=== PATIENT | female | born 1970 | race Caucasian/White ===

== ENCOUNTER 2020-10-09 08:40 | Outpatient (REF) | payer OTHER, SELFPAY ==
--- NOTE | 2020-10-09 08:44 | XR_ITS ---
EXAMINATION: XR CHEST CLINICAL INFORMATION: Shortness of breath COMPARISON: Chest radiographs 02/08/2018 TECHNIQUE: 2 views of the chest were obtained. FINDINGS: There is fine linear scar left lateral base similar to prior study 2018. There is no airspace consolidation or definite groundglass opacity. No effusion. The costophrenic sulci are clear. The heart is normal in size. The hilar and mediastinal contours are unremarkable. There are spinal stimulator electrode seen lower thoracic spine. XR/XR chest 2V IMPRESSION: Unremarkable examination.
== END 2020-10-09 08:41 | disposition home or self-care (01) ==
LOC: HO.HMGCX 08:40
PROVIDERS: PCP Internal Medicine; Visit Provider Hospitalist
DX: R06.02 Shortness of breath (principal)
CPT/HCPCS: 71046

== ENCOUNTER → 2020-12-04 08:41 | Outpatient (BNVA) | payer OTHER, SELFPAY | PROVIDERS: Visit Provider Physician Assistant | DX: M75.101 Unspecified rotator cuff tear or rupture of right shoulder, not specified as traumatic (principal); M79.7 Fibromyalgia; Z79.899 Other long term (current) drug therapy | CPT/HCPCS: 20610; 99212; J1040 ==

== ENCOUNTER 2021-02-16 12:07 | Outpatient (REF) | payer OTHER, SELFPAY ==
--- NOTE | ~2021-02-16 | MM_ITS ---
EXAMINATION: MM SCREENING DIGITAL BREAST TOMOSYNTHESIS, BILATERAL CLINICAL INFORMATION: Screening. Asymptomatic. Bilateral reduction mammoplasty since prior exam 2018. The lifetime risk of breast cancer based on the Tyrer-Cuzick Model is 7%. COMPARISON: Mammography: 08/02/2019, 07/18/2017 TECHNIQUE: Digital breast tomosynthesis is performed in both the craniocaudal and mediolateral oblique views along with computer-aided detection (CAD). Synthesized 2D images are generated from the tomosynthesis. Additional exaggerated right CC view is provided. FINDINGS: There are scattered areas of fibroglandular density (ACR BI-RADS breast composition Category b). There are expected postsurgical changes consistent with the reduction mammoplasty since prior mammography 08/02/2019. There is minor scarring, bilateral breast reduced size, and scattered benign mildly coarse dystrophic calcifications and calcifications of fat necrosis. The axilla are unremarkable. There are no significant changes. MM/MM tomosynthesis screening BI IMPRESSION: No mammographic evidence of malignancy. Postsurgical changes consistent with recent reduction mammoplasty. ASSESSMENT: BI-RADS 2: Benign RECOMMENDATION: Routine annual mammography screening. This patient's information was entered into a reminder system with a target due date for their next mammogram.
== END 2021-02-16 12:08 | disposition home or self-care (01) ==
LOC: HO.MAMMO 12:07
PROVIDERS: PCP Internal Medicine; Visit Provider Internal Medicine
DX: Z12.31 Encounter for screening mammogram for malignant neoplasm of breast (principal)
CPT/HCPCS: 77063; 77067

== ENCOUNTER → 2021-02-26 10:58 | Outpatient (BNVA) | payer OTHER, SELFPAY | PROVIDERS: Visit Provider Nurse Practitioner Family | DX: G03.9 Meningitis, unspecified (principal); M62.89 Other specified disorders of muscle; Z96.89 Presence of other specified functional implants | CPT/HCPCS: 99212 ==

== ENCOUNTER 2021-03-02 09:05 | Outpatient (REF) | payer OTHER, SELFPAY ==
[2021-03-02 10:45] LABS: Hematocrit 42.6 % (37-47); Hemoglobin 13.5 g/dl (12.0-16.0); Mean Corpuscular HGB Conc 31.7 g/dl (31.0-35.0); Mean Corpuscular Hemoglobin 29.9 pg (27.0-33.0); Mean Corpuscular Volume 94.5 fL (80-98); Platelet Count 271 X10*3/uL (160-400); Red Blood Count 4.51 X10*6/uL (4.20-5.50); Red Cell Distribution Width 13.7 % (11.0-16.0); White Blood Count 8.3 X10*3/uL (4.8-10.8)
[2021-03-02 11:00] LABS: Alanine Aminotransferase 23 U/L (0-31); Albumin Level 4.4 g/dL (3.5-5.0); Alkaline Phosphatase 98 U/L (39-117); Anion Gap 16 (12-20); Aspartate Amino Transferase 16 U/L (5-31); Bilirubin Total 0.7 mg/dL (0.0-1.0); Blood Urea Nitrogen 10 mg/dL (9-16); Calcium 9.8 mg/dL (8.4-10.2); Carbon Dioxide 25 mmol/L (22-29); Chloride 103 mmol/L (96-108); Cholesterol 200 mg/dL; Estimated Glomerular Filt Rate > 60; Glucose Fasting 100 mg/dL (60-99); HDL Cholesterol 63 mg/dL; LDL Cholesterol Calculated 127 mg/dl; Potassium 4.2 mmol/L (3.3-5.1); Sodium 140 mmol/L (135-145); Total Protein 6.8 g/dL (6.5-8.0); Triglycerides 53 mg/dL
[2021-03-02 11:04] LABS: Glucose Urine UA NEG (NEG); Leukocyte Esterase Urine NEG (NEG); Nitrite Urine NEG (NEG); PH 6.5 (5.0-8.0); Urine Blood NEG (NEG); Urine Ketones NEG (NEG); Urine Protein NEG (NEG-TRACE)
[2021-03-02 11:05] LABS: Appearance Urine CLOUDY; Color Urine YELLOW
[2021-03-02 11:24] LABS: Thyroid Stimulating Hormone 0.87 uIU/mL (0.32-4.0)
== END 2021-03-02 09:06 | disposition home or self-care (01) ==
LOC: HO.LAB 09:05
PROVIDERS: PCP Internal Medicine; Visit Provider Internal Medicine
DX: Z00.00 Encounter for general adult medical examination without abnormal findings (principal); J45.909 Unspecified asthma, uncomplicated; M47.816 Spondylosis without myelopathy or radiculopathy, lumbar region
CPT/HCPCS: 36415; 80053; 80061; 81003; 84443; 85027

== ENCOUNTER → 2021-03-08 12:32 | Outpatient (BNVA) | payer OTHER, SELFPAY | PROVIDERS: PCP Internal Medicine; Visit Provider Physician Assistant | DX: M62.89 Other specified disorders of muscle (principal); S46.819A Strain of other muscles, fascia and tendons at shoulder and upper arm level, unspecified arm, initial encounter | CPT/HCPCS: 99212 ==

== ENCOUNTER → 2021-03-11 10:53 | Outpatient (BNVA) | payer OTHER, SELFPAY | PROVIDERS: PCP Internal Medicine; Visit Provider Nurse Practitioner Family ==

== ENCOUNTER → 2021-03-12 10:38 | Outpatient (BNVA) | payer OTHER, SELFPAY | PROVIDERS: PCP Internal Medicine; Visit Provider Nurse Practitioner Family | DX: G03.9 Meningitis, unspecified (principal); M62.89 Other specified disorders of muscle; Z96.89 Presence of other specified functional implants | CPT/HCPCS: 99212 ==

== ENCOUNTER → 2021-03-24 12:55 | Outpatient (BNVA) | payer OTHER, SELFPAY | PROVIDERS: PCP Internal Medicine; Visit Provider Nurse Practitioner Family | DX: G03.9 Meningitis, unspecified (principal); M62.89 Other specified disorders of muscle; Z96.89 Presence of other specified functional implants | CPT/HCPCS: 99212 ==

== ENCOUNTER 2021-04-06 08:39 | Outpatient (REF) | payer OTHER, SELFPAY | END 2021-04-06 08:40 | disposition home or self-care (01) | LOC: HO.LAB 08:39 | PROVIDERS: Visit Provider Internal Medicine | DX: Z20.822 Contact with and (suspected) exposure to COVID-19 (principal) | CPT/HCPCS: C9803; U0003; U0005 ==

== ENCOUNTER → 2021-04-21 12:54 | Outpatient (BNVA) | payer OTHER, SELFPAY | PROVIDERS: PCP Internal Medicine; Visit Provider Nurse Practitioner Family | DX: G03.9 Meningitis, unspecified (principal); M62.89 Other specified disorders of muscle; Z96.89 Presence of other specified functional implants | CPT/HCPCS: 99212 ==

== ENCOUNTER → 2021-05-20 09:51 | Outpatient (BNVA) | payer OTHER, SELFPAY | PROVIDERS: PCP Internal Medicine; Visit Provider Anesthesiology | DX: G03.9 Meningitis, unspecified (principal); M62.89 Other specified disorders of muscle; Z96.89 Presence of other specified functional implants | CPT/HCPCS: 99212 ==

== ENCOUNTER 2021-05-28 08:25 | Outpatient (REF) | payer OTHER, SELFPAY ==
--- NOTE | ~2021-05-28 | US_ITS ---
EXAMINATION: US ABDOMEN LIMITED CLINICAL INFORMATION: Right upper quadrant pain. COMPARISON: CT abdomen 04/03/2019. Ultrasound abdomen complete 04/25/2018. TECHNIQUE: Real-time imaging of the right upper quadrant abdominal viscera. FINDINGS: PANCREAS: Normal. LIVER: The liver is normal in size. The liver contour is normal. Liver echotexture is increased. No focal hepatic lesion. There is no intrahepatic biliary duct dilatation seen. GALLBLADDER: The gallbladder is physiologically distended without evidence of stones, sludge, polyps, wall thickening or pericholecystic fluid. COMMON BILE DUCT: Normal in caliber measuring 0.5 cm in diameter. RIGHT KIDNEY: Normal. No hydronephrosis. No renal calculi or focal parenchymal lesions. The kidney measures 12.0 cm in maximum dimension. FREE FLUID: None. US/US abdomen limited IMPRESSION: Echogenic liver probably representing fatty infiltration. Otherwise unremarkable exam.
== END 2021-05-28 08:26 | disposition home or self-care (01) ==
LOC: HO.HMGCX 08:25
PROVIDERS: PCP Internal Medicine; Visit Provider Internal Medicine
DX: R10.11 Right upper quadrant pain (principal)
CPT/HCPCS: 76705

== ENCOUNTER → 2021-06-11 08:25 | Outpatient (BNVA) | payer OTHER, SELFPAY | PROVIDERS: PCP Internal Medicine; Visit Provider Nurse Practitioner Family | DX: G03.9 Meningitis, unspecified (principal); M62.89 Other specified disorders of muscle; Z96.89 Presence of other specified functional implants | CPT/HCPCS: 99212 ==

== ENCOUNTER → 2021-07-09 08:21 | Outpatient (BNVA) | payer OTHER, SELFPAY | PROVIDERS: PCP Internal Medicine; Visit Provider Nurse Practitioner Family | DX: G03.9 Meningitis, unspecified (principal); M62.89 Other specified disorders of muscle; Z96.89 Presence of other specified functional implants | CPT/HCPCS: 99212 ==

== ENCOUNTER 2021-07-15 09:22 | Outpatient (REF) | payer OTHER, SELFPAY ==
--- NOTE | ~2021-07-15 | XR_ITS ---
EXAMINATION: XR THORACIC SPINE CLINICAL INFORMATION: Presence of other specified functional implants. COMPARISON: None TECHNIQUE: AP, lateral, and swimmer's views of the thoracic spine. FINDINGS: Normal vertebral body alignment. The thoracic kyphosis is maintained. No acute fracture or subluxation. No loss of vertebral body or intervertebral disc height. No lytic or blastic osseous lesion. The visualized lungs are clear. Posterior epidural catheter leads with their tips at the level of T8. XR/XR thoracic spine 2V IMPRESSION: Posterior epidural catheter leads terminating at the level of T8. No acute osseous abnormality.
== END 2021-07-15 09:23 | disposition home or self-care (01) ==
LOC: HO.XRAY 09:22
PROVIDERS: PCP Internal Medicine; Visit Provider Nurse Practitioner Family
DX: Z96.89 Presence of other specified functional implants (principal)
CPT/HCPCS: 72070

== ENCOUNTER → 2021-07-30 08:04 | Outpatient (BNVA) | payer OTHER, SELFPAY | PROVIDERS: PCP Internal Medicine; Visit Provider Nurse Practitioner Family | DX: Z51.81 Encounter for therapeutic drug level monitoring (principal); M62.89 Other specified disorders of muscle; G03.9 Meningitis, unspecified; Z96.89 Presence of other specified functional implants; V89.2XXD Person injured in unspecified motor-vehicle accident, traffic, subsequent encounter | CPT/HCPCS: 99212 ==

== ENCOUNTER 2021-08-13 18:11 | Outpatient (REF) | payer OTHER, SELFPAY ==
[2021-08-13 18:55] LABS: Influenza A PCR NEGATIVE (Negative); Influenza B PCR NEGATIVE (Negative); Resp Syncy Virus RNA Qual PCR POSITIVE (Negative); SARS COV2 PCR INHOUSE NEGATIVE (Negative)
== END 2021-08-13 18:12 | disposition home or self-care (01) ==
LOC: HO.LNP 18:11
PROVIDERS: Visit Provider Family Medicine
DX: Z20.822 Contact with and (suspected) exposure to COVID-19 (principal); R05.9 Cough, unspecified
CPT/HCPCS: 0241U

== ENCOUNTER 2021-08-16 08:21 | Outpatient (REF) | payer OTHER, SELFPAY ==
--- NOTE | ~2021-08-16 | XR_ITS ---
EXAMINATION: XR CHEST CLINICAL INFORMATION: Cough COMPARISON: Previous chest x-ray October 2020 TECHNIQUE: 2 views of the chest were obtained. FINDINGS: The cardiac and mediastinal contours are normal. The lungs are clear. There is no pleural effusion or pneumothorax. There is a spinal stimulator in the lower thoracic spine. Bony structures are otherwise unremarkable. XR/XR chest 2V IMPRESSION: No evidence for acute disease in the chest.
== END 2021-08-16 08:22 | disposition home or self-care (01) ==
LOC: HO.XRAY 08:21
PROVIDERS: PCP Internal Medicine; Visit Provider Family Medicine
DX: R05.9 Cough, unspecified (principal)
CPT/HCPCS: 71046

== ENCOUNTER 2021-08-17 06:14 | Outpatient (REF) | payer OTHER, SELFPAY ==
--- NOTE | ~2021-08-17 | FL_ITS ---
EXAMINATION: XR FLUOROSCOPY WITH IMAGES CLINICAL INFORMATION: Presence of other specified functional implant COMPARISON: Previous fluoroscopic exam April 2018 and thoracic spine x-ray June 2021 and July 2021 TECHNIQUE: Fluoroscopy performed by Josefina Osman NP. Fluoroscopy time: Grater than 1 minute Dose: 2.6 mgy. 0.7 thompson per centimeter squared Images: 4 FINDINGS: There are 2 leads seen in the spinal canal of the lower thoracic spine. The top of the leads are at the T8 vertebral body level. FL/FL guidance in treatment room IMPRESSION: 2 spinal leads in the thoracic spinal canal similar to previous x-rays.
== END 2021-08-17 06:15 | disposition home or self-care (01) ==
LOC: HO.RADIR 06:14
PROVIDERS: Visit Provider Anesthesiology
DX: G03.9 Meningitis, unspecified (principal); M62.89 Other specified disorders of muscle; V89.2XXA Person injured in unspecified motor-vehicle accident, traffic, initial encounter; Z96.89 Presence of other specified functional implants
CPT/HCPCS: 76000

== ENCOUNTER → 2021-08-27 08:02 | Outpatient (BNVA) | payer OTHER, SELFPAY | PROVIDERS: Visit Provider Nurse Practitioner Family | DX: J12.1 Respiratory syncytial virus pneumonia (principal); M79.7 Fibromyalgia; G03.9 Meningitis, unspecified; M62.89 Other specified disorders of muscle; F32.A Depression, unspecified; Z88.6 Allergy status to analgesic agent; Z88.8 Allergy status to other drugs, medicaments and biological substances; Z96.82 Presence of neurostimulator | CPT/HCPCS: 99212 ==

== ENCOUNTER → 2021-08-31 08:09 | Outpatient (BNVA) | payer OTHER, SELFPAY | PROVIDERS: Visit Provider Nurse Practitioner Family ==

== ENCOUNTER 2021-10-20 16:42 | Outpatient (REF) | payer OTHER, SELFPAY ==
--- NOTE | ~2021-10-20 | MR_ITS ---
EXAMINATION: MR LUMBAR SPINE WITHOUT CONTRAST CLINICAL INFORMATION: Lumbar sprain. COMPARISON: MRI scan of the lumbar spine 07/11/2017. CT scan of the abdomen 04/03/2019. TECHNIQUE: MRI of the lumbar spine was obtained using routine sequences without contrast. FINDINGS: VERTEBRAL BODIES AND PARASPINAL STRUCTURES: There is a mild retrolisthesis of L5 on S1. There is disc desiccation at the levels of L3-L4, L4-L5 and L5-S1. Vertebral body heights are maintained and no fractures are demonstrated. There is slight degenerative endplate contour changes with fatty endplate signal seen toward the left at L5-S1. There is susceptibility artifact from a stimulator generator in the right gluteal region, and from the leads extending cephalad into the spinal canal at the level of T12-L1; this is new compared to the prior MRI scan, but was seen on the more recent CT scan. Overall, marrow signal is homogenous. The visualized retroperitoneal and pelvic structures are unremarkable. CONUS MEDULLARIS AND CAUDA EQUINA: Normal, terminating at the level of L1. The lower thoracic spinal cord appears normal. The cauda equina nerve roots and filum terminale appear normal. SPINAL LEVELS: L1-L2: The facet joints appear normal. Disc contour is normal. There is no central stenosis and the neural foramina are patent. L2-L3: The facet joints appear normal bilaterally. Disc contour is normal. There is no central stenosis or foraminal narrowing. L3-L4: There is mild bilateral facet arthropathy. Disc contour is normal. There is no central stenosis or foraminal narrowing. L4-L5: There is mild bilateral facet arthropathy. Disc contour is normal. There is no central stenosis or foraminal narrowing. L5-S1: There is mild bilateral facet arthropathy. There is a posterior disc protrusion extending into the left neural foramen with impingement on the exiting left L5 nerve root. There is mild narrowing of the left subarticular recess. There is no central stenosis. MR/MR lumbar spine wo con IMPRESSION: 1. At L5-S1 there is mild facet arthropathy and there is a posterior disc protrusion extending into the left neural foramen. There is impingement on the exiting left L5 nerve root. There is no central stenosis. 2. No significant spondylitic or facet arthropathic changes are demonstrated at other levels as described above.
== END 2021-10-20 16:43 | disposition home or self-care (01) ==
LOC: HO.MRI 16:42
PROVIDERS: PCP Family Medicine; Visit Provider Physician Assistant Medical
DX: S33.5XXD Sprain of ligaments of lumbar spine, subsequent encounter (principal)
CPT/HCPCS: 72148

== ENCOUNTER 2021-12-08 07:42 | Outpatient (REF) | payer MEDICAID, SELFPAY ==
[2021-12-08 10:38] LABS: MANUAL DIFF FLAG NO
[2021-12-08 10:41] LABS: Basophils Percent Auto 0.4 % (0-2); Eosinophils Absolute Auto 0.1 X10*3/uL (0.0-0.4); Eosinophils Percent Auto 1.2 % (0-4); Hematocrit 44.3 % (37.0-47.0); Hemoglobin 14.2 g/dl (12.0-16.0); Imm Gran Abs Auto 0.02 X10*3/uL (0.00-0.03); Imm Gran Pct Auto 0.3 % (0.0-0.4); Lymphocytes Absolute Auto 2.2 X10*3/uL (1.2-4.9); Lymphocytes Percent Auto 29.5 % (20-40); Mean Corpuscular HGB Conc 32.1 g/dl (31.0-35.0); Mean Corpuscular Hemoglobin 30.1 pg (27.0-33.0); Mean Corpuscular Volume 93.9 fL (80.0-98.0); Mean Platelet Volume 10.1 fL (9.4-12.3); Monocytes Absolute Auto 0.5 X10*3/uL (0.1-1.2); Monocytes Percent Auto 6.7 % (2-11); Neutrophils Absolute Auto 4.6 x10*3/uL (2.0-8.3); Neutrophils Percent Auto 61.9 % (45-73); Platelet Count 255 X10*3/uL (160-400); Red Blood Count 4.72 X10*6/uL (4.20-5.50); Red Cell Distribution Width 13.1 % (11.0-16.0); White Blood Count 7.5 X10*3/uL (4.8-10.8)
[2021-12-08 11:02] LABS: Alanine Aminotransferase 25 U/L (0-31); Albumin Level 4.6 g/dL (3.5-5.0); Alkaline Phosphatase 100 U/L (39-117); Anion Gap 12 (12-20); Aspartate Amino Transferase 15 U/L (5-31); Bilirubin Total 0.8 mg/dL (0.0-1.0); Blood Urea Nitrogen 19 mg/dL (9-16); Carbon Dioxide 29 mmol/L (22-29); Chloride 105 mmol/L (96-108); Cholesterol 200 mg/dL; Estimated Glomerular Filt Rate > 60; Glucose Fasting 113 mg/dL (60-99); HDL Cholesterol 55 mg/dL; LDL Cholesterol Calculated 134 mg/dl; Potassium 4.3 mmol/L (3.3-5.1); Sodium 142 mmol/L (135-145); Total Protein 7.3 g/dL (6.5-8.0); Triglycerides 55 mg/dL
[2021-12-08 11:17] LABS: HBS Num1 36.59 mIU/mL (0-7.99); HBc Num1 0.11 S/CO (0.00-0.79); HIV AB/AG Nonreactive (Nonreactive); HIV Num 1 0.05 S/CO (0.00-0.99); Hepatitis B Core Antibody Nonreactive (Nonreactive); ~HepC Num1 0.37 S/CO (0.00-0.79); ~Hepatitis B Surface Antibody REACTIVE (Nonreactive); ~Hepatitis C Antibody Nonreactive (Nonreactive)
[2021-12-08 11:19] LABS: Syphilis Screen Nonreactive (Nonreactive)
[2021-12-08 11:22] LABS: Erythrocyte Sedimentation Rate 27 MM/HR (0-20)
[2021-12-08 11:23] LABS: TSH reflex Free T4 2.03 uIU/mL (0.32-4.0)
[2021-12-08 11:47] LABS: Hepatitis B Surface Antigen Negative (Negative)
[2021-12-10 06:31] LABS: Lyme Abs Screen <0.90 index
[2021-12-10 13:31] LABS: Anti Nuclear Antibody Screen NEGATIVE (NEGATIVE)
[2021-12-10 16:57] LABS: CRP High Sensitivity >10.0 mg/L
== END 2021-12-08 07:43 | disposition home or self-care (01) ==
LOC: HO.WFDLDS 07:42
PROVIDERS: Visit Provider Family Medicine
DX: Z00.00 Encounter for general adult medical examination without abnormal findings (principal); Z11.3 Encounter for screening for infections with a predominantly sexual mode of transmission; M62.89 Other specified disorders of muscle
CPT/HCPCS: 36415; 80053; 80061; 84443; 85025; 85652; 86038; 86039; 86141; 86617; 86618; 86704; 86706; 86780; 86803; 87340; 87389

== ENCOUNTER → 2022-01-05 10:21 | Outpatient (REF) | payer OTHER, SELFPAY | LOC: HO.CARD 10:21 | PROVIDERS: PCP Family Medicine; Referring Provider Family Medicine; Visit Provider Internal Medicine | DX: R00.2 Palpitations (principal); Z82.49 Family history of ischemic heart disease and other diseases of the circulatory system; Z79.899 Other long term (current) drug therapy | CPT/HCPCS: 99202 ==

== ENCOUNTER 2022-01-14 07:46 | Outpatient (REF) | payer OTHER, SELFPAY ==
[2022-01-14 08:32] LABS: Estimated Average Glucose 111 mg/dL; Hemoglobin A1c % 5.5 %
== END 2022-01-14 07:47 | disposition home or self-care (01) ==
LOC: HO.LAB 07:46
PROVIDERS: PCP Family Medicine; Visit Provider Family Medicine
DX: R73.01 Impaired fasting glucose (principal)
CPT/HCPCS: 36415; 83036

== ENCOUNTER → 2022-02-04 10:57 | Outpatient (REF) | payer OTHER, SELFPAY ==
--- NOTE | 2022-02-04 11:01 | HM_ITS ---
TEST PERFORMED: Cardiac event monitor. ENROLLMENT PERIOD: 02/04/2022 to 03/06/2022, 30 days. INDICATION: Palpitations. REQUESTING PHYSICIAN: Dr. York. FINDINGS: In the above monitoring period, underlying rhythm was sinus. Rates ranged from 81 beats per minute to 98 beats per minute. There was 1 documented symptom of palpitations that correlated with sinus rhythm. Otherwise, no arrhythmias noted during this monitoring. CONCLUSION: Essentially unremarkable 30 day monitor showing sinus rhythm only. Yoan York MD HS/MODL / [id number]
== END ==
LOC: HO.CARD 10:57
PROVIDERS: PCP Family Medicine; Visit Provider Internal Medicine
DX: R00.2 Palpitations (principal)
CPT/HCPCS: 93270

== ENCOUNTER → 2022-02-17 11:00 | Outpatient (REF) | payer OTHER, SELFPAY ==
--- NOTE | 2022-02-17 11:02 | CA_ITS ---
Transthoracic Echocardiogram Patient (Last, First, Middle): Lucia Coleman, Gender: Female Date of : 1970 Age: 51 Procedure Date: 02/17/2022 Procedure Type: Transthoracic Echocardiogram Location: OP Height: 154.94 cm Weight: 81.19 kg BSA: 1.80 m2 Heart Rate: bpm BP: 120 / 80 mmHg Mixed Animal Veterinarian: YR/TO Referring MD: Yoan York MD Fitness Consultant: Mainor Rowell MD Symptoms: R00.2 - Palpitations Study Quality: Fair ECG Rhythm: Sinus Conclusions: - Essentially normal study Findings Left Ventricle Normal left ventricular size, thickness, and systolic function. The visually estimated ejection fraction is between 60-65%. Spectral Doppler is indicative of a normal filling pattern. E/E prime ratio is <8, consistent with normal filling pressures. Right Ventricle Normal right ventricular cavity size and systolic function. Atria Both atria are normal in size. Interatrial shunt cannot be excluded. Aortic Valve Normal aortic valve structure and function. There is no aortic valve stenosis. There is no aortic valve regurgitation. Mitral Valve Normal mitral valve structure and function. There is trace mitral valve regurgitation. There is no mitral valve stenosis. Pulmonic Valve The pulmonic valve was not well visualized. Tricuspid Valve Likely normal tricuspid valve structure and function. There is trace tricuspid valve regurgitation. The right ventricular systolic pressure is normal. The right ventricular systolic pressure is 17 mmHg. There is no evidence of pulmonary hypertension. Great Vessels All visible segments of the aorta are normal in size. The pulmonary artery was not well visualized. Venous The inferior vena cava is normal in size and collapses greater than 50% with inspiration. Pericardium/Pleural There is no evidence of pericardial effusion. Prior Study Comparison no previous study in the last 5 years for comparison Measurements 2D Linear Measurements IVSd: 0.83 0.6-0.9/0.6-1.0 cm LVIDd: 4.21 3.9-5.3/4.2-5.9 cm LVIDd Index: 2.34 2.4-3.2/2.2-3.1 cm/m2 LVIDs: 2.69 2.0-3.6 cm LVPWd: 0.80 0.7-1.1 cm LA Diam: 3.20 2.7-3.8/3.0-4.0 cm LAIDs Index: 1.78 1.5-2.3 cm/m2 LV Mass: 129.12 67-162/88-224 g LV Mass Index: 71.73 43-95/49-115 g/m2 LVOT Diam: 2.10 3.0+(-)1.3 cm 2D Systolic Function EF 4C: 61.40 >55% EF 2C: 59.10 >55% EF BiP: 60.90 >55% Mitral Valve MV Pk E: 0.75 MV PK A: 0.75 MV Decel Time: 186.00 E/A: 1.00 E'Lateral: 12.90 E'Medial: 8.49 E/E' Med: 8.80 E/E' Lat: 5.80 PHT: 54.00 MVA PHT: 4.07 Decel [place]: 4.02 Aortic Valve AoV Pk Bert: 1.10 AoV Mn Bert: 0.77 AoV VTI: 0.25 AoV Pk Grad: 5.00 Aov Mn Grad: 3.00 GORAN Cont.VTI: 2.91 LVOT LVOT Pk Bert: 0.99 LVOT Mn Bert: 0.65 LVOT VTI: 0.21 LVOT Pk Grad: 4.00 LVOT Mn Grad: 2.00 LVOT Diam: 2.10 LVOT Area: 3.46 Diastolic Function MV Pk E: 0.75 MV Pk A: 0.75 E/A: 1.00 E'Medial: 8.49 E/E' Med: 8.80 E' Laterial: 12.90 E/E' Lat: 5.80 Right Ventricle TAPSE (mm): 26.70 TVS' Bert: 9.57 Tricuspid Valve TR Pk Bert: 1.90 TR Pk Grad: 14.00 RA Press: 3.00 RVSP: 17.00 Great Vessels Aorta Sinus of Valsalva: 3.03 2.0-3.[address] [place]: 2.96 1.7-3.4 cm Ao Asc: 3.00 2.1-3.4 cm Ao Arch: 3.10 Updated in Other Vendor System with Status of Final Mainor Rowell MD electronically signed on 02/17/2022 2:29:21 PM with status of Final
== END ==
LOC: HO.CARD 11:00
PROVIDERS: Visit Provider Internal Medicine
DX: R00.2 Palpitations (principal)
CPT/HCPCS: 93306

== ENCOUNTER → 2022-03-29 08:04 | Outpatient (BNVA) | payer OTHER, SELFPAY | PROVIDERS: PCP Family Medicine; Referring Provider Family Medicine; Visit Provider Nurse Practitioner | DX: K21.9 Gastro-esophageal reflux disease without esophagitis (principal); R14.0 Abdominal distension (gaseous); D12.6 Benign neoplasm of colon, unspecified | CPT/HCPCS: 99202 ==

== ENCOUNTER 2022-04-06 09:43 | Outpatient (REF) | payer OTHER, SELFPAY ==
[2022-04-12 18:26] LABS: Pancreatic Elastase-1 >500 mcg/g
== END 2022-04-06 09:44 | disposition home or self-care (01) ==
LOC: HO.LNP 09:43
PROVIDERS: Visit Provider Nurse Practitioner
DX: R14.0 Abdominal distension (gaseous) (principal)
CPT/HCPCS: 82656

== ENCOUNTER → 2022-04-15 07:53 | Outpatient (BNVA) | payer OTHER, SELFPAY | PROVIDERS: PCP Family Medicine; Visit Provider Psychiatry & Neurology Neurology | DX: M54.9 Dorsalgia, unspecified (principal); Z96.82 Presence of neurostimulator | CPT/HCPCS: 99202 ==

== ENCOUNTER 2022-05-13 08:53 | Outpatient (REF) | payer OTHER, SELFPAY ==
--- NOTE | ~2022-05-13 | FL_ITS ---
EXAMINATION: FL BARIUM SWALLOW CLINICAL INFORMATION: Gastroesophageal reflux disease without esophagitis COMPARISON: None TECHNIQUE: Barium swallow examination is performed using fluoroscopic evaluation in addition to multiple fluoroscopic spot views. The patient is imaged both upright and prone and using both thick and thin sulfate along with effervescent granules. Barium tablet was also administered. Fluoroscopy time: 0.8 minutes DAP: 8 Gycm2 Images: 55 FINDINGS: The swallowing mechanism is normal. No aspiration or penetration is seen. There is gastroesophageal reflux. The esophagus is otherwise normal. No mass, stricture or hernia is seen. The barium tablet passed freely into the stomach. FL/FL barium swallow IMPRESSION: Gastroesophageal reflux.
== END 2022-05-13 08:54 | disposition home or self-care (01) ==
LOC: HO.XRAY 08:53
PROVIDERS: Visit Provider Nurse Practitioner
DX: K21.9 Gastro-esophageal reflux disease without esophagitis (principal)
CPT/HCPCS: 74220

== ENCOUNTER → 2022-06-15 08:00 | Outpatient (BNVA) | payer OTHER, SELFPAY | PROVIDERS: PCP Family Medicine; Visit Provider Internal Medicine Rheumatology | DX: M54.9 Dorsalgia, unspecified (principal); R70.0 Elevated erythrocyte sedimentation rate; M47.816 Spondylosis without myelopathy or radiculopathy, lumbar region; Z96.89 Presence of other specified functional implants | CPT/HCPCS: 99202 ==

== ENCOUNTER 2022-06-16 08:06 | Outpatient (REF) | payer OTHER, SELFPAY ==
--- NOTE | ~2022-06-16 | XR_ITS ---
EXAMINATION: XR SACROILIAC JOINTS CLINICAL INFORMATION: Dorsalgia. COMPARISON: None. TECHNIQUE: 3 views of the sacroiliac joints FINDINGS: The SI joints are symmetrical and normal. No erosive changes or sclerosis seen. No fracture or bony abnormality involving the sacrum or the iliac bones. Two small electrodes are seen extending from hardware overlying the right pelvis into the lumbar epidural space. The cephalad extension of electrodes is not in the [id number]. XR/XR sacroiliac joint min 3V IMPRESSION: Unremarkable SI joints.
== END 2022-06-16 08:07 | disposition home or self-care (01) ==
LOC: HO.XRAY 08:06
PROVIDERS: PCP Family Medicine; Visit Provider Internal Medicine Rheumatology
DX: M54.9 Dorsalgia, unspecified (principal); R70.0 Elevated erythrocyte sedimentation rate
CPT/HCPCS: 72202

== ENCOUNTER 2022-06-20 09:28 | Outpatient (REF) | payer OTHER, SELFPAY ==
[2022-06-20 11:26] LABS: MANUAL DIFF FLAG NO
[2022-06-20 11:46] LABS: Basophils Percent Auto 0.5 % (0-2); Eosinophils Absolute Auto 0.1 X10*3/uL (0.0-0.4); Hematocrit 41.5 % (37.0-47.0); Hemoglobin 13.5 g/dl (12.0-16.0); Imm Gran Abs Auto 0.02 X10*3/uL (0.00-0.03); Imm Gran Pct Auto 0.3 % (0.0-0.4); Lymphocytes Absolute Auto 2.3 X10*3/uL (1.2-4.9); Lymphocytes Percent Auto 35.8 % (20-40); Mean Corpuscular HGB Conc 32.5 g/dl (31.0-35.0); Mean Corpuscular Hemoglobin 30.2 pg (27.0-33.0); Mean Corpuscular Volume 92.8 fL (80.0-98.0); Mean Platelet Volume 9.9 fL (9.4-12.3); Monocytes Absolute Auto 0.5 X10*3/uL (0.1-1.2); Monocytes Percent Auto 7.1 % (2-11); Neutrophils Absolute Auto 3.5 x10*3/uL (2.0-8.3); Neutrophils Percent Auto 54.3 % (45-73); Platelet Count 247 X10*3/uL (160-400); Red Blood Count 4.47 X10*6/uL (4.20-5.50); Red Cell Distribution Width 13.4 % (11.0-16.0); White Blood Count 6.4 X10*3/uL (4.8-10.8)
[2022-06-20 12:18] LABS: Alanine Aminotransferase 25 U/L (0-31); Albumin Level 4.4 g/dL (3.5-5.0); Alkaline Phosphatase 105 U/L (39-117); Anion Gap 17 (12-20); Aspartate Amino Transferase 17 U/L (5-31); Bilirubin Total 0.7 mg/dL (0.0-1.0); Blood Urea Nitrogen 11 mg/dL (9-16); C Reactive Protein 2.65 mg/dL (< or = 0.50); Calcium 9.2 mg/dL (8.4-10.2); Carbon Dioxide 26 mmol/L (22-29); Chloride 104 mmol/L (96-108); Estimated Glomerular Filt Rate > 60; Glucose Random 98 mg/dL (60-115); Potassium 4.5 mmol/L (3.3-5.1); Sodium 142 mmol/L (135-145); Total Protein 6.9 g/dL (6.5-8.0)
[2022-06-20 12:21] LABS: TSH reflex Free T4 1.03 uIU/mL (0.32-4.0)
[2022-06-20 12:27] LABS: Rheumatoid Factor < 15.0 IU/mL (<15.0)
[2022-06-22 06:22] LABS: Lutenizing Hormone 45.9 mIU/mL
[2022-06-22 18:32] LABS: Cyclic Citrullinated Peptide <16 UNITS
== END 2022-06-20 09:29 | disposition home or self-care (01) ==
LOC: HO.WFDLDS 09:28
PROVIDERS: Family Medicine; Visit Provider Internal Medicine Rheumatology
DX: Z00.00 Encounter for general adult medical examination without abnormal findings (principal); M54.9 Dorsalgia, unspecified; R70.0 Elevated erythrocyte sedimentation rate; R23.2 Flushing
CPT/HCPCS: 36415; 80053; 82550; 83001; 83002; 84443; 85025; 86140; 86200; 86431

== ENCOUNTER 2022-06-23 16:24 | Outpatient (REF) | payer OTHER, SELFPAY ==
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
== END 2022-06-23 16:25 | disposition home or self-care (01) ==
LOC: HO.MRI 16:24
PROVIDERS: Visit Provider Physical Medicine & Rehabilitation
DX: M51.26 Other intervertebral disc displacement, lumbar region (principal)
CPT/HCPCS: 72148

== ENCOUNTER 2022-08-01 09:01 | Day surgery (SDC) | payer OTHER, SELFPAY ==
[2022-07-27 13:51] VITALS: BMI 32.8
--- NOTE | 2022-07-29 11:45 | HO.ANESPROP2 ---
Documented by User: Ema Lewis NP 07/29/22 11:50 HPI - Anesthesia Eval Consult details Narrative: 52yo F for Upper Endoscopy and Colonoscopy Had cardiac w/u 01/2022 for fam hx CAD - EKG, Echo, Coronary CT calcium score all WNL PMFSH Active Problems Active Problems: All Active Problems (Updated 07/27/22 @ 13:44 by Laine Mckeon, RN) Tracheobronchitis (Acute) Rotator cuff tear, right (Acute) Arachnoiditis (Acute) S/P insertion of spinal cord stimulator (Acute) Rotator cuff tear (Acute) GERD (gastroesophageal reflux disease) (Acute) Family history of premature CAD (Acute) Hypercholesterolemia (Acute) Elevated fasting glucose (Acute) Elevated erythrocyte sedimentation rate (Acute) Fatigue (Acute) Tubular adenoma of colon (Acute) Osteoarthritis of lumbar spine (Acute) IBS (irritable bowel syndrome) (Acute) Past Medical History Medical History (Updated 07/27/22 @ 13:44 by Laine Mckeon, ONUR) Asthma Chronic depression Fibromyalgia IBS (irritable bowel syndrome) RUQ abdominal pain Family History Family History Father CVD (cardiovascular disease) Heart attack Mother CVD (cardiovascular disease) Heart attack Maternal Grandmother CVD (cardiovascular disease) Maternal Grandfather Colon cancer Paternal Grandmother No problems noted. Son No problems noted. Son No problems noted. Son No problems noted. Son Heart attack Surgical History Surgical History (Updated 06/15/22 @ 06:54 by Fredo Jiménez MD) Cataract, left eye Cataract, right eye H/O colonoscopy History of abdominoplasty History of esophagogastroduodenoscopy (EGD) History of left knee surgery History of partial hysterectomy History of sinus surgery S/P bilateral breast reduction S/P LEVI-BSO Spinal cord stimulator status Social History Social History Housing: House Alcohol intake: never Patient Tobacco Use Status: Never used Tobacco e-Cigarette/Vaping Use: Never Used Second Hand Smoke Exposure: No Use of substances other than those prescribed or required for medical reasons: No Advance Directives: No Advance Directives Information Provided: Yes service: No Current occupational status: employed Current occupation: right handed Current occupational exposures/hazards: No Cognitive needs: No Hearing needs: No Vision needs: No Meds Allergies Allergy/AdvReac Type Severity Reaction Status Date / Time aspirin [ASA] Allergy Severe asthma Verified 07/27/22 12:48 exacerbation duloxetine [Cymbalta] Allergy Intermediate loopy Verified 07/27/22 12:48 gabapentin Allergy Intermediate loopy Verified 07/27/22 12:48 NSAIDS (Non-Steroidal Allergy Intermediate asthma Verified 07/27/22 12:48 Anti-Inflamma exacerbation [NSAIDS (NON-STEROIDAL ANTI-INFLAMMA] pregabalin Allergy Intermediate loopy Verified 07/27/22 12:48 tramadol [TRAMADOL] Allergy Intermediate tachycardia Verified 07/27/22 12:48 codeine [CODEINE] Allergy Mild Rash Verified 07/27/22 12:48 All SSRIs Allergy Intermediate nightmares Uncoded 07/27/22 12:48 Amitriptyline Allergy Intermediate tachycardia Uncoded 07/27/22 12:48 Home Medications Medication Instructions Recorded Confirmed Last Taken Type fexofenadine 180 mg tablet 180 mg PO DAILY 02/26/21 07/27/22 Unknown History (Sandy Allergy) montelukast 10 mg tablet 10 mg PO BEDTIME 04/30/21 07/27/22 Unknown History doxylamine succinate 25 mg tablet 25 mg PO BEDTIME 03/29/22 06/15/22 Unknown History (Sleep Aid (doxylamine)) dextroamphetamine-amphetamine 10 1 tab PO BID 04/15/22 07/27/22 Unknown History mg tablet levocetirizine 5 mg tablet 5 mg PO BEDTIME 04/15/22 06/15/22 Unknown History triamcinolone acetonide 55 mcg spray intranasal 04/15/22 06/15/22 Unknown History nasal spray aerosol mometasone 50 mcg/actuation nasal 1 spray intranasal BID 05/11/22 06/15/22 Unknown History spray clonazepam 0.5 mg tablet 0.5 mg PO TID PRN Anxiety 06/15/22 07/27/22 Unknown History Exam Exam Date and Time: July 29, 2022 1145 Height,Weight and Vital Signs: Height 5 ft 1 in Weight 78.925 kg Pertinent Lab Results Pertinent Lab Results: Laboratory Tests 06/20/22 06/20/22 09:35 09:35 WBC 6.4 Hgb 13.5 Hct 41.5 Plt Count 247 Sodium 142 Potassium 4.5 Chloride 104 Carbon Dioxide 26 BUN 11 Creatinine 0.72 Narrative Narrative: ECHO 02/2022 Conclusions: - Essentially normal study ? 30 Day Holter 02/2022 CONCLUSION:? Essentially unremarkable 30 day monitor showing sinus rhythm only. EKG 11/2021 inus bradycardia at 57/Min and no significant ST-T changes.? Normal [place] and QTc intervals. Assessment and Plan Assessment Anesthesia Assessment: Chart Reviewed Documented by User: Mallory Chatman MD 08/01/22 09:55 [facility] Past Medical History Medical History (Updated 07/27/22 @ 13:44 by Laine Mckeon RN) Asthma Chronic depression Fibromyalgia IBS (irritable bowel syndrome) RUQ abdominal pain Family History Family History Father CVD (cardiovascular disease) Heart attack Mother CVD (cardiovascular disease) Heart attack Maternal Grandmother CVD (cardiovascular disease) Maternal Grandfather Colon cancer Paternal Grandmother No problems noted. Son No problems noted. Son No problems noted. Son No problems noted. Son Heart attack Family history of problems with anesthesia: No Surgical History Surgical History (Updated 06/15/22 @ 06:54 by Fredo Jiménez MD) Cataract, left eye Cataract, right eye H/O colonoscopy History of abdominoplasty History of esophagogastroduodenoscopy (EGD) History of left knee surgery History of partial hysterectomy History of sinus surgery S/P bilateral breast reduction S/P LEVI-BSO Spinal cord stimulator status History of Problems with Anesthesia: No Social History Social History Housing: House Alcohol intake: never Patient Tobacco Use Status: Never used Tobacco e-Cigarette/Vaping Use: Never Used Second Hand Smoke Exposure: No Use of substances other than those prescribed or required for medical reasons: No Advance Directives: No Advance Directives Information Provided: Yes service: No Current occupational status: employed Current occupation: right handed Current occupational exposures/hazards: No Cognitive needs: No Hearing needs: No Vision needs: No Meds Allergies Allergy/AdvReac Type Severity Reaction Status Date / Time aspirin [ASA] Allergy Severe asthma Verified 07/27/22 12:48 exacerbation duloxetine [Cymbalta] Allergy Intermediate loopy Verified 07/27/22 12:48 gabapentin Allergy Intermediate loopy Verified 07/27/22 12:48 NSAIDS (Non-Steroidal Allergy Intermediate asthma Verified 07/27/22 12:48 Anti-Inflamma exacerbation [NSAIDS (NON-STEROIDAL ANTI-INFLAMMA] pregabalin Allergy Intermediate loopy Verified 07/27/22 12:48 tramadol [TRAMADOL] Allergy Intermediate tachycardia Verified 07/27/22 12:48 codeine [CODEINE] Allergy Mild Rash Verified 07/27/22 12:48 All SSRIs Allergy Intermediate nightmares Uncoded 07/27/22 12:48 Amitriptyline Allergy Intermediate tachycardia Uncoded 07/27/22 12:48 Home Medications Medication Instructions Recorded Confirmed Last Taken Type fexofenadine 180 mg tablet 180 mg PO DAILY 02/26/21 07/27/22 Unknown History (Sandy Allergy) montelukast 10 mg tablet 10 mg PO BEDTIME 04/30/21 07/27/22 Unknown History doxylamine succinate 25 mg tablet 25 mg PO BEDTIME 03/29/22 06/15/22 Unknown History (Sleep Aid (doxylamine)) dextroamphetamine-amphetamine 10 1 tab PO BID 04/15/22 07/27/22 Unknown History mg tablet levocetirizine 5 mg tablet 5 mg PO BEDTIME 04/15/22 06/15/22 Unknown History triamcinolone acetonide 55 mcg spray intranasal 04/15/22 06/15/22 Unknown History nasal spray aerosol mometasone 50 mcg/actuation nasal 1 spray intranasal BID 05/11/22 06/15/22 Unknown History spray clonazepam 0.5 mg tablet 0.5 mg PO TID PRN Anxiety 06/15/22 07/27/22 Unknown History Exam Airway Mallampati Class: II (Multiple caps one implant) TM Dist: >3cm Neck ROM: Full Heart: rrr Lungs: cta Assessment and Plan Assessment Anesthesia Assessment: Anesthesia Plan Discussed Final Anesthetic Review Family History of Problems with Anesthesia: No History of Problems with Anesthesia: No NPO: No ASA Class: II Final Preanesthetic Review: No Changes in Pt Med Stat, Meds/Allgs Chart Reviewed and Consent Obtained/Reviewed Patient Risk: Intermediate Procedure Risk: Intermediate Anesthetic Plan Anesthetic Plan: MAC: Disposition: Standard PACU
[2022-08-01 09:21] VITALS: BP 136/77; PULSE 55; RESP 16; TEMP 36.1; O2SAT 97; BMI 32.8
--- NOTE | 2022-08-01 09:51 | MHC.SHP ---
Pre-Procedural Eval Section A Date of Service: 08/01/22 The patient is an INPATIENT: No The History & Physical has been completed within 30 days and I have reviewed it.: No Section B Chief Complaint: reflux disease,abdominal distension,benign neoplas Relevant Family History (Specify if Yes): Yes Relevant Social History: None Present Medications: see Short Stay Collaborative assessment Medical History: Significant History (Asthma Chronic depression Fibromyalgia History of mammogram IBS (irritable bowel syndrome) RUQ abdominal pain) History of Previous Operations: Relevant previous surgery/procedure and date(s) (Cataract, left eye Cataract, right eye H/O colonoscopy History of abdominoplasty History of esophagogastroduodenoscopy (EGD) History of left knee surgery History of partial hysterectomy History of sinus surgery S/P bilateral breast reduction S/P LEVI-BSO Spinal cord stimulator status) Allergies: Allergies Allergy/AdvReac Type Severity Reaction Status Date / Time aspirin [ASA] Allergy Severe asthma Verified 07/27/22 12:48 exacerbation duloxetine [Cymbalta] Allergy Intermediate loopy Verified 07/27/22 12:48 gabapentin Allergy Intermediate loopy Verified 07/27/22 12:48 NSAIDS (Non-Steroidal Allergy Intermediate asthma Verified 07/27/22 12:48 Anti-Inflamma exacerbation [NSAIDS (NON-STEROIDAL ANTI-INFLAMMA] pregabalin Allergy Intermediate loopy Verified 07/27/22 12:48 tramadol [TRAMADOL] Allergy Intermediate tachycardia Verified 07/27/22 12:48 codeine [CODEINE] Allergy Mild Rash Verified 07/27/22 12:48 All SSRIs Allergy Intermediate nightmares Uncoded 07/27/22 12:48 Amitriptyline Allergy Intermediate tachycardia Uncoded 07/27/22 12:48 Review of Systems Sugical H&P ROS: Negative: Constitution, Cardiovascular and Respiratory and Yes, Specify: Gastrointestinal (Dysphagia, GERD) Exam Surgical H&P Exam: Normal: Heart, Normal: Lungs, Normal: Extremities and Normal: Abdomen Plan Diagnosis/Plan: Unchanged I have reviewed the history and physical and performed a pertinent physical examination on my patient. No changes have occurred unless specified.
--- NOTE | 2022-08-01 09:57 | PM.OP ---
Brief Operative Note Date of Service: 08/01/22 Pre-op diagnosis: Colon cancer screening, abdominal pain and bloating, IBS Post-op diagnosis: other (Gastritis, gastric polyps, colon polyps, diverticulosis, hemorrhoids) Procedure: FLEXIBLE TRANSORAL UPPER GASTROINTESTINAL ENDOSCOPY WITH BIOPSIES AND COLONOSCOPY TILL CECUM WITH BIOPSIES AND SNARE POLYPECTOMY UPPER ENDOSCOPY Consent: Indications for the procedure and potential complications of bleeding, perforation, reaction to medications and missed diagnosis were discussed with the patient and informed consent was obtained. Instrument: Olympus GIF H 190 mid size upper endoscope Monitoring: Vital signs and clinical assessment, continuous EKG monitoring, Pulse oximetry, Carbon Dioxide monitoring and blood pressure monitoring were done throughout the procedure. Procedure: The patient was placed in the left lateral decubitis position and pre-procedure medications were administered and a bite block was placed. The endoscope was inserted into the mouth and advanced under direct vision to the third part of duodenum. A careful inspection was made as the upper endoscope was withdrawn including a retroflexed examination of the proximal stomach; Findings and interventions are described below. Findings: Larynx: Normal Esophagus: GE junction at 35 cms. No esophagitis or Pro's. Stomach: Mild gastric erythema. Antral biopsies were obtained. Multiple 5 -10 mm benign appearing polyps in the gastric body. Mapping biopsies were obtained from the stomach. Grade 2 flap valve on retroflexed examination of the cardia. Duodenum: Normal bulb and descending duodenum. Biopsies were obtained from 3rd part of the duodenum to check for celiac sprue. Intervention: Biopsies as noted above COLONOSCOPY PROCEDURE NOTE Consent: Indications for the procedure and potential complications of bleeding, perforation, reaction to medications and missed diagnosis were discussed with the patient and informed consent was obtained. Instrument: Olympus PCF H 190 L variable stiffness pediatric colonoscope Monitoring: Vital signs and clinical assessment, intermittent blood pressure monitoring, continuous EKG monitoring, Pulse oximetry and Carbon Dioxide monitoring were done throughout the procedure. Colon withdrawl time was 15 minutes. Procedure: The patient was placed in the left lateral decubitis position and pre-procedure medications were administered. After a digital rectal examination of the ano-rectum, the video colonoscope was inserted into the rectum and advanced through the colon to the cecum. The colonoscope was slowly withdrawn in a retrograde panoramic fashion and the colon mucosa was carefully examined including a retroflexed view of the rectum. Findings and interventions are described below. Procedure Difficulty: : Without difficulty Findings: Terminal Ileum: Not evaluated Cecum: Normal Ascending Colon: A 5-6 mm sessile polyp removed with a cold snare. Transverse Colon: Three 7-10 mm sessile polyps removed with a cold snare. A 4-5 mm diminutive appearing polyp removed with a cold bx. Descending Colon: Moderate diverticulosis Sigmoid Colon: A 12-1 5 mm sessile polyp removed with a hot snare. Moderate diverticulosis Rectum: Normal Ano-rectum: Moderate internal hemorrhoids Colon preparation: Good Impression and Post Procedure Diagnosis: Endoscopy Findings: STOMACH: Mild gastric erythema. Antral biopsies were obtained. Multiple 5 -10 mm benign appearing polyps in the gastric body. Mapping biopsies were obtained from the stomach. Grade 2 flap valve on retroflexed examination of the cardia. DUODENUM: Normal bulb and descending duodenum. Biopsies were obtained from 3rd part of the duodenum to check for celiac sprue Colonoscopy Findings: Six small to medium sized polyps removed Moderate diverticulosis seen in the left colon Moderate hemorrhoids on retroflexed exam. Plan: Await pathology results Patient has an appointment on 08/16/22 in the GI Clinic with Leonor Zaragoza NP . Repeat Colonoscopy interval based on path results - in 3-5 years if polyps are adenomatous and 10 years if polyps are hyperplastic. Above findings were reviewed with the patient and gastric polyps, colon polyps and diverticulosis handouts were given in the discharge area Surgeon: Waqas Giron MD Anesthesia: MAC (Dr Oconnor) Was an Electronic Equipment Installer used for this Procedure?: Yes Electronic Equipment Installer: Lucy Davidson Estimated blood loss (mL): 0 Pathology: other (A. small bowel bxs, R/O celiac B. gastric antrum, R/O H. pylori C. gastric polyp D. gastric body, greater curvature bxs, R/O intestinal metaplasia E. gastric body, lesser curvature bxs, R/O intestinal) Condition: stable Disposition: PACU
--- NOTE | 2022-08-01 11:09 | PC.NURSE ---
0956 2mg iv versed by dr Chatman
[2022-08-01] MEDS: Lactated Ringers 1,000 ML 100 ML IVCONT (11:13)
--- NOTE | 2022-08-01 11:34 | W.PM.OPN ---
Operative Note Operative Note Date of Service: 08/01/22 Narrative: Pre-op diagnosis: Colon cancer screening, abdominal pain and bloating, IBS Post-op diagnosis:?other (Gastritis, gastric polyps, colon polyps, diverticulosis, hemorrhoids) Procedure: FLEXIBLE TRANSORAL UPPER GASTROINTESTINAL ENDOSCOPY WITH BIOPSIES AND COLONOSCOPY TILL CECUM WITH BIOPSIES AND SNARE POLYPECTOMY UPPER ENDOSCOPY Consent:?Indications for the procedure and potential complications of bleeding, perforation, reaction to medications and missed diagnosis were discussed with the patient and informed consent was obtained. Instrument:?Olympus GIF H 190 mid size upper endoscope Monitoring: Vital signs and clinical assessment, continuous EKG monitoring, Pulse oximetry, Carbon Dioxide monitoring and blood pressure monitoring were done throughout the procedure. Procedure:?The patient was placed in the left lateral decubitis position and pre-procedure medications were administered and a bite block was placed. The endoscope was inserted into the mouth and advanced under direct vision to the third part of duodenum. A careful inspection was made as the upper endoscope was withdrawn including a retroflexed examination of the proximal stomach; Findings and interventions are described below. Findings: Larynx:? Normal Esophagus:?GE junction at 35 cms. No esophagitis or Pro's. Stomach:?Mild gastric erythema. Antral biopsies were obtained. Multiple 5 -10 mm benign appearing polyps in the gastric body. Mapping biopsies were obtained from the stomach. Grade 2 flap valve on retroflexed examination of the cardia. Duodenum:?Normal bulb and descending duodenum. Biopsies were obtained from 3rd part of the duodenum to check for celiac sprue. Intervention:?Biopsies as noted above COLONOSCOPY PROCEDURE NOTE Consent:?Indications for the procedure and potential complications of bleeding, perforation, reaction to medications and missed diagnosis were discussed with the patient and informed consent was obtained. Instrument:?Olympus PCF H 190 L variable stiffness pediatric colonoscope Monitoring:?Vital signs and clinical assessment, intermittent blood pressure monitoring, continuous EKG monitoring, Pulse oximetry and Carbon Dioxide monitoring were done throughout the procedure. Colon withdrawl time was 15 minutes. Procedure:?The patient was placed in the left lateral decubitis position and pre-procedure medications were administered. After a digital rectal examination of the ano-rectum, the video colonoscope was inserted into the rectum and advanced through the colon to the cecum. The colonoscope was slowly withdrawn in a retrograde panoramic fashion and the colon mucosa was carefully examined including a retroflexed view of the rectum. Findings and interventions are described below. Procedure Difficulty:?: Without difficulty Findings: Terminal Ileum: Not evaluated Cecum:? Normal Ascending Colon:??A 5-6 mm sessile polyp removed with a cold snare. Transverse Colon:??Three 7-10 mm sessile polyps removed with a cold snare. A 4-5 mm diminutive appearing polyp removed with a cold bx. Descending Colon:? Moderate diverticulosis Sigmoid Colon:??A 12-1 5 mm sessile polyp removed with a hot snare. Moderate diverticulosis Rectum:??Normal Ano-rectum:??Moderate internal hemorrhoids Colon preparation:? Good Impression and Post Procedure Diagnosis: Endoscopy Findings: STOMACH: Mild gastric erythema. Antral biopsies were obtained. Multiple 5 -10 mm benign appearing polyps in the gastric body. Mapping biopsies were obtained from the stomach. Grade 2 flap valve on retroflexed examination of the cardia. DUODENUM: Normal bulb and descending duodenum. Biopsies were obtained from 3rd part of the duodenum to check for celiac sprue Colonoscopy Findings: Six small to medium sized polyps removed Moderate diverticulosis seen in the left colon Moderate hemorrhoids on retroflexed exam. Plan: Await pathology results Patient has an appointment on 08/16/22 in the GI Clinic with Leonor Zaragoza NP? . Repeat Colonoscopy interval based on path results - in 3-5 years if polyps are adenomatous and 10 years if polyps are hyperplastic. Above findings were reviewed with the patient and gastric polyps, colon polyps and diverticulosis handouts were given in the discharge area Surgeon: Waqas Giron MD Anesthesia:?MAC (Dr Oconnor) Was an Quality Assurance Project Manager used for this Procedure?:?Yes Quality Assurance Project Manager:?Lucy Davidson Estimated blood loss (mL):?0 Pathology:?other (A. small bowel bxs, R/O celiac? B. gastric antrum, R/O H. pylori? C. gastric polyp? D. gastric body, greater curvature bxs, R/O intestinal metaplasia? E. gastric body, lesser curvature bxs, R/O intestinal) Condition:?stable Disposition:?PACU
[2022-08-01 12:10] VITALS: BP 110/72; PULSE 74; RESP 18; TEMP 36.4; O2SAT 96
[2022-08-01 12:25] VITALS: BP 131/80; PULSE 66; RESP 18; O2SAT 91
[2022-08-01 12:40] VITALS: BP 130/83; PULSE 61; RESP 13; TEMP 36.6; O2SAT 97
[2022-08-01 12:50] VITALS: O2SAT 98
== END 2022-08-01 13:13 | disposition home or self-care (01) ==
PROVIDERS: PCP Family Medicine; Visit Provider Internal Medicine Gastroenterology
PROC: (CPT 45385; principal; 2022-08-01 10:20)
DX: Z12.11 Encounter for screening for malignant neoplasm of colon (principal); Z86.010 Personal history of colon polyps; D12.2 Benign neoplasm of ascending colon; D12.3 Benign neoplasm of transverse colon; D12.5 Benign neoplasm of sigmoid colon; K57.30 Diverticulosis of large intestine without perforation or abscess without bleeding; K64.8 Other hemorrhoids; K58.9 Irritable bowel syndrome, unspecified; K21.9 Gastro-esophageal reflux disease without esophagitis; K29.50 Unspecified chronic gastritis without bleeding; K31.7 Polyp of stomach and duodenum; F41.8 Other specified anxiety disorders; J45.909 Unspecified asthma, uncomplicated; E78.00 Pure hypercholesterolemia, unspecified; M79.7 Fibromyalgia; Z96.82 Presence of neurostimulator; Z88.8 Allergy status to other drugs, medicaments and biological substances
CPT/HCPCS: 45385; 45380; 43239; 88305; 88342; J2250

== ENCOUNTER → 2022-08-04 08:02 | Outpatient (BNVA) | payer OTHER, SELFPAY | PROVIDERS: PCP Family Medicine; Referring Provider Family Medicine; Visit Provider Nurse Practitioner | DX: D12.6 Benign neoplasm of colon, unspecified (principal); K58.9 Irritable bowel syndrome, unspecified; K21.9 Gastro-esophageal reflux disease without esophagitis | CPT/HCPCS: 99212 ==

== ENCOUNTER 2022-09-28 15:08 | Outpatient (REF) | payer OTHER, SELFPAY ==
[2022-09-28 18:56] LABS: Influenza A PCR NEGATIVE (Negative); Influenza B PCR NEGATIVE (Negative); Resp Syncy Virus RNA Qual PCR NEGATIVE (Negative); SARS COV2 PCR INHOUSE NEGATIVE (Negative)
== END 2022-09-28 15:09 | disposition home or self-care (01) ==
LOC: HO.LAB 15:08
PROVIDERS: Visit Provider Hospitalist
DX: Z20.822 Contact with and (suspected) exposure to COVID-19 (principal); B34.9 Viral infection, unspecified
CPT/HCPCS: 0241U

== ENCOUNTER 2022-10-05 08:07 | Outpatient (REF) | payer OTHER, SELFPAY ==
--- NOTE | ~2022-10-05 | XR_ITS ---
EXAMINATION: XR SHOULDER, RIGHT CLINICAL INFORMATION: Right shoulder pain. COMPARISON: None TECHNIQUE: Three views of the right shoulder. FINDINGS: The bones and soft tissues are normal. No fracture identified. Degenerative changes and spurring of the acromioclavicular joint. Glenohumeral and acromioclavicular alignment is anatomic. Unremarkable appearance of the glenohumeral joint space. No abnormal soft tissue calcifications. XR/XR shoulder RT min 2V IMPRESSION: No acute finding. Degenerative change of the acromioclavicular joint.
== END 2022-10-05 08:08 | disposition home or self-care (01) ==
LOC: HO.HOSX 08:07
PROVIDERS: Visit Provider Physician Assistant
DX: M75.101 Unspecified rotator cuff tear or rupture of right shoulder, not specified as traumatic (principal)
CPT/HCPCS: 20610; 73030; 99212; J1040

== ENCOUNTER 2022-10-26 12:59 | Outpatient (REF) | payer OTHER, SELFPAY ==
--- NOTE | ~2022-10-26 | XR_ITS ---
EXAMINATION: XR SHOULDER, LEFT CLINICAL INFORMATION: Pain COMPARISON: None TECHNIQUE: Three views of the left shoulder. FINDINGS: The bones and soft tissues are normal. No fracture. Glenohumeral and acromioclavicular alignment is anatomic with normal joint space. No abnormal soft tissue calcifications. XR/XR shoulder LT min 2V IMPRESSION: Normal left shoulder.
== END 2022-10-26 13:00 | disposition home or self-care (01) ==
LOC: HO.HOSX 12:59
PROVIDERS: PCP Family Medicine; Visit Provider Physician Assistant
DX: M75.82 Other shoulder lesions, left shoulder (principal)
CPT/HCPCS: 20610; 73030; 99212; J1040

== ENCOUNTER 2022-11-17 08:20 | Outpatient (REF) | payer OTHER, SELFPAY ==
[2022-11-17 09:50] LABS: MANUAL DIFF FLAG NO
[2022-11-17 10:22] LABS: Basophils Percent Auto 0.4 % (0-2); Eosinophils Absolute Auto 0.1 X10*3/uL (0.0-0.4); Eosinophils Percent Auto 0.6 % (0-4); Hemoglobin 13.7 g/dl (12.0-16.0); Imm Gran Abs Auto 0.04 X10*3/uL (0.00-0.03); Imm Gran Pct Auto 0.4 % (0.0-0.4); Lymphocytes Absolute Auto 2.3 X10*3/uL (1.2-4.9); Lymphocytes Percent Auto 20.8 % (20-40); Mean Corpuscular HGB Conc 32.6 g/dl (31.0-35.0); Mean Corpuscular Hemoglobin 30.4 pg (27.0-33.0); Mean Corpuscular Volume 93.3 fL (80.0-98.0); Mean Platelet Volume 9.9 fL (9.4-12.3); Monocytes Absolute Auto 0.6 X10*3/uL (0.1-1.2); Monocytes Percent Auto 5.8 % (2-11); Platelet Count 255 X10*3/uL (160-400); Red Cell Distribution Width 13.7 % (11.0-16.0); White Blood Count 11.1 X10*3/uL (4.8-10.8)
[2022-11-17 11:59] LABS: Alanine Aminotransferase 31 U/L (0-31); Albumin Level 4.4 g/dL (3.5-5.0); Alkaline Phosphatase 119 U/L (39-117); Anion Gap 12 (12-20); Aspartate Amino Transferase 15 U/L (5-31); Bilirubin Total 0.5 mg/dL (0.0-1.0); Blood Urea Nitrogen 17 mg/dL (9-16); C Reactive Protein 2.97 mg/dL (< or = 0.50); Calcium 9.7 mg/dL (8.4-10.2); Carbon Dioxide 26 mmol/L (22-29); Chloride 106 mmol/L (96-108); Estimated Glomerular Filt Rate > 60; Glucose Random 92 mg/dL (60-115); Potassium 3.7 mmol/L (3.3-5.1); Sodium 140 mmol/L (135-145); Total Protein 6.9 g/dL (6.5-8.0)
[2022-11-25 08:17] LABS: Gliadin Deamidated IgA Ab <1.0 U/mL; Gliadin Deamidated IgG Ab <1.0 U/mL
== END 2022-11-17 08:21 | disposition home or self-care (01) ==
LOC: HO.LAB 08:20
PROVIDERS: PCP Family Medicine; Visit Provider Nurse Practitioner
DX: Z00.00 Encounter for general adult medical examination without abnormal findings (principal); R19.7 Diarrhea, unspecified; D12.6 Benign neoplasm of colon, unspecified; K58.9 Irritable bowel syndrome, unspecified; K21.9 Gastro-esophageal reflux disease without esophagitis; B37.0 Candidal stomatitis
CPT/HCPCS: 36415; 80053; 85025; 86140; 86258; 99212

== ENCOUNTER 2022-11-18 10:38 | Outpatient (REF) | payer OTHER, SELFPAY ==
[2022-11-18 10:51] LABS: Appearance Urine Clear; Color Urine Yellow; Glucose Urine UA Negative (Negative); Leukocyte Esterase Urine Negative (Negative); Nitrite Urine Negative (Negative); Urine Blood Negative (Negative); Urine Ketones Negative (Negative); Urine Protein Negative (Neg-Trace)
[2022-11-18 12:11] LABS: CDiff Gene PCR NEGATIVE (Negative)
== END 2022-11-18 10:39 | disposition home or self-care (01) ==
LOC: HO.LNP 10:38
PROVIDERS: Visit Provider Nurse Practitioner
DX: R19.7 Diarrhea, unspecified (principal)
CPT/HCPCS: 81003; 87493

== ENCOUNTER 2022-12-16 09:29 | Outpatient (REF) | payer OTHER, SELFPAY ==
[2022-12-16 12:48] LABS: Influenza A PCR NEGATIVE (Negative); Influenza B PCR NEGATIVE (Negative); Resp Syncy Virus RNA Qual PCR NEGATIVE (Negative); SARS COV2 PCR INHOUSE NEGATIVE (Negative)
== END 2022-12-16 09:30 | disposition home or self-care (01) ==
LOC: HO.LAB 09:29
PROVIDERS: Visit Provider Family Medicine
DX: Z20.822 Contact with and (suspected) exposure to COVID-19 (principal); B34.9 Viral infection, unspecified
CPT/HCPCS: 0241U

== ENCOUNTER 2022-12-20 11:05 | Outpatient (REF) | payer OTHER, SELFPAY ==
--- NOTE | ~2022-12-20 | XR_ITS ---
EXAMINATION: XR CHEST 2 VIEWS CLINICAL INFORMATION: Other specified symptoms and signs involving the circulatory system. COMPARISON: Chest radiographs dated 08/16/2021. TECHNIQUE: Frontal and lateral views of the chest were obtained. FINDINGS: The heart, great vessels, pulmonary vasculature and mediastinum are normal. A moderate patchy infiltrate is seen in the mid left lung. There is mild chronic left base atelectasis. There is no pleural effusion or pneumothorax. No acute osseous abnormality is seen. A spinal stimulator device is noted, in stable position. XR/XR chest 2V IMPRESSION: A moderate patchy infiltrate is seen in the mid left lung, likely an acute pneumonia. Recommend clinical correlation and follow-up chest radiographs to full clearance. A preliminary report was provided by the [facility] on 12/22/2022.
== END 2022-12-20 11:06 | disposition home or self-care (01) ==
LOC: HO.XRAY 11:05
PROVIDERS: PCP Family Medicine; Visit Provider Family Medicine
DX: R09.89 Other specified symptoms and signs involving the circulatory and respiratory systems (principal)
CPT/HCPCS: 71046

== ENCOUNTER 2023-01-04 13:39 | Outpatient (REF) | payer OTHER, SELFPAY ==
[2023-01-05 12:51] LABS: Influenza A PCR NEGATIVE (Negative); Influenza B PCR NEGATIVE (Negative); Resp Syncy Virus RNA Qual PCR NEGATIVE (Negative); SARS COV2 PCR INHOUSE NEGATIVE (Negative)
== END 2023-01-04 13:40 | disposition home or self-care (01) ==
LOC: HO.LAB 13:39
PROVIDERS: Visit Provider Nurse Practitioner Family
DX: Z20.822 Contact with and (suspected) exposure to COVID-19 (principal)
CPT/HCPCS: 0241U

== ENCOUNTER 2023-01-19 12:29 | Outpatient (REF) | payer OTHER, SELFPAY ==
--- NOTE | ~2023-01-19 | MM_ITS ---
EXAMINATION: MM SCREENING DIGITAL BREAST TOMOSYNTHESIS, BILATERAL CLINICAL INFORMATION: Screening. Asymptomatic. Status post breast reduction surgery The lifetime risk of breast cancer based on the Tyrer-Cuzick Model is 6.9%. COMPARISON: Mammography: February 16, 2021 and studies dating back to February 17, 2016 TECHNIQUE: Digital breast tomosynthesis is performed in both the craniocaudal and mediolateral oblique views along with computer-aided detection (CAD). Synthesized 2D images are generated from the tomosynthesis. FINDINGS: There are scattered areas of fibroglandular density (ACR BI-RADS breast composition Category b). There are no new significant masses, abnormal calcifications, or other abnormalities. Post reduction mammoplasty findings with scarring and dystrophic calcifications are evident. MM/MM tomosynthesis screening BI IMPRESSION: No significant changes from prior exam. ASSESSMENT: BI-RADS 2: Benign RECOMMENDATION: Routine annual mammography screening. This patient's information was entered into a reminder system with a target due date for their next mammogram.
== END 2023-01-19 12:30 | disposition home or self-care (01) ==
LOC: HO.MAMMO 12:29
PROVIDERS: PCP Family Medicine; Visit Provider Family Medicine
DX: Z12.31 Encounter for screening mammogram for malignant neoplasm of breast (principal)
CPT/HCPCS: 77063; 77067

== ENCOUNTER 2023-01-26 11:24 | Outpatient (REF) | payer OTHER, SELFPAY ==
--- NOTE | ~2023-01-26 | XR_ITS ---
EXAMINATION: XR CHEST CLINICAL INFORMATION: R05.1 - Acute cough COMPARISON: Chest radiographs 12/20/2022, 08/16/2021 TECHNIQUE: 2 views of the chest were obtained. FINDINGS: There is interval clearing of the patchy airspace opacities left hemithorax when compared with prior exam 12/20/2022. There is no lobar or segmental airspace consolidation or residual groundglass opacity. No effusion. Heart size normal. Vascularity normal. Spinal stimulator electrodes again seen overlying lower thoracic spine. XR/XR chest 2V IMPRESSION: -No airspace consolidation or groundglass opacity. -Resolution patchy left airspace opacities since prior exam 12/20/2022.
== END 2023-01-26 11:25 | disposition home or self-care (01) ==
LOC: HO.XRAY 11:24
PROVIDERS: PCP Family Medicine; Visit Provider Family Medicine
DX: R05.1 Acute cough (principal)
CPT/HCPCS: 71046

== ENCOUNTER → 2023-04-07 13:24 | Outpatient (BNVA) | payer OTHER, SELFPAY | PROVIDERS: PCP Family Medicine; Visit Provider Hospitalist | DX: J45.909 Unspecified asthma, uncomplicated (principal); J18.9 Pneumonia, unspecified organism | CPT/HCPCS: 90471; 90677; 99202 ==

== ENCOUNTER 2023-04-10 13:55 | Outpatient (REF) | payer OTHER, SELFPAY ==
[2023-04-10 14:10] LABS: MANUAL DIFF FLAG NO
[2023-04-10 14:28] LABS: Basophils Percent Auto 0.3 % (0-2); Eosinophils Absolute Auto 0.1 X10*3/uL (0.0-0.4); Eosinophils Percent Auto 0.9 % (0-4); Hematocrit 43.6 % (37.0-47.0); Hemoglobin 14.2 g/dl (12.0-16.0); Imm Gran Abs Auto 0.01 X10*3/uL (0.00-0.03); Imm Gran Pct Auto 0.1 % (0.0-0.4); Lymphocytes Absolute Auto 2.3 X10*3/uL (1.2-4.9); Lymphocytes Percent Auto 30.1 % (20-40); Mean Corpuscular HGB Conc 32.6 g/dl (31.0-35.0); Mean Corpuscular Hemoglobin 30.3 pg (27.0-33.0); Mean Platelet Volume 9.8 fL (9.4-12.3); Monocytes Absolute Auto 0.5 X10*3/uL (0.1-1.2); Monocytes Percent Auto 6.3 % (2-11); Neutrophils Absolute Auto 4.7 x10*3/uL (2.0-8.3); Neutrophils Percent Auto 62.3 % (45-73); Platelet Count 270 X10*3/uL (160-400); Red Blood Count 4.69 X10*6/uL (4.20-5.50); Red Cell Distribution Width 13.6 % (11.0-16.0); White Blood Count 7.5 X10*3/uL (4.8-10.8)
[2023-04-10 15:09] LABS: Erythrocyte Sedimentation Rate 21 MM/HR (0-20)
[2023-04-10 15:26] LABS: Anion Gap 15 (12-20); Blood Urea Nitrogen 9 mg/dL (9-16); Calcium 9.8 mg/dL (8.4-10.2); Carbon Dioxide 25 mmol/L (22-29); Chloride 106 mmol/L (96-108); Estimated Glomerular Filt Rate > 60; Glucose Random 140 mg/dL (60-115); Potassium 3.9 mmol/L (3.3-5.1); Sodium 142 mmol/L (135-145)
[2023-04-11 18:28] LABS: Lyme Abs Screen <0.90 index
[2023-04-12 05:13] LABS: Antibody to SS-A Antigen <1.0 NEG AI (<1.0 NEG); Antibody to SS-B Antigen <1.0 NEG AI (<1.0 NEG); Myeloperoxidase Antibody <1.0 AI; Proteinase 3 PR3 Antibodies <1.0 AI; Scleroderma 70 Antibody <1.0 NEG AI (<1.0 NEG)
[2023-04-12 06:54] LABS: Immunoglobulin E 6 kU/L (<OR=114)
[2023-04-12 13:08] LABS: IgA 138 mg/dL (47-310); IgG 664 mg/dL (600-1640); IgM 97 mg/dL (50-300)
[2023-04-16 16:43] LABS: Asperg fumigatus Precip Abs NEGATIVE (NEGATIVE); Micropoly faeni Abs NEGATIVE (NEGATIVE); Pigeon serum Abs NEGATIVE (NEGATIVE); Saccharo pora viridis Abs NEGATIVE (NEGATIVE); Thermo candidus Abs NEGATIVE (NEGATIVE); Thermoa vulgaris #1 NEGATIVE (NEGATIVE)
== END 2023-04-10 13:56 | disposition home or self-care (01) ==
LOC: HO.LAB 13:55
PROVIDERS: PCP Family Medicine; Visit Provider Hospitalist
DX: J18.9 Pneumonia, unspecified organism (principal); J45.909 Unspecified asthma, uncomplicated; R91.8 Other nonspecific abnormal finding of lung field; R21 Rash and other nonspecific skin eruption
CPT/HCPCS: 36415; 80048; 82784; 82785; 85025; 85652; 86021; 86235; 86331; 86606; 86609; 86617; 86618

== ENCOUNTER 2023-04-14 07:59 | Outpatient (REF) | payer OTHER, SELFPAY ==
[2023-04-14 11:14] LABS: MANUAL DIFF FLAG NO
[2023-04-14 11:41] LABS: Basophils Percent Auto 0.4 % (0-2); Eosinophils Absolute Auto 0.1 X10*3/uL (0.0-0.4); Eosinophils Percent Auto 1.7 % (0-4); Hematocrit 43.6 % (37.0-47.0); Imm Gran Abs Auto 0.01 X10*3/uL (0.00-0.03); Imm Gran Pct Auto 0.1 % (0.0-0.4); Lymphocytes Absolute Auto 2.2 X10*3/uL (1.2-4.9); Lymphocytes Percent Auto 29.2 % (20-40); Mean Corpuscular HGB Conc 32.1 g/dl (31.0-35.0); Mean Corpuscular Volume 93.6 fL (80.0-98.0); Mean Platelet Volume 10.1 fL (9.4-12.3); Monocytes Absolute Auto 0.5 X10*3/uL (0.1-1.2); Monocytes Percent Auto 7.1 % (2-11); Neutrophils Absolute Auto 4.7 x10*3/uL (2.0-8.3); Neutrophils Percent Auto 61.5 % (45-73); Platelet Count 252 X10*3/uL (160-400); Red Blood Count 4.66 X10*6/uL (4.20-5.50); Red Cell Distribution Width 13.6 % (11.0-16.0); White Blood Count 7.6 X10*3/uL (4.8-10.8)
[2023-04-14 11:57] LABS: Appearance Urine Clear; Color Urine Yellow; Glucose Urine UA Negative (Negative); Leukocyte Esterase Urine Negative (Negative); Nitrite Urine Negative (Negative); PH 7.5 (5.0-9.0); Specific Gravity - Urine 1.015 (1.005-1.025); Urine Blood Negative (Negative); Urine Ketones Negative (Negative); Urine Protein Negative (Neg-Trace)
[2023-04-14 11:59] LABS: Alanine Aminotransferase 31 U/L (0-31); Albumin Level 4.6 g/dL (3.5-5.0); Alkaline Phosphatase 99 U/L (39-117); Anion Gap 13 (12-20); Aspartate Amino Transferase 19 U/L (5-31); Bilirubin Total 0.8 mg/dL (0.0-1.0); Blood Urea Nitrogen 11 mg/dL (9-16); Calcium 9.8 mg/dL (8.4-10.2); Carbon Dioxide 26 mmol/L (22-29); Chloride 106 mmol/L (96-108); Cholesterol 198 mg/dL; Estimated Glomerular Filt Rate > 60; Glucose Fasting 101 mg/dL (60-99); HDL Cholesterol 58 mg/dL; LDL Cholesterol Calculated 128 mg/dl; Potassium 4.3 mmol/L (3.3-5.1); Sodium 141 mmol/L (135-145); Total Protein 6.9 g/dL (6.5-8.0); Triglycerides 63 mg/dL
[2023-04-14 12:36] LABS: Microalbumin Urine < 5.0 mg/L
[2023-04-14 12:42] LABS: Folate 8.8 ng/mL (> or = 4.0); TSH reflex Free T4 2.31 uIU/mL (0.32-4.0); Vitamin B12 493 pg/mL (200-900); Vitamin D 25-OH Total 24.1 ng/mL (>30)
== END 2023-04-14 08:00 | disposition home or self-care (01) ==
LOC: HO.WFDLDS 07:59
PROVIDERS: Visit Provider Family Medicine
DX: Z00.00 Encounter for general adult medical examination without abnormal findings (principal); E53.8 Deficiency of other specified B group vitamins; E55.9 Vitamin D deficiency, unspecified; R09.89 Other specified symptoms and signs involving the circulatory and respiratory systems; I10 Essential (primary) hypertension
CPT/HCPCS: 36415; 80053; 80061; 81003; 82043; 82306; 82607; 82746; 84443; 85025

== ENCOUNTER 2023-04-20 08:02 | Outpatient (REF) | payer OTHER, SELFPAY ==
--- NOTE | ~2023-04-20 | XR_ITS ---
EXAMINATION: XR CHEST CLINICAL INFORMATION: Chest pain. COMPARISON: 01/26/2023 TECHNIQUE: 2 views of the chest were obtained. FINDINGS: The lungs are moderately expanded. No focal consolidation. No pleural effusion. Cardiac silhouette is unchanged. A spinal stimulator device is partially imaged. XR/XR chest 2V IMPRESSION: No acute abnormality.
== END 2023-04-20 08:03 | disposition home or self-care (01) ==
LOC: HO.XRAY 08:02
PROVIDERS: PCP Family Medicine; Visit Provider Family Medicine
DX: R09.89 Other specified symptoms and signs involving the circulatory and respiratory systems (principal)
CPT/HCPCS: 71046

== ENCOUNTER → 2023-04-25 12:51 | Outpatient (BNVA) | payer OTHER, SELFPAY | PROVIDERS: PCP Family Medicine; Visit Provider Nurse Practitioner Family | DX: G47.19 Other hypersomnia (principal); R06.83 Snoring | CPT/HCPCS: 99202 ==

== ENCOUNTER → 2023-07-04 12:58 | Outpatient (REF) | payer OTHER, SELFPAY | LOC: HO.SL 12:58 | PROVIDERS: PCP Family Medicine; Visit Provider Nurse Practitioner Family | DX: G47.19 Other hypersomnia (principal); R06.83 Snoring; G47.33 Obstructive sleep apnea (adult) (pediatric) | CPT/HCPCS: 95806 ==

== ENCOUNTER → 2023-07-04 13:08 | Outpatient (BNV) | payer OTHER, SELFPAY | PROVIDERS: PCP Family Medicine; Visit Provider Psychiatry & Neurology Neurology | DX: G47.33 Obstructive sleep apnea (adult) (pediatric) (principal) | CPT/HCPCS: 95806 ==

== ENCOUNTER 2023-07-18 09:20 | Outpatient (AMB) | payer OTHER, SELFPAY ==
[2023-07-18 09:23] VITALS: BP 118/78; PULSE 64; O2SAT 97; BMI 34.6
--- NOTE | 2023-07-18 09:23 | A.OFFVIS_ITS ---
Intake Vital Signs 07/18/23 09:23 Height 5 ft 1 in Weight 183 lb 4 oz BMI 34.6 BP 118/78 Blood Pressure Location Rt brachial Position Sitting Pulse 64 Pulse Source Pulse Oximeter Pulse Oximetry (%) 97 Oxygen Delivery Method Room Air Intake Visit Reasons: 2 mnts f/u for sleep - Confirmed Intake Note: Patient presents for follow up. patient states I'm still just tired all the time,I take naps in between because some days I'm just so exhausted Allergies aspirin [ASA] Allergy (Severe, Verified 07/18/23 09:26) asthma exacerbation duloxetine [Cymbalta] Allergy (Intermediate, Verified 07/18/23 09:26) loopy gabapentin Allergy (Intermediate, Verified 07/18/23 09:26) loopy NSAIDS (Non-Steroidal Anti-Inflamma [NSAIDS (NON-STEROIDAL ANTI-INFLAMMA] Allergy (Intermediate, Verified 07/18/23 09:26) asthma exacerbation pregabalin Allergy (Intermediate, Verified 07/18/23 09:26) loopy tramadol [TRAMADOL] Allergy (Intermediate, Verified 07/18/23 09:26) tachycardia codeine [CODEINE] Allergy (Mild, Verified 07/18/23 09:26) Rash All SSRIs Allergy (Intermediate, Uncoded 07/18/23 09:26) nightmares Amitriptyline Allergy (Intermediate, Uncoded 07/18/23 09:26) tachycardia HPI HPI Comments History of Present Illness Details 53 y/o female patient presents for follo w up of sleep study. Pt hasn't pneumonia lately, but has been having constant nasal drip. She feels tired all the time. Started vitmain D and felt a little better at the beginning, but still tired all the time. The home sleep study result is significant for moderate degree of sleep apnea. The AHI was 15/hr and oxygen ingirs was 80%. The total duration of O2 sat lower than 88% was 70 min. Pt also reports burning sensation of her feet. The burning feeling is worse at night also disrupt her sleep. [facility] Medical History (Updated 07/21/23 @ 15:03 by Sami Dixon CNP) IBS (irritable bowel syndrome) RUQ abdominal pain Chronic depression Fibromyalgia Asthma Surgical History History of abdominoplasty History of esophagogastroduodenoscopy (EGD) S/P bilateral breast reduction S/P LEVI-BSO H/O colonoscopy Spinal cord stimulator status Cataract, left eye Cataract, right eye History of sinus surgery History of left knee surgery History of partial hysterectomy Family History Father CVD (cardiovascular disease) Heart attack Mother CVD (cardiovascular disease) Heart attack Maternal Grandmother CVD (cardiovascular disease) Maternal Grandfather Colon cancer Paternal Grandmother No problems noted. Son No problems noted. Son No problems noted. Son No problems noted. Son Heart attack Social History Housing: House Alcohol intake: never Patient Tobacco Use Status: Never used Tobacco e-Cigarette/Vaping Use: Never Used Second Hand Smoke Exposure: No service: No Current occupational status: employed Current occupation: right handed Current occupational exposures/hazards: No Cognitive needs: No Hearing needs: No Vision needs: No Review of Systems Const All systems reviewed & are unremarkable except as noted in HPI and below Physical Exam Vital Signs: Last Vital Signs Pulse 64 07/18/23 09:23 BP 118/78 07/18/23 09:23 Pulse Ox 97 07/18/23 09:23 Oxygen Delivery Method Room Air 07/18/23 09:23 BMI result Body Mass Index 34.6 Const General: cooperative Nutritional Appearance: obese Orientation/consciousness: patient oriented x3 Neck Neck: Yes full ROM and Yes supple Resp Effort & Inspection: normal respiratory effort and able to speak in complete sentences Neuro General: patient oriented x3, gait normal and moves all extremities Gait exam (Neuro): Normal gait present Motor exam (neuro): 5/5 motor strength present throughout, Pronator motor function not present and Other motor observations present (minimal left hand tremor) Psych Appearance: grossly normal Mental Status: mental status grossly normal Speech and movement: Normal speech and movement present Affect: normal affect Attitude: cooperative Assessment & Plan Assessment & Plan (1) Snoring: Code(s): R06.83 - Snoring Plan: (2) Excessive daytime sleepiness: Code(s): G47.19 - Other hypersomnia (3) Neuropathy of both feet: Code(s): G57.93 - Unspecified mononeuropathy of bilateral lower limbs Plan Pt is advised to undergo CPAP titration study to assess to find optimal pressure to treat her sleep apnea. Will f/u with pt after study to discuss results and appropriate treatment options. Advised patient to start vitamin B complex with C and alpha lipoic acid daily. Pt to call with any worsening concerns or questions. Orders: Orders RT PSG in-lab sleep titration Today G47.33 - Obstructive sleep apnea (adult) (pediatric) Medications: New B-complex with vitamin C 1 tab PO DAILY 30 tabs 6RF 30 days alpha lipoic acid 300 mg PO DAILY 30 caps 6RF 30 days Coding Level of Care Code Est Pt Level 4 (98035) Diagnoses Snoring R06.83 Excessive daytime sleepiness G47.19 Neuropathy of both feet G57.93
== END 2023-07-18 09:57 | disposition home or self-care (01) ==
LOC: HO.HSMC 09:20
PROVIDERS: PCP Family Medicine; Visit Provider Nurse Practitioner Family
DX: R06.83 Snoring (principal); G47.19 Other hypersomnia; G57.93 Unspecified mononeuropathy of bilateral lower limbs
CPT/HCPCS: 99214

== ENCOUNTER → 2023-07-18 09:20 | Outpatient (BNVA) | payer OTHER, SELFPAY | PROVIDERS: PCP Family Medicine; Visit Provider Nurse Practitioner Family | DX: G47.19 Other hypersomnia (principal); R06.83 Snoring; G57.93 Unspecified mononeuropathy of bilateral lower limbs | CPT/HCPCS: 99212 ==

== ENCOUNTER 2023-07-26 | Outpatient (REF) | payer OTHER, SELFPAY | END 2023-07-26 00:01 | disposition home or self-care (01) | LOC: CF | PROVIDERS: Visit Provider Nurse Practitioner Family | DX: J45.909 Unspecified asthma, uncomplicated (principal); J18.9 Pneumonia, unspecified organism | CPT/HCPCS: 94640; 99212 ==

== ENCOUNTER 2023-07-26 13:54 | Outpatient (AMB) | payer OTHER, SELFPAY ==
[2023-07-26 13:55] VITALS: BP 128/72; PULSE 76; O2SAT 98; BMI 35.3
--- NOTE | 2023-07-26 13:55 | A.OFFVIS_ITS ---
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 Women'S Hats offered & declined Accompanied by: Self / Same As Patient Allergies aspirin [ASA] Allergy (Severe, Verified 07/26/23 14:07) asthma exacerbation duloxetine [Cymbalta] Allergy (Intermediate, Verified 07/26/23 14:07) loopy gabapentin Allergy (Intermediate, Verified 07/26/23 14:07) loopy NSAIDS (Non-Steroidal Anti-Inflamma [NSAIDS (NON-STEROIDAL ANTI-INFLAMMA] Allergy (Intermediate, Verified 07/26/23 14:07) asthma exacerbation pregabalin Allergy (Intermediate, Verified 07/26/23 14:07) loopy tramadol [TRAMADOL] Allergy (Intermediate, Verified 07/26/23 14:07) tachycardia codeine [CODEINE] Allergy (Mild, Verified 07/26/23 14:07) Rash All SSRIs Allergy (Intermediate, Uncoded 07/26/23 14:07) nightmares Amitriptyline Allergy (Intermediate, Uncoded 07/26/23 14:07) tachycardia Medication List - Last Reconciled 07/26/23 by Esthela Lucero LPN acetaminophen ER (Mapap Arthritis Pain) 1,300 mg (2 x 650 mg) PO Q8H PRN albuterol sulfate 90 mcg/actuation (Ventolin HFA) 2 puffs inhalation Q6H PRN 30 days alpha lipoic acid 300 mg PO DAILY 30 days B-complex with vitamin C 1 tab PO DAILY 30 days buspirone 7.5 mg PO cholecalciferol (vitamin D3) 50 mcg PO DAILY 90 days clonazepam 0.5 mg PO TID PRN dextroamphetamine-amphetamine 10 mg 1 tab PO BID fexofenadine (Sandy Allergy) 180 mg PO DAILY fluoxetine 10 mg PO DAILY fluticasone propion-salmeterol 500-50 mcg/dose (Wixela Inhub) 1 inh inhalation BID 90 days folic acid 0.4 mg PO DAILY 90 days hyoscyamine sulfate 0.25 mg (2 x 0.125 mg) PO QID PRN levocetirizine 5 mg PO BEDTIME lidocaine 5% (Lidoderm) 1 patch topical DAILY 30 days magnesium oxide 500 mg PO DAILY 30 days mometasone 50 mcg/actuation 2 sprays intranasal DAILY 90 days omeprazole 40 mg PO DAILY 90 days triamcinolone acetonide sprays intranasal HPI asthma exacerbation HPI Details Lucia is a pleasant 53 year old female, former minimal smoker as a teenager, with underlying asthma and recurrent pneumonia, unclear etiology. At baseline, her symptoms have been moderately controlled on Advair 500/50 and albuterol MDI. She does have a nebulizer but does not have medication for it at this time. She was sent for labs to assess for connective tissue conditions as well as immunodefiencies, all unrevealing. Today she presents for a sick visit. She reports worsening dry cough over the last three weeks with associated wheezing and chest tightness. [facility] Medical History (Updated 07/27/23 @ 12:07 by Josefina Osman NP) IBS (irritable bowel syndrome) RUQ abdominal pain Chronic depression Fibromyalgia Asthma Surgical History History of abdominoplasty History of esophagogastroduodenoscopy (EGD) S/P bilateral breast reduction S/P LEVI-BSO H/O colonoscopy Spinal cord stimulator status Cataract, left eye Cataract, right eye History of sinus surgery History of left knee surgery History of partial hysterectomy Family History Father CVD (cardiovascular disease) Heart attack Mother CVD (cardiovascular disease) Heart attack Maternal Grandmother CVD (cardiovascular disease) Maternal Grandfather Colon cancer Paternal Grandmother No problems noted. Son No problems noted. Son No problems noted. Son No problems noted. Son Heart attack Social History Housing: House Alcohol intake: never Patient Tobacco Use Status: Never used Tobacco e-Cigarette/Vaping Use: Never Used Second Hand Smoke Exposure: No service: No Current occupational status: employed Current occupation: right handed Current occupational exposures/hazards: No Cognitive needs: No Hearing needs: No Vision needs: No Review of Systems Const Denies chills, Denies excessive sweating, Denies fever(s), Denies headache(s) and Denies night sweats Eyes Denies dry eyes, Denies irritation and Denies itchy eyes ENT Reports Normal hearing present, Denies headache(s), Denies nasal congestion, Denies nasal discharge and Denies sore throat Card Denies chest pain, Denies chest pain at rest, Denies chest pain with activity, Denies claudication, Denies leg edema, Denies orthopnea and Denies paroxysmal nocturnal dyspnea Resp Denies excessive phlegm production, Denies pain on inspiration, Denies pain with cough and Denies stridor Musc Denies myalgias Neuro Reports Normal hearing present and Denies headache(s) Endo Denies excessive sweating Rasheed/Lymph Denies lymphadenopathy Aller/Immun Denies itchy eyes and Denies seasonal rhinorrhea Physical Exam Vital Signs: Last Vital Signs Pulse 76 07/26/23 13:55 BP 128/72 07/26/23 13:55 Pulse Ox 98 07/26/23 13:55 Oxygen Delivery Method Room Air 07/26/23 13:55 BMI result Body Mass Index 35.3 Const General: cooperative, healthy appearing, comfortable, no acute distress, well developed and alert Orientation/consciousness: patient oriented x3 Limitations: no limitations HEENT Head: Yes normal to inspection, Yes normocephalic and Yes atraumatic Ears: hearing grossly normal bilaterally and external ears normal Eyes General: appearance normal, both eyes and all related structures Eyelids: Yes eyelids normal Sclerae: sclerae normal EOM: EOMs intact bilaterally Neck Neck: Yes normal visual inspection and Yes no lymphadenopathy Lymphatic: no lymphadenopathy noted Chest Chest palpation & inspection: normal inspection of the chest Resp Other: lung sounds diminished, improved after duoneb Effort & Inspection: normal respiratory effort, able to speak in complete sentences, no audible wheezes, no cough, no stridor, not tachypneic, no tripod positioning and no use of accessory muscles Cardio Jugular venous distension: no JVD Rate: regular rate Rhythm: regular rhythm Skin Other: warm, dry General skin exam: no rashes or lesions noted Neuro General: patient oriented x3 Cranial nerves: Yes Normal hearing present Cognition (Neuro): normal cognition Gait exam (Neuro): Normal gait present Extrem General: Yes normal to inspection, Yes capillary refill normal, Yes no clubbing, cyanosis or edema and Yes no pedal edema Psych Appearance: grossly normal and well kempt Speech and movement: Normal speech and movement present and Clear speech present Affect: normal affect Attitude: cooperative Thought process: Normal thought process present Thought content: Normal thought content present Insight: Good insight present (Psych) Judgement: Good judgement present (Psych) Office Procedures Nebulizer Treatment Nebulizer Treatment 30939-Dxberprnv/MDI RX initial, or Nebulizer Subsequent Treatment Office Meds ipratropium 0.5 mg-albuterol 3 mg (2.5 mg base)/3 mL nebulization soln Performing Provider: Josefina Osman NP Performing Location: [facility] [place] Pulmonology Services-[facility] Administered by: Esthlea Lucero LPN on 07/26/23 14:50 Dose Route Admin Location Dispensed Lot Number Expiration Date [facility] [place] Hyperbaric Nurse 3 mL inhalation 3 mL [id number] 01/03/25 6697-7166-32 [facility] Assessment & Plan Assessment & Plan (1) Asthma: Code(s): J45.909 - Unspecified asthma, uncomplicated (2) Pneumonia: Code(s): J18.9 - Pneumonia, unspecified organism Plan Patient with bronchitic symptoms, will treat with doxycycline and prednisone. Advised to trial mucinex DM for chest congetion. She is aware to call if symptoms do not improve. Advised to continue current regimen of Advair and albuterol MDI, will send in albuterol for nebulizer and albuterol MDI refill. Patient also reported persistent post nasal drip, will send in ipratropium nasal spay to trial. At last visit with Dr. Tirado, he noted to obtain chest CT if symptoms worsened due to history of recurrent pneumonias and extensive airspace disease was noted on CXR, Will enter this. Patient was also supposed to have a PFT performed, will enter this order to be performed after she is back to baseline. Advised patient to schedule a follow up appointment with Dr. Tirado to review. All questions were answered and patient is in agreement of plan. Orders: Orders AMB Nebulizer Treatment 07/26/23 J45.909 - Unspecified asthma, uncomplicated PFT pulmonary function test Today J45.909 - Unspecified asthma, uncomplicated CT chest wo IV con Today J18.9 - Pneumonia, unspecified organism, R05.9 - Cough, unspecified Medications: New prednisone 40 mg (2 x 20 mg) PO DAILY 10 tabs 0RF ipratropium bromide administer into each nostril 2 sprays intranasal BID 30 mL 3RF doxycycline hyclate 100 mg PO BID 20 caps 0RF ipratropium-albuterol 0.5 mg-3 mg(2.5 mg base)/3 mL 3 mL inhalation Q6H PRN 180 mL 3RF wheezing Refilled albuterol sulfate 90 mcg/actuation (Ventolin HFA) 2 puffs inhalation Q6H 30 days PRN 8.5 grams 3RF shortness of breath or wheezing Coding Level of Care Code Est Pt Level 4 (50969) Diagnoses Asthma J45.909 Pneumonia J18.9 CPT Codes Nebulizer Treatment - Nebulizer Treatment, initial or subsequent: 31007- Nebulizer/MDI RX initial, or Nebulizer Subsequent Treatment ([id number])
== END 2023-07-26 15:11 | disposition home or self-care (01) ==
LOC: HO.HPSW 13:54
PROVIDERS: PCP Family Medicine; Referring Provider Family Medicine; Visit Provider Nurse Practitioner Family
DX: J45.909 Unspecified asthma, uncomplicated (principal)
CPT/HCPCS: 99212; 99214

== ENCOUNTER 2023-08-21 08:01 | Outpatient (REF) | payer OTHER, SELFPAY ==
--- NOTE | ~2023-08-21 | CT_ITS ---
EXAMINATION: CT CHEST WITHOUT CONTRAST CLINICAL INFORMATION: Cough COMPARISON: Previous chest x-ray most recent April 2023 TECHNIQUE: Multidetector volumetric CT imaging of the chest was done. Axial MIP volume rendering provided. Sagittal and coronal reformatted images were obtained. This CT examination was performed using dose optimization techniques as appropriate, variously including the following: *Automated exposure control *Adjustment of mA and/or kV according to patient size (this includes techniques or standardized protocols for targeted exams where dose is matched to indication/reason for exam; i.e. extremities or head) *Use of iterative reconstruction technique DLP: 163 mGy-cm FINDINGS: LUNGS: The lungs are clear. No evidence of emphysema interstitial lung disease or bronchiectasis. No endobronchial or endotracheal lesion. Subsegmental atelectasis at the lung bases. MEDIASTINUM: Small mediastinal lymph nodes. No enlarged lymph nodes. Normal heart size. No pericardial effusion. Normal caliber thoracic aorta. CORONARY ARTERY CALCIFICATION: None visualized on this study. PLEURA: There is no pleural effusion. No pleural mass or thickening. AXILLA: Small bilateral axillary lymph nodes. No enlarged lymph nodes or chest wall mass. UPPER ABDOMEN: Fatty liver. Diverticulosis of the colon. OSSEOUS STRUCTURES: Stimulator leads in the thoracic spinal canal CT/CT chest wo IV con IMPRESSION: Subsegmental atelectasis at the lung bases. Fatty liver. Fleischner guidelines were followed.
== END 2023-08-21 08:02 | disposition home or self-care (01) ==
LOC: HO.CT 08:01
PROVIDERS: PCP Family Medicine; Visit Provider Nurse Practitioner Family
DX: R05.9 Cough, unspecified (principal); J18.9 Pneumonia, unspecified organism
CPT/HCPCS: 71250

== ENCOUNTER 2023-08-28 13:07 | Outpatient (AMB) | payer OTHER, SELFPAY ==
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
[2023-08-28 13:12] VITALS: PULSE 84; RESP 14; O2SAT 96; BMI 34.6
== END 2023-08-28 14:01 | disposition home or self-care (01) ==
PROVIDERS: PCP Family Medicine; Visit Provider Internal Medicine
DX: G03.9 Meningitis, unspecified (principal)
CPT/HCPCS: 99213

== ENCOUNTER → 2023-08-28 13:07 | Outpatient (BNVA) | payer OTHER, SELFPAY | PROVIDERS: PCP Family Medicine; Visit Provider Internal Medicine | DX: G03.9 Meningitis, unspecified (principal); Z96.82 Presence of neurostimulator | CPT/HCPCS: 99212 ==

== ENCOUNTER 2023-08-29 10:32 | Outpatient (REF) | payer OTHER, SELFPAY ==
--- NOTE | 2023-08-29 11:36 | PFT_ITS ---
INDICATION: Asthma. SPIROMETRY: FEV1 to FVC of 83% with an FEV1 of 2.98 L, which is 98% predicted and an FVC of 3.61 L, which is 98% predicted. No significant response to bronchodilators noted. Maximum voluntary ventilation 89% predicted. LUNG VOLUMES: Total lung capacity 100% predicted. DIFFUSION CAPACITY: DLCO of 95% predicted. COMPARISONS: None. INTERPRETATION: No obstructive nor restrictive ventilatory defects appreciated. No significant response to bronchodilators noted. Normal maximum voluntary ventilation. Lung volumes are within normal limits, and diffusion capacity also within normal limits. If asthma is in the differential, methacholine challenge may be helpful in assessing for hyperreactive airway disease. Otherwise, clinical correlation warranted. Sebastian Tirado MD MR/MODL / [id number]
== END 2023-08-29 10:33 | disposition home or self-care (01) ==
LOC: HO.RESP 10:32
PROVIDERS: PCP Family Medicine; Visit Provider Nurse Practitioner Family
DX: J45.909 Unspecified asthma, uncomplicated (principal)
CPT/HCPCS: 94010; 94727; 94729

== ENCOUNTER → 2023-08-29 11:36 | Outpatient (BNV) | payer OTHER, SELFPAY | PROVIDERS: PCP Family Medicine; Visit Provider Hospitalist | DX: J45.909 Unspecified asthma, uncomplicated (principal) | CPT/HCPCS: 94060; 94727; 94729 ==

== ENCOUNTER 2023-09-15 13:02 | Outpatient (AMB) | payer OTHER, SELFPAY ==
--- NOTE | 2023-09-15 13:08 | A.OFFVIS_ITS ---
Intake Vital Signs 09/15/23 13:11 Height 5 ft 1 in Weight 185 lb BMI 35.0 Pulse 64 Pulse Source Pulse Oximeter Pulse Oximetry (%) 98 Oxygen Delivery Method Room Air Intake Visit Reasons: 3 month follow up Diplomatic Courier Required: No Allergies aspirin [ASA] Allergy (Severe, Verified 09/15/23 13:13) asthma exacerbation duloxetine [Cymbalta] Allergy (Intermediate, Verified 09/15/23 13:13) loopy gabapentin Allergy (Intermediate, Verified 09/15/23 13:13) loopy NSAIDS (Non-Steroidal Anti-Inflamma [NSAIDS (NON-STEROIDAL ANTI-INFLAMMA] Allergy (Intermediate, Verified 09/15/23 13:13) asthma exacerbation pregabalin Allergy (Intermediate, Verified 09/15/23 13:13) loopy tramadol [TRAMADOL] Allergy (Intermediate, Verified 09/15/23 13:13) tachycardia codeine [CODEINE] Allergy (Mild, Verified 09/15/23 13:13) Rash All SSRIs Allergy (Intermediate, Uncoded 09/15/23 13:13) nightmares Amitriptyline Allergy (Intermediate, Uncoded 09/15/23 13:13) tachycardia HPI HPI Comments History of Present Illness Details The patient is a 52 year woman with the history of worsening cough. Apparently she developed pneumonia several times. The last time she developed pneumonia was back in December. Significant left-sided extensive airspace disease noted. The patient was given antibiotics and also prednisone. She seems to respond well to prednisone. Now she has this persistent cough. I also shortness of breath and chest tightness. The patient has been evaluated multiple times without a clear etiology of her pneumonias. Not clear why she has recurrent episodes. I did review the x-ray from December subsequently after that she had an x-ray in January that demonstrated interval resolution of the process. Is not clear if this is infectious or noninfectious pneumonias. Will assess for underlying connective tissue conditions. Also will assess her for immunodeficiencies. We did review her pulmonary function studies that she had back in 2016. no evidence of any obstructive ventilatory defects although I explained to her that this does not rule out asthma. The patient does have chest tightness at times. She also has a prolonged expiratory phase. Will provide her with respiratory therapy at this time. 09/15/2023 the patient is here for pulmo nary follow-up visit. Overall she is doing well. She recently was evaluated by our office for an acute exacerbation of her breathing. She is back to her baseline now. She is off the prednisone. The patient did undergo blood work demonstrating slight decrease in the IgG otherwise all the other rest of the blood work was reassuring. The patient did also have a CT scan of the chest that was personally by me chest minimal atelectasis nothing to explain her airspace disease. The patient does understand that her findings on the x-rays are consistent with a pneumonic process and likely bacterial in origin. Therefore in view of her we can immune system we can consider prophylactic antibiotics to see we can decrease her infectious recurrence. Also will be reasonable if she has any further events to perform bronchoscopy to further address the airways and look for any smoldering infections. The patient is working closely with allergy immunology. She should have her subclasses checked as far as her IgG and if they are low consider challenging with a vaccine to see if she has a proper response to vaccine therapy. The patient will continue with current respiratory therapy will follow-up in a couple months. She also need an EKG. [facility] Medical History (Updated 09/15/23 @ 20:27 by Sebastian Tirado MD) IBS (irritable bowel syndrome) RUQ abdominal pain Chronic depression Fibromyalgia Asthma Surgical History History of abdominoplasty History of esophagogastroduodenoscopy (EGD) S/P bilateral breast reduction S/P LEVI-BSO H/O colonoscopy Spinal cord stimulator status Cataract, left eye Cataract, right eye History of sinus surgery History of left knee surgery History of partial hysterectomy Family History Father CVD (cardiovascular disease) Heart attack Mother CVD (cardiovascular disease) Heart attack Maternal Grandmother CVD (cardiovascular disease) Maternal Grandfather Colon cancer Paternal Grandmother No problems noted. Son No problems noted. Son No problems noted. Son No problems noted. Son Heart attack Social History Housing: House Alcohol intake: never Patient Tobacco Use Status: Never used Tobacco e-Cigarette/Vaping Use: Never Used Second Hand Smoke Exposure: No service: No Current occupational status: employed Current occupation: right handed Current occupational exposures/hazards: No Cognitive needs: No Hearing needs: No Vision needs: No Review of Systems Const Denies chills, Denies fatigue, Denies fever(s), Denies headache(s) and Denies weakness ENT Denies dizziness and Denies headache(s) Card Denies chest pain, Denies lightheadedness, Denies dyspnea and Denies other (Palpitations) Resp Denies cough, Denies dyspnea, Denies wheezing and Denies other ( shortness of breath) GI Reports no additional complaints Musc Denies numbness and Denies tingling Neuro Denies dizziness, Denies headache(s), Denies numbness, Denies tingling, Denies paresthesias and Denies weakness Psych Denies anxiety and Denies depression Endo Denies fatigue Aller/Immun Denies wheezing Physical Exam Vital Signs: Last Vital Signs Pulse 64 09/15/23 13:11 Pulse Ox 98 09/15/23 13:11 Oxygen Delivery Method Room Air 09/15/23 13:11 BMI result Body Mass Index 35.0 Const General: no acute distress and well developed Nutritional Appearance: well nourished Orientation/consciousness: patient oriented x3 HEENT Head: Yes normocephalic and Yes atraumatic Eyes General: appearance normal, both eyes and all related structures Pupils: Equal, round and reactive pupils present EOM: EOMs intact bilaterally Resp Other: Crackles at bilateral bases, worse on L than R Effort & Inspection: normal respiratory effort Auscultation: diminished lung sounds Cardio Rate: regular rate Rhythm: regular rhythm Heart sounds: S1 normal heart sound present, S2 normal heart sound present, no gallops, no murmurs and no rubs Neuro General: patient oriented x3 and gait normal Cranial nerves: Yes Equal, round and reactive pupils present Psych Affect: normal affect Assessment & Plan Assessment & Plan (1) Asthma: Code(s): J45.909 - Unspecified asthma, uncomplicated Qualifiers: Asthma severity: moderate Asthma persistence: persistent Asthma complication type: uncomplicated Qualified Code(s): J45.40 - Moderate persistent asthma, uncomplicated (2) Pneumonia: Code(s): J18.9 - Pneumonia, unspecified organism Qualifiers: Pneumonia type: due to unspecified organism Laterality: left Lung location: unspecified part of lung Qualified Code(s): J18.9 - Pneumonia, unspecified organism Plan continue Wixela YURI as needed start Azithromycin MWF chesk IgG subclasses consider bronchosocopy EKG once on macrolide therapy F/U in 2 months Orders: Orders Immunoglobulin G Subclasses Today J18.9 - Pneumonia, unspecified organism ECG 12 lead EKG Today J44.9 - Chronic obstructive pulmonary disease, unspecified Medications: New azithromycin Take 1 tablet on Monday/Monday/Monday 250 mg PO 3XW 28 days 12 tabs 3RF K21.9 - Gastro-esophageal reflux disease without esophagitis benzonatate 200 mg PO BID 30 days PRN 60 caps 0RF cough Coding Level of Care Code Est Pt Level 4 (13938) Diagnoses Moderate persistent asthma without complication J45.40 Asthma severity: moderate Asthma persistence: persistent Asthma complication type: uncomplicated Pneumonia of left lung due to infectious organism, unspecified part of lung J18.9 Pneumonia type: due to unspecified organism Laterality: left Lung location: unspecified part of lung Time Spent (min) 18
[2023-09-15 13:11] VITALS: PULSE 64; O2SAT 98; BMI 35.0
== END 2023-09-15 13:40 | disposition home or self-care (01) ==
PROVIDERS: PCP Family Medicine; Visit Provider Hospitalist
DX: J45.40 Moderate persistent asthma, uncomplicated (principal); J18.9 Pneumonia, unspecified organism
CPT/HCPCS: 99214

== ENCOUNTER → 2023-09-15 13:02 | Outpatient (BNVA) | payer OTHER, SELFPAY | PROVIDERS: PCP Family Medicine; Visit Provider Hospitalist | DX: J45.40 Moderate persistent asthma, uncomplicated (principal); J18.9 Pneumonia, unspecified organism | CPT/HCPCS: 99212 ==

== ENCOUNTER → 2023-09-26 07:57 | Outpatient (REF) | payer OTHER, SELFPAY ==
--- NOTE | 2023-09-26 08:20 | ECG_ITS ---
Test Reason : copd Blood Pressure : / mmHG Vent. Rate : 068 BPM Atrial Rate : 068 BPM P-R Int : 140 ms QRS Dur : 078 ms QT Int : 398 ms P-R-T Axes : 029 016 033 degrees QTc Int : 423 ms Normal sinus rhythm Normal ECG When compared with ECG of 15-FEB-2016 16:31, No significant change was found Referred By: Sebastian Tirado Electronically Signed By:SHALOM HAY MD
[2023-09-29 14:29] LABS: Immunoglobulin G Subclass 1 275 mg/dL (382-929); Immunoglobulin G Subclass 2 263 mg/dL (241-700); Immunoglobulin G Subclass 3 35 mg/dL (22-178); Immunoglobulin G Subclass 4 11.3 mg/dL (4-86); Immunoglobulin G Total 594 mg/dL (600-1640)
== END ==
LOC: HO.CARD 07:57
PROVIDERS: PCP Family Medicine; Visit Provider Hospitalist
DX: J18.9 Pneumonia, unspecified organism (principal); J44.9 Chronic obstructive pulmonary disease, unspecified
CPT/HCPCS: 36415; 82784; 93005

== ENCOUNTER 2023-10-11 10:21 | Day surgery (SDC) | payer OTHER, SELFPAY ==
--- NOTE | 2023-10-10 10:38 | P.CONAN_ITS ---
Documented by User: Ema Lewis NP 10/10/23 10:52 HPI - Anesthesia Eval Consult details Narrative: 53yo F for Spinal Cord Stimulation EXPLANT Follows [facility] [place], [place] pulmo. Last office visit 09/2023. Started on prophylactic abx to decrease recurrence of infectious pna d/t weakened immune system. Unable to reach patient by phone for update on respiratory status. [facility] Active Problems Active Problems: All Active Problems (Updated 09/15/23 @ 20:27 by Sebastian Tirado MD) NILTON (obstructive sleep apnea) (Acute) Neuropathy of both feet (Acute) Low vitamin D level (Acute) Snoring (Acute) Excessive daytime sleepiness (Acute) Allergies (Acute) Adult general medical exam (Acute) Rash (Acute) Asthma (Acute) Otitis media (Acute) Pneumonia (Acute) Cough (Acute) Abnormal lung sounds (Acute) Candidiasis of mouth and esophagus (Acute) Acute diarrhea (Acute) Tendinitis of left rotator cuff (Acute) Viral illness (Acute) Bilateral otitis media (Acute) Postmenopausal (Acute) Low back pain (Acute) Tracheobronchitis (Acute) Rotator cuff tear, right (Acute) Arachnoiditis (Acute) S/P insertion of spinal cord stimulator (Acute) Rotator cuff tear (Acute) GERD (gastroesophageal reflux disease) (Acute) Family history of premature CAD (Acute) Hypercholesterolemia (Acute) Elevated fasting glucose (Acute) Elevated erythrocyte sedimentation rate (Acute) Fatigue (Acute) Tubular adenoma of colon (Acute) Osteoarthritis of lumbar spine (Acute) IBS (irritable bowel syndrome) (Acute) Past Medical History Medical History IBS (irritable bowel syndrome) RUQ abdominal pain Chronic depression Fibromyalgia Asthma Family History Family History Father CVD (cardiovascular disease) Heart attack Mother CVD (cardiovascular disease) Heart attack Maternal Grandmother CVD (cardiovascular disease) Maternal Grandfather Colon cancer Paternal Grandmother No problems noted. Son No problems noted. Son No problems noted. Son No problems noted. Son Heart attack Family history of problems with anesthesia: No Surgical History Surgical History History of abdominoplasty History of esophagogastroduodenoscopy (EGD) S/P bilateral breast reduction S/P LEVI-BSO H/O colonoscopy Spinal cord stimulator status Cataract, left eye Cataract, right eye History of sinus surgery History of left knee surgery History of partial hysterectomy History of Problems with Anesthesia: No Social History Social History Housing: House Alcohol intake: never Patient Tobacco Use Status: Never used Tobacco e-Cigarette/Vaping Use: Never Used Second Hand Smoke Exposure: No Advance Directives: No Advance Directives Information Provided: Yes Advance Directives on File: No service: No Current occupational status: employed Current occupation: right handed Current occupational exposures/hazards: No Cognitive needs: No Hearing needs: No Vision needs: No Meds Allergies Allergy/AdvReac Type Severity Reaction Status Date / Time aspirin [ASA] Allergy Severe asthma Verified 09/15/23 13:13 exacerbation duloxetine [Cymbalta] Allergy Intermediate loopy Verified 09/15/23 13:13 gabapentin Allergy Intermediate loopy Verified 09/15/23 13:13 NSAIDS (Non-Steroidal Allergy Intermediate asthma Verified 09/15/23 13:13 Anti-Inflamma exacerbation [NSAIDS (NON-STEROIDAL ANTI-INFLAMMA] pregabalin Allergy Intermediate loopy Verified 09/15/23 13:13 tramadol [TRAMADOL] Allergy Intermediate tachycardia Verified 09/15/23 13:13 codeine [CODEINE] Allergy Mild Rash Verified 09/15/23 13:13 All SSRIs Allergy Intermediate nightmares Uncoded 09/15/23 13:13 Amitriptyline Allergy Intermediate tachycardia Uncoded 09/15/23 13:13 Home Medications Medication Instructions Recorded Confirmed Last Taken Type fexofenadine 180 mg tablet 180 mg PO DAILY 02/26/21 08/28/23 Unknown History (Sandy Allergy) dextroamphetamine-amphetamine 10 1 tab PO BID 04/15/22 08/28/23 Unknown History mg tablet levocetirizine 5 mg tablet 5 mg PO BEDTIME 04/15/22 08/28/23 Unknown History triamcinolone acetonide 55 mcg spray intranasal 04/15/22 08/28/23 Unknown History nasal spray aerosol clonazepam 0.5 mg tablet 0.5 mg PO TID PRN Anxiety 06/15/22 08/28/23 Unknown History buspirone 7.5 mg tablet 7.5 mg PO 11/17/22 08/28/23 Unknown History fluoxetine 10 mg capsule 10 mg PO DAILY 11/17/22 08/28/23 Unknown History Exam Pertinent Lab Results Pertinent Lab Results: Laboratory Tests 04/14/23 08:05 WBC 7.6 Hgb 14.0 Hct 43.6 Plt Count 252 Sodium 141 Potassium 4.3 Chloride 106 Carbon Dioxide 26 BUN 11 Creatinine 0.69 Narrative Narrative: EKG 09/2023 Vent. Rate : 068 BPM Atrial Rate : 068 BPM P-R Int : 140 ms QRS Dur : 078 ms QT Int : 398 ms P-R-T Axes : 029 016 033 degrees QTc Int : 423 ms Normal sinus rhythm Normal ECG When compared with ECG of 15-FEB-2016 16:31, No significant change was found ECHO 2021 Conclusions: - Essentially normal study Assessment and Plan Assessment Anesthesia Assessment: Chart Reviewed Final Anesthetic Review Family History of Problems with Anesthesia: No History of Problems with Anesthesia: No Documented by User: Ashely Barnhart MD 10/11/23 12:38 PMFSH Past Medical History Medical History IBS (irritable bowel syndrome) RUQ abdominal pain Chronic depression Fibromyalgia Asthma Family History Family History Father CVD (cardiovascular disease) Heart attack Mother CVD (cardiovascular disease) Heart attack Maternal Grandmother CVD (cardiovascular disease) Maternal Grandfather Colon cancer Paternal Grandmother No problems noted. Son No problems noted. Son No problems noted. Son No problems noted. Son Heart attack Surgical History Surgical History History of abdominoplasty History of esophagogastroduodenoscopy (EGD) S/P bilateral breast reduction S/P LEVI-BSO H/O colonoscopy Spinal cord stimulator status Cataract, left eye Cataract, right eye History of sinus surgery History of left knee surgery History of partial hysterectomy Social History Social History Housing: House Alcohol intake: never Patient Tobacco Use Status: Never used Tobacco e-Cigarette/Vaping Use: Never Used Second Hand Smoke Exposure: No Advance Directives: No Advance Directives Information Provided: Yes Advance Directives on File: No service: No Current occupational status: employed Current occupation: right handed Current occupational exposures/hazards: No Cognitive needs: No Hearing needs: No Vision needs: No Meds Allergies Allergy/AdvReac Type Severity Reaction Status Date / Time aspirin [ASA] Allergy Severe asthma Verified 09/15/23 13:13 exacerbation duloxetine [Cymbalta] Allergy Intermediate loopy Verified 09/15/23 13:13 gabapentin Allergy Intermediate loopy Verified 09/15/23 13:13 NSAIDS (Non-Steroidal Allergy Intermediate asthma Verified 09/15/23 13:13 Anti-Inflamma exacerbation [NSAIDS (NON-STEROIDAL ANTI-INFLAMMA] pregabalin Allergy Intermediate loopy Verified 09/15/23 13:13 tramadol [TRAMADOL] Allergy Intermediate tachycardia Verified 09/15/23 13:13 codeine [CODEINE] Allergy Mild Rash Verified 09/15/23 13:13 All SSRIs Allergy Intermediate nightmares Uncoded 09/15/23 13:13 Amitriptyline Allergy Intermediate tachycardia Uncoded 09/15/23 13:13 Home Medications Medication Instructions Recorded Confirmed Last Taken Type fexofenadine 180 mg tablet 180 mg PO DAILY 02/26/21 08/28/23 Unknown History (Sandy Allergy) dextroamphetamine-amphetamine 10 1 tab PO BID 04/15/22 08/28/23 Unknown History mg tablet levocetirizine 5 mg tablet 5 mg PO BEDTIME 04/15/22 08/28/23 Unknown History triamcinolone acetonide 55 mcg spray intranasal 04/15/22 08/28/23 Unknown History nasal spray aerosol clonazepam 0.5 mg tablet 0.5 mg PO TID PRN Anxiety 06/15/22 08/28/23 Unknown History buspirone 7.5 mg tablet 7.5 mg PO 11/17/22 08/28/23 Unknown History fluoxetine 10 mg capsule 10 mg PO DAILY 11/17/22 08/28/23 Unknown History Exam Airway Mallampati Class: II TM Dist: >3cm Neck ROM: Full Loose/Missing/Broken Teeth: No Heart: RRR Lungs: CTA Assessment and Plan Assessment Anesthesia Assessment: Anesthesia Plan Discussed Final Anesthetic Review NPO: Yes ASA Class: III Final Preanesthetic Review: Meds/Allgs Chart Reviewed, Consent Obtained/Reviewed and Anes Risks/Benef Reviewed Patient Risk: Intermediate Procedure Risk: Intermediate Anesthetic Plan Anesthetic Plan: MAC: Disposition: Standard PACU
[2023-10-11] VITALS (7 sets, daily range): BP systolic 129–153; BP diastolic 80–88; PULSE 67–81; RESP 16–18; TEMP 36.1–36.9; O2SAT 92–97; BMI 35.0
--- NOTE | ~2023-10-11 | FL_ITS ---
EXAMINATION: XR FLUOROSCOPY WITH IMAGES CLINICAL INFORMATION: Spinal cord stimulator explant COMPARISON: Previous exam August 2021 TECHNIQUE: Fluoroscopy Supervised By: gabriel Fluoroscopy Time: 0 minutes. Cumulative Dose: 1.6 mGy. DAP: 0.5 Gycm2. Images: 2. FINDINGS: Images of the lower thoracic spine and the lumbar spine facet show no spinal stimulator. FL/FL guidance in OR IMPRESSION: Fluoroscopy guidance for spinal cord stimulator removal
[2023-10-11] MEDS: Lactated Ringers 1,000 ML 100 ML IVCONT (11:44)
[2023-10-11 13:13] LABS: MRSA Nasal PCR NEGATIVE (Negative); SA Nasal PCR NEGATIVE (Negative)
[2023-10-11] MEDS: fentaNYL citrate/PF 100 MCG/2 ML VIAL 25 MCG IVPUSH (13:53)
--- NOTE | 2023-10-11 15:50 | P.BOP_ITS ---
Brief Operative Note Date of Service: 10/11/23 Pre-op diagnosis: SCS therapy failure Post-op diagnosis: same Procedure: Spinal cord stimulation system explant Surgeon: Yosef Rubio MD Anesthesia: MAC Was an Special Certificate Dictator used for this Procedure?: No Estimated blood loss (mL): 5 Pathology: none sent Condition: stable Disposition: PACU
--- NOTE | 2023-10-11 15:50 | MHC.SHP ---
Pre-Procedural Eval Section A Date of Service: 10/11/23 The patient is an INPATIENT: No Changes since office visit: Yes Patient answered all questions The History & Physical has been completed within 30 days and I have reviewed it.: No Section B Chief Complaint: Postlaminectomy syndrome, not elsewhere classified Relevant Family History (Specify if Yes): No Relevant Social History: None Present Medications: see Short Stay Collaborative assessment Medical History: No relevant PMH History of Previous Operations: No relevant previous surgery Allergies: Allergies Allergy/AdvReac Type Severity Reaction Status Date / Time aspirin [ASA] Allergy Severe asthma Verified 09/15/23 13:13 exacerbation duloxetine [Cymbalta] Allergy Intermediate loopy Verified 09/15/23 13:13 gabapentin Allergy Intermediate loopy Verified 09/15/23 13:13 NSAIDS (Non-Steroidal Allergy Intermediate asthma Verified 09/15/23 13:13 Anti-Inflamma exacerbation [NSAIDS (NON-STEROIDAL ANTI-INFLAMMA] pregabalin Allergy Intermediate loopy Verified 09/15/23 13:13 tramadol [TRAMADOL] Allergy Intermediate tachycardia Verified 09/15/23 13:13 codeine [CODEINE] Allergy Mild Rash Verified 09/15/23 13:13 All SSRIs Allergy Intermediate nightmares Uncoded 09/15/23 13:13 Amitriptyline Allergy Intermediate tachycardia Uncoded 09/15/23 13:13 Review of Systems Sugical H&P ROS: Negative: Constitution, Cardiovascular and Respiratory Exam Surgical H&P Exam: Normal: HEENT, Normal: Heart and Normal: Lungs Plan Diagnosis/Plan: Unchanged I have reviewed the history and physical and performed a pertinent physical examination on my patient. No changes have occurred unless specified. Time Spent With Patient Time: Total time managing care of this patient today ____ minutes.
--- NOTE | 2023-10-11 15:51 | P.OP_ITS ---
Operative Note Operative Note Date of Service: 10/11/23 Narrative: Explantation of spinal cord stimulation leads and implanted pulse generator After proper identification, the patient was brought to the operating room. For prone positioning, care was taken to protect and pad all pressure points. Cefazolin 2gm IV was given as preoperative antibiotic prophylaxis. The back was prepped and draped in the usual sterile fashion using Chloroprep. The fluoroscope unit was sterilely draped and brought into field. The existing SCS lead anchors were identified at the L1/L2 interspace. The skin overlying this interspace was infiltrated with 0.25% bupivacaine with 1:200,000 epin ephrine and 1% lidocaine using a 25-gauge needle. A 6 cm incision was then made with a 15 blade and a combination of electrocautery and blunt dissection was used to dissect down to the prevertebral fascia until the anchors were exposed. Blunt dissection was then used to free the anchors from the soft tissue. A blade was used to release the sutures. The sutures were removed. Once the anchors were free, the epidural leads were gently pulled back one after the other until they were completely removed from the epidural space. There was no resistance to the removal of the epidural leads. The epidural leads were removed completely with tips intact. Attention was then diverted to the IPG site. The site was confirmed using fluoroscopy. The scar overlying the IPG was then infiltrated with the local anesthetic mixture as noted above. A 15 blade was then used to incise the skin. Combination of electrocautery and blunt dissection was then used to expose and deliver the existing IPG. The leads were cut and released from the anchors. With the leads free, they were pulled out through the IPG incision and completely removed from the operative field. Fluoroscopy was used to confirm complete removal of all implanted components; this image was saved to the patient's permanent record. Both incisions were irrigated with normal saline solution. The fibrous capsule inside the IPG pocket site was partially resected to the extent possible without enlarging the incision further. A single suture 2-0 Polysorb was thrown across the floor of the pocket and the roof to obliterate the space. All preexisting suture remnants were identified and removed. After irrigation, the wounds were closed with interrupted deep dermal sutures using 3-0 Vicryl. The skin was closed with vic and dressed with bacitracin, gauze and Tegaderm. The patient was then woken up, flipped supine and brought to the PACU in stable condition.
== END 2023-10-11 15:12 | disposition home or self-care (01) ==
PROVIDERS: Registered Nurse Emergency; PCP Family Medicine; Visit Provider Internal Medicine
PROC: (CPT 63661; principal; 2023-10-11 12:00)
DX: Z45.42 Encounter for adjustment and management of neurostimulator (principal); M96.1 Postlaminectomy syndrome, not elsewhere classified; G03.9 Meningitis, unspecified; M62.89 Other specified disorders of muscle; M79.7 Fibromyalgia; J45.909 Unspecified asthma, uncomplicated; K58.9 Irritable bowel syndrome, unspecified; F32.A Depression, unspecified; Z79.51 Long term (current) use of inhaled steroids; Z79.899 Other long term (current) drug therapy; Z88.8 Allergy status to other drugs, medicaments and biological substances; Z88.5 Allergy status to narcotic agent; Z98.890 Other specified postprocedural states
CPT/HCPCS: 63661; 63688; 87640; 87641; J0690; J2250; J2405; J2704; J3010

== ENCOUNTER → 2023-10-11 10:21 | Outpatient (BNV) | payer OTHER, SELFPAY | PROVIDERS: PCP Family Medicine; Visit Provider Internal Medicine | DX: M96.1 Postlaminectomy syndrome, not elsewhere classified (principal); Z96.82 Presence of neurostimulator | CPT/HCPCS: 63661; 63688 ==

== ENCOUNTER 2023-10-16 12:56 | Outpatient (AMB) | payer OTHER, SELFPAY ==
[2023-10-16 13:05] VITALS: PULSE 76; RESP 12; O2SAT 97; BMI 36.1
--- NOTE | 2023-10-16 13:05 | A.OFFVIS_ITS ---
Intake Vital Signs 10/16/23 13:05 Height 5 ft 1 in Weight 191 lb BMI 36.1 Blood Pressure Location Lt brachial Position Sitting Respiration 12 Pulse 76 Pulse Source Pulse Oximeter Pulse Oximetry (%) 97 Oxygen Delivery Method Room Air Intake Visit Reasons: S/p SCS Explant 10/11/23/confirmed Allergies aspirin [ASA] Allergy (Severe, Verified 10/16/23 13:06) asthma exacerbation duloxetine [Cymbalta] Allergy (Intermediate, Verified 10/16/23 13:06) loopy gabapentin Allergy (Intermediate, Verified 10/16/23 13:06) loopy NSAIDS (Non-Steroidal Anti-Inflamma [NSAIDS (NON-STEROIDAL ANTI-INFLAMMA] Allergy (Intermediate, Verified 10/16/23 13:06) asthma exacerbation pregabalin Allergy (Intermediate, Verified 10/16/23 13:06) loopy tramadol [TRAMADOL] Allergy (Intermediate, Verified 10/16/23 13:06) tachycardia codeine [CODEINE] Allergy (Mild, Verified 10/16/23 13:06) Rash All SSRIs Allergy (Intermediate, Uncoded 10/16/23 13:06) nightmares Amitriptyline Allergy (Intermediate, Uncoded 10/16/23 13:06) tachycardia Medication List - Last Reconciled 10/16/23 by Selina Awad LPN acetaminophen ER (Mapap Arthritis Pain) 1,300 mg (2 x 650 mg) PO Q8H PRN albuterol sulfate 90 mcg/actuation (Ventolin HFA) 2 puffs inhalation Q6H PRN 30 days alpha lipoic acid 300 mg PO DAILY 30 days azithromycin 250 mg PO 3XW 28 days B-complex with vitamin C 1 tab PO DAILY 30 days benzonatate 200 mg PO BID PRN 30 days buspirone 7.5 mg PO cholecalciferol (vitamin D3) 50 mcg PO DAILY 90 days clonazepam 0.5 mg PO TID PRN dextroamphetamine-amphetamine 10 mg 1 tab PO BID fexofenadine (Sandy Allergy) 180 mg PO DAILY fluoxetine 10 mg PO DAILY fluticasone propion-salmeterol 500-50 mcg/dose (Wixela Inhub) 1 inh inhalation BID 90 days folic acid 0.4 mg PO DAILY 90 days hyoscyamine sulfate 0.25 mg (2 x 0.125 mg) PO QID PRN ipratropium bromide 2 sprays intranasal BID ipratropium-albuterol 0.5 mg-3 mg(2.5 mg base)/3 mL 3 mL inhalation Q6H PRN levocetirizine 5 mg PO BEDTIME lidocaine 5% (Lidoderm) 1 patch topical DAILY 30 days magnesium oxide 500 mg PO DAILY 30 days mometasone 50 mcg/actuation 2 sprays intranasal DAILY 90 days omeprazole 40 mg PO DAILY 90 days triamcinolone acetonide sprays intranasal HPI S/p SCS Explant 10/11/23/confirmed HPI Details 53-year-old female who presents today to the office for a status post SCS explant. The patient is overall doing well. The patient has been wearing the abdominal binder as recommended. She reports some itchiness at the midline incision site, but otherwise no issues. Past procedure: 10/11/2023: Explantation of spinal cord stimulation leads and implanted pulse generator. [facility] Medical History IBS (irritable bowel syndrome) RUQ abdominal pain Chronic depression Fibromyalgia Asthma Surgical History History of abdominoplasty History of esophagogastroduodenoscopy (EGD) S/P bilateral breast reduction S/P LEVI-BSO H/O colonoscopy Spinal cord stimulator status Cataract, left eye Cataract, right eye History of sinus surgery History of left knee surgery History of partial hysterectomy Family History Father CVD (cardiovascular disease) Heart attack Mother CVD (cardiovascular disease) Heart attack Maternal Grandmother CVD (cardiovascular disease) Maternal Grandfather Colon cancer Paternal Grandmother No problems noted. Son No problems noted. Son No problems noted. Son No problems noted. Son Heart attack Social History Housing: House Alcohol intake: never Patient Tobacco Use Status: Never used Tobacco e-Cigarette/Vaping Use: Never Used Second Hand Smoke Exposure: No service: No Current occupational status: employed Current occupation: right handed Current occupational exposures/hazards: No Cognitive needs: No Hearing needs: No Vision needs: No Review of Systems Const All systems reviewed & are unremarkable except as noted in HPI and below Physical Exam Vital Signs: Last Vital Signs Pulse 76 10/16/23 13:05 Resp 12 10/16/23 13:05 Pulse Ox 97 10/16/23 13:05 Oxygen Delivery Method Room Air 10/16/23 13:05 BMI result Body Mass Index 36.1 General: Appears afebrile. Alert and oriented. Mood and affect appropriate. Follows and participates in conversation appropriately. Respiratory effort is unlabored. Able to transition from sit to stand unassisted. Ambulates with bilaterally normal heel strike and toe off. Both incisions are clean, dry and intact, healing well. Results Reviewed Results Reviewed: No imaging is available for review. Assessment & Plan Assessment & Plan (1) Spinal cord stimulator dysfunction: Comment: Status post explant Code(s): T85.192A - Other mechanical complication of implanted electronic neurostimulator of spinal cord electrode (lead), initial encounter Plan Continue with the vic for another week. The patient will follow up in 10/20/2023 for vic removal. Scribed for Dr. Rubio by Jan Frank, chief medical director, on 10/16/2023. I, Dr. Rubio, have personally reviewed and agree with the information entered by the scribe. Coding Level of Care Code Est Pt Level 3 (45077) Diagnoses Spinal cord stimulator dysfunction T85.192A
== END 2023-10-16 13:34 | disposition home or self-care (01) ==
PROVIDERS: PCP Family Medicine; Visit Provider Internal Medicine
DX: T85.192A Other mechanical complication of implanted electronic neurostimulator of spinal cord electrode (lead), initial encounter (principal)
CPT/HCPCS: 99024

== ENCOUNTER → 2023-10-16 12:56 | Outpatient (BNVA) | payer OTHER, SELFPAY | PROVIDERS: PCP Family Medicine; Visit Provider Internal Medicine | DX: Z48.89 Encounter for other specified surgical aftercare (principal) | CPT/HCPCS: 99212 ==

== ENCOUNTER 2023-10-18 15:19 | Outpatient (AMB) | payer OTHER, SELFPAY ==
[2023-10-18 15:25] VITALS: BP 132/78; PULSE 79; O2SAT 97; BMI 36.3
--- NOTE | 2023-10-18 15:25 | MHC.PC.OV ---
Vital Signs 10/18/23 15:25 Height 5 ft 1 in Weight 192 lb BMI 36.3 BP 132/78 Blood Pressure Location Lt brachial Position Sitting Pulse 79 Pulse Source Pulse Oximeter Pulse Oximetry (%) 97 Oxygen Delivery Method Room Air Intake Visit Reasons: Lump, L breast and weight Intake Note: Patient is here with left breast lump and presscrition for Celebrex follow up, and her weight. Allergies aspirin [ASA] Allergy (Severe, Verified 10/18/23 15:28) asthma exacerbation duloxetine [Cymbalta] Allergy (Intermediate, Verified 10/18/23 15:28) loopy gabapentin Allergy (Intermediate, Verified 10/18/23 15:28) loopy NSAIDS (Non-Steroidal Anti-Inflamma [NSAIDS (NON-STEROIDAL ANTI-INFLAMMA] Allergy (Intermediate, Verified 10/18/23 15:28) asthma exacerbation pregabalin Allergy (Intermediate, Verified 10/18/23 15:28) loopy tramadol [TRAMADOL] Allergy (Intermediate, Verified 10/18/23 15:28) tachycardia codeine [CODEINE] Allergy (Mild, Verified 10/18/23 15:28) Rash All SSRIs Allergy (Intermediate, Uncoded 10/18/23 15:28) nightmares Amitriptyline Allergy (Intermediate, Uncoded 10/18/23 15:28) tachycardia Tobacco use date assessed: 10/18/23 HPI Lump, L breast and weight HPI Details 53 y/o female presents with complaints of a lump L breast. Pt also has concerns about her weight today. Had a mammogram in January which did show some fibrous tissue. She notes she noticed lump a week and a half ago that had felt different than normal. [facility], [facility] Medical History IBS (irritable bowel syndrome) RUQ abdominal pain Chronic depression Fibromyalgia Asthma Surgical History History of abdominoplasty History of esophagogastroduodenoscopy (EGD) S/P bilateral breast reduction S/P LEVI-BSO H/O colonoscopy Spinal cord stimulator status Cataract, left eye Cataract, right eye History of sinus surgery History of left knee surgery History of partial hysterectomy Family History Father CVD (cardiovascular disease) Heart attack Mother CVD (cardiovascular disease) Heart attack Maternal Grandmother CVD (cardiovascular disease) Maternal Grandfather Colon cancer Paternal Grandmother No problems noted. Son No problems noted. Son No problems noted. Son No problems noted. Son Heart attack Social History Housing: House Alcohol intake: never Patient Tobacco Use Status: Never used Tobacco e-Cigarette/Vaping Use: Never Used Second Hand Smoke Exposure: No service: No Current occupational status: employed Current occupation: right handed Current occupational exposures/hazards: No Cognitive needs: No Hearing needs: No Vision needs: No Questionnaire Thrive Questionnaire Date Thrive assessed: 01/27/22 MURIEL-7 AMB Questionnaire MURIEL-7 Date MURIEL - 7 assessed: 05/11/22 Source: Developed by Drs. Dayday Arias, Monika Dior, Herminio Clinton and colleagues, with an educational ross from [employer]. Review of Systems Const Denies chills, Denies fatigue, Denies fever(s), Denies headache(s) and Denies weakness ENT Denies dizziness and Denies headache(s) Card Denies dyspnea Resp Denies cough, Denies dyspnea, Denies wheezing and Denies other (shortness of breath) Musc Denies numbness and Denies tingling Neuro Denies dizziness, Denies headache(s), Denies numbness, Denies tingling and Denies weakness Psych Denies anxiety and Denies depression Endo Denies fatigue Aller/Immun Denies wheezing Physical exam (Primary Care) Vital Signs: Last Vital Signs Pulse 79 10/18/23 15:25 BP 132/78 10/18/23 15:25 Pulse Ox 97 10/18/23 15:25 Oxygen Delivery Method Room Air 10/18/23 15:25 BMI result Body Mass Index 36.3 Tobacco/Smoking Status: Tobacco use Status Tobacco use date assessed 10/18/23 10/18/23 15:32 Patient Tobacco Use Status Never used Tobacco 10/18/23 15:32 e-Cigarette/Vaping Use Never Used 10/18/23 15:32 Thrive Assessment: Date of Thrive Assessment Date Thrive assessed 01/27/22 10/18/23 15:32 Const General: well developed; No acute distress Nutritional Appearance: obese Orientation/consciousness: patient oriented x3 HENMT Head: Yes normocephalic and Yes atraumatic Eyes General: appearance normal, both eyes and all related structures Pupils: Equal, round and reactive pupils present EOM: EOMs intact bilaterally Chest Other: 0.5cm firm lump, not fluctuant, not thierno or matted Resp Effort & Inspection: normal respiratory effort Neuro General: patient oriented x3 and gait normal Cranial nerves: Yes Equal, round and reactive pupils present Psych Affect: normal affect Assessment and Plan Assessment & Plan (1) Left breast lump: Code(s): N63.20 - Unspecified lump in the left breast, unspecified quadrant Plan: 1?cm?firm?nonfluctuant?mass, not?thierno?or?matted?and?mildly?tender?to?palpation, felt?about?1?cm?from?the?Left nipple?areola?complex?at?about 9:30 o'clock?position. Will?order?diagnostic?mammogram?and?ultrasound (2) Obesity (BMI 30-39.9): Code(s): E66.9 - Obesity, unspecified Plan: Patient?is?frustrated?with?weight?gain We?discussed?working?at?regular?exercise?and?explored?barriers?and?some?ideas?that?she?can?try?to?get?some?exercise?at?least?every?other?day. She?can?then?work?at?decreasing?portion?sizes?and?controlling?her?diet Will?follow-up?in?1?month She?has?already?been?to?the[facility]management[facility]program?in?the?past. (3) Spinal cord stimulator dysfunction: Comment: Status post explant Code(s): T85.192A - Other mechanical complication of implanted electronic neurostimulator of spinal cord electrode (lead), initial encounter Plan: Now?s/p?removal Still?has?pain?and?having?difficulty?getting?exercise. Past?Celebrex?challenge?and?can?use?this Follow-up?with?surgeon (4) NILTON (obstructive sleep apnea): Comment: Moderate degree of sleep apena. The AHI was 15/hr and oxygen ingris was 80%. The total duration of O2 sat <88 % was 70 min. Code(s): G47.33 - Obstructive sleep apnea (adult) (pediatric) Plan: Continue?using?CPAP Encouraged?some?daytime?use?to?get?use?to?her?CPAP?machine (5) Allergies: Code(s): T78.40XA - Allergy, unspecified, initial encounter Plan: Numerous?allergy Follow-up?with?immunology (6) Cough: Code(s): R05.9 - Cough, unspecified Qualifiers: Cough type: acute Qualified Code(s): R05.1 - Acute cough Plan: Ongoing?cough?and?respiratory?problems. Follow-up?with?pulmonology?as?recommended Orders: Orders US breast LT complete Today N63.20 - Unspecified lump in the left breast, unspecified quadrant MM diagnostic mammo BI Today N63.20 - Unspecified lump in the left breast, unspecified quadrant Coding Level of Care Code Est Pt Level 4 (50115) Diagnoses Left breast lump N63.20 Obesity (BMI 30-39.9) E66.9 Spinal cord stimulator dysfunction T85.192A NILTON (obstructive sleep apnea) G47.33 Allergies T78.40XA Acute cough R05.1 Cough type: acute
== END 2023-10-18 16:11 | disposition home or self-care (01) ==
PROVIDERS: PCP Family Medicine; Visit Provider Family Medicine
DX: N63.21 Unspecified lump in the left breast, upper outer quadrant (principal); E66.9 Obesity, unspecified; T85.192A Other mechanical complication of implanted electronic neurostimulator of spinal cord electrode (lead), initial encounter; Z68.36 Body mass index [BMI] 36.0-36.9, adult; G47.33 Obstructive sleep apnea (adult) (pediatric); T78.40XA Allergy, unspecified, initial encounter; R05.1 Acute cough
CPT/HCPCS: 99214

== ENCOUNTER 2023-10-23 10:02 | Outpatient (AMB) | payer OTHER, SELFPAY ==
[2023-10-23 10:11] VITALS: BP 124/73; PULSE 65; RESP 12; BMI 36.3
--- NOTE | 2023-10-23 10:11 | A.OFFVIS_ITS ---
Intake Vital Signs 10/23/23 10:11 Height 5 ft 1 in Weight 192 lb BMI 36.3 BP 124/73 Blood Pressure Location Lt brachial Position Sitting Respiration 12 Pulse 65 Pulse Source Pulse Oximeter Intake Visit Reasons: S/p SCS Explant 11/22/23 Allergies aspirin [ASA] Allergy (Severe, Verified 10/23/23 10:22) asthma exacerbation duloxetine [Cymbalta] Allergy (Intermediate, Verified 10/23/23 10:22) loopy gabapentin Allergy (Intermediate, Verified 10/23/23 10:22) loopy NSAIDS (Non-Steroidal Anti-Inflamma [NSAIDS (NON-STEROIDAL ANTI-INFLAMMA] Allergy (Intermediate, Verified 10/23/23 10:22) asthma exacerbation pregabalin Allergy (Intermediate, Verified 10/23/23 10:22) loopy tramadol [TRAMADOL] Allergy (Intermediate, Verified 10/23/23 10:22) tachycardia codeine [CODEINE] Allergy (Mild, Verified 10/23/23 10:22) Rash All SSRIs Allergy (Intermediate, Uncoded 10/23/23 10:22) nightmares Amitriptyline Allergy (Intermediate, Uncoded 10/23/23 10:22) tachycardia Medication List - Last Reconciled 10/23/23 by Selina Awad LPN acetaminophen ER (Mapap Arthritis Pain) 1,300 mg (2 x 650 mg) PO Q8H PRN albuterol sulfate 90 mcg/actuation (Ventolin HFA) 2 puffs inhalation Q6H PRN 30 days alpha lipoic acid 300 mg PO DAILY 30 days azithromycin 250 mg PO 3XW 28 days B-complex with vitamin C 1 tab PO DAILY 30 days benzonatate 200 mg PO BID PRN 30 days buspirone 7.5 mg PO cholecalciferol (vitamin D3) 50 mcg PO DAILY 90 days clonazepam 0.5 mg PO TID PRN dextroamphetamine-amphetamine 10 mg 1 tab PO BID fexofenadine (Sandy Allergy) 180 mg PO DAILY fluoxetine 10 mg PO DAILY fluticasone propion-salmeterol 500-50 mcg/dose (Wixela Inhub) 1 inh inhalation BID 90 days folic acid 0.4 mg PO DAILY 90 days hyoscyamine sulfate 0.25 mg (2 x 0.125 mg) PO QID PRN ipratropium bromide 2 sprays intranasal BID ipratropium-albuterol 0.5 mg-3 mg(2.5 mg base)/3 mL 3 mL inhalation Q6H PRN levocetirizine 5 mg PO BEDTIME lidocaine 5% (Lidoderm) 1 patch topical DAILY 30 days magnesium oxide 500 mg PO DAILY 30 days mometasone 50 mcg/actuation 2 sprays intranasal DAILY 90 days omeprazole 40 mg PO DAILY 90 days triamcinolone acetonide sprays intranasal HPI S/p SCS Explant 11/22/23 HPI Details 53-year-old female who presents today to the office for a SCS explant vic removal. She is overall doing well. She had a COVID-19 infection and was treated with Paxlovid. She had cold symptoms and fever for three days. She has been spending most of the time resting since surgery. Past procedure: 10/11/2023: Explantation of spinal cord stimulation leads and implanted pulse generator. [facility] Medical History IBS (irritable bowel syndrome) RUQ abdominal pain Chronic depression Fibromyalgia Asthma Surgical History History of abdominoplasty History of esophagogastroduodenoscopy (EGD) S/P bilateral breast reduction S/P LEVI-BSO H/O colonoscopy Spinal cord stimulator status Cataract, left eye Cataract, right eye History of sinus surgery History of left knee surgery History of partial hysterectomy Family History Father CVD (cardiovascular disease) Heart attack Mother CVD (cardiovascular disease) Heart attack Maternal Grandmother CVD (cardiovascular disease) Maternal Grandfather Colon cancer Paternal Grandmother No problems noted. Son No problems noted. Son No problems noted. Son No problems noted. Son Heart attack Social History Housing: House Alcohol intake: never Patient Tobacco Use Status: Never used Tobacco e-Cigarette/Vaping Use: Never Used Second Hand Smoke Exposure: No service: No Current occupational status: employed Current occupation: right handed Current occupational exposures/hazards: No Cognitive needs: No Hearing needs: No Vision needs: No Review of Systems Const All systems reviewed & are unremarkable except as noted in HPI and below Physical Exam Vital Signs: Last Vital Signs Pulse 65 10/23/23 10:11 Resp 12 10/23/23 10:11 BP 124/73 10/23/23 10:11 BMI result Body Mass Index 36.3 General: Appears afebrile. Alert and oriented. Mood and affect appropriate. Follows and participates in conversation appropriately. Respiratory effort is unlabored. Able to transition from sit to stand unassisted. Ambulates with bilaterally normal heel strike and toe off. Results Reviewed Results Reviewed: No imaging is available for review. Assessment & Plan Assessment & Plan (1) Spinal cord stimulator dysfunction: Comment: Status post explant Code(s): T85.192A - Other mechanical complication of implanted electronic neurostimulator of spinal cord electrode (lead), initial encounter Plan The vic were removed today. Wounds dressed. The patient will follow up as needed. Scribed for Dr. Rubio by Jan Frank, medical officer psychiatry, on 10/23/2023. I, Dr. Rubio, have personally reviewed and agree with the information entered by the scribe. Coding Level of Care Code Est Pt Level 3 (50847) Diagnoses Spinal cord stimulator dysfunction T85.192A
== END 2023-10-23 10:41 | disposition home or self-care (01) ==
PROVIDERS: PCP Family Medicine; Visit Provider Internal Medicine
DX: T85.192A Other mechanical complication of implanted electronic neurostimulator of spinal cord electrode (lead), initial encounter (principal)
CPT/HCPCS: 99024

== ENCOUNTER → 2023-10-23 10:02 | Outpatient (BNVA) | payer OTHER, SELFPAY | PROVIDERS: PCP Family Medicine; Visit Provider Internal Medicine | DX: T85.192D Other mechanical complication of implanted electronic neurostimulator of spinal cord electrode (lead), subsequent encounter (principal) | CPT/HCPCS: 99212 ==

== ENCOUNTER 2023-10-31 12:42 | Outpatient (REF) | payer OTHER, SELFPAY ==
--- NOTE | ~2023-10-31 | MM_ITS ---
EXAMINATION: MM DIAGNOSTIC DIGITAL BREAST TOMOSYNTHESIS, BILATERAL US BREAST LIMITED, LEFT MAMMOGRAPHY: CLINICAL INFORMATION: Patient complaining of pea-sized lump 9:30 o'clock left breast periareolar region. Patient has also undergone prior breast reduction surgery after 2019. Due for annual screening. COMPARISON: 01/19/2023, 02/16/2021, 08/02/2019, and prior studies. TECHNIQUE: Digital breast tomosynthesis is performed in both the craniocaudal and mediolateral oblique views along with computer-aided detection (CAD). Synthesized 2D images are generated from the tomosynthesis. In addition, 3-D spot compression views of the region of palpable concern was also performed in the left CC and left MLO projections. FINDINGS: There are scattered areas of fibroglandular density (ACR BI-RADS breast composition Category b). There are dystrophic calcifications along the scar margins in the left breast retroareolar and along the anterior breast, medial inferior margin. A few dystrophic calcifications are also present in the retroareolar and posterior aspect of the right breast. It is likely the patient is feeling one of these dystrophic calcifications in the left periareolar region. Otherwise, There are no suspicious masses, suspicious grouped calcifications, or areas of architectural distortion in either breast. The parenchymal pattern is stable from prior exams. ULTRASOUND: CLINICAL INFORMATION: Patient complaining of pea-sized lump 9:30 o'clock left breast periareolar region. Patient has also undergone prior breast reduction surgery after 2019. COMPARISON: None contributory. TECHNIQUE: Targeted sonographic evaluation was performed using a high frequency linear transducer. Attention was given to the left periareolar region in the focus of palpable concern. Selected archived documentation. FINDINGS: LEFT BREAST: In the 10:00 axis of the left breast, 2 cm from the nipple, there is a partially calcified dystrophic region of fat necrosis measuring 1.2 x 1.2 x 0.8 cm, which appears to be what the patient is feeling. This is diagnostic for a region of partially calcified fat necrosis and is benign. There are no soft tissue masses, abnormal regions of shadowing, or cystic abnormalities. MM/MM tomosynthesis diagnostic BI IMPRESSION: There are no findings suspicious for malignancy in either breast. The patient appears to be feeling a region of calcified fat necrosis at the 10:00 axis of the left breast, 2 cm from the nipple. This is benign. No further follow-up recommended. Stable postoperative changes from breast reduction, benign. OVERALL ASSESSMENT: Mammography: BI-RADS 2 - Benign Findings Ultrasound: BI-RADS 2 - Benign Findings RECOMMENDATION: 1 year F/U Results were provided to the patient at time of visit by the technologist. This patient's information was entered into a reminder system with a target due date for their next mammogram.
== END 2023-10-31 12:43 | disposition home or self-care (01) ==
LOC: HO.MAMMO 12:42
PROVIDERS: PCP Family Medicine; Visit Provider Family Medicine
DX: N63.22 Unspecified lump in the left breast, upper inner quadrant (principal)
CPT/HCPCS: 76642; 77062; 77066

== ENCOUNTER → 2023-10-31 14:00 | Outpatient (BNV) | payer OTHER, SELFPAY | PROVIDERS: PCP Family Medicine; Visit Provider Radiology Diagnostic Radiology | DX: N63.20 Unspecified lump in the left breast, unspecified quadrant (principal) | CPT/HCPCS: 76642; 77062; 77066 ==

== ENCOUNTER 2023-11-24 13:03 | Outpatient (AMB) | payer OTHER, SELFPAY ==
--- NOTE | 2023-11-24 13:10 | A.OFFVIS_ITS ---
Intake Vital Signs 11/24/23 13:11 Height 5 ft 1 in Weight 185 lb BMI 35.0 Pulse 71 Pulse Source Pulse Oximeter Pulse Oximetry (%) 96 Oxygen Delivery Method Room Air Intake Visit Reasons: Obstructive sleep apnea Ophthalmology Surgical Technician Required: No Allergies aspirin [ASA] Allergy (Severe, Verified 11/24/23 13:11) asthma exacerbation duloxetine [Cymbalta] Allergy (Intermediate, Verified 11/24/23 13:11) loopy gabapentin Allergy (Intermediate, Verified 11/24/23 13:11) loopy NSAIDS (Non-Steroidal Anti-Inflamma [NSAIDS (NON-STEROIDAL ANTI-INFLAMMA] Allergy (Intermediate, Verified 11/24/23 13:11) asthma exacerbation pregabalin Allergy (Intermediate, Verified 11/24/23 13:11) loopy tramadol [TRAMADOL] Allergy (Intermediate, Verified 11/24/23 13:11) tachycardia codeine [CODEINE] Allergy (Mild, Verified 11/24/23 13:11) Rash All SSRIs Allergy (Intermediate, Uncoded 11/24/23 13:11) nightmares Amitriptyline Allergy (Intermediate, Uncoded 11/24/23 13:11) tachycardia HPI HPI Comments History of Present Illness Details The patient is a 53 year woman with the history of worsening cough. Apparently she developed pneumonia several times. The last time she developed pneumonia was back in December. Significant left-sided extensive airspace disease noted. The patient was given antibiotics and also prednisone. She seems to respond well to prednisone. Now she has this persistent cough. I also shortness of breath and chest tightness. The patient has been evaluated multiple times without a clear etiology of her pneumonias. Not clear why she has recurrent episodes. I did review the x-ray from December subsequently after that she had an x-ray in January that demonstrated interval resolution of the process. Is not clear if this is infectious or noninfectious pneumonias. Will assess for underlying connective tissue conditions. Also will assess her for immunodeficiencies. We did review her pulmonary function studies that she had back in 2016. no evidence of any obstructive ventilatory defects although I explained to her that this does not rule out asthma. The patient does have chest tightness at times. She also has a prolonged expiratory phase. Will provide her with respiratory therapy at this time. 09/15/2023 the patient is here [facility]. Overall she is doing well. She recently was evaluated by our office for an acute exacerbation of her breathing. She is back to her baseline now. She is off the prednisone. The patient did undergo blood work demonstrating slight decrease in the IgG otherwise all the other rest of the blood work was reassuring. The patient did also have a CT scan of the chest that was personally by me chest minimal atelectasis nothing to explain her airspace disease. The patient does understand that her findings on the x-rays are consistent with a pneumonic process and likely bacterial in origin. Therefore in view of her we can immune system we can consider prophylactic antibiotics to see we can decrease her infectious recurrence. Also will be reasonable if she has any further events to perform bronchoscopy to further address the airways and look for any smoldering infections. The patient is working closely with allergy immunology. She should have her subclasses checked as far as her IgG and if they are low consider challenging with a vaccine to see if she has a proper response to vaccine therapy. The patient will continue with current respiratory therapy will follow-up in a couple months. She also need an EKG. 11/24/2023 the patient is here for a pulm onary follow-up visit. Since we last spoke she developed COVID 19. Does back in October. She still feels like she has not back to her baseline. Prior to that we had try the azithromycin 3 times a week for her chronic bronchitis. The patient states that it was partially helpful although her cough and chest congestion has not improved. She is feeling like she will need prednisone soon. 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 Explained to her that with the hypogammaglobulinemia this could result in more recurrent infections and also result in slower recovery time. She is already on supplements. Will will check her levels sometime in the springtime or she can follow-up with jitney driver. Based on the fact the patient has evidence of chronic bronchitis requiring frequent courses of prednisone she will be a great candidate for Daliresp. Will go ahead started on low-dose of the Daliresp and workup to the therapeutic dose as tolerated. In addition to that will also optimize her respiratory therapy by switching her from the Advair to Trelegy. The patient will return to 4 months to assess her progress. If she is ready to increase the Daliresp prior to her arrival she can always call. PFSH Medical History (Updated 11/24/23 @ 13:33 by Sebastian Tirado MD) Hypogammaglobulinemia Asthma-COPD overlap syndrome IBS (irritable bowel syndrome) RUQ abdominal pain Chronic depression Fibromyalgia Asthma Surgical History (Reviewed 10/18/23 @ 15:28 by Ange Hernandez, [facility]) History of abdominoplasty History of esophagogastroduodenoscopy (EGD) S/P bilateral breast reduction S/P LEVI-BSO H/O colonoscopy Spinal cord stimulator status Cataract, left eye Cataract, right eye History of sinus surgery History of left knee surgery History of partial hysterectomy Family History (Reviewed 10/18/23 @ 15:28 by Ange Hernandez, [facility]) Father CVD (cardiovascular disease) Heart attack Mother CVD (cardiovascular disease) Heart attack Maternal Grandmother CVD (cardiovascular disease) Maternal Grandfather Colon cancer Paternal Grandmother No problems noted. Son No problems noted. Son No problems noted. Son No problems noted. Son Heart attack Social History (Reviewed 10/18/23 @ 15:28 by nAge Hernandez [facility]) Housing: House Alcohol intake: never Patient Tobacco Use Status: Never used Tobacco e-Cigarette/Vaping Use: Never Used Second Hand Smoke Exposure: No service: No Current occupational status: employed Current occupation: right handed Current occupational exposures/hazards: No Cognitive needs: No Hearing needs: No Vision needs: No Review of Systems Const Denies chills, Denies fatigue, Denies fever(s), Denies headache(s) and Denies weakness ENT Denies dizziness and Denies headache(s) Card Denies chest pain, Denies lightheadedness, Denies dyspnea, Reports dyspnea on exertion and Denies other (Palpitations) Resp Reports chest congestion, Reports cough, Denies dyspnea, Reports dyspnea on exertion and Denies other ( shortness of breath) GI Reports no additional complaints Musc Denies numbness and Denies tingling Neuro Denies dizziness, Denies headache(s), Denies numbness, Denies tingling, Denies paresthesias and Denies weakness Psych Denies anxiety and Denies depression Endo Denies fatigue Physical Exam Vital Signs: Last Vital Signs Pulse 71 11/24/23 13:11 Pulse Ox 96 11/24/23 13:11 Oxygen Delivery Method Room Air 11/24/23 13:11 BMI result Body Mass Index 35.0 Const General: no acute distress and well developed Nutritional Appearance: well nourished Orientation/consciousness: patient oriented x3 HEENT Head: Yes normocephalic and Yes atraumatic Eyes General: appearance normal, both eyes and all related structures Pupils: Equal, round and reactive pupils present EOM: EOMs intact bilaterally Resp Other: Crackles at bilateral bases, worse on L than R Effort & Inspection: normal respiratory effort Auscultation: diminished lung sounds Cardio Rate: regular rate Rhythm: regular rhythm Heart sounds: S1 normal heart sound present, S2 normal heart sound present, no gallops, no murmurs and no rubs Neuro General: patient oriented x3 and gait normal Cranial nerves: Yes Equal, round and reactive pupils present Psych Affect: normal affect Assessment & Plan Assessment & Plan (1) Asthma-COPD overlap syndrome: Code(s): J44.89 - Other specified chronic obstructive pulmonary disease (2) Asthma: Code(s): J45.909 - Unspecified asthma, uncomplicated Qualifiers: Asthma complication type: uncomplicated Asthma persistence: persistent Asthma severity: moderate Qualified Code(s): J45.40 - Moderate persistent asthma, uncomplicated (3) Hypogammaglobulinemia: Code(s): D80.1 - Nonfamilial hypogammaglobulinemia Plan stop Wixela start Trelegy 200 start Daliresp 250 YURI as needed stop Azithromycin MWF check IgG subclasses and bloodwork consider bronchosocopy if no better F/U in 3-4 months Orders: Orders Complete Blood Count Auto Diff Today D80.1 - Nonfamilial hypogammaglobulinemia, J44.89 - Other specified chronic obstructive pulmonary disease Immunoglobulin G Subclasses Today D80.1 - Nonfamilial hypogammaglobulinemia, J44.89 - Other specified chronic obstructive pulmonary disease Erythrocyte Sedimentation Rate Today D80.1 - Nonfamilial hypogammaglobulinemia, J44.89 - Other specified chronic obstructive pulmonary disease Basic Metabolic Panel Today D80.1 - Nonfamilial hypogammaglobulinemia, J44.89 - Other specified chronic obstructive pulmonary disease Immunoglobulin E Today D80.1 - Nonfamilial hypogammaglobulinemia, J44.89 - Other specified chronic obstructive pulmonary disease Medications: New combfbkqrit-wjosmzrre-wvaujlce 200-62.5-25 mcg (Trelegy Ellipta) 1 inh inhalation DAILY 30 days 60 ea 12RF roflumilast (Daliresp) 250 mcg PO DAILY 30 days 30 tabs 11RF J44.9 - Chronic obstructive pulmonary disease, unspecified Discontinued fluticasone propion-salmeterol 500-50 mcg/dose (Wixela Inhub) inhale 1 puff BID Discontinued Reason: Doctor's Order 1 inh inhalation BID 90 days 180 ea 3RF Coding Level of Care Code Est Pt Level 4 (97452) Diagnoses Asthma-COPD overlap syndrome J44.89 Moderate persistent asthma without complication J45.40 Asthma complication type: uncomplicated Asthma persistence: persistent Asthma severity: moderate Hypogammaglobulinemia D80.1 Time Spent (min) 18
[2023-11-24 13:11] VITALS: PULSE 71; O2SAT 96; BMI 35.0
== END 2023-11-24 13:32 | disposition home or self-care (01) ==
PROVIDERS: PCP Family Medicine; Visit Provider Hospitalist
DX: J44.89 Other specified chronic obstructive pulmonary disease (principal); J45.40 Moderate persistent asthma, uncomplicated; D80.1 Nonfamilial hypogammaglobulinemia
CPT/HCPCS: 99214

== ENCOUNTER → 2023-11-24 13:03 | Outpatient (BNVA) | payer OTHER, SELFPAY | PROVIDERS: PCP Family Medicine; Visit Provider Hospitalist | DX: J44.89 Other specified chronic obstructive pulmonary disease (principal); J45.40 Moderate persistent asthma, uncomplicated; D80.1 Nonfamilial hypogammaglobulinemia | CPT/HCPCS: 99212 ==

== ENCOUNTER 2023-12-06 07:52 | Outpatient (AMB) | payer OTHER, SELFPAY ==
[2023-12-06 07:58] VITALS: BP 116/78; PULSE 75; RESP 13; TEMP 36.2; O2SAT 99; BMI 36.0
--- NOTE | 2023-12-06 07:58 | MHC.OFFWIV ---
Intake Vital Signs 12/06/23 07:58 Height 5 ft 1 in Weight 190 lb 8 oz BMI 36.0 BP 116/78 Blood Pressure Location Rt brachial Position Sitting Respiration 13 Pulse 75 Pulse Source Pulse Oximeter Temp 97.2 F Temp Source Temporal Artery Scan Pulse Oximetry (%) 99 Oxygen Delivery Method Room Air Intake Visit Reasons: pain in pelvic area Intake Note: Patient states that shes been experiencing pain for a couple of days and yesterday was really bad. Patient states that uterus was removed and believes it kidney stones or diverticulitis,which she has a history of both. Patient Tobacco Use Status: Former Tobacco user Strategic Business Development Required: No Accompanied by: Self / Same As Patient Allergies aspirin [ASA] Allergy (Severe, Verified 12/06/23 08:13) asthma exacerbation duloxetine [Cymbalta] Allergy (Intermediate, Verified 12/06/23 08:13) loopy gabapentin Allergy (Intermediate, Verified 12/06/23 08:13) loopy NSAIDS (Non-Steroidal Anti-Inflamma [NSAIDS (NON-STEROIDAL ANTI-INFLAMMA] Allergy (Intermediate, Verified 12/06/23 08:13) asthma exacerbation pregabalin Allergy (Intermediate, Verified 12/06/23 08:13) loopy tramadol [TRAMADOL] Allergy (Intermediate, Verified 12/06/23 08:13) tachycardia codeine [CODEINE] Allergy (Mild, Verified 12/06/23 08:13) Rash All SSRIs Allergy (Intermediate, Uncoded 11/24/23 13:11) nightmares Amitriptyline Allergy (Intermediate, Uncoded 11/24/23 13:11) tachycardia Medication List - Last Reconciled 12/06/23 by FUNMILAYO Cruz-SHAWN acetaminophen ER (Mapap Arthritis Pain) 1,300 mg (2 x 650 mg) PO Q8H PRN albuterol sulfate 90 mcg/actuation (Ventolin HFA) 2 puffs inhalation Q6H PRN 30 days alpha lipoic acid 300 mg PO DAILY 30 days azithromycin 250 mg PO 3XW 28 days B-complex with vitamin C 1 tab PO DAILY 30 days benzonatate 200 mg PO BID PRN 30 days buspirone 7.5 mg PO cholecalciferol (vitamin D3) 50 mcg PO DAILY 90 days clonazepam 0.5 mg PO TID PRN dextroamphetamine-amphetamine 10 mg 1 tab PO BID fexofenadine (Sandy Allergy) 180 mg PO DAILY fluoxetine 10 mg PO DAILY fluticasone furoate-vilanterol 200-25 mcg/dose (Breo Ellipta) 1 inh inhalation DAILY 30 days kdfrzfpimqw-xywpemdmz-buiubjmn 200-62.5-25 mcg (Trelegy Ellipta) 1 inh inhalation DAILY 30 days folic acid 0.4 mg PO DAILY 90 days hyoscyamine sulfate 0.25 mg (2 x 0.125 mg) PO QID PRN ipratropium bromide 2 sprays intranasal BID ipratropium-albuterol 0.5 mg-3 mg(2.5 mg base)/3 mL 3 mL inhalation Q6H PRN levocetirizine 5 mg PO BEDTIME lidocaine 5% (Lidoderm) 1 patch topical DAILY 30 days magnesium oxide 500 mg PO DAILY 30 days mometasone 50 mcg/actuation 2 sprays intranasal DAILY 90 days nebulizers As directed omeprazole 40 mg PO DAILY 90 days roflumilast (Daliresp) 250 mcg PO DAILY 30 days triamcinolone acetonide sprays intranasal umeclidinium 62.5 mcg/actuation (Incruse Ellipta) 1 inh inhalation DAILY 30 days Do you need a note to return to daycare/school/sports/work: Yes Return to daycare/school/sports/work/other note: work HPI HPI Comments History of Present Illness Details Here today with c/o pelvic/abd pain and cramping Startd about 4 days ago Diarrhea, nonbloody. Normal stool this AM. Reports normal diet. Sx Improved for 24 hours until yesterday upon waking had extreme pain. She took Vicodin thinking this was a kidney stone. Took hot bath with + effect. Now using APAP. Pain is across center of my pelvic bone...feels like having contractions Denies any urinary sx other than feeling like she is not emptying bladder fully. Denies fever, chills. Feels like it could be diverticulitis. Last flare about 5 years ago. [employer] [facility] Medical History (Updated 12/06/23 @ 08:29 by Joana Gilliam, [employer]-) Hypogammaglobulinemia Asthma-COPD overlap syndrome IBS (irritable bowel syndrome) RUQ abdominal pain Chronic depression Fibromyalgia Asthma Surgical History History of abdominoplasty History of esophagogastroduodenoscopy (EGD) S/P bilateral breast reduction S/P LEVI-BSO H/O colonoscopy Spinal cord stimulator status Cataract, left eye Cataract, right eye History of sinus surgery History of left knee surgery History of partial hysterectomy Family History Father CVD (cardiovascular disease) Heart attack Mother CVD (cardiovascular disease) Heart attack Maternal Grandmother CVD (cardiovascular disease) Maternal Grandfather Colon cancer Paternal Grandmother No problems noted. Son No problems noted. Son No problems noted. Son No problems noted. Son Heart attack Social History Housing: House Alcohol intake: never Patient Tobacco Use Status: Former Tobacco user e-Cigarette/Vaping Use: Never Used Second Hand Smoke Exposure: No service: No Current occupational status: employed Current occupation: right handed Current occupational exposures/hazards: No Cognitive needs: No Hearing needs: No Vision needs: No Review of Systems Const All systems reviewed & are unremarkable except as noted in HPI and below Physical Exam Vital Signs: Last Vital Signs Temp 97.2 F 12/06/23 07:58 Pulse 75 12/06/23 07:58 Resp 13 12/06/23 07:58 BP 116/78 12/06/23 07:58 Pulse Ox 99 12/06/23 07:58 Oxygen Delivery Method Room Air 12/06/23 07:58 BMI result Body Mass Index 36.0 Const Other: awake alert scleras nonicteric MMM NO CVAT BS WNL x 4 quads, abd round, obese, soft, no peritoneal signs. Tender with palpation across transverse lower abd. Results AMB Urinalysis, Automated UA Leukoctes 15 Chio/uL Last Edit by JAYSON Cruz on 12/06/23 10:06 UA Nitrite Negative Last Edit by JAYSON Cruz on 12/06/23 10:06 UA Urobilinogen 17 mg/dL Last Edit by JAYSON Cruz on 12/06/23 10:06 UA Protein 0.3 mg/dL Last Edit [facility] on 12/06/23 10:06 UA pH 6.0 Last Edit [facility] on 12/06/23 10:06 UA Blood 0 Khai/uL Last Edit [facility] on 12/06/23 10:06 UA Specific [place] 1.025 Last Edit [facility] on 12/06/23 10:06 UA Ketone Positive Last Edit [facility] on 12/06/23 10:06 UA Bilirubin 17 mg/dL Last Edit [facility] on 12/06/23 10:06 UA Glucose 0 mg/dL Last Edit [facility] on 12/06/23 10:06 Results Reviewed Results Reviewed: Laboratory Last Values Urine pH (Auto) 6.0 12/06/23 10:04 Specific [place] (Auto) 1.025 12/06/23 10:04 Urine Protein (Auto) 0.3 mg/dL 12/06/23 10:04 Glucose (UA)(Auto) 0 mg/dL 12/06/23 10:04 Urine Ketones (Auto) Positive 12/06/23 10:04 Urine Blood (Auto) 0 Khai/uL 12/06/23 10:04 Urine Nitrite (Auto) Negative 12/06/23 10:04 Urine Bilirubin (Auto) 17 mg/dL 12/06/23 10:04 Urine Urobilinogen (Auto) 17 mg/dL 12/06/23 10:04 Leukocyte Esterase (Auto) 15 Chio/uL 12/06/23 10:04 Assessment & Plan Assessment & Plan (1) Diverticulitis: Code(s): K57.92 - Diverticulitis of intestine, part unspecified, without perforation or abscess without bleeding Plan: Urine is not consistent with a UTI or a renal stone. It does show some ketones I have told her that she needs to hydrate more. The clinical picture is most likely consistent with diverticulitis. She tells me she does not tolerate Flagyl. Therefore I have prescribed Augmentin and moxifloxacin. She should hold her azithromycin while she is taking the moxifloxacin. She may resume taking once the moxifloxacin is complete. Educated on diet. She should eat diet as tolerated to include liquid with advancement to full liquids and titrate as needed based on symptoms. Educated on reasons to seek additional care. (2) Lower abdominal pain: Code(s): R10.30 - Lower abdominal pain, unspecified Plan: This note is constructed using voice recognition software. While every effort has been made to ensure accuracy in critical care physician, still errors may have been included Sometimes, these errors may affect the content or meaning of the given sentence . Total time spent caring for the patient today was 42 minutes. This includes time spent before the visit reviewing the chart, time spent during the visit, and time spent after the visit on documentation Orders: Orders AMB Urinalysis Automated Today R10.30 - Lower abdominal pain, unspecified Medications: New amoxicillin-pot clavulanate 875-125 mg 1 tab PO BID 7 days 14 tabs 0RF moxifloxacin 400 mg PO DAILY 7 days 7 tabs 0RF Coding Level of Care Code Est Pt Level 5 (33980) Diagnoses Diverticulitis K57.92 Lower abdominal pain R10.30
== END 2023-12-06 10:36 | disposition home or self-care (01) ==
PROVIDERS: PCP Family Medicine; Visit Provider Nurse Practitioner Family
DX: K57.92 Diverticulitis of intestine, part unspecified, without perforation or abscess without bleeding (principal); R10.30 Lower abdominal pain, unspecified
CPT/HCPCS: 81003; 99215

== ENCOUNTER 2023-12-12 08:49 | Outpatient (AMB) | payer OTHER, SELFPAY ==
--- NOTE | 2023-12-12 08:51 | A.OFFPC_ITS ---
Vital Signs 12/12/23 08:52 Height 5 ft 1 in Weight 193 lb 6 oz BMI 36.5 BP 132/74 Blood Pressure Location Rt brachial Position Sitting Respiration 13 Pulse 78 Pulse Source Pulse Oximeter Temp 97.3 F Temp Source Temporal Artery Scan Pulse Oximetry (%) 97 Oxygen Delivery Method Room Air Intake Visit Reasons: f/u breast lump, weight Intake Note: Patient would like refill on her Acetaminophen and Lidocaine patches. [facility] [employer]aler Required: No Accompanied by: Self / Same As Patient Allergies aspirin [ASA] Allergy (Severe, Verified 12/12/23 09:13) asthma exacerbation duloxetine [Cymbalta] Allergy (Intermediate, Verified 12/12/23 09:13) loopy gabapentin Allergy (Intermediate, Verified 12/12/23 09:13) loopy NSAIDS (Non-Steroidal Anti-Inflamma [NSAIDS (NON-STEROIDAL ANTI-INFLAMMA] Allergy (Intermediate, Verified 12/12/23 09:13) asthma exacerbation pregabalin Allergy (Intermediate, Verified 12/12/23 09:13) loopy tramadol [TRAMADOL] Allergy (Intermediate, Verified 12/12/23 09:13) tachycardia codeine [CODEINE] Allergy (Mild, Verified 12/12/23 09:13) Rash All SSRIs Allergy (Intermediate, Uncoded 12/12/23 09:13) nightmares Amitriptyline Allergy (Intermediate, Uncoded 12/12/23 09:13) tachycardia Medication List - Last Reconciled 12/12/23 by Maximino Jordan CNP acetaminophen ER (Mapap Arthritis Pain) 1,300 mg (2 x 650 mg) PO Q8H PRN albuterol sulfate 90 mcg/actuation (Ventolin HFA) 2 puffs inhalation Q6H PRN 30 days alpha lipoic acid 300 mg PO DAILY 30 days amoxicillin-pot clavulanate 875-125 mg 1 tab PO BID 7 days azithromycin 250 mg PO 3XW 28 days B-complex with vitamin C 1 tab PO DAILY 30 days benzonatate 200 mg PO BID PRN 30 days buspirone 7.5 mg PO cholecalciferol (vitamin D3) 50 mcg PO DAILY 90 days clonazepam 0.5 mg PO TID PRN dextroamphetamine-amphetamine 10 mg 1 tab PO BID fexofenadine (Sandy Allergy) 180 mg PO DAILY fluoxetine 10 mg PO DAILY fluticasone furoate-vilanterol 200-25 mcg/dose (Breo Ellipta) 1 inh inhalation DAILY 30 days rkvdvrqitgk-jbneholkv-zsiwnybz 200-62.5-25 mcg (Trelegy Ellipta) 1 inh inhalation DAILY 30 days folic acid 0.4 mg PO DAILY 90 days hyoscyamine sulfate 0.25 mg (2 x 0.125 mg) PO QID PRN ipratropium bromide 2 sprays intranasal BID ipratropium-albuterol 0.5 mg-3 mg(2.5 mg base)/3 mL 3 mL inhalation Q6H PRN levocetirizine 5 mg PO BEDTIME lidocaine 5% (Lidoderm) 1 patch topical DAILY 30 days magnesium oxide 500 mg PO DAILY 30 days mometasone 50 mcg/actuation 2 sprays intranasal DAILY 90 days moxifloxacin 400 mg PO DAILY 7 days nebulizers As directed omeprazole 40 mg PO DAILY 90 days roflumilast (Daliresp) 250 mcg PO DAILY 30 days triamcinolone acetonide sprays intranasal umeclidinium 62.5 mcg/actuation (Incruse Ellipta) 1 inh inhalation DAILY 30 days Tobacco use date assessed: 12/12/23 Dental Screening Dental Screen Date: 12/12/23 Did you have a dental visit in the last 12 months?: Yes Did you have a dental problem in the last 6 months where you did not have access to dental care?: No Was dental information given to patient?: Patient has dentist HPI HPI Comments History of Present Illness Details 53-year-old female presents for weight m anagement and lump in left breast follow-up She notes that she has been maintaining a healthy lifestyle including healthy diet and routine exercise She reports yeast infection with vaginal itching and irritation for the past 4 days She is currently on azithromycin and Augmentin She had x-ray and ultrasound of both breasts in October 2023 [facility] Medical History Hypogammaglobulinemia Asthma-COPD overlap syndrome IBS (irritable bowel syndrome) RUQ abdominal pain Chronic depression Fibromyalgia Asthma Surgical History History of abdominoplasty History of esophagogastroduodenoscopy (EGD) S/P bilateral breast reduction S/P LEVI-BSO H/O colonoscopy Spinal cord stimulator status Cataract, left eye Cataract, right eye History of sinus surgery History of left knee surgery History of partial hysterectomy Family History Father CVD (cardiovascular disease) Heart attack Mother CVD (cardiovascular disease) Heart attack Maternal Grandmother CVD (cardiovascular disease) Maternal Grandfather Colon cancer Paternal Grandmother No problems noted. Son No problems noted. Son No problems noted. Son No problems noted. 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 Dayday Arias, Monika Dior, Herminio Clinton and colleagues, with an educational ross from [employer]. Review of Systems Const Details: Const Denies chills, Denies fatigue, Denies fever(s), Denies headache(s) and Denies weakness ENT Denies dizziness and Denies headache(s) Card Denies chest pain, Denies lightheadedness, Denies dyspnea and Denies other (Palpitations) Resp Denies cough, Denies dyspnea, Denies wheezing and Denies other ( shortness of breath) GI Denies abdominal pain, Denies melena, Denies hematochezia, Denies change in bowel habits, Denies dyspepsia and Denies nausea Reports as per HPI Musc Denies abnormal gait, Denies myalgias, Denies arthralgias, Denies numbness and Denies tingling Skin/Breast Reports left breast lump, Denies rash, Denies unusual bruising and Denies wounds Neuro Denies abnormal gait, Denies dizziness, Denies headache(s), Denies memory loss, Denies numbness, Denies Sensory deficit (Neuro), Denies tingling and Denies weakness Psych Denies anxiety, Denies depression, Denies memory loss Endo Denies cold intolerance, Denies fatigue, Denies heat intolerance, Denies polydipsia and Denies polyuria Aller/Immun Denies wheezing Physical exam (Primary Care) Vital Signs: Last Vital Signs Temp 97.3 F 12/12/23 08:52 Pulse 78 12/12/23 08:52 Resp 13 12/12/23 08:52 BP 132/74 12/12/23 08:52 Pulse Ox 97 12/12/23 08:52 Oxygen Delivery Method Room Air 12/12/23 08:52 BMI result Body Mass Index 36.5 Tobacco/Smoking Status: Tobacco use Status Tobacco use date assessed 12/12/23 12/12/23 09:03 Patient Tobacco Use Status Former Tobacco user 12/12/23 08:55 e-Cigarette/Vaping Use Never Used 12/12/23 08:55 Thrive Assessment: Date of Thrive Assessment Date Thrive assessed 01/27/22 12/12/23 08:55 Const Other: General: no acute distress and well developed Nutritional Appearance: well nourished Orientation/consciousness: patient oriented x3 HENMT Head: Yes normocephalic and Yes atraumatic Eyes General: appearance normal, both eyes and all related structures Pupils: Equal, round and reactive pupils present EOM: EOMs intact bilaterally Resp Effort & Inspection: normal respiratory effort Auscultation: clear to auscultation bilaterally Cardio Rate: regular rate Rhythm: regular rhythm Heart sounds: S1 normal heart sound present, S2 normal heart sound present, no gallops, no murmurs and no rubs GI Palpation (GI): No Abdominal aortic bruit present, Soft to palpation, nontender, No hepatosplenomegaly present and No Rebound tenderness present Auscultation: normal bowel sounds General: Yes no CVA tenderness Back/Spine/Pelvis Back: no CVA tenderness Cervical Spine: cervical ROM normal and No Cervical spine tenderness Thoracic/Lumbar Spine: thoraco-lumbar ROM normal, No pain with thoraco-lumbar ROM, No thoracic spinal tenderness and No lumbar spinal tenderness Extrem General: Yes normal to inspection, No edema and No calf tenderness Skin General: warm and dry. Normal skin color. Normal skin turgor Neuro General: patient oriented x3, gait normal and no focal neuro deficit Cranial nerves: Yes Equal, round and reactive pupils present Cognition (Neuro): normal cognition Gait exam (Neuro): Normal gait present Sensory Exam: No Sensory deficit (Neuro) Psych Appearance: grossly normal Affect: normal affect Attitude: cooperative Thought process: Normal thought process present Assessment and Plan Assessment & Plan (1) Vaginal candidiasis: Code(s): B37.31 - Acute candidiasis of vulva and vagina Plan: Reports vaginal itching and irritation x4 days Current antibiotic treatment with azithromycin and Augmentin Fluconazole ordered. Take as prescribed Encouraged to get blood work done before next visit Follow-up with PCP in 4 months for an extended physical exam Return with worsening or new symptoms Verbalized understanding and agreed with treatment plan (2) Obesity (BMI 30-39.9): Code(s): E66.9 - Obesity, unspecified Plan: Reports healthy lifestyle including diet and routine exercise Healthy diet and routine exercise encouraged Follow-up with worsening or new symptoms Verbalized understanding and agreed with treatment plan (3) Left breast lump: Code(s): N63.20 - Unspecified lump in the left breast, unspecified quadrant Plan: Painless left breast lump Recent ultrasound and mammogram are benign Follow-up with symptoms or concerns Verbalized understanding and agreed with treatment plan Medications: New fluconazole may repeat second dose 72 hrs after first dose if symptoms persist 150 mg PO Q3D 2 tabs 0RF 2 doses Changed From acetaminophen ER (Mapap Arthritis Pain) 1,300 mg (2 x 650 mg) PO Q8H PRN 180 tabs 0RF pain To acetaminophen ER 1,300 mg (2 x 650 mg) PO Q8H PRN 90 tabs 0RF pain Refilled lidocaine 5% (Lidoderm) leave on most painful area for up to 12 hrs 1 patch topical DAILY 30 days 30 ea 0RF Coding Level of Care Code Est Pt Level 4 (61147) Diagnoses Vaginal candidiasis B37.31 Obesity (BMI 30-39.9) E66.9 Left breast lump N63.20
[2023-12-12 08:52] VITALS: BP 132/74; PULSE 78; RESP 13; TEMP 36.3; O2SAT 97; BMI 36.5
== END 2023-12-12 09:37 | disposition home or self-care (01) ==
PROVIDERS: PCP Family Medicine; Visit Provider Nurse Practitioner Family
DX: B37.31 Acute candidiasis of vulva and vagina (principal); E66.9 Obesity, unspecified; Z68.36 Body mass index [BMI] 36.0-36.9, adult; N63.21 Unspecified lump in the left breast, upper outer quadrant
CPT/HCPCS: 99214

== ENCOUNTER 2024-01-05 09:29 | Outpatient (AMB) | payer OTHER, SELFPAY ==
--- NOTE | 2024-01-05 09:45 | A.OFFPC_ITS ---
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 Patient reports she has no concerns right now. Thumb Sewer Required: No Accompanied by: Self / Same As Patient Allergies aspirin [ASA] Allergy (Severe, Verified 01/05/24 10:20) asthma exacerbation duloxetine [Cymbalta] Allergy (Intermediate, Verified 01/05/24 10:20) loopy gabapentin Allergy (Intermediate, Verified 01/05/24 10:20) loopy NSAIDS (Non-Steroidal Anti-Inflamma [NSAIDS (NON-STEROIDAL ANTI-INFLAMMA] Allergy (Intermediate, Verified 01/05/24 10:20) asthma exacerbation pregabalin Allergy (Intermediate, Verified 01/05/24 10:20) loopy tramadol [TRAMADOL] Allergy (Intermediate, Verified 01/05/24 10:20) tachycardia codeine [CODEINE] Allergy (Mild, Verified 01/05/24 10:20) Rash zosin Allergy (Severe, Uncoded 01/05/24 09:55) Rash All SSRIs Allergy (Intermediate, Uncoded 01/05/24 09:54) nightmares Amitriptyline Allergy (Intermediate, Uncoded 01/05/24 09:54) tachycardia Medication List - Last Reconciled 01/05/24 by FUNMILAYO Cruz-SHAWN acetaminophen ER 1,300 mg (2 x 650 mg) PO Q8H PRN albuterol sulfate 90 mcg/actuation (Ventolin HFA) 2 puffs inhalation Q6H PRN 30 days alpha lipoic acid 300 mg PO DAILY 30 days amoxicillin-pot clavulanate 875-125 mg 1 tab PO BID 7 days B-complex with vitamin C 1 tab PO DAILY 30 days benzonatate 200 mg PO BID PRN 30 days buspirone 7.5 mg PO cholecalciferol (vitamin D3) 50 mcg PO DAILY 90 days clonazepam 0.5 mg PO TID PRN dextroamphetamine-amphetamine 10 mg 1 tab PO BID fexofenadine (Sandy Allergy) 180 mg PO DAILY fluconazole 150 mg PO Q3D 2 doses fluoxetine 10 mg PO DAILY fluticasone furoate-vilanterol 200-25 mcg/dose (Breo Ellipta) 1 inh inhalation DAILY 30 days nsomnyyrtuh-forarwest-lwkbmtpo 200-62.5-25 mcg (Trelegy Ellipta) 1 inh inhalation DAILY 30 days folic acid 0.4 mg PO DAILY 90 days hyoscyamine sulfate 0.25 mg (2 x 0.125 mg) PO QID PRN ipratropium bromide 2 sprays intranasal BID ipratropium-albuterol 0.5 mg-3 mg(2.5 mg base)/3 mL 3 mL inhalation Q6H PRN levocetirizine 5 mg PO BEDTIME lidocaine 5% (Lidoderm) 1 patch topical DAILY 30 days magnesium oxide 500 mg PO DAILY 30 days mometasone 50 mcg/actuation 2 sprays intranasal DAILY 90 days nebulizers As directed omeprazole 40 mg PO DAILY 90 days roflumilast (Daliresp) 250 mcg PO DAILY 30 days triamcinolone acetonide sprays intranasal umeclidinium 62.5 mcg/actuation (Incruse Ellipta) 1 inh inhalation DAILY 30 days Tobacco use date assessed: 12/12/23 HPI HPI Comments History of Present Illness Details 53-year-old female here today for HDF. A dmitted to [facility] on 12/25/2023 discharged home 12/28/2023. CT of the abdomen performed and showed sigmoid diverticulitis, slightly heterogeneous right renal mass. She was treated with Zosyn in the emergency room and admitted for sigmoid diverticu litis and this renal mass. An MRI of the abdomen with and without contrast was largely unremarkable for intra-abdominal abnormality aside from the right kidney lesion representing a 1.3 cm simple renal cyst and moderate diffuse hepatic day or ptosis. Managed on Zosyn and transition to ceftriaxone and Flagyl as she experienced a reaction to Zosyn. She was treated with antihistamine for the itchy rash that occurred from the Zosyn. The abdominal pain of which she went into emergency room for had marked bleed improved. She was able to tolerate multiple meals with mild abdominal discomfort. She was then transitioned to Augmentin and Flagyl with a probiotic prescribed to complete a full 14 day course of treatment. The recommendation was that she remain on low-fiber diet. New medications include Augmentin 875 1251 tab p.o. b.i.d. times 10 days, Flagyl 500 mg 1 tablet by mouth 3 times a day times 10 days, Zyrtec 10 mg 1 tab by mouth p.o. daily, probiotic Comes in today and reports that she is feeling much better. Active w/ GI at [facility] No recent f/u at this time Report taking AB as directed. Wonders if roflumilast has caused any of this as she reports taking this medication prior to the onset of her diverticulitis. Also wonders if this is not an infectious process. Has stopped and wont restart at this time. She will follow up with pulmonology in February [facility] Medical History Hypogammaglobulinemia Asthma-COPD overlap syndrome IBS (irritable bowel syndrome) RUQ abdominal pain Chronic depression Fibromyalgia Asthma Surgical History History of abdominoplasty History of esophagogastroduodenoscopy (EGD) S/P bilateral breast reduction S/P LEVI-BSO H/O colonoscopy Spinal cord stimulator status Cataract, left eye Cataract, right eye History of sinus surgery History of left knee surgery History of partial hysterectomy Family History Father CVD (cardiovascular disease) Heart attack Mother CVD (cardiovascular disease) Heart attack Maternal Grandmother CVD (cardiovascular disease) Maternal Grandfather Colon cancer Paternal Grandmother No problems noted. Son No problems noted. Son No problems noted. Son No problems noted. 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 Dayday Arias, Monika Dior, Herminio Clinton and colleagues, with an educational ross from [employer]. Review of Systems Const All systems reviewed & are unremarkable except as noted in HPI and below Physical exam (Primary Care) Vital Signs: Last Vital Signs Temp 98.1 F 01/05/24 09:48 Pulse 69 01/05/24 09:48 BP 155/74 H 01/05/24 09:48 Pulse Ox 95 01/05/24 09:48 Oxygen Delivery Method Room Air 01/05/24 09:48 BMI result Body Mass Index 36.1 Tobacco/Smoking Status: Tobacco use Status Tobacco use date assessed 12/12/23 01/05/24 09:55 Patient Tobacco Use Status Former Tobacco user 01/05/24 09:55 e-Cigarette/Vaping Use Never Used 01/05/24 09:55 Thrive Assessment: Date of Thrive Assessment Date Thrive assessed 01/27/22 01/05/24 09:55 Const Other: Awake alert NAD Scleras nonicteric MMM RRR LS CTAB Abd soft, nontender, bowel sounds within normal limits Assessment and Plan Assessment & Plan (1) Hospital discharge follow-up: Code(s): Z09 - Encounter for follow-up examination after completed treatment for conditions other than malignant neoplasm Plan: Advised to continue antibiotic therapy. Schedule follow up with GI to see if there is anything else that she can do to prevent this from reoccurring. In regards to the renal mass advised that this was a simple cyst and there is nothing further that needs to be done about this. She would like to stay off the roflumilast prescribed by pulmonology as she has not sure if this caused her diverticulitis or not. She should follow up with pulmonology regarding this. This note is constructed using voice recognition software. While every effort has been made to ensure accuracy in tempering kiln tender, still errors may have been included Sometimes, these errors may affect the content or meaning of the given sentence . Total time spent caring for the patient today was 45 minutes. This includes time spent before the visit reviewing the chart, time spent during the visit, and time spent after the visit on documentation (2) Diverticulitis: Code(s): K57.92 - Diverticulitis of intestine, part unspecified, without perforation or abscess without bleeding Medications: Refilled fluconazole may repeat second dose 72 hrs after first dose if symptoms persist 150 mg PO Q3D 2 tabs 0RF Coding Level of Care Code TCM High MDM <= 7 Days Diagnoses Hospital discharge follow-up Z09 Diverticulitis K57.92
[2024-01-05 09:48] VITALS: BP 155/74; PULSE 69; TEMP 36.7; O2SAT 95; BMI 36.1
== END 2024-01-05 11:21 | disposition home or self-care (01) ==
PROVIDERS: PCP Family Medicine; Visit Provider Nurse Practitioner Family
DX: K57.92 Diverticulitis of intestine, part unspecified, without perforation or abscess without bleeding (principal); Z09 Encounter for follow-up examination after completed treatment for conditions other than malignant neoplasm
CPT/HCPCS: 99215

== ENCOUNTER 2024-01-25 08:22 | Outpatient (AMB) | payer OTHER, SELFPAY ==
--- NOTE | 2024-01-25 08:33 | A.OFFPC_ITS ---
Vital Signs 01/25/24 08:42 Height 5 ft 1 in Weight 193 lb BMI 36.5 BP 124/64 Blood Pressure Location Lt brachial Position Sitting Pulse 79 Pulse Source Auscultation Pulse Oximetry (%) 98 Oxygen Delivery Method Room Air Intake Visit Reasons: OLIVER from [facility] Allergies aspirin [ASA] Allergy (Severe, Verified 01/25/24 08:46) asthma exacerbation duloxetine [Cymbalta] Allergy (Intermediate, Verified 01/25/24 08:46) loopy gabapentin Allergy (Intermediate, Verified 01/25/24 08:46) loopy NSAIDS (Non-Steroidal Anti-Inflamma [NSAIDS (NON-STEROIDAL ANTI-INFLAMMA] Allergy (Intermediate, Verified 01/25/24 08:46) asthma exacerbation pregabalin Allergy (Intermediate, Verified 01/25/24 08:46) loopy tramadol [TRAMADOL] Allergy (Intermediate, Verified 01/25/24 08:46) tachycardia codeine [CODEINE] Allergy (Mild, Verified 01/25/24 08:46) Rash piperacillin [From Zosyn] Allergy (Mild, Verified 01/25/24 08:46) Rash tazobactam [From Zosyn] Allergy (Mild, Verified 01/25/24 08:46) Rash All SSRIs Allergy (Intermediate, Uncoded 01/25/24 08:46) nightmares Amitriptyline Allergy (Intermediate, Uncoded 01/25/24 08:46) tachycardia Medication List - Last Reconciled 01/25/24 by Joana Gilliam, NEONATAL SPECIALIST-BC acetaminophen ER 1,300 mg (2 x 650 mg) PO Q8H PRN albuterol sulfate 90 mcg/actuation (Ventolin HFA) 2 puffs inhalation Q6H PRN 30 days alpha lipoic acid 300 mg PO DAILY 30 days B-complex with vitamin C 1 tab PO DAILY 30 days benzonatate 200 mg PO BID PRN 30 days buspirone 7.5 mg PO cholecalciferol (vitamin D3) 50 mcg PO DAILY 90 days clonazepam 0.5 mg PO TID PRN dextroamphetamine-amphetamine 10 mg 1 tab PO BID fexofenadine (Sandy Allergy) 180 mg PO DAILY fluoxetine 10 mg PO DAILY fluticasone furoate-vilanterol 200-25 mcg/dose (Breo Ellipta) 1 inh inhalation DAILY 30 days cqtmetajajj-yirruqjrk-idrpycsg 200-62.5-25 mcg (Trelegy Ellipta) 1 inh inhalation DAILY 30 days folic acid 0.4 mg PO DAILY 90 days hyoscyamine sulfate 0.25 mg (2 x 0.125 mg) PO QID PRN ipratropium bromide 2 sprays intranasal BID ipratropium-albuterol 0.5 mg-3 mg(2.5 mg base)/3 mL 3 mL inhalation Q6H PRN levocetirizine 5 mg PO BEDTIME lidocaine 5% (Lidoderm) 1 patch topical DAILY 30 days magnesium oxide 500 mg PO DAILY 30 days mometasone 50 mcg/actuation 2 sprays intranasal DAILY 90 days nebulizers As directed omeprazole 40 mg PO DAILY 90 days roflumilast (Daliresp) 250 mcg PO DAILY 30 days triamcinolone acetonide sprays intranasal umeclidinium 62.5 mcg/actuation (Incruse Ellipta) 1 inh inhalation DAILY 30 days Tobacco use date assessed: 12/12/23 HPI HPI Comments History of Present Illness Details 53-year-old female with sigmoid divertic ulitis, 1.3 cm simple renal cyst, moderate diffuse hepatic steaotosis, Asthma COPD overlap syndrome, MDD fibromyalgia family history of premature CAD, GERD, sleep apnea on CPAP, low IGG, vitamin-D deficiency, neuropathy, hyperlipidemia, impaired fasting glucose, multi joint osteoarthritis and chronic pain syndrome Status post laminoplasty, left knee surgery, partial hysterectomy, bilateral breast reduction, LEVI-BSO, spinal cord stimulator Specialist GI Pain management Pulmonology Sleep medicine Rheumatology 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 Reports inquiry about hx of MG as she has drooping of R eye that comes and goes. Will return for full eye exam in about 3 weeks as she only have visual field testing. Has extreme muscle fatigue. Feels like legs are not aware of where they are in space. Has peripheral parasthesias x 4. Foot/leg drop present for years that is worse when under fatigue. Takes 2.5 hour naps after busy days. has known NILTON on CPAP. Using as directed. Cont to have drenching hot flash like sx, night and day. Cannot tolerate extreme cold. Hands and feet turn red and hurt. Feels better w/ warmth yet excessive heat causes hot flash like sx. Has GI consult February 14, 2024 for eval and tx s/p hospital admission. Cont w/ lower abd pain. Right lower quad worse then left. Worse w/ constipation. Using prunes. Remains off Roflumilast. Pulm appt next month & will discuss. IgG deficiency - managed by Dr Hernandez. Discussion to happen about potential need for IV infusions. Finally feels better after being sick since Dec with several different insults. [facility] Medical History (Updated 01/25/24 @ 10:39 by Joana Gilliam, [facility]-) Left breast lump Tendinitis of left rotator cuff Rotator cuff tear Hypogammaglobulinemia Asthma-COPD overlap syndrome IBS (irritable bowel syndrome) RUQ abdominal pain Chronic depression Fibromyalgia Asthma Surgical History History of abdominoplasty History of esophagogastroduodenoscopy (EGD) S/P bilateral breast reduction S/P LEVI-BSO H/O colonoscopy Spinal cord stimulator status Cataract, left eye Cataract, right eye History of sinus surgery History of left knee surgery History of partial hysterectomy Family History Father CVD (cardiovascular disease) Heart attack Mother CVD (cardiovascular disease) Heart attack Maternal Grandmother CVD (cardiovascular disease) Maternal Grandfather Colon cancer Paternal Grandmother No problems noted. Son No problems noted. Son No problems noted. Son No problems noted. 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 Ovi, Herminio Clinton and colleagues, with an educational ross from [email or web address]. Physical exam (Primary Care) Vital Signs: Last Vital Signs Pulse 79 01/25/24 08:42 BP 124/64 01/25/24 08:42 Pulse Ox 98 01/25/24 08:42 Oxygen Delivery Method Room Air 01/25/24 08:42 BMI result Body Mass Index 36.5 BMI Assessment/Plan discussion: High BMI High, discussed plan: lifestyle Tobacco/Smoking Status: Tobacco use Status Tobacco use date assessed 12/12/23 01/25/24 08:33 Patient Tobacco Use Status Former Tobacco user 01/25/24 08:33 e-Cigarette/Vaping Use Never Used 01/25/24 08:33 Thrive Assessment: Date of Thrive Assessment Date Thrive assessed 01/27/22 01/25/24 08:33 Const Other: Awake alert NAD Scleras nonicteric MMM RRR LS CTAB Abd soft, nontender, bowel sounds within normal limits Trace edema ble L>R Assessment and Plan Assessment & Plan (1) Ptosis, right: Code(s): H02.401 - Unspecified ptosis of right eyelid Plan: refer to Neuro for eval and tx Optho eval 01/2024, mentioned concern for mysasthenia gravis (2) Low vitamin D level: Comment: dexa ordered today vit d labs ordered and pending Code(s): R79.89 - Other specified abnormal findings of blood chemistry (3) Postmenopausal: Comment: dexa ordered today Code(s): Z78.0 - Asymptomatic menopausal state (4) Hypercholesterolemia: Comment: labs ordered Code(s): E78.00 - Pure hypercholesterolemia, unspecified (5) Diverticulitis: Comment: appt w/ GI 02/2024 Code(s): K57.92 - Diverticulitis of intestine, part unspecified, without perforation or abscess without bleeding (6) Obesity (BMI 30-39.9): Comment: lifestyle - she is trying to lose weight Code(s): E66.9 - Obesity, unspecified (7) Chronic pain: Comment: refill on APAP ER reports challenge of celebrex done at 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 While every effort has been made to ensure accuracy in iridologist, still errors may have been included Sometimes, these errors may affect the content or meaning of the given sentence . Total time spent caring for the patient today was 60 minutes. This includes time spent before the visit reviewing the chart, time spent during the visit, and time spent after the visit on documentation RTO IN 3 MONTHS FOR ROUTINE F/U OF COMPLEX CONDITIONS, SOONER PRN LABS TO BE DONE 1 WEEK BEFORE PLEASE Orders: Orders XR DEXA axial skeleton Today R79.89 - Other specified abnormal findings of blood chemistry, Z78.0 - Asymptomatic menopausal state Lipid Panel Today E78.00 - Pure hypercholesterolemia, unspecified Referrals Neurology Referral H02.401 - Unspecified ptosis of right eyelid Medications: New celecoxib (Celebrex) PT REPORTS COMPLETED A CHALLENGE TEST W 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 OK TO ADMIN AT LOWEST DOSE. 50 mg PO DAILY PRN 30 caps 0RF pain Refilled acetaminophen ER 1,300 mg (2 x 650 mg) PO Q8H PRN 90 tabs 1RF pain Coding Level of Care Code Est Pt Level 5 (62135) Diagnoses Ptosis, right H02.401 Low vitamin D level R79.89 Postmenopausal Z78.0 Hypercholesterolemia E78.00 Diverticulitis K57.92 Obesity (BMI 30-39.9) E66.9 Chronic pain syndrome G89.4 Chronic pain type: chronic pain syndrome
[2024-01-25 08:42] VITALS: BP 124/64; PULSE 79; O2SAT 98; BMI 36.5
--- NOTE | 2024-01-25 15:22 | MHC.PC.OV ---
Vital Signs 01/25/24 08:42 Height 5 ft 1 in Weight 193 lb BMI 36.5 BP 124/64 Blood Pressure Location Lt brachial Position Sitting Pulse 79 Pulse Source Auscultation Pulse Oximetry (%) 98 Oxygen Delivery Method Room Air Intake Visit Reasons: OLIVER from [facility] Intake Note: spoke with patient regarding questionnaires we did not catch in the office. Allergies aspirin [ASA] Allergy (Severe, Verified 01/25/24 08:46) asthma exacerbation duloxetine [Cymbalta] Allergy (Intermediate, Verified 01/25/24 08:46) loopy gabapentin Allergy (Intermediate, Verified 01/25/24 08:46) loopy NSAIDS (Non-Steroidal Anti-Inflamma [NSAIDS (NON-STEROIDAL ANTI-INFLAMMA] Allergy (Intermediate, Verified 01/25/24 08:46) asthma exacerbation pregabalin Allergy (Intermediate, Verified 01/25/24 08:46) loopy tramadol [TRAMADOL] Allergy (Intermediate, Verified 01/25/24 08:46) tachycardia codeine [CODEINE] Allergy (Mild, Verified 01/25/24 08:46) Rash piperacillin [From Zosyn] Allergy (Mild, Verified 01/25/24 08:46) Rash tazobactam [From Zosyn] Allergy (Mild, Verified 01/25/24 08:46) Rash All SSRIs Allergy (Intermediate, Uncoded 01/25/24 08:46) nightmares Amitriptyline Allergy (Intermediate, Uncoded 01/25/24 08:46) tachycardia Medication List - Last Reconciled 01/25/24 by Joana Gilliam, FUNMILAYO-SHAWN acetaminophen ER 1,300 mg (2 x 650 mg) PO Q8H PRN albuterol sulfate 90 mcg/actuation (Ventolin HFA) 2 puffs inhalation Q6H PRN 30 days alpha lipoic acid 300 mg PO DAILY 30 days B-complex with vitamin C 1 tab PO DAILY 30 days benzonatate 200 mg PO BID PRN 30 days buspirone 7.5 mg PO cholecalciferol (vitamin D3) 50 mcg PO DAILY 90 days clonazepam 0.5 mg PO TID PRN dextroamphetamine-amphetamine 10 mg 1 tab PO BID fexofenadine (Sandy Allergy) 180 mg PO DAILY fluoxetine 10 mg PO DAILY fluticasone furoate-vilanterol 200-25 mcg/dose (Breo Ellipta) 1 inh inhalation DAILY 30 days uvstdxtjlzu-nxbycqlai-dgswsmfs 200-62.5-25 mcg (Trelegy Ellipta) 1 inh inhalation DAILY 30 days folic acid 0.4 mg PO DAILY 90 days hyoscyamine sulfate 0.25 mg (2 x 0.125 mg) PO QID PRN ipratropium bromide 2 sprays intranasal BID ipratropium-albuterol 0.5 mg-3 mg(2.5 mg base)/3 mL 3 mL inhalation Q6H PRN levocetirizine 5 mg PO BEDTIME lidocaine 5% (Lidoderm) 1 patch topical DAILY 30 days magnesium oxide 500 mg PO DAILY 30 days mometasone 50 mcg/actuation 2 sprays intranasal DAILY 90 days nebulizers As directed omeprazole 40 mg PO DAILY 90 days roflumilast (Daliresp) 250 mcg PO DAILY 30 days triamcinolone acetonide sprays intranasal umeclidinium 62.5 mcg/actuation (Incruse Ellipta) 1 inh inhalation DAILY 30 days Tobacco use date assessed: 12/12/23 [facility] Medical History Left breast lump Tendinitis of left rotator cuff Rotator cuff tear Hypogammaglobulinemia Asthma-COPD overlap syndrome IBS (irritable bowel syndrome) RUQ abdominal pain Chronic depression Fibromyalgia Asthma Surgical History History of abdominoplasty History of esophagogastroduodenoscopy (EGD) S/P bilateral breast reduction S/P LEVI-BSO H/O colonoscopy Spinal cord stimulator status Cataract, left eye Cataract, right eye History of sinus surgery History of left knee surgery History of partial hysterectomy Family History Father CVD (cardiovascular disease) Heart attack Mother CVD (cardiovascular disease) Heart attack Maternal Grandmother CVD (cardiovascular disease) Maternal Grandfather Colon cancer Paternal Grandmother No problems noted. Son No problems noted. Son No problems noted. Son No problems noted. Son Heart attack Social History (Updated 01/25/24 @ 15:24 by Gilda Irby CMA) Household Members: Family Housing: House 75 years or older and lives alone: No Alcohol intake: never Patient Tobacco Use Status: Former Tobacco user e-Cigarette/Vaping Use: Never Used Second Hand Smoke Exposure: No Use of substances other than those prescribed or required for medical reasons: No Have you been hit, kicked, punched, or otherwise hurt by someone within the past year? 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 1. Little interest or pleasure in doing things: not at all 2. Feeling down, depressed, or hopeless: not at all 3. Trouble falling or staying asleep, or sleeping too much: not at all 4. Feeling tired or having little energy: not at all 5. Poor appetite or overeating: not at all 6. Feeling bad about yourself - or that you are a failure or have let yourself or your family down: not at all 7. Trouble concentrating on things, such as reading the newspaper or watching television: not at all 8. Moving or speaking so slowly that other people could have noticed. Or the opposite - being so fidgety or restless that you have been moving around a lot more than usual: not at all 9. Thoughts that you would be better off or of hurting yourself in some way: not at all Total score: 0 Depression Screening Interpretation: Negative Depression Screening Done: Yes 03461 - PHQ-9 Billing: Yes Source: Developed by Drs. Dayday Arias, Monika Dior, Herminio Clinton and colleagues, with an educational ross from [employer]. Thrive Questionnaire Date Thrive assessed: 01/25/24 I am a: Patient Within the past 12 months, did the food you bought not last and you didn't have the money to get more?: Never true Within the past 12 months, did you worry whether your food would run out before you got money to buy more?: Never true Do you have trouble paying for medicines?: No Do you have trouble getting transportation to medical appointments?: No Do you have trouble paying your heating and electricity bill?: No Do you have trouble taking care of your child, family member or friend?: No Do you have trouble with day-to-day activities such as bathing, preparing meals, shopping, managing finances, etc.?: No Are you currently unemployed and looking for a job?: No Are you interested in more education?: No Please select the resources that you would like help with: None Currently or been in a relationship where the following occur: no concerns reported THRIVE Score: 0 AUDIT C Alcohol Use Questionnaire (AUDIT-C) 1. How often do you have a drink containing alcohol?: Never 3. How often do you have six or more drinks on one occasion?: Never Total Score: 0 MURIEL-7 AMB Questionnaire MURIEL-7 Date MURIEL - 7 assessed: 01/25/24 Feeling nervous, anxious, or on edge: 0 = Not at all Not being able to stop or control worryin = Not at all Worrying too much about different things: 0 = Not at all Trouble relaxin = Not at all Being so restless that it is hard to sit still: 0 = Not at all Becoming easily annoyed or irritable: 0 = Not at all Feeling afraid as if something awful might happen: 0 = Not at all Total MURIEL-7 score (0-4 normal; 5-9 mild; 10-14 moderate; 15-21 severe): 0 Source: Developed by Drs. Dayday Arias, Monika Dior, Herminio Clinton and colleagues, with an educational ross from [employer]. MURIEL-7 Assessment Billing MURIEL-7 Assessment Tool: MURIEL-7 Assessment 04660 Review of Systems Const All systems reviewed & are unremarkable except as noted in HPI and below Physical exam (Primary Care) Vital Signs: Last Vital Signs Pulse 79 01/25/24 08:42 BP 124/64 01/25/24 08:42 Pulse Ox 98 01/25/24 08:42 Oxygen Delivery Method Room Air 01/25/24 08:42 BMI result Body Mass Index 36.5 Tobacco/Smoking Status: Tobacco use Status Tobacco use date assessed 12/12/23 01/25/24 15:23 Patient Tobacco Use Status Former Tobacco user 01/25/24 15:23 e-Cigarette/Vaping Use Never Used 01/25/24 15:23 PHQ-9: PHQ-9 Score PHQ-9: Total score 0 01/25/24 15:23 Depression Screening Interpretation: Negative Thrive Assessment: Date of Thrive Assessment Date Thrive assessed 01/25/24 01/25/24 15:23 Currently or been in a relationship where the following occur: no concerns reported Assessment and Plan Assessment & Plan (1) Low vitamin D level: Comment: dexa ordered today vit d labs ordered and pending Code(s): R79.89 - Other specified abnormal findings of blood chemistry (2) Postmenopausal: Comment: dexa ordered today Code(s): Z78.0 - Asymptomatic menopausal state (3) Hypercholesterolemia: Comment: labs ordered Code(s): E78.00 - Pure hypercholesterolemia, unspecified (4) Diverticulitis: Comment: appt w/ GI 02/2024 Code(s): K57.92 - Diverticulitis of intestine, part unspecified, without perforation or abscess without bleeding (5) Obesity (BMI 30-39.9): Comment: lifestyle - she is trying to lose weight Code(s): E66.9 - Obesity, unspecified (6) Chronic pain: Comment: refill on APAP ER 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 WHILE EVERY EFFORT HAS BEEN MADE TO ENSURE ACCURACY IN ALUMINUM SIDING APPLICATOR, STILL ERRORS MAY HAVE BEEN INCLUDED SOMETIMES, THESE ERRORS MAY AFFECT THE CONTENT OR MEANING OF THE GIVEN SENTENCE . TOTAL TIME SPENT CARING FOR THE PATIENT TODAY WAS 50 MINUTES. 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 OK TO ADMIN AT LOWEST DOSE. 50 mg PO DAILY PRN 30 caps 0RF pain Refilled acetaminophen ER 1,300 mg (2 x 650 mg) PO Q8H PRN 90 tabs 1RF pain Patient Instructions: RTO IN APRIL TO F/U ON COMPLEX DX MGMT, LABS 1 WEEK BEFORE PLEASE SOONER NEEDED Coding Level of Care Code Est Pt Level 5 (12859) Diagnoses Low vitamin D level R79.89 Postmenopausal Z78.0 Hypercholesterolemia E78.00 Diverticulitis K57.92 Obesity (BMI 30-39.9) E66.9 Chronic pain syndrome G89.4 Chronic pain type: chronic pain syndrome Additional Codes MURIEL-7 Assessment Billing - MURIEL-7 Assessment Tool: MURIEL-7 Assessment [id number] ([id number])
== END 2024-01-25 09:23 | disposition home or self-care (01) ==
PROVIDERS: PCP Family Medicine; Visit Provider Nurse Practitioner Family
DX: R79.89 Other specified abnormal findings of blood chemistry (principal); E78.00 Pure hypercholesterolemia, unspecified; H02.401 Unspecified ptosis of right eyelid; Z78.0 Asymptomatic menopausal state; K57.92 Diverticulitis of intestine, part unspecified, without perforation or abscess without bleeding; E66.9 Obesity, unspecified; G89.4 Chronic pain syndrome
CPT/HCPCS: 99215

== ENCOUNTER 2024-02-06 12:14 | Outpatient (AMB) | payer OTHER, SELFPAY ==
[2024-02-06 12:24] VITALS: BP 127/74; PULSE 84; BMI 37.0
--- NOTE | 2024-02-06 12:24 | A.OFFVIS_ITS ---
Vital Signs 02/06/24 12:24 Height 5 ft 1 in Weight 195 lb 12.328 oz BMI 37.0 BP 127/74 Blood Pressure Location Rt brachial Position Sitting Pulse 84 Intake Visit Reasons: ER follow up Intake Note: Lucia presents to in office visit today in ER follow up. CC: Patient with multiple visits to [facility] for diverticulitis. Most recently she was seen on 02/04/24 with c/o abdominal pain x 4 days. She was diagnosed with uncomplicated sigmoid diverticulitis and started on a course of amoxicillin-clavulanate 875 mg-125 mg. Patient c/o lower abdominal pain that she describes as almost like labor pain . Manager Shift Required: No Accompanied by: Self / Same As Patient Allergies aspirin [ASA] Allergy (Severe, Verified 02/22/24 13:30) asthma exacerbation duloxetine [Cymbalta] Allergy (Intermediate, Verified 02/22/24 13:30) loopy gabapentin Allergy (Intermediate, Verified 02/22/24 13:30) loopy NSAIDS (Non-Steroidal Anti-Inflamma [NSAIDS (NON-STEROIDAL ANTI-INFLAMMA] Allergy (Intermediate, Verified 02/22/24 13:30) asthma exacerbation pregabalin Allergy (Intermediate, Verified 02/22/24 13:30) loopy tramadol [TRAMADOL] Allergy (Intermediate, Verified 02/22/24 13:30) tachycardia codeine [CODEINE] Allergy (Mild, Verified 02/22/24 13:30) Rash piperacillin [From Zosyn] Allergy (Mild, Verified 02/22/24 13:30) Rash tazobactam [From Zosyn] Allergy (Mild, Verified 02/22/24 13:30) Rash All SSRIs Allergy (Intermediate, Uncoded 02/22/24 13:30) nightmares Amitriptyline Allergy (Intermediate, Uncoded 02/22/24 13:30) tachycardia HPI HPI ER follow up: Details: ssessment & Plan (1) Acute diarrhea: ?Code(s): R19.7 - Diarrhea, unspecified ?Plan: The creon did not help her. She had sudden onset of diarrhea and pain from my mouth to my butt about 3 weeks ago. She also has skin itching and a constant WHITESIDE. She is on and off abx and had several back to back rounds of abx, so with skin and vaginal itching could be abel. She has a hx of constant sinus infections. The WHITESIDE only responds to benadryl. There are no other medication changes and no similar contacts that she is completely aware.? She has not eaten any undercooked food or seafood recently.? She has not noticed if she has had fevers or chills.? She has been extremely fatigued and pain she and diarrhea is keeping her up at night she is not able get much sleep.? She is doing okay keeping down fluids but really isn't eating well. Will start diflucan 7 days, get CBC, chem and GI panel with C diff. She received the hyoscamine and it only helps a little. Her baseline is CIC so this is a big change and she even has fecal incont inence.? 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 I tell her I will let her know possible since his with her being able to work with compromise patients. ROV 2 weeks. (2) Candidiasis of mouth and esophagus: ?Code(s): B37.81 - Candidal esophagitis; B37.0 - Candidal stomatitis ? ? ? Orders: Orders Gliadin Ab Panel Today R19.7 - Diarrhea, unspecified ? CDiff Gene PCR Today R19.7 - Diarrhea, unspecified ? Complete Blood Count Auto Diff Today R19.7 - Diarrhea, unspecified ? Comprehensive Met. Panel Today R19.7 - Diarrhea, unspecified ? C Reactive Protein Today R19.7 - Diarrhea, unspecified ? UA and rflx microscopic Today Z00.00 - Encounter for general adult medical examination without abnormal findings ? Medications: New fluconazole (Diflucan) 200 mg? PO DAILY 7 days 7 tabs 0RF B37.0 - Candidal stomatitis, B37.81 - Candidal esophagitis ? Discontinued [id number] 24,000-76,000 -120,000 unit (Creon) ?? administer with meals and/or snacks ?? Discontinued Reason:? Doctor's Order 1 cap? PO QIDACHS 30 days 120 caps 3RF K58.9 - Irritable bowel syndrome without diarrhea ? LABS: Laboratory Tests 04/06/22 11/17/22 11/17/22 07:30 09:49 09:49 WBC Hgb Hct Plt Count Estimated GFR Total Bilirubin AST ALT Alkaline Phosphatase C-Reactive Protein 2.97 H TSH Stool Pancreat Elastase >500 Anti-Gliadin IgG Ab <1.0 Gliadin (Deamidat) IgA <1.0 04/14/23 04/14/23 08:05 08:05 WBC 7.6 Hgb 14.0 Hct 43.6 Plt Count 252 Estimated GFR > 60 Total Bilirubin 0.8 AST 19 ALT 31 Alkaline Phosphatase 99 C-Reactive Protein TSH 2.31 Stool Pancreat Elastase Anti-Gliadin IgG Ab Gliadin (Deamidat) IgA RECD: 12/06/23 10:[address]: Joana Gilliam ORDERED: AMB.UA Test Result Flag Reference AMB.UALEU 15 AMB.UANIT Negative AMB.UAUBG 17 AMB.UAPRO 0.3 AMB.UAPH 6.0 AMB.UABLD 0 AMB.UASG 1.025 AMB.UAKET Positive AMB.UABIL 17 AMB.UAGLU 0 TODAY'S VISIT She was seen at [place] [facility] and diagnosed with diverticulitis. She has been treated 4 times since December because it seems to not be resolving. She has had a variety of medications including a Cipro/Flagyl combination and various courses of Augmentin. I reviewed the CT scans and in December and January she had what appeared to be mild inflammation of the sigmoid colon. Her severe bloating and gassiness also continues. She tends more towards constipation but does not do well with fiber supplements as they constipate her more, however she is currently having soft multiple daily stools. At the time of the most severe infection she did have some looser stools but not out right diarrhea. In the past she has been tried on Linzess and that only increased her cramping and did not really move her bowels any better. She is supposed to be on magnesium for nerve pain but that also has not been terribly helpful with her bowels. She has not taking it currently. In the past she did somewhat better with upper abdominal cramping on hyoscyamine the dicyclomine but now she has been told that she has a hernia in her right upper quadrant that is the cause of this. At this point I think were going to retry her on dicyclomine, get a colonoscopy to get an internal look at what is going on with her, and I will give her an extra dose of Augmentin to keep at home in case she has more symptoms so she does not have to run to the ER before she can get in touch with me. May need to consider an MD second opinion. She also has a nex dx of hypogammaglobinemia which can be c/t her lack of TICS resolution. She is not yet having IgG infusions. She also has severe fatigue and can't lose weight, no recent TSH checked. She also continues on her omeprazole 40 mg daily and her magnesium oxide once daily for sleep along with daily rest which could be part of what is causing her gas and bloating since it does cause diarrhea. ROV 2 weeks. [facility] Medical History Adult general medical exam IBS (irritable bowel syndrome) Left breast lump Tendinitis of left rotator cuff Rotator cuff tear Hypogammaglobulinemia Asthma-COPD overlap syndrome RUQ abdominal pain Chronic depression Fibromyalgia Asthma Surgical History History of abdominoplasty History of esophagogastroduodenoscopy (EGD) S/P bilateral breast reduction S/P LEVI-BSO H/O colonoscopy Spinal cord stimulator status Cataract, left eye Cataract, right eye History of sinus surgery History of left knee surgery History of partial hysterectomy Family History Father CVD (cardiovascular disease) Heart attack Mother CVD (cardiovascular disease) Heart attack Maternal Grandmother CVD (cardiovascular disease) Maternal Grandfather Colon cancer Paternal Grandmother No problems noted. Son No problems noted. Son No problems noted. Son No problems noted. 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 Current occupational exposures/hazards: No Sexual orientation: Unable to collect Gender identity: Unable to collect Cognitive needs: No Hearing needs: No Vision needs: No Review of Systems Const Denies fatigue, Denies fever(s), Denies night sweats, Denies poor appetite and Denies weight loss ENT Reports Normal hearing present, Denies dental pain, Denies dysphagia, Denies hearing loss, Denies mouth pain, Denies odynophagia, Denies throat swelling, Denies tongue swelling and Reports other (Dentition adequate) Card Reports no additional complaints Resp Reports no additional complaints GI Details: Reports abdominal pain, Denies melena, Reports bloating, Denies hematochezia, Denies constipation, Reports GI cramping, Denies dysphagia, Denies excessive flatus, Denies early satiety, Reports heartburn, Denies diarrhea, Denies nausea, Denies odynophagia, Denies vomiting and Denies hematemesis Skin/Breast Denies pruritus, Denies lesions, Denies rash and Denies jaundice Neuro Reports Normal hearing present and Denies Abnormal speech present Endo Denies fatigue Aller/Immun Denies throat swelling and Denies tongue swelling Physical Exam Vital Signs: Last Vital Signs Pulse 84 02/06/24 12:24 BP 127/74 02/06/24 12:24 BMI result Body Mass Index 37.0 Const General: cooperative, no acute distress, well developed and well groomed Nutritional Appearance: well nourished and obese Orientation/consciousness: oriented to person, oriented to place and oriented to time Limitations: No language barrier HEENT Head: Yes normocephalic and Yes atraumatic Eyes General: appearance normal, both eyes and all related structures Pupils: Equal, round and reactive pupils present Neck Neck: Yes normal visual inspection and Yes no lymphadenopathy Thyroid: Thyroid normal Resp Effort & Inspection: normal respiratory effort and able to speak in complete sentences Auscultation: clear to auscultation bilaterally Cardio Rate: regular rate Rhythm: regular rhythm Heart sounds: Normal, physiologic split S2 sound present Peripheral pulses: radial pulses present and posterior tibial pulses present GI Inspection: No distended, Yes Abdominal panniculus present and Yes obesity Palpation (GI): Soft to palpation, nontender, no guarding, not rigid and No hep atosplenomegaly present Percussion: Yes normal to percussion Auscultation: normal bowel sounds Rectal Exam - Female: deferred Skin General skin exam: no rashes or lesions noted, turgor normal, skin not dry, no jaundice, No spider nevi and no striae Rashes: no rashes Nails: normal Neuro General: oriented to person, oriented to place and oriented to time Cranial nerves: Yes Equal, round and reactive pupils present and Yes Normal hearing present Speech: No Abnormal speech present Extrem General: Yes normal to inspection, No clubbing, No cyanosis and No edema Psych Appearance: grossly normal and well kempt Mental Status: mental status grossly normal Speech and movement: Normal speech and movement present Affect: normal affect Attitude: cooperative Thought process: Normal thought process present and not confabulating Thought content: Normal thought content present Insight: Limited insight present (Psych) Judgement: Limited judgement present (Psych) Results Reviewed Results Reviewed: Laboratory Tests 04/06/22 11/17/22 11/17/22 07:30 09:49 09:49 WBC Hgb Hct Plt Count Estimated GFR Total Bilirubin AST ALT Alkaline Phosphatase C-Reactive Protein 2.97 H TSH Stool Pancreat Elastase >500 Anti-Gliadin IgG Ab <1.0 Gliadin (Deamidat) IgA <1.0 04/14/23 04/14/23 08:05 08:05 WBC 7.6 Hgb 14.0 Hct 43.6 Plt Count 252 Estimated GFR > 60 Total Bilirubin 0.8 AST 19 ALT 31 Alkaline Phosphatase 99 C-Reactive Protein TSH 2.31 Stool Pancreat Elastase Anti-Gliadin IgG Ab Gliadin (Deamidat) IgA RECD: 12/06/23 10:[address]: Joana Gilliam ORDERED: AMB.UA Test Result Flag Reference AMB.UALEU 15 AMB.UANIT Negative AMB.UAUBG 17 AMB.UAPRO 0.3 AMB.UAPH 6.0 AMB.UABLD 0 AMB.UASG 1.025 AMB.UAKET Positive AMB.UABIL 17 AMB.UAGLU 0 Assessment & Plan Assessment & Plan (1) GERD (gastroesophageal reflux disease): Code(s): K21.9 - Gastro-esophageal reflux disease without esophagitis Category: Medical (2) Diverticulitis: Comment: appt w/ GI 02/2024 Code(s): K57.92 - Diverticulitis of intestine, part unspecified, without perforation or abscess without bleeding Category: Medical (3) Hypogammaglobulinemia: Code(s): D80.1 - Nonfamilial hypogammaglobulinemia Category: Medical (4) Weight gain: Code(s): R63.5 - Abnormal weight gain Category: Medical Plan She was seen at [place] [facility] and diagnosed with diverticulitis. She has been treated 4 times since December because it seems to not be resolving. She has had a variety of medications including a Cipro/Flagyl combination and various courses of Augmentin. I reviewed the CT scans and in December and January she had what appeared to be mild inflammation of the sigmoid colon. Her severe bloating and gassiness also continues. She tends more towards constipation but does not do well with fiber supplements as they constipate her more, however she is currently having soft multiple daily stools. At the time of the most severe infection she did have some looser stools but not out right diarrhea. In the past she has been tried on Linzess and that only increased her cramping and did not really move her bowels any better. She is supposed to be on magnesium for nerve pain but that also has not been terribly helpful with her bowels. She has not taking it currently. In the past she did somewhat better with upper abdominal cramping on hyoscyamine the dicyclomine but now she has been told that she has a hernia in her right upper quadrant that is the cause of this. At this point I think were going to retry her on dicyclomine, get a colonoscopy to get an internal look at what is going on with her, and I will give her an extra dose of Augmentin to keep at home in case she has more symptoms so she does not have to run to the ER before she can get in touch with me. May need to consider an MD second opinion. She also has a new dx of hypogammaglobinemia which can be c/t her lack of TICS resolution. She is not yet having IgG infusions. She also has severe fatigue and can't lose weight, no recent TSH checked. She also continues on her omeprazole 40 mg daily and her magnesium oxide once daily for sleep along with daily rest which could be part of what is causing her gas and bloating since it does cause diarrhea. ROV 2 weeks. Orders: Orders Colonoscopy - GI Use Only 02/06/24 K57.92 - Diverticulitis of intestine, part unspecified, without perforation or abscess without bleeding TSH reflex Free T4 02/06/24 R63.5 - Abnormal weight gain, D80.1 - Nonfamilial hypogammaglobulinemia Medications: New amoxicillin-pot clavulanate 875-125 mg 1 tab PO BID 28 tabs 0RF 14 days K57.92 - Diverticulitis of intestine, part unspecified, without perforation or abscess without bleeding dicyclomine 20 mg PO QID 120 tabs 1RF 30 days Coding Level of Care Code Est Pt Level 3 (18372) Diagnoses GERD (gastroesophageal reflux disease) K21.9 Diverticulitis K57.92 Hypogammaglobulinemia D80.1 Weight gain R63.5
== END 2024-02-06 13:27 | disposition home or self-care (01) ==
PROVIDERS: PCP Family Medicine; Visit Provider Nurse Practitioner
DX: K21.9 Gastro-esophageal reflux disease without esophagitis (principal); K57.92 Diverticulitis of intestine, part unspecified, without perforation or abscess without bleeding; D80.1 Nonfamilial hypogammaglobulinemia; R63.5 Abnormal weight gain
CPT/HCPCS: 99213

== ENCOUNTER → 2024-02-06 12:14 | Outpatient (BNVA) | payer OTHER, SELFPAY | PROVIDERS: PCP Family Medicine; Visit Provider Nurse Practitioner | DX: K21.9 Gastro-esophageal reflux disease without esophagitis (principal); K57.92 Diverticulitis of intestine, part unspecified, without perforation or abscess without bleeding; D80.1 Nonfamilial hypogammaglobulinemia; R63.5 Abnormal weight gain | CPT/HCPCS: 99212 ==

== ENCOUNTER 2024-02-15 08:01 | Outpatient (REF) | payer OTHER, SELFPAY ==
--- NOTE | ~2024-02-15 | MM_ITS ---
EXAMINATION: BONE DENSITOMETRY CLINICAL INDICATION: Other specified abnormal findings of blood chemistry. COMPARISON: Baseline BD dated 07/18/2017. TECHNIQUE: Using a [employer] DXA System (software version: 13.1) manufactured by [employer], dual-energy x-ray absorptiometry was performed of the lumbar spine and left hip. The images are of good technical quality. Summary results are attached. FINDINGS: LEFT FEMUR, NECK: Current: BMD 0.842 g/cm2, Z-score -0.8, T-score -1.4, osteopenia. Baseline: BMD 0.941 g/cm2. LEFT FEMUR, TOTAL: Current: BMD 0.915 g/cm2, Z-score -0.5, T-score -0.7, normal, 8.5% decrease from baseline (<5% change is not significant). Baseline: BMD 1.000 g/cm2. AP SPINE L1-L4: Current: BMD 1.232 g/cm2, Z-score 0.6, T-score 0.4, normal, 5.9% decrease from baseline (<5% change is not significant). Baseline: BMD 1.309 g/cm2. IDENTIFIED RISK FACTORS: Menopause, hysterectomy. HISTORY OF FRACTURE: None listed. MEDICATIONS: Vitamin D. MM/XR DEXA axial skeleton IMPRESSION: 1. DIAGNOSIS: Osteopenia based on the lowest T-score value of -1.4 in the femoral neck applying World Health Organization criteria. 2. 10-YEAR FRACTURE RISK PREDICTION, FRAX: Major osteoporotic fracture (clinical spine, forearm, hip or shoulder) 6.1%. Hip fracture 0.4%. 3. Treatment Recommendations: NOF guidelines recommend consideration for treatment in postmenopausal women and men age 50 and older presenting with the following: -A hip or vertebral (clinical or morphometric) fracture. -T-score less than or equal to -2.5 at the femoral neck or spine after appropriate evaluation to exclude secondary causes. -Low bone mass at the hip or spine and a 10-year fracture probability by FRAX of greater than or equal to 3% for hip fracture or greater than or equal to 20% for major osteoporotic fracture based on the [place] adapted WHO algorithm. 4. Other Recommendations: All treatment decisions require clinical judgment and consideration of individual patient factors, including patient preferences, comorbidities, previous drug use, risk factors not captured in the FRAX model (e.g. frailty, falls, vitamin D deficiency, increased bone turnover, interval significant decline in bone density) and possible under or overestimation of fracture risk by FRAX. Additional medical evaluation for secondary cause of low bone mineral density may be appropriate. FUTURE SCAN RECOMMENDATION: People with diagnosed cases of osteoporosis or at high risk for fracture should have regular bone mineral density tests. For patients eligible for Medicare, routine testing is allowed once every 2 years. The testing frequency can be increased to one year for patients who have rapidly progressing disease, those who are receiving or discontinuing medical therapy to restore bone mass, or have additional risk factors.
== END 2024-02-15 08:02 | disposition home or self-care (01) ==
LOC: HO.MAMMO 08:01
PROVIDERS: PCP Nurse Practitioner Family; Visit Provider Nurse Practitioner Family
DX: Z13.820 Encounter for screening for osteoporosis (principal); Z78.0 Asymptomatic menopausal state; R79.89 Other specified abnormal findings of blood chemistry
CPT/HCPCS: 77080

== ENCOUNTER 2024-02-16 07:58 | Outpatient (REF) | payer OTHER, SELFPAY ==
[2024-02-16 08:31] LABS: MANUAL DIFF FLAG NO
[2024-02-16 09:27] LABS: Basophils Percent Auto 0.5 % (0-2); Eosinophils Absolute Auto 0.2 X10*3/uL (0.0-0.4); Eosinophils Percent Auto 2.2 % (0-4); Hematocrit 42.8 % (37.0-47.0); Hemoglobin 14.3 g/dl (12.0-16.0); Imm Gran Abs Auto 0.02 X10*3/uL (0.00-0.03); Imm Gran Pct Auto 0.3 % (0.0-0.4); Lymphocytes Absolute Auto 2.3 X10*3/uL (1.2-4.9); Lymphocytes Percent Auto 29.6 % (20-40); Mean Corpuscular HGB Conc 33.4 g/dl (31.0-35.0); Mean Corpuscular Hemoglobin 30.6 pg (27.0-33.0); Mean Corpuscular Volume 91.5 fL (80.0-98.0); Monocytes Absolute Auto 0.5 X10*3/uL (0.1-1.2); Monocytes Percent Auto 5.9 % (2-11); Neutrophils Absolute Auto 4.7 x10*3/uL (2.0-8.3); Neutrophils Percent Auto 61.5 % (45-73); Platelet Count 239 X10*3/uL (160-400); Red Blood Count 4.68 X10*6/uL (4.20-5.50); White Blood Count 7.6 X10*3/uL (4.8-10.8)
[2024-02-16 10:04] LABS: Alanine Aminotransferase 23 U/L (0-31); Albumin Level 4.3 g/dL (3.5-5.0); Alkaline Phosphatase 109 U/L (39-117); Anion Gap 14 (12-20); Aspartate Amino Transferase 15 U/L (5-31); Bilirubin Total 0.7 mg/dL (0.0-1.0); Blood Urea Nitrogen 15 mg/dL (9-16); Calcium 9.8 mg/dL (8.4-10.2); Carbon Dioxide 25 mmol/L (22-29); Chloride 107 mmol/L (96-108); Estimated Glomerular Filt Rate > 60; Glucose Random 120 mg/dL (60-115); Potassium 4.1 mmol/L (3.3-5.1); Sodium 142 mmol/L (135-145); Total Protein 7.3 g/dL (6.5-8.0)
[2024-02-16 10:09] LABS: Erythrocyte Sedimentation Rate 17 MM/HR (0-20)
[2024-02-16 10:27] LABS: TSH reflex Free T4 1.99 uIU/mL (0.32-4.0); Vitamin D 25-OH Total 26.1 ng/mL (>30)
[2024-02-16 14:22] LABS: Vitamin B12 547 pg/mL (200-900)
[2024-02-19 05:13] LABS: Immunoglobulin A 137 mg/dL (47-310); Immunoglobulin M 91 mg/dL (50-300)
[2024-02-19 14:43] LABS: Immunoglobulin G Subclass 1 298 mg/dL (382-929); Immunoglobulin G Subclass 2 268 mg/dL (241-700); Immunoglobulin G Subclass 3 23 mg/dL (22-178); Immunoglobulin G Subclass 4 13.6 mg/dL (4-86); Immunoglobulin G Total 594 mg/dL (600-1640)
[2024-02-19 21:47] LABS: Prot Elec - Albumin 4.2 g/dL (3.8-4.8); Prot Elec - Alpha1 0.3 g/dL (0.2-0.3); Prot Elec - Alpha2 0.8 g/dL (0.5-0.9); Prot Elec - Beta 1 0.5 g/dL (0.4-0.6); Prot Elec - Beta 2 0.4 g/dL (0.2-0.5); Prot Elec - Gamma 0.6 g/dL (0.8-1.7); Prot Elec - Total Protein 6.8 g/dL (6.1-8.1)
[2024-02-20 17:23] LABS: Complement C3 192 mg/dL (83-193)
[2024-02-28 08:49] LABS: Immunoglobulin E 10 kU/L (<OR=114)
== END 2024-02-16 07:59 | disposition home or self-care (01) ==
LOC: HO.LAB 07:58
PROVIDERS: Allergy & Immunology; PCP Nurse Practitioner Family; Visit Provider Nurse Practitioner Family
DX: R53.83 Other fatigue (principal); J32.9 Chronic sinusitis, unspecified; J45.40 Moderate persistent asthma, uncomplicated
CPT/HCPCS: 36415; 80053; 82306; 82607; 82784; 82785; 84165; 84443; 85025; 85652; 86160; 86317; 86710; 86774; 87502

== ENCOUNTER 2024-02-22 13:18 | Outpatient (AMB) | payer OTHER, SELFPAY ==
--- NOTE | 2024-02-22 13:28 | MHC.OFFVIS ---
Vital Signs 02/22/24 13:30 Height 5 ft 1 in Weight 195 lb 5.273 oz BMI 36.9 BP 142/78 H Blood Pressure Location Rt brachial Position Sitting Pulse 71 Intake Visit Reasons: 2 week follow up TICS Intake Note: Patient here for 2wk f/u diverticulitis. Reports improvement with Amoxicillin. Abx course helped. Dicyclomine did not help. Patient c/o: nausea yesterday. RLQ pain in front that spreads to back. Patient brought Abd/ pelvis CT scan from [place] dated 02-04-24. Copy to be scanned in chart. International Marketing Specialist Required: No Accompanied by: Self / Same As Patient Allergies aspirin [ASA] Allergy (Severe, Verified 02/22/24 13:30) asthma exacerbation duloxetine [Cymbalta] Allergy (Intermediate, Verified 02/22/24 13:30) loopy gabapentin Allergy (Intermediate, Verified 02/22/24 13:30) loopy NSAIDS (Non-Steroidal Anti-Inflamma [NSAIDS (NON-STEROIDAL ANTI-INFLAMMA] Allergy (Intermediate, Verified 02/22/24 13:30) asthma exacerbation pregabalin Allergy (Intermediate, Verified 02/22/24 13:30) loopy tramadol [TRAMADOL] Allergy (Intermediate, Verified 02/22/24 13:30) tachycardia codeine [CODEINE] Allergy (Mild, Verified 02/22/24 13:30) Rash piperacillin [From Zosyn] Allergy (Mild, Verified 02/22/24 13:30) Rash tazobactam [From Zosyn] Allergy (Mild, Verified 02/22/24 13:30) Rash All SSRIs Allergy (Intermediate, Uncoded 02/22/24 13:30) nightmares Amitriptyline Allergy (Intermediate, Uncoded 02/22/24 13:30) tachycardia HPI HPI 2 week follow up TICS: Details: ssessment & Plan (1) Acute diarrhea: ?Code(s): R19.7 - Diarrhea, unspecified ?Plan: The creon did not help her. She had sudden onset of diarrhea and pain from my mouth to my butt about 3 weeks ago. She also has skin itching and a constant WHITESIDE. She is on and off abx and had several back to back rounds of abx, so with skin and vaginal itching could be abel. She has a hx of constant sinus infections. The WHITESIDE only responds to benadryl. There are no other medication changes and no similar contacts that she is completely aware.? She has not eaten any undercooked food or seafood recently.? She has not noticed if she has had fevers or chills.? She has been extremely fatigued and pain she and diarrhea is keeping her up at night she is not able get much sleep.? She is doing okay keeping down fluids but really isn't eating well. Will start diflucan 7 days, get CBC, chem and GI panel with C diff. She received the hyoscamine and it only helps a little. Her baseline is CIC so this is a big change and she even has fecal incontinence.? 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 I tell her I will let her know possible since his with her being able to work with compromise patients. ROV 2 weeks. (2) Candidiasis of mouth and esophagus: ?Code(s): B37.81 - Candidal esophagitis; B37.0 - Candidal stomatitis ? ? ? Orders: Orders Gliadin Ab Panel Today R19.7 - Diarrhea, unspecified ? CDiff Gene PCR Today R19.7 - Diarrhea, unspecified ? Complete Blood Count Auto Diff Today R19.7 - Diarrhea, unspecified ? Comprehensive Met. Panel Today R19.7 - Diarrhea, unspecified ? C Reactive Protein Today R19.7 - Diarrhea, unspecified ? UA and rflx microscopic Today Z00.00 - Encounter for general adult medical examination without abnormal findings ? Medications: New fluconazole (Diflucan) 200 mg? PO DAILY 7 days 7 tabs 0RF B37.0 - Candidal stomatitis, B37.81 - Candidal esophagitis ? Discontinued [id number] 24,000-76,000 -120,000 unit (Creon) ?? administer with meals and/or snacks ?? Discontinued Reason:? Doctor's Order 1 cap? PO QIDACHS 30 days 120 caps 3RF K58.9 - Irritable bowel syndrome without diarrhea ? LABS: TODAY'S VISIT She shows me a CT that was done at [facility] that shows she has mild fat stranding around the central mesentery with prominent but nonenlarged central mesenteric lymph nodes which may be seen in the setting of mesenteric sclerosis which apparently was seen on prior CT scans because it notes that is unchanged from prior. The coal getter/bottom cementer she saw feels she should be referred to [facility] because she has multiple uncommon autoimmune problems and she is fearful that the mesenteric sclerosis may be a part of this process. I really do agree with this but I think she should also see Oncology 1st to make sure there is no hidden malignancy. She also had some trouble with her IgG and it might not be a bad idea to have Hematology way in on this as well. What I am uncertain of his if I should start treating her for mesenteric sclerosis and because she is concerned about how long it may take to get in for [facility]. She saw Dr Snow in [facility]. At this point I think I will consider treating her after she sees oncology and is cleared for any malignant process. She thinks she has her colonoscopy 03/05, but my computer says 07/05, so I'm unsure when to bring her back. [facility] Medical History (Updated 02/22/24 @ 13:58 by KRISHNA Lilly) Adult general medical exam IBS (irritable bowel syndrome) Left breast lump Tendinitis of left rotator cuff Rotator cuff tear Hypogammaglobulinemia Asthma-COPD overlap syndrome RUQ abdominal pain Chronic depression Fibromyalgia Asthma Surgical History History of abdominoplasty History of esophagogastroduodenoscopy (EGD) S/P bilateral breast reduction S/P LEVI-BSO H/O colonoscopy Spinal cord stimulator status Cataract, left eye Cataract, right eye History of sinus surgery History of left knee surgery History of partial hysterectomy Family History Father CVD (cardiovascular disease) Heart attack Mother CVD (cardiovascular disease) Heart attack Maternal Grandmother CVD (cardiovascular disease) Maternal Grandfather Colon cancer Paternal Grandmother No problems noted. Son No problems noted. Son No problems noted. Son No problems noted. 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 Current occupational exposures/hazards: No Sexual orientation: Unable to collect Gender identity: Unable to collect Cognitive needs: No Hearing needs: No Vision needs: No Review of Systems Const Reports fatigue, Denies fever(s), Reports headache(s), Denies night sweats, Denies poor appetite, Reports weight gain and Denies weight loss ENT Reports Normal hearing present, Denies dental pain, Denies dysphagia, Reports headache(s), Denies hearing loss, Denies mouth pain, Denies odynophagia, Denies throat swelling, Denies tongue swelling and Reports other (Dentition adequate) Card Reports no additional complaints Resp Reports no additional complaints GI Details: Reports abdominal pain, Denies melena, Reports bloating, Denies hematochezia, Reports constipation, Reports GI cramping, Denies dysphagia, Denies excessive flatus, Denies early satiety, Reports heartburn, Denies diarrhea, Denies nausea, Denies odynophagia, Denies vomiting and Denies hematemesis Musc Reports back pain, Reports myalgias, Reports arthralgias, Reports numbness and Reports tingling Skin/Breast Denies pruritus, Denies lesions, Denies rash and Denies jaundice Neuro Reports Normal hearing present, Denies Abnormal speech present, Reports headache(s), Reports numbness, Reports tingling and Reports paresthesias Endo Reports fatigue Aller/Immun Denies throat swelling and Denies tongue swelling Physical Exam Vital Signs: Last Vital Signs Pulse 71 02/22/24 13:30 BP 142/78 H 02/22/24 13:30 BMI result Body Mass Index 36.9 Const General: cooperative, no acute distress, well developed and well groomed Nutritional Appearance: well nourished and obese Orientation/consciousness: oriented to person, oriented to place and oriented to time Limitations: No language barrier HEENT Head: Yes normocephalic and Yes atraumatic Eyes General: appearance normal, both eyes and all related structures Pupils: Equal, round and reactive pupils present Neck Neck: Yes normal visual inspection and Yes no lymphadenopathy Thyroid: Thyroid normal Resp Effort & Inspection: normal respiratory effort and able to speak in complete sentences Auscultation: clear to auscultation bilaterally Cardio Rate: regular rate Rhythm: regular rhythm Heart sounds: Normal, physiologic split S2 sound present Peripheral pulses: radial pulses present and posterior tibial pulses present GI Inspection: No distended, Yes Abdominal panniculus present and Yes obesity Palpation (GI): Soft to palpation, Tenderness to palpation present (GI) in the RLQ, no guarding, not rigid and No hepatosplenomegaly present Percussion: Yes normal to percussion Auscultation: normal bowel sounds Rectal Exam - Female: deferred Skin General skin exam: no rashes or lesions noted, turgor normal, skin not dry, no jaundice, No spider nevi and no striae Rashes: no rashes Nails: normal Neuro General: oriented to person, oriented to place and oriented to time Cranial nerves: Yes Equal, round and reactive pupils present and Yes Normal hearing present Speech: No Abnormal speech present Extrem General: Yes normal to inspection, No clubbing, No cyanosis and No edema Psych Appearance: grossly normal and well kempt Mental Status: mental status grossly normal Speech and movement: Normal speech and movement present Affect: normal affect Attitude: cooperative Thought process: Normal thought process present and not confabulating Thought content: Normal thought content present Insight: Fair insight present (Psych) Judgement: Fair judgement present (Psych) Assessment & Plan Assessment & Plan (1) Hypogammaglobulinemia: Code(s): D80.1 - Nonfamilial hypogammaglobulinemia Category: Medical (2) Sclerosing mesenteric fibrosis: Code(s): K65.4 - Sclerosing mesenteritis Category: Medical (3) GERD (gastroesophageal reflux disease): Code(s): K21.9 - Gastro-esophageal reflux disease without esophagitis Category: Medical (4) Tubular adenoma of colon: Code(s): D12.6 - Benign neoplasm of colon, unspecified Category: Medical Plan She shows me a CT that was done at [facility] that shows she has mild fat stranding around the central mesentery with prominent but nonenlarged central mesenteric lymph nodes which may be seen in the setting of mesenteric sclerosis which apparently was seen on prior CT scans because it notes that is unchanged from prior. Why this was followed up on by the providers that discovered it is unknown to me. She was treated only with antibiotics for presumed diverticulitis. She is uncertain whether this actually made her feel any better and her symptoms did not correlate well with diverticulitis since most of her pain was on the right side. It is possible that this CT scan finding is simply a sign of greater mesentery inflammation an underlying process that is not related to diverticulitis. The coal getter/bottom cementer she saw feels she should be referred to [facility] because she has multiple uncommon autoimmune problems and she is fearful that the mesenteric sclerosis may be a part of this process. I really do agree with this but I think she should also see Oncology 1st to make sure there is no hidden malignancy. She also had some trouble with her IgG and it might not be a bad idea to have Hematology way in on this as well. What I am uncertain of his if I should start treating her for mesenteric sclerosis and because she is concerned about how long it may take to get in for [facility]. She saw Dr Snow in [place]. At this point I think I will consider treating her after she sees oncology and is cleared for any malignant process. She thinks she has her colonoscopy 03/05, but my computer says 07/05, so I'm unsure when to bring her back. Orders: Referrals Hematology & Oncology Referral D80.1 - Nonfamilial hypogammaglobulinemia, K65.4 - Sclerosing mesenteritis
[2024-02-22 13:30] VITALS: BP 142/78; PULSE 71; BMI 36.9
== END 2024-02-22 14:16 | disposition home or self-care (01) ==
PROVIDERS: PCP Family Medicine; Visit Provider Nurse Practitioner
DX: D80.1 Nonfamilial hypogammaglobulinemia (principal); K65.4 Sclerosing mesenteritis; K21.9 Gastro-esophageal reflux disease without esophagitis; D12.6 Benign neoplasm of colon, unspecified
CPT/HCPCS: 99214

== ENCOUNTER → 2024-02-22 13:18 | Outpatient (BNVA) | payer OTHER, SELFPAY | PROVIDERS: PCP Family Medicine; Visit Provider Nurse Practitioner | DX: K21.9 Gastro-esophageal reflux disease without esophagitis (principal); K65.4 Sclerosing mesenteritis; D80.1 Nonfamilial hypogammaglobulinemia; D12.6 Benign neoplasm of colon, unspecified | CPT/HCPCS: 99212 ==

== ENCOUNTER 2024-03-01 05:58 | Day surgery (SDC) | payer OTHER, SELFPAY ==
[2024-03-01 13:39] VITALS: BP 135/64; PULSE 62; RESP 18; TEMP 36.3; O2SAT 97
[2024-03-01 13:45] VITALS: BP 124/76; PULSE 63; O2SAT 96
--- NOTE | 2024-03-01 13:46 | HO.ANESPROP2 ---
[facility] Active Problems Active Problems: All Active Problems Sclerosing mesenteric fibrosis (Acute) Osteopenia of femoral neck (Acute) Weight gain (Acute) Diarrhea (Acute) Chronic pain (Acute) Diverticulitis (Acute) Hypogammaglobulinemia (Acute) Asthma-COPD overlap syndrome (Acute) Obesity (BMI 30-39.9) (Acute) Spinal cord stimulator dysfunction (Acute) NILTON (obstructive sleep apnea) (Acute) Neuropathy of both feet (Acute) Low vitamin D level (Acute) Allergies (Acute) Postmenopausal (Acute) Low back pain (Acute) Arachnoiditis (Acute) S/P insertion of spinal cord stimulator (Acute) GERD (gastroesophageal reflux disease) (Acute) Family history of premature CAD (Acute) Hypercholesterolemia (Acute) Elevated fasting glucose (Acute) Elevated erythrocyte sedimentation rate (Acute) Tubular adenoma of colon (Acute) Osteoarthritis of lumbar spine (Acute) Past Medical History Medical History (Updated 02/22/24 @ 13:58 by KRISHNA Lilly) Adult general medical exam IBS (irritable bowel syndrome) Left breast lump Tendinitis of left rotator cuff Rotator cuff tear Hypogammaglobulinemia Asthma-COPD overlap syndrome RUQ abdominal pain Chronic depression Fibromyalgia Asthma Family History Family History Father CVD (cardiovascular disease) Heart attack Mother CVD (cardiovascular disease) Heart attack Maternal Grandmother CVD (cardiovascular disease) Maternal Grandfather Colon cancer Paternal Grandmother No problems noted. Son No problems noted. Son No problems noted. Son No problems noted. Son Heart attack Family history of problems with anesthesia: No Surgical History Surgical History History of abdominoplasty History of esophagogastroduodenoscopy (EGD) S/P bilateral breast reduction S/P LEVI-BSO H/O colonoscopy Spinal cord stimulator status Cataract, left eye Cataract, right eye History of sinus surgery History of left knee surgery History of partial hysterectomy History of Problems with Anesthesia: No Social History Social History Household Members: Family Housing: House Alcohol intake: never Patient Tobacco Use Status: Former Tobacco user e-Cigarette/Vaping Use: Never Used Second Hand Smoke Exposure: No Advance Directives: No Advance Directives Information Provided: Yes service: No Current occupational status: employed 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 Current occupational exposures/hazards: No Sexual orientation: Unable to collect Gender identity: Unable to collect Cognitive needs: No Hearing needs: No Vision needs: No Meds Allergies Allergy/AdvReac Type Severity Reaction Status Date / Time aspirin [ASA] Allergy Severe asthma Verified 02/22/24 13:30 exacerbation duloxetine [Cymbalta] Allergy Intermediate loopy Verified 02/22/24 13:30 gabapentin Allergy Intermediate loopy Verified 02/22/24 13:30 NSAIDS (Non-Steroidal Allergy Intermediate asthma Verified 02/22/24 13:30 Anti-Inflamma exacerbation [NSAIDS (NON-STEROIDAL ANTI-INFLAMMA] pregabalin Allergy Intermediate loopy Verified 02/22/24 13:30 tramadol [TRAMADOL] Allergy Intermediate tachycardia Verified 02/22/24 13:30 codeine [CODEINE] Allergy Mild Rash Verified 02/22/24 13:30 piperacillin [From Zosyn] Allergy Mild Rash Verified 02/22/24 13:30 tazobactam [From Zosyn] Allergy Mild Rash Verified 02/22/24 13:30 All SSRIs Allergy Intermediate nightmares Uncoded 02/22/24 13:30 Amitriptyline Allergy Intermediate tachycardia Uncoded 02/22/24 13:30 Home Medications ?Medication ?Instructions ?Recorded ?Confirmed ?Last Taken ?Type fexofenadine 180 mg tablet 180 mg PO DAILY 02/26/21 01/25/24 Unknown History (Sandy Allergy) dextroamphetamine-amphetamine 10 1 tab PO BID 04/15/22 01/25/24 Unknown History mg tablet levocetirizine 5 mg tablet 5 mg PO BEDTIME 04/15/22 01/25/24 Unknown History triamcinolone acetonide 55 mcg spray intranasal 04/15/22 01/25/24 Unknown History nasal spray aerosol clonazepam 0.5 mg tablet 0.5 mg PO TID PRN Anxiety 06/15/22 01/25/24 Unknown History buspirone 7.5 mg tablet 7.5 mg PO 11/17/22 01/25/24 Unknown History fluoxetine 10 mg capsule 10 mg PO DAILY 11/17/22 01/25/24 Unknown History nebulizers 11/24/23 01/25/24 Unknown History Exam Airway Mallampati Class: II (crowns all over, top front teeth) TM Dist: >3cm Neck ROM: Full Heart: rrr Lungs: cta Assessment and Plan Assessment Anesthesia Assessment: Anesthesia Plan Discussed and Chart Reviewed Final Anesthetic Review Family History of Problems with Anesthesia: No History of Problems with Anesthesia: No NPO: Yes ASA Class: II Final Preanesthetic Review: No Changes in Pt Med Stat, Meds/Allgs Chart Reviewed and Consent Obtained/Reviewed Patient Risk: Low Procedure Risk: Low Anesthetic Plan Anesthetic Plan: MAC: Disposition: Standard PACU
[2024-03-01] MEDS: Lactated Ringers 1,000 ML 999 ML IV (13:55)
--- NOTE | 2024-03-01 14:16 | MHC.SHP ---
Pre-Procedural Eval Section A - 24 Hr Update-Section A only Date of Service: 03/01/24 The patient is an INPATIENT: No The patient has been examined within 24 hours of the surgical procedure. The History & Physical has been completed within 30 days and I have reviewed it.: No Section B - Complete if H&P > 30 days Chief Complaint: Surveillance for colon polyps, Relevant Family History (Specify if Yes): No Relevant Social History: Tobacco Use (Former smoker) Present Medications: see Short Stay Collaborative assessment Medical History: Significant History (Left breast lump Tendinitis of left rotator cuff Rotator cuff tear Hypogammaglobulinemia Asthma-COPD overlap syndrome RUQ abdominal pain Chronic depression Fibromyalgia Asthma) History of Previous Operations: Relevant previous surgery/procedure and date(s) (History of abdominoplasty History of esophagogastroduodenoscopy (EGD) S/P bilateral breast reduction S/P LEVI-BSO H/O colonoscopy Spinal cord stimulator status Cataract, left eye Cataract, right eye History of sinus surgery History of left knee surgery History of partial hysterectomy) Allergies: Allergies Allergy/AdvReac Type Severity Reaction Status Date / Time aspirin [ASA] Allergy Severe asthma Verified 02/22/24 13:30 exacerbation duloxetine [Cymbalta] Allergy Intermediate loopy Verified 02/22/24 13:30 gabapentin Allergy Intermediate loopy Verified 02/22/24 13:30 NSAIDS (Non-Steroidal Allergy Intermediate asthma Verified 02/22/24 13:30 Anti-Inflamma exacerbation [NSAIDS (NON-STEROIDAL ANTI-INFLAMMA] pregabalin Allergy Intermediate loopy Verified 02/22/24 13:30 tramadol [TRAMADOL] Allergy Intermediate tachycardia Verified 02/22/24 13:30 codeine [CODEINE] Allergy Mild Rash Verified 02/22/24 13:30 piperacillin [From Zosyn] Allergy Mild Rash Verified 02/22/24 13:30 tazobactam [From Zosyn] Allergy Mild Rash Verified 02/22/24 13:30 All SSRIs Allergy Intermediate nightmares Uncoded 02/22/24 13:30 Amitriptyline Allergy Intermediate tachycardia Uncoded 02/22/24 13:30 Review of Systems Sugical H&P ROS: Negative: Constitution, Cardiovascular, Respiratory and Gastrointestinal Exam Surgical H&P Exam: Normal: Heart, Normal: Lungs, Normal: Extremities and Normal: Abdomen Plan Diagnosis/Plan: Unchanged I have reviewed the history and physical and performed a pertinent physical examination on my patient. No changes have occurred unless specified. Time Spent With Patient Time: Total time managing care of this patient today ____ minutes.
[2024-03-01] MEDS: fentaNYL citrate/PF 100 MCG/2 ML VIAL 50 MCG IVPUSH (14:40)
--- NOTE | 2024-03-01 16:23 | P.OP_ITS ---
Operative Note Operative Note Date of Service: 03/01/24 Narrative: COLONOSCOPY TILL CECUM WITH BIOPSIES AND SNARE POLYPECTOMY Pre-op diagnosis: Surveillance for colon polyps. Post-op diagnosis:? Colon polyps, Diverticulosis Endoscopist:? Waqas Giron MD Anesthesia:?MAC Consent: Indications for the procedure and potential complications of bleeding, perforation, reaction to medications and missed diagnosis were discussed with the patient and informed consent was obtained. Instrument: Olympus PCF H 190 L variable stiffness pediatric colonoscope Monitoring: Vital signs and clinical assessment, intermittent blood pressure monitoring, continuous EKG monitoring, Pulse oximetry and Carbon Dioxide monitoring were done throughout the procedure. Please see anesthesia flowsheet. Colon withdrawl time was 26 minutes. Procedure: The patient was placed in the left lateral decubitis position and pre-procedure medications were administered. After a digital rectal examination of the ano-rectum, the video colonoscope was inserted into the rectum and advanced through the colon to the cecum. The colonoscope was slowly withdrawn in a retrograde panoramic fashion and the colon mucosa was carefully examined including a retroflexed view of the rectum. Findings and interventions are described below. Procedure Difficulty: without difficulty Findings: Terminal Ileum: Distal 5 cm was examined and appeared normal Cecum: Normal Ascending Colon: A 10 - 12 mm sessile polyp in the distal AC - removed with a hot snare Transverse Colon: A 3-4 mm sessile polyp - removed with a cold biopsy Descending Colon: Moderate diverticulosis Sigmoid Colon: A 7-8 mm sessile polyp - removed with a cold biopsy. Severe diverticulosis Rectum: Normal Ano-rectum: Small internal hemorrhoids Colon preparation: Good after copious irrigation. [place] Bowel Preparation Scale Right colon; 2 Transverse colon: 2 Left colon; 2 (0 = Unprepared colon segment with mucosa not seen due to solid stool that cannot be cleared. 1 = Portion of mucosa of the colon segment seen, but other areas of the colon segment not well seen due to staining, residual stool and/or opaque liquid. 2 = Minor amount of residual staining, small fragments of stool and/or opaque liquid, but mucosa of colon segment seen well. 3 = Entire mucosa of colon segment seen well with no residual staining, small fragments of stool or opaque liquid) Impression and Post Procedure Diagnosis: Colonoscopy Findings: Two small and one medium sized polyps were removed Random biopsies were obtained from right and left colon to check for microscopic colitis. Moderate diverticulosis seen in the left colon Small hemorrhoids on retroflexed exam. Plan: Pt has a FU appointment on 07/19/24 with Leonor Zaragoza NP - pt advised to schedule an earlier appointment. Repeat Colonoscopy in 3-5 years if polyps are adenomatous and due to history of adenomatous colon polyps. Above findings were reviewed with the patient and relevant handouts were given and the discharge area. Of note - pt came to the OR after taking colon prep. There was no appt on the schedule. Pt was accomodated at the end of the day.
[2024-03-01 16:31] VITALS: BMI 35.9
[2024-03-01 17:19] VITALS: BP 120/75; PULSE 77; RESP 18; TEMP 36.1; O2SAT 97
[2024-03-01 17:34] VITALS: BP 126/85; PULSE 68; RESP 20; TEMP 37.2; O2SAT 97
== END 2024-03-01 18:03 | disposition home or self-care (01) ==
PROVIDERS: PCP Family Medicine; Visit Provider Internal Medicine Gastroenterology
PROC: 0DJD8ZZ Inspection of Lower Intestinal Tract, Via Natural or Artificial Opening Endoscopic (ICD-10-PCS; CPT 45378; principal; 2024-03-01 15:00)
DX: Z12.11 Encounter for screening for malignant neoplasm of colon (principal); Z86.010 Personal history of colon polyps; Z87.19 Personal history of other diseases of the digestive system; D12.2 Benign neoplasm of ascending colon; K63.5 Polyp of colon; K57.30 Diverticulosis of large intestine without perforation or abscess without bleeding; K64.8 Other hemorrhoids; K21.9 Gastro-esophageal reflux disease without esophagitis; K58.9 Irritable bowel syndrome, unspecified; R19.7 Diarrhea, unspecified; D80.1 Nonfamilial hypogammaglobulinemia; K65.4 Sclerosing mesenteritis; R53.83 Other fatigue; B37.81 Candidal esophagitis; B37.0 Candidal stomatitis; J44.9 Chronic obstructive pulmonary disease, unspecified; E78.00 Pure hypercholesterolemia, unspecified; Z79.899 Other long term (current) drug therapy; Z88.1 Allergy status to other antibiotic agents; Z88.5 Allergy status to narcotic agent; Z88.6 Allergy status to analgesic agent; Z98.890 Other specified postprocedural states; Z87.891 Personal history of nicotine dependence
CPT/HCPCS: 45385; 45380; 88305; J3010

== ENCOUNTER → 2024-03-01 05:58 | Outpatient (BNV) | payer OTHER, SELFPAY | PROVIDERS: PCP Family Medicine; Visit Provider Internal Medicine Gastroenterology | DX: Z12.11 Encounter for screening for malignant neoplasm of colon (principal); Z86.010 Personal history of colon polyps; K57.90 Diverticulosis of intestine, part unspecified, without perforation or abscess without bleeding; K64.8 Other hemorrhoids; D12.2 Benign neoplasm of ascending colon; K63.5 Polyp of colon | CPT/HCPCS: 45380; 45385 ==

== ENCOUNTER → 2024-03-19 08:02 | Outpatient (BNV) | payer OTHER, SELFPAY | PROVIDERS: PCP Nurse Practitioner Family; Referring Provider Nurse Practitioner Family; Visit Provider Internal Medicine Medical Oncology | DX: D80.1 Nonfamilial hypogammaglobulinemia (principal) | CPT/HCPCS: 99204; 99213 ==

== ENCOUNTER 2024-03-19 09:32 | Outpatient (AMB) | payer OTHER, SELFPAY ==
[2024-03-19 09:42] VITALS: PULSE 61; O2SAT 97; BMI 35.9
--- NOTE | 2024-03-19 09:42 | A.OFFVIS_ITS ---
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 Allergies aspirin [ASA] Allergy (Severe, Verified 03/19/24 12:58) asthma exacerbation duloxetine [Cymbalta] Allergy (Intermediate, Verified 03/19/24 12:58) loopy gabapentin Allergy (Intermediate, Verified 03/19/24 12:58) loopy NSAIDS (Non-Steroidal Anti-Inflamma [NSAIDS (NON-STEROIDAL ANTI-INFLAMMA] Allergy (Intermediate, Verified 03/19/24 12:58) asthma exacerbation pregabalin Allergy (Intermediate, Verified 03/19/24 12:58) loopy tramadol [TRAMADOL] Allergy (Intermediate, Verified 03/19/24 12:58) tachycardia codeine [CODEINE] Allergy (Mild, Verified 03/19/24 12:58) Rash piperacillin [From Zosyn] Allergy (Mild, Verified 03/19/24 12:58) Rash tazobactam [From Zosyn] Allergy (Mild, Verified 03/19/24 12:58) Rash All SSRIs Allergy (Intermediate, Uncoded 03/19/24 09:43) nightmares Amitriptyline Allergy (Intermediate, Uncoded 03/19/24 09:43) tachycardia HPI Comments Details: The patient is a 53 year woman with the history of worsening cough. Apparently she developed pneumonia several times. The last time she developed pneumonia was back in December. Significant left-sided extensive airspace disease noted. The patient was given antibiotics and also prednisone. She seems to respond well to prednisone. Now she has this persistent cough. I also shortness of breath and chest tightness. The patient has been evaluated multiple times without a clear etiology of her pneumonias. Not clear why she has recurrent episodes. I did review the x-ray from December subsequently after that she had an x-ray in January that demonstrated interval resolution of the process. Is not clear if this is infectious or noninfectious pneumonias. Will assess for underlying connective tissue conditions. Also will assess her for immunodeficiencies. We did review her pulmonary function studies that she had back in 2016. no evidence of any obstructive ventilatory defects although I explained to her that this does not rule out asthma. The patient does have chest tightness at times. She also has a prolonged expiratory phase. Will provide her with respiratory therapy at this time. 09/15/2023 the patient is here for pulmonary follow-up visit. Overall she is doing well. She recently was evaluated by our office for an acute exacerbation of her breathing. She is back to her baseline now. She is off the prednisone. The patient did undergo blood work demonstrating slight decrease in the IgG otherwise all the other rest of the blood work was reassuring. The patient did also have a CT scan of the chest that was personally by me chest minimal at [facility] nothing to explain her airspace disease. The patient does understand that her findings on the x-rays are consistent with a pneumonic process and likely bacterial in origin. Therefore in view of her we can immune system we can consider prophylactic antibiotics to see we can decrease her infectious recurrence. Also will be reasonable if she has any further events to perform bronchoscopy to further address the airways and look for any smoldering infections. The patient is working closely with allergy immunology. She should have her subclasses checked as far as her IgG and if they are low consider challenging with a vaccine to see if she has a proper response to vaccine therapy. The patient will continue with current respiratory therapy will follow-up in a couple months. She also need an EKG. 11/24/2023 the patient is here for a pulmonary follow-up visit. Since we last spoke she developed COVID 19. Does back in October. She still feels like she has not back to her baseline. Prior to that we had try the azithromycin 3 times a week for her chronic bronchitis. The patient states that it was partially helpful although her cough and chest congestion has not improved. She is feeling like she will need prednisone soon. 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 Explained to her that with the hypogammaglobulinemia this could result in more recurrent infections and also result in slower recovery time. She is already on supplements. Will will check her levels sometime in the springtime or she can follow-up with international trade teacher. Based on the fact the patient has evidence of chronic bronchitis requiring frequent courses of prednisone she will be a great candidate for Daliresp. Will go ahead started on low-dose of the Daliresp and workup to the therapeutic dose as tolerated. In addition to that will also optimize her respiratory therapy by switching her from the Advair to Trelegy. The patient will return to 4 months to assess her progress. If she is ready to increase the Daliresp prior to her arrival she can always call. 03/19/2024 the patient is here for a pulmonary follow-up visit. Since we last spoke she has had a difficult time with diverticulitis. She was admitted to the hospital couple times. The patient did respond to antibodies in the not need surgery. She had abnormal CT scans of the chest. The patient has had issues with recurrent infections. She does not have evidence of hypogammaglobulinemia. She is following both Rheumatology and also with Allergy immunology myself. The patient would benefit from IVIG specially if her workup continues to be inconclusive specially for malignancies. The patient continues to struggle with her breathing. Complains of dyspnea on exertion moderate severity even with minimal activity. She responds well to the Advair I do not believe she has any obstructive airway component. Her PFTs were also reassuring without any evidence of restriction and normal diffusing capacity. Likely her work of breathing is increased due to her systemic condition. She did respond well to the Daliresp which is an anti-inflammatory although then started developing abdominal pain so at this point would like to hold off. The patient is also contemplating going to [place] for 2nd opinion which I believe is being worked down right now. If workup is negative for malignancy then I do believe that a trial of IVIG would be helpful to try to minimize infectious processes. In meantime she has been using the CPAP the CPAP therapy has been affecting beneficial and she has been using about 4 hours a night. The patient's AHI is good around 1.3 events per hour. Her average pressure varies between 6-9 cm water. She feels like the pressures are too low. I did adjust the pressures up from 5-6 minimum pressure and maximum pressure now is 14. If she still has difficulties tolerating the pressure she can always call and I can increase the pressures a little bit more. [facility] Medical History (Updated 03/19/24 @ 13:08 by Quita Soriano MD) Adult general medical exam IBS (irritable bowel syndrome) Left breast lump Tendinitis of left rotator cuff Rotator cuff tear Hypogammaglobulinemia Asthma-COPD overlap syndrome RUQ abdominal pain Chronic depression Fibromyalgia Asthma Surgical History (Updated 03/19/24 @ 13:08 by Quita Soriano MD) History of abdominoplasty History of esophagogastroduodenoscopy (EGD) S/P bilateral breast reduction S/P LEVI-BSO H/O colonoscopy Spinal cord stimulator status Cataract, left eye Cataract, right eye History of sinus surgery History of left knee surgery History of partial hysterectomy Family History Father CVD (cardiovascular disease) Heart attack Mother CVD (cardiovascular disease) Heart attack Maternal Grandmother CVD (cardiovascular disease) Maternal Grandfather Colon cancer Paternal Grandmother No problems noted. Son No problems noted. Son No problems noted. Son No problems noted. 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 Current occupational exposures/hazards: No Sexual orientation: Unable to collect Gender identity: Unable to collect Cognitive needs: No Hearing needs: No Vision needs: No Review of Systems Const Denies chills, Denies fatigue, Denies fever(s), Denies headache(s) and Denies weakness ENT Reports Normal hearing present, Denies dizziness and Denies headache(s) Card Denies chest pain, Denies lightheadedness, Denies dyspnea, Reports dyspnea on exertion and Denies other (Palpitations) Resp Reports chest congestion, Reports cough, Denies dyspnea, Reports dyspnea on exertion and Denies other ( shortness of breath) GI Reports as per HPI Musc Denies numbness and Denies tingling Neuro Reports Normal hearing present, Denies Abnormal speech present, Denies dizziness, Denies headache(s), Denies numbness, Denies tingling, Denies paresthesias and Denies weakness Psych Denies anxiety and Denies depression Endo Denies fatigue Physical Exam Vital Signs: Last Vital Signs Pulse 61 03/19/24 09:42 Pulse Ox 97 03/19/24 09:42 Oxygen Delivery Method Room Air 03/19/24 09:42 BMI result Body Mass Index 35.9 Const General: cooperative, comfortable and no acute distress Orientation/consciousness: oriented to person, oriented to place and oriented to time HEENT Head: Yes normocephalic and Yes atraumatic Eyes General: appearance normal, both eyes and all related structures Pupils: Equal, round and reactive pupils present EOM: EOMs intact bilaterally Neck Neck: Yes supple Chest Chest palpation & inspection: normal inspection of the chest Resp Other: Crackles at bilateral bases, worse on L than R Effort & Inspection: normal respiratory effort and able to speak in complete sentences Auscultation: clear to auscultation bilaterally Cardio Rate: regular rate Rhythm: regular rhythm Heart sounds: Normal, physiologic split S2 sound present Peripheral pulses: radial pulses present and posterior tibial pulses present GI Inspection: No distended, Yes Abdominal panniculus present and Yes obesity Palpation (GI): Soft to palpation, Tenderness to palpation present (GI) in the RLQ, no guarding, not rigid and No hepatosplenomegaly present Percussion: Yes normal to percussion Auscultation: normal bowel sounds Rectal Exam - Female: deferred Skin General skin exam: no rashes or lesions noted, turgor normal, skin not dry, no jaundice, No spider nevi and no striae Rashes: no rashes Nails: normal Neuro General: oriented to person, oriented to place and oriented to time Cranial nerves: Yes Equal, round and reactive pupils present and Yes Normal hearing present Speech: No Abnormal speech present Extrem General: Yes normal to inspection, No clubbing, No cyanosis and No edema Psych Appearance: grossly normal and well kempt Mental Status: mental status grossly normal Speech and movement: Normal speech and movement present Affect: normal affect Attitude: cooperative Thought process: Normal thought process present and not confabulating Thought content: Normal thought content present Insight: Fair insight present (Psych) Judgement: Fair judgement present (Psych) Assessment & Plan Assessment & Plan (1) Asthma: Code(s): J45.909 - Unspecified asthma, uncomplicated Category: Medical Qualifiers: Asthma complication type: uncomplicated Asthma persistence: persistent Asthma severity: moderate Qualified Code(s): J45.40 - Moderate persistent asthma, uncomplicated (2) Pneumonia: Code(s): J18.9 - Pneumonia, unspecified organism Category: Medical Qualifiers: Laterality: left Lung location: unspecified part of lung Pneumonia type: due to unspecified organism Qualified Code(s): J18.9 - Pneumonia, unspecified organism (3) Hypogammaglobulinemia: Code(s): D80.1 - Nonfamilial hypogammaglobulinemia Category: Medical (4) NILTON (obstructive sleep apnea): Comment: Moderate degree of sleep apena. The AHI was 15/hr and oxygen ingris was 80%. The total duration of O2 sat <88 % was 70 min. Code(s): G47.33 - Obstructive sleep apnea (adult) (pediatric) Category: Medical Plan continue Wixela YURI as needed continue APAP 6-14 consider IVIG therapy Start Trazodone for sleep aid F/U in 2-3 months Medications: New trazodone 50 mg PO BEDTIME PRN 30 tabs 6RF sleep 30 days Coding Level of Care Code Est Pt Level 4 (57391) Diagnoses Moderate persistent asthma without complication J45.40 Asthma complication type: uncomplicated Asthma persistence: persistent Asthma severity: moderate Pneumonia of left lung due to infectious organism, unspecified part of lung J18.9 Laterality: left Lung location: unspecified part of lung Pneumonia type: due to unspecified organism Hypogammaglobulinemia D80.1 NILTON (obstructive sleep apnea) G47.33 Time Spent (min) 18
== END 2024-03-19 10:10 | disposition home or self-care (01) ==
PROVIDERS: PCP Family Medicine; Visit Provider Hospitalist
DX: J45.40 Moderate persistent asthma, uncomplicated (principal); J18.9 Pneumonia, unspecified organism; D80.1 Nonfamilial hypogammaglobulinemia; G47.33 Obstructive sleep apnea (adult) (pediatric)
CPT/HCPCS: 99214

== ENCOUNTER → 2024-03-19 09:32 | Outpatient (BNVA) | payer OTHER, SELFPAY | PROVIDERS: PCP Family Medicine; Visit Provider Hospitalist | DX: K57.30 Diverticulosis of large intestine without perforation or abscess without bleeding (principal); D12.2 Benign neoplasm of ascending colon; D12.3 Benign neoplasm of transverse colon; D12.5 Benign neoplasm of sigmoid colon; K64.8 Other hemorrhoids; D80.1 Nonfamilial hypogammaglobulinemia; K65.4 Sclerosing mesenteritis; K21.9 Gastro-esophageal reflux disease without esophagitis; Z98.890 Other specified postprocedural states; J45.40 Moderate persistent asthma, uncomplicated; J18.9 Pneumonia, unspecified organism; G47.33 Obstructive sleep apnea (adult) (pediatric) | CPT/HCPCS: 99212 ==

== ENCOUNTER 2024-03-19 12:49 | Outpatient (AMB) | payer OTHER, SELFPAY ==
[2024-03-19 12:51] VITALS: BP 116/71; PULSE 59; BMI 36.6
--- NOTE | 2024-03-19 12:51 | A.OFFVIS_ITS ---
Vital Signs 03/19/24 12:51 Height 5 ft 1 in Weight 193 lb 9.054 oz BMI 36.6 BP 116/71 Blood Pressure Location Lt brachial Position Sitting Pulse 59 Intake Visit Reasons: S/P Colonoscopy Intake Note: Maranda returns to in office follow up of colonoscopy. CC: Patient states she still has some tenderness form lower abdomen. Denies other GI concerns. Biomass Technician Required: No Accompanied by: Self / Same As Patient Allergies aspirin [ASA] Allergy (Severe, Verified 03/27/24 13:05) asthma exacerbation duloxetine [Cymbalta] Allergy (Intermediate, Verified 03/27/24 13:05) loopy gabapentin Allergy (Intermediate, Verified 03/27/24 13:05) loopy NSAIDS (Non-Steroidal Anti-Inflamma [NSAIDS (NON-STEROIDAL ANTI-INFLAMMA] Allergy (Intermediate, Verified 03/27/24 13:05) asthma exacerbation pregabalin Allergy (Intermediate, Verified 03/27/24 13:05) loopy tramadol [TRAMADOL] Allergy (Intermediate, Verified 03/27/24 13:05) tachycardia codeine [CODEINE] Allergy (Mild, Verified 03/27/24 13:05) Rash piperacillin [From Zosyn] Allergy (Mild, Verified 03/27/24 13:05) Rash tazobactam [From Zosyn] Allergy (Mild, Verified 03/27/24 13:05) Rash All SSRIs Allergy (Intermediate, Uncoded 03/19/24 09:43) nightmares Amitriptyline Allergy (Intermediate, Uncoded 03/19/24 09:43) tachycardia HPI HPI S/P Colonoscopy: Details: Assessment & Plan (1) Hypogammaglobulinemia: Code(s): D80.1 - Nonfamilial hypogammaglobulinemia Category: Medical (2) Sclerosing mesenteric fibrosis: Code(s): K65.4 - Sclerosing mesenteritis Category: Medical (3) GERD (gastroesophageal reflux disease): Code(s): K21.9 - Gastro-esophageal reflux disease without esophagitis Category: Medical (4) Tubular adenoma of colon: Code(s): D12.6 - Benign neoplasm of colon, unspecified Category: Medical Plan She shows me a CT that was done at [facility] that shows she has mild fat stranding around the central mesentery with prominent but nonenlarged central mesenteric lymph nodes which may be seen in the setting of mesenteric sclerosis which apparently was seen on prior CT scans because it notes that is unchanged from prior. Why this was followed up on by the providers that discovered it is unknown to me. She was treated only with antibiotics for presumed diverticulitis. She is uncertain whether this actually made her feel any better and her symptoms did not correlate well with diverticulitis since most of her pain was on the right side. It is possible that this CT scan finding is simply a sign of greater mesentery inflammation an underlying process that is not related to diverticulitis. The press setup operator/potato chip frier she saw feels she should be referred to [facility] because she has multiple uncommon autoimmune problems and she is fearful that the mesenteric sclerosis may be a part of this process. I really do agree with this but I think she should also see Oncology 1st to make sure there is no hidden malignancy. She also had some trouble with her IgG and it might not be a bad idea to have Hematology way in on this as well. What I am uncertain of his if I should start treating her for mesenteric sclerosis and because she is concerned about how long it may take to get in for [facility]. She saw Dr Snow in [place] [facility] At this point I think I will consider treating her after she sees oncology and is cleared for any malignant process. She thinks she has her colonoscopy 03/05, but my computer says 07/05, so I'm unsure when to bring her back. Orders: Referrals Hematology & Oncology Referral D80.1 - Nonfamilial hypogammaglobulinemia, K65.4 - Sclerosing mesenteritis COLONOSCOPY 03/04/24 Findings: Terminal Ileum: Distal 5 cm was examined and appeared normal Cecum: Normal Ascending Colon: A 10 - 12 mm sessile polyp in the distal AC - removed with a hot snare Transverse Colon: A 3-4 mm sessile polyp - removed with a cold biopsy Descending Colon: Moderate diverticulosis Sigmoid Colon: A 7-8 mm sessile polyp - removed with a cold biopsy. Severe diverticulosis Rectum: Normal Ano-rectum: Small internal hemorrhoids Impression and Post Procedure Diagnosis: Colonoscopy Findings: Two small and one medium sized polyps were removed Random biopsies were obtained from right and left colon to check for microscopic colitis. Moderate diverticulosis seen in the left colon Small hemorrhoids on retroflexed exam. Plan: Pt has a FU appointment on 07/19/24 with Leonor Zaragoza NP - pt advised to schedule an earlier appointment. Repeat Colonoscopy in 3-5 years if polyps are adenomatous and due to history of adenomatous colon polyps. Above findings were reviewed with the patient and relevant handouts were given and the discharge area. Of note - pt came to the OR after taking colon prep. There was no appt on the schedule. Pt was accomodated at the end of the day. Received: 03/04/24 Diagnosis A. Colon, right, random, biopsy: Colonic mucosa with lymphoid aggregates and no specific change; no evidence of microscopic colitis. B. Colon, ascending, polyp: Tubular adenoma; negative for high-grade dysplasia and carcinoma. C. Colon, transverse, polyp: Hyperplastic polyp. D. Colon, left, random, biopsy: Colonic mucosa with no specific change; no chauncey dence of microscopic colitis. E. Colon, sigmoid, polyp: Hyperplastic polyp TODAY'S VISIT The procedure needs to be repeated in 3 years because of the 10 mm size of the ascending colon polyp. The procedure was well tolerated. The results were explained and the patient is agreeable to the follow-up interval as stated. The bowel pattern has returned to normal. Education was provided to tell any 1st degree relatives about their findings to be sure that they are screened by age 45. Educated that they will be put on a recall list when it is time for their repeat scope but should they move out of state or away from the hospital they will need to remember along with their primary to repeat the procedure in a timely fashion to avoid any adverse complications. She saw Dr. Soriano this am. She will be getting a CT for her lungs and there is also labwork pending, once this is back we will consider treatment for the mesenteric fibrosis. She is also having SOB and Dr. Tirado wants her to start IgG therapy for hypogammaglobinemia, but rheumatology does not seem to be on this. She is unsure if she has been referred to [facility] for autoimmune evaluation yet. She continues to be very fatigued. She does not know if her rheum has referred her was to be [facility] - I will generate a referral. ROV 6 weeks. [facility] Medical History Adult general medical exam IBS (irritable bowel syndrome) Left breast lump Tendinitis of left rotator cuff Rotator cuff tear Hypogammaglobulinemia Asthma-COPD overlap syndrome RUQ abdominal pain Chronic depression Fibromyalgia Asthma Surgical History History of abdominoplasty History of esophagogastroduodenoscopy (EGD) S/P bilateral breast reduction S/P LEVI-BSO H/O colonoscopy Spinal cord stimulator status Cataract, left eye Cataract, right eye History of sinus surgery History of left knee surgery History of partial hysterectomy Family History Father CVD (cardiovascular disease) Heart attack Mother CVD (cardiovascular disease) Heart attack Maternal Grandmother CVD (cardiovascular disease) Maternal Grandfather Colon cancer Paternal Grandmother No problems noted. Son No problems noted. Son No problems noted. Son No problems noted. 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 Current occupational exposures/hazards: No Sexual orientation: Unable to collect Gender identity: Unable to collect Cognitive needs: No Hearing needs: No Vision needs: No Review of Systems Const Reports fatigue, Denies fever(s), Denies night sweats, Denies poor appetite and Denies weight loss ENT Reports Normal hearing present, Denies dental pain, Denies dysphagia, Denies hearing loss, Denies mouth pain, Denies odynophagia, Denies throat swelling, Denies tongue swelling and Reports other (Dentition adequate) Card Reports no additional complaints Resp Reports no additional complaints GI Details: Denies abdominal pain, Denies melena, Reports bloating, Denies hematochezia, Denies constipation, Denies GI cramping, Denies dysphagia, Denies excessive flatus, Denies early satiety, Denies heartburn, Denies diarrhea, Denies nausea, Denies odynophagia, Denies vomiting and Denies hematemesis Skin/Breast Denies pruritus, Denies lesions, Denies rash and Denies jaundice Neuro Reports Normal hearing present and Denies Abnormal speech present Endo Reports fatigue Aller/Immun Denies throat swelling and Denies tongue swelling Physical Exam Vital Signs: Last Vital Signs Pulse 59 03/19/24 12:51 BP 116/71 03/19/24 12:51 BMI result Body Mass Index 36.6 Const General: cooperative, no acute distress, well developed and well groomed Nutritional Appearance: well nourished and obese Orientation/consciousness: oriented to person, oriented to place and oriented to time Limitations: No language barrier HEENT Head: Yes normocephalic and Yes atraumatic Eyes General: appearance normal, both eyes and all related structures Pupils: Equal, round and reactive pupils present Neck Neck: Yes normal visual inspection and Yes no lymphadenopathy Thyroid: Thyroid normal Resp Effort & Inspection: normal respiratory effort and able to speak in complete sentences Auscultation: clear to auscultation bilaterally Cardio Rate: regular rate Rhythm: regular rhythm Heart sounds: Normal, physiologic split S2 sound present Peripheral pulses: radial pulses present and posterior tibial pulses present GI Inspection: No distended, No Abdominal panniculus present and Yes obesity Palpation (GI): Soft to palpation, nontender, no guarding, not rigid and No hepatosplenomegaly present Percussion: Yes normal to percussion Auscultation: normal bowel sounds Rectal Exam - Female: deferred Skin General skin exam: no rashes or lesions noted, turgor normal, skin not dry, no jaundice, No spider nevi and no striae Rashes: no rashes Nails: normal Neuro General: oriented to person, oriented to place and oriented to time Cranial nerves: Yes Equal, round and reactive pupils present and Yes Normal hearing present Speech: No Abnormal speech present Extrem General: Yes normal to inspection, No clubbing, No cyanosis and No edema Psych Appearance: grossly normal and well kempt Mental Status: mental status grossly normal Speech and movement: Normal speech and movement present Affect: normal affect Attitude: cooperative Thought process: Normal thought process present and not confabulating Thought content: Normal thought content present Insight: Fair insight present (Psych) Judgement: Fair judgement present (Psych) Results Reviewed Results Reviewed: COLONOSCOPY 03/04/24 Findings: Terminal Ileum: Distal 5 cm was examined and appeared normal Cecum: Normal Ascending Colon: A 10 - 12 mm sessile polyp in the distal AC - removed with a hot snare Transverse Colon: A 3-4 mm sessile polyp - removed with a cold biopsy Descending Colon: Moderate diverticulosis Sigmoid Colon: A 7-8 mm sessile polyp - removed with a cold biopsy. Severe diverticulosis Rectum: Normal Ano-rectum: Small internal hemorrhoids Impression and Post Procedure Diagnosis: Colonoscopy Findings: Two small and one medium sized polyps were removed Random biopsies were obtained from right and left colon to check for microscopic colitis. Moderate diverticulosis seen in the left colon Small hemorrhoids on retroflexed exam. Plan: Pt has a FU appointment on 07/19/24 with Leonor Zaragoza NP - pt advised to schedule an earlier appointment. Repeat Colonoscopy in 3-5 years if polyps are adenomatous and due to history of adenomatous colon polyps. Above findings were reviewed with the patient and relevant handouts were given and the discharge area. Of note - pt came to the OR after taking colon prep. There was no appt on the schedule. Pt was accomodated at the end of the day. Received: 03/04/24 Diagnosis A. Colon, right, random, biopsy: Colonic mucosa with lymphoid aggregates and no specific change; no evidence of microscopic colitis. B. Colon, ascending, polyp: Tubular adenoma; negative for high-grade dysplasia a nd carcinoma. C. Colon, transverse, polyp: Hyperplastic polyp. D. Colon, left, random, biopsy: Colonic mucosa with no specific change; no evidence of microscopic colitis. E. Colon, sigmoid, polyp: Hyperplastic polyp Assessment & Plan Assessment & Plan (1) Elevated erythrocyte sedimentation rate: Code(s): R70.0 - Elevated erythrocyte sedimentation rate Category: Medical (2) Hypogammaglobulinemia: Code(s): D80.1 - Nonfamilial hypogammaglobulinemia Category: Medical (3) Sclerosing mesenteric fibrosis: Code(s): K65.4 - Sclerosing mesenteritis Category: Medical (4) Tubular adenoma of colon: Comment: 2023 scope;= 10 mm ascending colon polyp repeat in 3 years Code(s): D12.6 - Benign neoplasm of colon, unspecified Category: Medical Plan The procedure needs to be repeated in 3 years because of the 10 mm size of the ascending colon polyp. The procedure was well tolerated. The results were explained and the patient is agreeable to the follow-up interval as stated. The bowel pattern has returned to normal. Education was provided to tell any 1st degree relatives about their findings to be sure that they are screened by age 45. Educated that they will be put on a recall list when it is time for their repeat scope but should they move out of state or away from the hospital they will need to remember along with their primary to repeat the procedure in a timely fashion to avoid any adverse complications. She saw Dr. Soriano this am. She will be getting a CT for her lungs and there is also labwork pending, once this is back we will consider treatment for the mesenteric fibrosis. She is also having SOB and Dr. Tirado wants her to start IgG therapy for hypogammaglobinemia, but rheumatology does not seem to be on this. She is unsure if she has been referred to [facility] for autoimmune evaluation yet. She continues to be very fatigued. She does not know if her rheum has referred her was to be [facility] - I will generate a referral. ROV 6 weeks. Orders: Referrals Rheumatology Referral K65.4 - Sclerosing mesenteritis, D80.1 - Nonfamilial hypogammaglobulinemia, R70.0 - Elevated erythrocyte sedimentation rate Coding Level of Care Code Est Pt Level 3 (13402) Diagnoses Elevated erythrocyte sedimentation rate R70.0 Hypogammaglobulinemia D80.1 Sclerosing mesenteric fibrosis K65.4 Tubular adenoma of colon D12.6
== END 2024-03-19 13:35 | disposition home or self-care (01) ==
PROVIDERS: PCP Family Medicine; Visit Provider Nurse Practitioner
DX: R70.0 Elevated erythrocyte sedimentation rate (principal); D80.1 Nonfamilial hypogammaglobulinemia; K65.4 Sclerosing mesenteritis; D12.6 Benign neoplasm of colon, unspecified
CPT/HCPCS: 99213

== ENCOUNTER 2024-03-27 12:50 | Outpatient (AMB) | payer OTHER, SELFPAY ==
--- NOTE | 2024-03-27 12:54 | MHC.PC.OV ---
Vital Signs 03/27/24 12:55 Height 5 ft 1 in Weight 196 lb 2 oz BMI 37.1 BMI Reason not done Patient refused/unable Blood Pressure Location Rt brachial Position Sitting Respiration 14 Pulse 92 Pulse Source Pulse Oximeter Temp 98.2 F Temp Source Temporal Artery Scan Pulse Oximetry (%) 99 Oxygen Delivery Method Room Air Intake Visit Reasons: era infection Glass Blowing Lathe Operator Required: No Accompanied by: Self / Same As Patient Allergies aspirin [ASA] Allergy (Severe, Verified 03/27/24 13:05) asthma exacerbation duloxetine [Cymbalta] Allergy (Intermediate, Verified 03/27/24 13:05) loopy gabapentin Allergy (Intermediate, Verified 03/27/24 13:05) loopy NSAIDS (Non-Steroidal Anti-Inflamma [NSAIDS (NON-STEROIDAL ANTI-INFLAMMA] Allergy (Intermediate, Verified 03/27/24 13:05) asthma exacerbation pregabalin Allergy (Intermediate, Verified 03/27/24 13:05) loopy tramadol [TRAMADOL] Allergy (Intermediate, Verified 03/27/24 13:05) tachycardia codeine [CODEINE] Allergy (Mild, Verified 03/27/24 13:05) Rash piperacillin [From Zosyn] Allergy (Mild, Verified 03/27/24 13:05) Rash tazobactam [From Zosyn] Allergy (Mild, Verified 03/27/24 13:05) Rash All SSRIs Allergy (Intermediate, Uncoded 03/19/24 09:43) nightmares Amitriptyline Allergy (Intermediate, Uncoded 03/19/24 09:43) tachycardia Tobacco use date assessed: 12/12/23 Dental Screening Dental Screen Date: 12/12/23 HPI HPI Comments History of Present Illness Details Here today w/complains of fullness in bilat ears. Started 1 week ago w/ really bad allergies Now has muffled hearing and bilat ears, left worse than right. Feels allergy sx are better; meds have helped , taking Xyzal and Sudafed along with mometasone nasal spray and I ipratropium nasal spray. + PND No pain, does not feel like ears are infected Denies fever, chills. PFSH Medical History Adult general medical exam IBS (irritable bowel syndrome) Left breast lump Tendinitis of left rotator cuff Rotator cuff tear Hypogammaglobulinemia Asthma-COPD overlap syndrome RUQ abdominal pain Chronic depression Fibromyalgia Asthma Surgical History History of abdominoplasty History of esophagogastroduodenoscopy (EGD) S/P bilateral breast reduction S/P LEVI-BSO H/O colonoscopy Spinal cord stimulator status Cataract, left eye Cataract, right eye History of sinus surgery History of left knee surgery History of partial hysterectomy Family History Father CVD (cardiovascular disease) Heart attack Mother CVD (cardiovascular disease) Heart attack Maternal Grandmother CVD (cardiovascular disease) Maternal Grandfather Colon cancer Paternal Grandmother No problems noted. Son No problems noted. Son No problems noted. Son No problems noted. 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 Dayday Arias, Monika Dior, Herminio Clinton and colleagues, with an educational ross from [employer]. Review of Systems Const All systems reviewed & are unremarkable except as noted in HPI and below Physical exam (Primary Care) Vital Signs: Last Vital Signs Temp 98.2 F 03/27/24 12:55 Pulse 92 03/27/24 12:55 Resp 14 03/27/24 12:55 Pulse Ox 99 03/27/24 12:55 Oxygen Delivery Method Room Air 03/27/24 12:55 BMI result Body Mass Index 37.1 Tobacco/Smoking Status: Tobacco use Status Tobacco use date assessed 12/12/23 03/27/24 13:01 Patient Tobacco Use Status Former Tobacco user 03/27/24 13:01 e-Cigarette/Vaping Use Never Used 03/27/24 13:01 Thrive Assessment: Date of Thrive Assessment Date Thrive assessed 01/25/24 03/27/24 13:01 HENSC Ears: hearing grossly normal bilaterally, EAC's normal, mastoids normal, no periauricular adenopathy and TM abnormal with fluid behind the TM (Worse on left) bilateral Assessment and Plan Assessment & Plan (1) Chronic dysfunction of both eustachian tubes: Comment: Advised to stop taking the decongestant. Okay to continue nasal sprays along with the antihistamine. Perform self insufflation. Consider consulting with ENT given the chronicity of this condition. Code(s): H69.93 - Unspecified Eustachian tube disorder, bilateral Patient Instructions: Return to office as scheduled Coding Level of Care Code Est Pt Level 3 (02754) Diagnoses Chronic dysfunction of both eustachian tubes H69.93
[2024-03-27 12:55] VITALS: PULSE 92; RESP 14; TEMP 36.8; O2SAT 99; BMI 37.1
== END 2024-03-27 16:51 | disposition home or self-care (01) ==
PROVIDERS: PCP Family Medicine; Visit Provider Nurse Practitioner Family
DX: H69.93 Unspecified Eustachian tube disorder, bilateral (principal)
CPT/HCPCS: 99213

== ENCOUNTER 2024-04-18 08:06 | Outpatient (AMB) | payer OTHER, SELFPAY ==
--- NOTE | 2024-04-18 08:20 | A.OFFPC_ITS ---
Vital Signs 3 04/18/24 08:25 Height 5 ft 1 in Weight 192 lb 4 oz BMI 36.3 BP 114/82 Blood Pressure Location Rt brachial Position Sitting Pulse 70 Pulse Source Pulse Oximeter Temp 97.6 F Temp Source Oral Pulse Oximetry (%) 95 Oxygen Delivery Method Room Air Intake Visit Reasons: FU chronic conditions Intake Note: F/U on water in both ears. Allergies aspirin [ASA] Allergy (Severe, Verified 04/18/24 09:14) asthma exacerbation duloxetine [Cymbalta] Allergy (Intermediate, Verified 04/18/24 09:14) loopy gabapentin Allergy (Intermediate, Verified 04/18/24 09:14) loopy NSAIDS (Non-Steroidal Anti-Inflamma [NSAIDS (NON-STEROIDAL ANTI-INFLAMMA] Allergy (Intermediate, Verified 04/18/24 09:14) asthma exacerbation pregabalin Allergy (Intermediate, Verified 04/18/24 09:14) loopy tramadol [TRAMADOL] Allergy (Intermediate, Verified 04/18/24 09:14) tachycardia codeine [CODEINE] Allergy (Mild, Verified 04/18/24 09:14) Rash piperacillin [From Zosyn] Allergy (Mild, Verified 04/18/24 09:14) Rash tazobactam [From Zosyn] Allergy (Mild, Verified 04/18/24 09:14) Rash All SSRIs Allergy (Intermediate, Uncoded 03/19/24 09:43) nightmares Amitriptyline Allergy (Intermediate, Uncoded 03/19/24 09:43) tachycardia Medication List - Last Reconciled 04/18/24 by FUNMILAYO Cruz-SHAWN acetaminophen ER 1,300 mg (2 x 650 mg) PO Q8H PRN albuterol sulfate 90 mcg/actuation (Ventolin HFA) 2 puffs inhalation Q6H PRN 30 days alpha lipoic acid 300 mg PO DAILY 30 days B-complex with vitamin C 1 tab PO DAILY 30 days benzonatate 200 mg PO BID PRN 30 days celecoxib (Celebrex) 50 mg PO DAILY PRN cetirizine (Allergy Relief (cetirizine)) 10 mg PO DAILY cholecalciferol (vitamin D3) 50 mcg PO DAILY 90 days clonazepam 0.5 mg PO TID PRN dextroamphetamine-amphetamine 10 mg 1 tab PO BID dicyclomine 20 mg PO QID 30 days fexofenadine (Sandy Allergy) 180 mg PO DAILY fluoxetine 10 mg PO DAILY fluticasone propion-salmeterol 500-50 mcg/dose (Advair Diskus) 1 ea inhalation BID hyoscyamine sulfate 0.25 mg (2 x 0.125 mg) PO QID PRN ipratropium-albuterol 0.5 mg-3 mg(2.5 mg base)/3 mL 3 mL inhalation Q6H PRN levocetirizine 5 mg PO BEDTIME lidocaine 5% (Lidoderm) 1 patch topical DAILY 30 days magnesium oxide 500 mg PO DAILY 30 days mometasone 50 mcg/actuation 2 sprays intranasal DAILY 90 days nebulizers As directed omeprazole 40 mg PO DAILY 90 days Tobacco use date assessed: 12/12/23 Dental Screening Dental Screen Date: 04/18/24 Did you have a dental visit in the last 12 months?: Yes Did you have a dental problem in the last 6 months where you did not have access to dental care?: No Was dental information given to patient?: Patient has dentist HPI HPI Comments 2 History of Present Illness0 Details 53-year-old female with sigmoid divertic ulitis, 1.3 cm simple renal cyst, moderate diffuse hepatic steaotosis, Asthma COPD overlap syndrome, MDD fibromyalgia family history of premature CAD, GERD, sleep apnea on CPAP, low IGG, vitamin-D deficiency, neuropathy, hyperlipidemia, impaired fasting glucose, multi joint osteoarthritis and chronic pain syndrome Status post laminoplasty, left knee surgery, partial hysterectomy, bilateral breast reduction, LEVI-BSO, spinal cord stimulator, s/p blepharoplasty Specialist GI Pain management Pulmonology Sleep medicine 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 Her current GI evaluation is underway. Unfortunately Treatment held up; waiting on CT scan of chest; scheduled 05/03/24 at this time. He will be referred to bring him in [facility]. Waiting on appointment. Continues to feel GI bloating. She was referred to Hematology to rule out an oncologic cause. The hematology workup was reviewed. Ears feel better after the last office visit. She was referred to Neurology. Currently waiting on an appointment. Vit d low 02/2024 back on VIt d supplement Find a new growth on the inside of her right nostril. It is soft. Painless. Notices about 3 weeks ago. Noticed some veins in the area as well. She made an appointment with Dermatology for June. needs refills on omeprazole, advair and APAP PFSH Medical History Adult general medical exam IBS (irritable bowel syndrome) Left breast lump Tendinitis of left rotator cuff Rotator cuff tear Hypogammaglobulinemia Asthma-COPD overlap syndrome RUQ abdominal pain Chronic depression Fibromyalgia Asthma Surgical History History of abdominoplasty History of esophagogastroduodenoscopy (EGD) S/P bilateral breast reduction S/P LEVI-BSO H/O colonoscopy Spinal cord stimulator status Cataract, left eye Cataract, right eye History of sinus surgery History of left knee surgery History of partial hysterectomy Family History Father CVD (cardiovascular disease) Heart attack Mother CVD (cardiovascular disease) Heart attack Maternal Grandmother CVD (cardiovascular disease) Maternal Grandfather Colon cancer Paternal Grandmother No problems noted. Son No problems noted. Son No problems noted. Son No problems noted. 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 How often do you have a drink containing alcohol?: 2-4 times a month 2. How many drinks containing alcohol do you have on a typical day when you are drinking?: 1 or 2 3. How often do you have six or more drinks on one occasion?: Less than monthly Total Score: 3 MURIEL-7 AMB Questionnaire MURIEL-7 Date MURIEL - 7 assessed: 01/25/24 Source: Developed by DrsRuchi Arias, Monika Dior, Herminio Clinton and colleagues, with an educational ross from [employer]. Review of Systems Const All systems reviewed & are unremarkable except as noted in HPI and below Physical exam (Primary Care) Vital Signs: Last Vital Signs Temp 97.6 F 04/18/24 08:25 Pulse 70 04/18/24 08:25 BP 114/82 04/18/24 08:25 Pulse Ox 95 04/18/24 08:25 Oxygen Delivery Method Room Air 04/18/24 08:25 BMI result Body Mass Index 36.3 Tobacco/Smoking Status: Tobacco use Status Tobacco use date assessed 12/12/23 04/18/24 08:28 Patient Tobacco Use Status Former Tobacco user 04/18/24 08:28 e-Cigarette/Vaping Use Never Used 04/18/24 08:28 Thrive Assessment: Date of Thrive Assessment Date Thrive assessed 01/25/24 04/18/24 08:28 Const Other: Ears: hearing grossly normal bilaterally, EAC's normal, mastoids normal, no periauricular adenopathy and TM abnormal with fluid behind the TM (Worse on left) bilateral Awake alert NAD Scleras nonicteric Ears: hearing grossly normal bilaterally, EAC's normal, mastoids normal, no periauricular adenopathy. TM intact bilat. Trace fluid behind right TM. Resolving fluid behind left TM. MMM RRR LS CTAB Abd soft, nontender, bowel sounds within normal limits Trace edema ble L>R [facility] Nose image: 2 1. Small flushed colored raised lesion that is soft. Just below she has some superficial veins. Otherwise nose is normal. Assessment and Plan Assessment & Plan (1) Chronic dysfunction of both eustachian tubes: Comment: Improved, continue nasal sprays along with the antihistamine. Perform self insufflation. Code(s): H69.93 - Unspecified Eustachian tube disorder, bilateral (2) Low vitamin D level: Comment: dexa ordered vit d low back on supplementation. Code(s): R79.89 - Other specified abnormal findings of blood chemistry (3) Internal nasal lesion: Comment: On the right side. Noticed 3 weeks ago. Self referred to Dermatology with initial appointment in June. Given the name of another Dermatology group that may be able to see her sooner. Code(s): J34.89 - Other specified disorders of nose and nasal sinuses Plan This note is constructed using voice recognition software. While every effort has been made to ensure accuracy in speaker mounter, still errors may have been included Sometimes, these errors may affect the content or meaning of the given sentence . Total time spent caring for the patient today was 40 minutes. This includes time spent before the visit reviewing the chart, time spent during the visit, and time spent after the visit on documentation Medications: New 2 fluticasone propion-salmeterol 500-50 mcg/dose (Advair Diskus) 1 ea inhalation BID 60 ea 0RF Refilled 2 acetaminophen ER 1,300 mg (2 x 650 mg) PO Q8H PRN 90 tabs 1RF pain omeprazole 40 mg PO DAILY 90 days 90 caps 3RF Patient Instructions: [facility] [address] [facility], [address] [place] [address],[id number] [facility] [place], [place] Return to office in July for a 30 minute follow up of chronic conditions. Sooner as needed. Coding Level of Care Code Est Pt Level 5 (98324) Diagnoses Chronic dysfunction of both eustachian tubes H69.93 Low vitamin D level R79.89 Internal nasal lesion J34.89
[2024-04-18 08:25] VITALS: BP 114/82; PULSE 70; TEMP 36.4; O2SAT 95; BMI 36.3
== END 2024-04-18 14:30 | disposition home or self-care (01) ==
PROVIDERS: PCP Family Medicine; Visit Provider Nurse Practitioner Family
DX: H69.93 Unspecified Eustachian tube disorder, bilateral (principal); R79.89 Other specified abnormal findings of blood chemistry; J34.89 Other specified disorders of nose and nasal sinuses
CPT/HCPCS: 99215

== ENCOUNTER 2024-05-13 13:56 | Outpatient (REF) | payer OTHER, SELFPAY ==
--- NOTE | ~2024-05-13 | XR_ITS ---
EXAMINATION: XR CHEST CLINICAL INFORMATION: Sclerosing mesenteritis, look for lung nodule. COMPARISON: April 20, 2023 x-ray chest, 08/21/2023 CT scan chest. TECHNIQUE: 2 views of the chest were obtained. FINDINGS: Lung volumes are low. There is no gross pneumothorax. Heart size is normal. Redemonstration of left basilar linear opacities characteristic of atelectasis. No pleural effusion. No focal consolidation to suggest pneumonia. XR/XR chest 2V IMPRESSION: Redemonstration of left basilar linear opacities characteristic of atelectasis. Please note that CT scan is much more sensitive for detection of pulmonary nodules.
== END 2024-05-13 13:57 | disposition home or self-care (01) ==
LOC: HO.XRAY 13:56
PROVIDERS: PCP Nurse Practitioner Family; Visit Provider Internal Medicine Medical Oncology
DX: R91.1 Solitary pulmonary nodule (principal)
CPT/HCPCS: 71046

== ENCOUNTER 2024-05-23 12:12 | Outpatient (AMB) | payer OTHER, SELFPAY ==
--- NOTE | 2024-05-23 12:16 | A.OFFVIS_ITS ---
Vital Signs 05/23/24 12:26 Height 5 ft 1 in Weight 193 lb 9.054 oz BMI 36.6 BP 134/78 Blood Pressure Location Lt brachial Position Sitting Pulse 72 Pulse Source Pulse Oximeter Pulse Oximetry (%) 97 Oxygen Delivery Method Room Air Intake Visit Reasons: 6 weeks follow up Intake Note: Lucia presents in office today for a scheduled 6 week FUV. CC; Pt is here to discuss the possible need of Abdominal CT per Dr. Soriano. Pt is trying to be cleared for panniculitis treatment. Pt is also concerned about the need for treatment of Rheumatology. Pt has been waiting for 3 mos to get an initial office visit from [facility]. Pt has not heard back from them yet. Pt is wondering if there are any additional recommendations for providers that we could provide. Pt also had chest xray performed 2 weeks ago which has not been read yet. Will call order muskrat trapper to get this expedited. Library Assistant Required: No Allergies aspirin [ASA] Allergy (Severe, Verified 05/23/24 12:16) asthma exacerbation duloxetine [Cymbalta] Allergy (Intermediate, Verified 05/23/24 12:16) loopy gabapentin Allergy (Intermediate, Verified 05/23/24 12:16) loopy NSAIDS (Non-Steroidal Anti-Inflamma [NSAIDS (NON-STEROIDAL ANTI-INFLAMMA] Allergy (Intermediate, Verified 05/23/24 12:16) asthma exacerbation pregabalin Allergy (Intermediate, Verified 05/23/24 12:16) loopy tramadol [TRAMADOL] Allergy (Intermediate, Verified 05/23/24 12:16) tachycardia codeine [CODEINE] Allergy (Mild, Verified 05/23/24 12:16) Rash piperacillin [From Zosyn] Allergy (Mild, Verified 05/23/24 12:16) Rash tazobactam [From Zosyn] Allergy (Mild, Verified 05/23/24 12:16) Rash All SSRIs Allergy (Intermediate, Uncoded 05/13/24 13:14) nightmares Amitriptyline Allergy (Intermediate, Uncoded 05/13/24 13:14) tachycardia HPI HPI 6 weeks follow up: Details: Assessment & Plan (1) Elevated erythrocyte sedimentation rate: Code(s): R70.0 - Elevated erythrocyte sedimentation rate Category: Medical (2) Hypogammaglobulinemia: Code(s): D80.1 - Nonfamilial hypogammaglobulinemia Category: Medical (3) Sclerosing mesenteric fibrosis: Code(s): K65.4 - Sclerosing mesenteritis Category: Medical (4) Tubular adenoma of colon: Comment: 2023 scope;= 10 mm ascending colon polyp repeat in 3 years Code(s): D12.6 - Benign neoplasm of colon, unspecified Category: Medical Plan The procedure needs to be repeated in 3 years because of the 10 mm size of the ascending colon polyp. The procedure was well tolerated. The results were explained and the patient is agreeable to the follow-up interval as stated. The bowel pattern has returned to normal. Education was provided to tell any 1st degree relatives about their findings to be sure that they are screened by age 45. Educated that they will be put on a recall list when it is time for their repeat scope but should they move out of state or away from the hospital they will need to remember along with their primary to repeat the procedure in a timely fashion to avoid any adverse complications. She saw Dr. Soriano this am. She will be getting a CT for her lungs and there is also lab work pending, once this is back we will consider treatment for the mesenteric fibrosis. She is also having SOB and Dr. Tirado wants her to start IgG therapy for hypogammaglobinemia, but rheumatology does not seem to be on thi s. She is unsure if she has been referred to [facility] for autoimmune evaluation yet. She continues to be very fatigued. She does not know if her rheum has referred her was to be [facility] - I will generate a referral. ROV 6 weeks. Orders: Referrals Rheumatology Referral K65.4 - Sclerosing mesenteritis, D80.1 - Nonfamilial hypogammaglobulinemia, R70.0 - Elevated erythrocyte sedimentation rate TODAYS VISIT She has not been able to get a rheum appt as all services are too far out (? Jannette who does she see??) Dr. Soriano could not get the chest CT r/t insurance problems, they required a CXR and she got it but it is not read. Dr. Soriano also suggests we get and abd CT - ordered urgent to see if sclerosis is progressing or receding. She did have a course or medrol dose pack for asthma and this did have a positive effect on her abd complaints, but then she started severe bloating after completion. She has the added complication of hypogammaglobinemia and ? if she will have IgG infusions. Imonothrerapy could complicate this. ROV after CT. [facility] Medical History Blepharitis of both eyes Adult general medical exam IBS (irritable bowel syndrome) Left breast lump Tendinitis of left rotator cuff Rotator cuff tear Hypogammaglobulinemia Asthma-COPD overlap syndrome RUQ abdominal pain Chronic depression Fibromyalgia Asthma Surgical History History of abdominoplasty History of esophagogastroduodenoscopy (EGD) S/P bilateral breast reduction S/P LEVI-BSO H/O colonoscopy Spinal cord stimulator status Cataract, left eye Cataract, right eye History of sinus surgery History of left knee surgery History of partial hysterectomy Family History Father CVD (cardiovascular disease) Heart attack Mother CVD (cardiovascular disease) Heart attack Maternal Grandmother CVD (cardiovascular disease) Maternal Grandfather Colon cancer Paternal Grandmother No problems noted. Son No problems noted. Son No problems noted. Son No problems noted. 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 Current occupational exposures/hazards: No Sexual orientation: Unable to collect Gender identity: Unable to collect Cognitive needs: No Hearing needs: No Vision needs: No Review of Systems Const Denies fatigue, Denies fever(s), Denies night sweats, Denies poor appetite and Denies weight loss ENT Reports Normal hearing present, Denies dental pain, Denies dysphagia, Denies hearing loss, Denies mouth pain, Denies odynophagia, Denies throat swelling, Denies tongue swelling and Reports other (Dentition adequate) Card Reports no additional complaints Resp Reports no additional complaints GI Details: Reports abdominal pain, Denies melena, Reports bloating, Denies hematochezia, Denies constipation, Denies GI cramping, Denies dysphagia, Denies excessive flatus, Denies early satiety, Denies heartburn, Denies diarrhea, Denies nausea, Denies odynophagia, Denies vomiting and Denies hematemesis Skin/Breast Denies pruritus, Denies lesions, Denies rash and Denies jaundice Neuro Reports Normal hearing present and Denies Abnormal speech present Endo Denies fatigue Aller/Immun Denies throat swelling and Denies tongue swelling Physical Exam Vital Signs: Last Vital Signs Pulse 72 05/23/24 12:26 BP 134/78 05/23/24 12:26 Pulse Ox 97 05/23/24 12:26 Oxygen Delivery Method Room Air 05/23/24 12:26 BMI result Body Mass Index 36.6 Const General: cooperative, no acute distress, well developed and well groomed Nutritional Appearance: well nourished and obese Orientation/consciousness: oriented to person, oriented to place and oriented to time Limitations: No language barrier HEENT Head: Yes normocephalic and Yes atraumatic Eyes General: appearance normal, both eyes and all related structures Pupils: Equal, round and reactive pupils present Neck Neck: Yes normal visual inspection and Yes no lymphadenopathy Thyroid: Thyroid normal Resp Effort & Inspection: normal respiratory effort and able to speak in complete sentences Auscultation: clear to auscultation bilaterally Cardio Rate: regular rate Rhythm: regular rhythm Heart sounds: Normal, physiologic split S2 sound present Peripheral pulses: radial pulses present and posterior tibial pulses present GI Inspection: No distended, Yes Abdominal panniculus present and Yes obesity Palpation (GI): Soft to palpation, nontender, no guarding, not rigid and No hepatosplenomegaly present Percussion: Yes normal to percussion Auscultation: normal bowel sounds Rectal Exam - Female: deferred Skin General skin exam: no rashes or lesions noted, turgor normal, skin not dry, no jaundice, No spider nevi and no striae Rashes: no rashes Nails: normal Neuro General: oriented to person, oriented to place and oriented to time Cranial nerves: Yes Equal, round and reactive pupils present and Yes Normal hearing present Speech: No Abnormal speech present Extrem General: Yes normal to inspection, No clubbing, No cyanosis and No edema Psych Appearance: grossly normal and well kempt Mental Status: mental status grossly normal Speech and movement: Normal speech and movement present Affect: normal affect Attitude: cooperative Thought process: Normal thought process present and not confabulating Thought content: Normal thought content present Insight: Good insight present (Psych) Judgement: Good judgement present (Psych) Assessment & Plan Assessment & Plan (1) GERD (gastroesophageal reflux disease): Code(s): K21.9 - Gastro-esophageal reflux disease without esophagitis Category: Medical (2) Elevated erythrocyte sedimentation rate: Code(s): R70.0 - Elevated erythrocyte sedimentation rate Category: Medical (3) Sclerosing mesenteric fibrosis: Comment: central mesentary haziness on CT, need to check progress Code(s): K65.4 - Sclerosing mesenteritis Category: Medical Plan She has not been able to get a rheum appt as all services are too far out (? Jannette who does she see??) Dr. Soriano could not get the chest CT r/t insurance problems, they required a CXR and she got it but it is not read. Dr. Soriano also suggests we get and abd CT - ordered urgent to see if sclerosis is progressing or receding. She did have a course or medrol dose pack for asthma and this did have a positive effect on her abd complaints, but then she started severe bloating after completion. She has the added complication of hypogammaglobinemia and ? if she will have IgG infusions. Imonothrerapy could complicate this. ROV after CT. Orders: Orders CT abdomen pelvis w IV con 05/23/24 K65.4 - Sclerosing mesenteritis Coding Level of Care Code Est Pt Level 3 (07192) Diagnoses GERD (gastroesophageal reflux disease) K21.9 Elevated erythrocyte sedimentation rate R70.0 Sclerosing mesenteric fibrosis K65.4
[2024-05-23 12:26] VITALS: BP 134/78; PULSE 72; O2SAT 97; BMI 36.6
== END 2024-05-23 13:18 | disposition home or self-care (01) ==
PROVIDERS: PCP Nurse Practitioner Family; Visit Provider Nurse Practitioner
DX: K21.9 Gastro-esophageal reflux disease without esophagitis (principal); R70.0 Elevated erythrocyte sedimentation rate; K65.4 Sclerosing mesenteritis
CPT/HCPCS: 99213

== ENCOUNTER → 2024-05-23 12:12 | Outpatient (BNVA) | payer OTHER, SELFPAY | PROVIDERS: PCP Nurse Practitioner Family; Visit Provider Nurse Practitioner | DX: K65.4 Sclerosing mesenteritis (principal); K21.9 Gastro-esophageal reflux disease without esophagitis; D80.1 Nonfamilial hypogammaglobulinemia; R70.0 Elevated erythrocyte sedimentation rate; D12.6 Benign neoplasm of colon, unspecified | CPT/HCPCS: 99212 ==

== ENCOUNTER 2024-06-26 08:45 | Outpatient (REF) | payer OTHER, SELFPAY ==
[2024-06-26 16:46] LABS: Rheumatoid Factor < 13.0 IU/mL (<15.0)
[2024-06-26 16:50] LABS: Erythrocyte Sedimentation Rate 18 MM/HR (0-20)
[2024-06-26 17:01] LABS: Ferritin 336 ng/mL (10-250)
[2024-06-26 17:05] LABS: Folate 6.7 ng/mL (> or = 4.0); Vitamin B12 611 pg/mL (200-900)
[2024-06-27 14:14] LABS: CRP High Sensitivity >20.0 mg/L
[2024-06-27 15:42] LABS: Homocysteine 10.3 umol/L (<10.4)
[2024-07-01 08:28] LABS: Methylmalonic Acid 138 nmol/L (55-335)
[2024-07-02 23:58] LABS: Acetylcholine Receptor Binding <0.30 nmol/L
[2024-07-03 20:04] LABS: Anti Nuclear Antibody Screen NEGATIVE (NEGATIVE)
[2024-07-05 15:24] LABS: Acetylcholine Recept. Blocking <15 (<15)
== END 2024-06-26 08:46 | disposition home or self-care (01) ==
LOC: HO.LAB 08:45
PROVIDERS: PCP Family Medicine; Visit Provider Nurse Practitioner Family
DX: R20.2 Paresthesia of skin (principal); R29.898 Other symptoms and signs involving the musculoskeletal system; D64.9 Anemia, unspecified; G57.93 Unspecified mononeuropathy of bilateral lower limbs; R70.0 Elevated erythrocyte sedimentation rate
CPT/HCPCS: 36415; 82550; 82607; 82728; 82746; 83090; 83921; 85652; 86038; 86041; 86042; 86043; 86141; 86366; 86431; 99212

== ENCOUNTER 2024-06-26 08:45 | Outpatient (AMB) | payer OTHER, SELFPAY ==
--- NOTE | 2024-06-26 08:49 | A.OFFVIS_ITS ---
Vital Signs 06/26/24 08:50 Height 5 ft 1 in Weight 196 lb BMI 37.0 Intake Visit Reasons: INP-Unspecified ptosis of right eyelid-LVM Intake Note: Patient presents for follow up pain of hands and feet Allergies aspirin [ASA] Allergy (Severe, Verified 06/26/24 08:52) asthma exacerbation duloxetine [Cymbalta] Allergy (Intermediate, Verified 06/26/24 08:52) loopy gabapentin Allergy (Intermediate, Verified 06/26/24 08:52) loopy NSAIDS (Non-Steroidal Anti-Inflamma [NSAIDS (NON-STEROIDAL ANTI-INFLAMMA] Allergy (Intermediate, Verified 06/26/24 08:52) asthma exacerbation pregabalin Allergy (Intermediate, Verified 06/26/24 08:52) loopy tramadol [TRAMADOL] Allergy (Intermediate, Verified 06/26/24 08:52) tachycardia codeine [CODEINE] Allergy (Mild, Verified 06/26/24 08:52) Rash piperacillin [From Zosyn] Allergy (Mild, Verified 06/26/24 08:52) Rash tazobactam [From Zosyn] Allergy (Mild, Verified 06/26/24 08:52) Rash All SSRIs Allergy (Intermediate, Uncoded 06/26/24 08:52) nightmares Amitriptyline Allergy (Intermediate, Uncoded 06/26/24 08:52) tachycardia Medication List - Last Reconciled 06/26/24 by FUNMILAYO Linares acetaminophen ER 1,300 mg (2 x 650 mg) PO Q8H PRN Advair HFA 230-21 mcg/actuation (fluticasone propion-salmeterol) 2 puffs inhalation BID 30 days NS albuterol sulfate 90 mcg/actuation (Ventolin HFA) 2 puffs inhalation Q6H PRN 30 days alpha lipoic acid 300 mg PO DAILY 30 days B-complex with vitamin C 1 tab PO DAILY 30 days benzonatate 200 mg PO BID PRN 30 days celecoxib (Celebrex) 50 mg PO DIRECTED PRN cetirizine (Allergy Relief (cetirizine)) 10 mg PO DAILY cholecalciferol (vitamin D3) 50 mcg PO DAILY 90 days clonazepam 0.5 mg PO TID PRN dextroamphetamine-amphetamine 10 mg 1 tab PO BID dicyclomine 20 mg PO QID 30 days fexofenadine (Sandy Allergy) 180 mg PO DAILY fluoxetine 10 mg PO DAILY fluticasone propion-salmeterol 500-50 mcg/dose (Advair Diskus) 1 ea inhalation BID hyoscyamine sulfate 0.25 mg (2 x 0.125 mg) PO QID PRN ipratropium-albuterol 0.5 mg-3 mg(2.5 mg base)/3 mL 3 mL inhalation Q6H PRN levocetirizine 5 mg PO BEDTIME lidocaine 5% (Lidoderm) 1 patch topical DAILY 30 days magnesium oxide 500 mg PO DAILY 30 days mometasone 50 mcg/actuation 2 sprays intranasal DAILY 90 days nebulizers As directed omeprazole 40 mg PO DAILY 90 days HPI Comments Details: 54-yr-old female presents for f/u visit. Pt was also recently re-referred for evaluation of right eyelid droop. Pt reports that she has other issues to address as well. Pt reports she has had a right drooping eye lid for ~10yrs. The droop was constant and progressively worsening. Denies diplopia. States her vision is 20/20, but sometimes she cannot read what is in front of her, can have floaters at times- this is worse when she is having her other episodes of stiffness. Is scheduled for a f/u eye exam. She had the right lid lift in March 2024, though feels the lid is starting to droop some already. 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 She had tried spinal cord stimulator for chronic back pain r/t h/o arachnoiditis (this was dx's 7-8 yrs ago), however the device failed. She had had back pain for yrs prior. States she has baseline tiredness, shooting pains in legs/feels knots in her muscles. She has week long episodes of feeling overall stiffness (worse in the am or after sitting for a while), Raman palms of hands and soles of feet- tightness, soreness, pins & needles. This started ~ 10 yrs ago, in the balls of the feet. At that time, she states she was tested for lyme and MS- and work-up was negative. She states she started having falls ~ 5-6 yrs ago, and was dx'd w/ h/o leg drop. States that if she is really tired she will trip as she is dragging her leg or tripping on the right leg. She has random sharp stabbing, throbbing headaches from being exhausted- twice has been a/w photophobia, phonophobia, nausea. This may or may not occur during the episodes of weakness, stiffness. Denies numbness. [facility] Medical History (Updated 06/26/24 @ 20:27 by FUNMILAYO Linares) Anemia Blepharitis of both eyes Adult general medical exam IBS (irritable bowel syndrome) Left breast lump Tendinitis of left rotator cuff Rotator cuff tear Hypogammaglobulinemia Asthma-COPD overlap syndrome RUQ abdominal pain Chronic depression Fibromyalgia Asthma Surgical History History of abdominoplasty History of esophagogastroduodenoscopy (EGD) S/P bilateral breast reduction S/P LEVI-BSO H/O colonoscopy Spinal cord stimulator status Cataract, left eye Cataract, right eye History of sinus surgery History of left knee surgery History of partial hysterectomy Family History Father CVD (cardiovascular disease) Heart attack Mother CVD (cardiovascular disease) Heart attack Maternal Grandmother CVD (cardiovascular disease) Maternal Grandfather Colon cancer Paternal Grandmother No problems noted. Son No problems noted. Son No problems noted. Son No problems noted. 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 Stand using arms, shorter steps, no high step, steady gait General: patient oriented x3 Cranial nerves: Yes CN's II-XII intact bilaterally (w/ right eyebrow/eyelid resting higher than left) Cognition (Neuro): normal cognition Motor exam (neuro): no tremor noted Deep tendon reflexes (DTR's): Right triceps reflex intensity grade: 2+, Left triceps reflex intensity grade: 2+, Rt Biceps (C5, C6): 2+, Left biceps reflex intensity grade: 2+, Right brachioradialis reflex intensity grade: 2+, Left brachioradialis reflex intensity grade: 2+, Right patellar reflex intensity grade: 1+ and Left patellar reflex intensity grade: 1+ Psych Appearance: grossly normal Mental Status: mental status grossly normal Speech and movement: Normal speech and movement present Affect: normal affect Attitude: cooperative Assessment & Plan Assessment & Plan (1) Drooping eyelid: Code(s): H02.409 - Unspecified ptosis of unspecified eyelid Category: Medical (2) Recurrent falls: Code(s): R29.6 - Repeated falls Category: Medical (3) Leg weakness: Code(s): R29.898 - Other symptoms and signs involving the musculoskeletal system Category: Medical (4) Paresthesia: Code(s): R20.2 - Paresthesia of skin Category: Medical Plan For drooping eyelid, vision diff, episodes of weakness/stiffness/paresthesias: Will check labs common etiologies Brain MRI w/wo C-spine MRI w/wo Continue APAP [id number] nightly > 4 hrs, as pt has good clinical effect and good reduction in residual AHI. Pt declines f/u EMG/NCS at this time. Orders: Orders MR head/brain wo/w con Today R20.2 - Paresthesia of skin, R29.6 - Repeated falls, R29.898 - Other symptoms and signs involving the musculoskeletal system HUSSEIN Reflex Titer and Pattern Today D64.9 - Anemia, unspecified, G57.93 - Unspecified mononeuropathy of bilateral lower limbs, R20.2 - Paresthesia of skin, R29.898 - Other symptoms and signs involving the musculoskeletal system, R70.0 - Elevated erythrocyte sedimentation rate Acetylcholine Receptor Binding Today D64.9 - Anemia, unspecified, G57.93 - Unspecified mononeuropathy of bilateral lower limbs, R20.2 - Paresthesia of skin, R29.898 - Other symptoms and signs involving the musculoskeletal system, R70.0 - Elevated erythrocyte sedimentation rate Acetylcholine [employer] Director Modulating Today D64.9 - Anemia, unspecified, G57.93 - Unspecified mononeuropathy of bilateral lower limbs, R20.2 - Paresthesia of skin, R29.898 - Other symptoms and signs involving the musculoskeletal system, R70.0 - Elevated erythrocyte sedimentation rate Vitamin B12 and Folate Today D64.9 - Anemia, unspecified, G57.93 - Unspecified mononeuropathy of bilateral lower limbs, R20.2 - Paresthesia of skin, R29.898 - Other symptoms and signs involving the musculoskeletal system, R70.0 - Elevated erythrocyte sedimentation rate Ferritin Today D64.9 - Anemia, unspecified, G57.93 - Unspecified mononeuropathy of bilateral lower limbs, R20.2 - Paresthesia of skin, R29.898 - Other symptoms and signs involving the musculoskeletal system, R70.0 - Elevated erythrocyte sedimentation rate Homocysteine Today D64.9 - Anemia, unspecified, G57.93 - Unspecified mononeuropathy of bilateral lower limbs, R20.2 - Paresthesia of skin, R29.898 - Other symptoms and signs involving the musculoskeletal system, R70.0 - Elevated erythrocyte sedimentation rate CRP High Sensitivity Today D64.9 - Anemia, unspecified, G57.93 - Unspecified mononeuropathy of bilateral lower limbs, R20.2 - Paresthesia of skin, R29.898 - Other symptoms and signs involving the musculoskeletal system, R70.0 - Elevated erythrocyte sedimentation rate MR cervical spine wo/w con Today R20.2 - Paresthesia of skin, R29.6 - Repeated falls, R29.898 - Other symptoms and signs involving the musculoskeletal system Acetylcholine Recept. Blocking Today D64.9 - Anemia, unspecified, G57.93 - Unspecified mononeuropathy of bilateral lower limbs, R20.2 - Paresthesia of skin, R29.898 - Other symptoms and signs involving the musculoskeletal system, R70.0 - Elevated erythrocyte sedimentation rate MuSK Antibody Today D64.9 - Anemia, unspecified, G57.93 - Unspecified mononeuropathy of bilateral lower limbs, R20.2 - Paresthesia of skin, R29.898 - Other symptoms and signs involving the musculoskeletal system, R70.0 - Elevated erythrocyte sedimentation rate Protein Electrophoresis 24HrUr Today D64.9 - Anemia, unspecified, G57.93 - Unspecified mononeuropathy of bilateral lower limbs, R20.2 - Paresthesia of skin, R29.898 - Other symptoms and signs involving the musculoskeletal system, R70.0 - Elevated erythrocyte sedimentation rate Methylmalonic Acid Today D64.9 - Anemia, unspecified, G57.93 - Unspecified mononeuropathy of bilateral lower limbs, R20.2 - Paresthesia of skin, R29.898 - Other symptoms and signs involving the musculoskeletal system, R70.0 - Elevated erythrocyte sedimentation rate Heavy Metals Screen 24H Urine Today D64.9 - Anemia, unspecified, G57.93 - Unspecified mononeuropathy of bilateral lower limbs, R20.2 - Paresthesia of skin, R29.898 - Other symptoms and signs involving the musculoskeletal system, R70.0 - Elevated erythrocyte sedimentation rate Erythrocyte Sedimentation Rate Today D64.9 - Anemia, unspecified, G57.93 - Unspecified mononeuropathy of bilateral lower limbs, R20.2 - Paresthesia of skin, R29.898 - Other symptoms and signs involving the musculoskeletal system, R70.0 - Elevated erythrocyte sedimentation rate Creatine Kinase Total Today D64.9 - Anemia, unspecified, G57.93 - Unspecified mononeuropathy of bilateral lower limbs, R20.2 - Paresthesia of skin, R29.898 - Other symptoms and signs involving the musculoskeletal system, R70.0 - Elevated erythrocyte sedimentation rate Rheumatoid Factor Today D64.9 - Anemia, unspecified, G57.93 - Unspecified mononeuropathy of bilateral lower limbs, R20.2 - Paresthesia of skin, R29.898 - Other symptoms and signs involving the musculoskeletal system, R70.0 - Elevated erythrocyte sedimentation rate Coding Level of Care Code Est Pt Level 4 (43391) Diagnoses Drooping eyelid H02.409 Recurrent falls R29.6 Leg weakness R29.898 Paresthesia R20.2
[2024-06-26 08:50] VITALS: BMI 37.0
== END 2024-06-26 10:01 | disposition home or self-care (01) ==
PROVIDERS: PCP Family Medicine; Visit Provider Nurse Practitioner Family
DX: H02.409 Unspecified ptosis of unspecified eyelid (principal); R29.6 Repeated falls; R29.898 Other symptoms and signs involving the musculoskeletal system; R20.2 Paresthesia of skin
CPT/HCPCS: 99214

== ENCOUNTER 2024-07-01 12:57 | Outpatient (AMB) | payer OTHER, SELFPAY ==
--- NOTE | 2024-07-01 13:00 | MHC.OFFVIS ---
Vital Signs 07/01/24 13:01 Height 5 ft 1 in Weight 192 lb BMI 36.3 Pulse 85 Pulse Source Pulse Oximeter Pulse Oximetry (%) 96 Oxygen Delivery Method Room Air Intake Visit Reasons: Obstructive sleep apnea Ux Lead Required: No Allergies aspirin [ASA] Allergy (Severe, Verified 07/01/24 13:02) asthma exacerbation duloxetine [Cymbalta] Allergy (Intermediate, Verified 07/01/24 13:02) loopy gabapentin Allergy (Intermediate, Verified 07/01/24 13:02) loopy NSAIDS (Non-Steroidal Anti-Inflamma [NSAIDS (NON-STEROIDAL ANTI-INFLAMMA] Allergy (Intermediate, Verified 07/01/24 13:02) asthma exacerbation pregabalin Allergy (Intermediate, Verified 07/01/24 13:02) loopy tramadol [TRAMADOL] Allergy (Intermediate, Verified 07/01/24 13:02) tachycardia codeine [CODEINE] Allergy (Mild, Verified 07/01/24 13:02) Rash piperacillin [From Zosyn] Allergy (Mild, Verified 07/01/24 13:02) Rash tazobactam [From Zosyn] Allergy (Mild, Verified 07/01/24 13:02) Rash All SSRIs Allergy (Intermediate, Uncoded 07/01/24 13:02) nightmares Amitriptyline Allergy (Intermediate, Uncoded 07/01/24 13:02) tachycardia HPI Comments Details: The patient is a 54 year woman with the history of worsening cough. Apparently she developed pneumonia several times. The last time she developed pneumonia was back in December. Significant left-sided extensive airspace disease noted. The patient was given antibiotics and also prednisone. She seems to respond well to prednisone. Now she has this persistent cough. I also shortness of breath and chest tightness. The patient has been evaluated multiple times without a clear etiology of her pneumonias. Not clear why she has recurrent episodes. I did review the x-ray from December subsequently after that she had an x-ray in January that demonstrated interval resolution of the process. Is not clear if this is infectious or noninfectious pneumonias. Will assess for underlying connective tissue conditions. Also will assess her for immunodeficiencies. We did review her pulmonary function studies that she had back in 2017. no evidence of any obstructive ventilatory defects although I explained to her that this does not rule out asthma. The patient does have chest tightness at times. She also has a prolonged expiratory phase. Will provide her with respiratory therapy at this time. 09/15/2023 the patient is here for pulmonary follow-up visit. Overall she is doing well. She recently was evaluated by our office for an acute exacerbation of her breathing. She is back to her baseline now. She is off the prednisone. The patient did undergo blood work demonstrating slight decrease in the IgG otherwise all the other rest of the blood work was reassuring. The patient did also have a CT scan of the chest that was personally by me chest minimal atelectasis nothing to explain her airspace disease. The patient does understand that her findings on the x-rays are consistent with a pneumonic process and likely bacterial in origin. Therefore in view of her we can immune system we can consider prophylactic antibiotics to see we can decrease her infectious recurrence. Also will be reasonable if she has any further events to perform bronchoscopy to further address the airways and look for any smoldering infections. The patient is working closely with allergy immunology. She should have her subclasses checked as far as her IgG and if they are low consider challenging with a vaccine to see if she has a proper response to vaccine therapy. The patient will continue with current respiratory therapy will follow-up in a couple months. She also need an EKG. 11/24/2023 the patient is here for a pulmonary follow-up visit. Since we last spoke she developed COVID 19. Does back in October. She still feels like she has not back to her baseline. Prior to that we had try the azithromycin 3 times a week for her chronic bronchitis. The patient states that it was partially helpful although her cough and chest congestion has not improved. She is feeling like she will need prednisone soon. 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 Explained to her that with the hypogammaglobulinemia this could result in more recurrent infections and also result in slower recovery time. She is already on supplements. Will will check her levels sometime in the springtime or she can follow-up with bag cutter. Based on the fact the patient has evidence of chronic bronchitis requiring frequent courses of prednisone she will be a great candidate for Daliresp. Will go ahead started on low-dose of the Daliresp and workup to the therapeutic dose as tolerated. In addition to that will also optimize her respiratory therapy by switching her from the Advair to Trelegy. The patient will return to 4 months to assess her progress. If she is ready to increase the Daliresp prior to her arrival she can always call. 03/19/2024 the patient is here for a pulmonary follow-up visit. Since we last spoke she has had a difficult time with diverticulitis. She was admitted to the hospital couple times. The patient did respond to antibodies in the not need surgery. She had abnormal CT scans of the chest. The patient has had issues with recurrent infections. She does not have evidence of hypogammaglobulinemia. She is following both Rheumatology and also with Allergy immunology myself. The patient would benefit from IVIG specially if her workup continues to be inconclusive specially for malignancies. The patient continues to struggle with her breathing. Complains of dyspnea on exertion moderate severity even with minimal activity. She responds well to the Advair I do not believe she has any obstructive airway component. Her PFTs were also reassuring without any evidence of restriction and normal diffusing capacity. Likely her work of breathing is increased due to her systemic condition. She did respond well to the Daliresp which is an anti-inflammatory although then started developing abdominal pain so at this point would like to hold off. The patient is also contemplating going to [place] for 2nd opinion which I believe is being worked down right now. If workup is negative for malignancy then I do believe that a trial of IVIG would be helpful to try to minimize infectious processes. In meantime she has been using the CPAP the CPAP therapy has been affecting beneficial and she has been using about 4 hours a night. The patient's AHI is good around 1.3 events per hour. Her average pressure varies between 6-9 cm water. She feels like the pressures are too low. I did adjust the pressures up from 5-6 minimum pressure and maximum pressure now is 14. If she still has difficulties tolerating the pressure she can always call and I can increase the pressures a little bit more. 07/01/2024 the patient is here for a pulmonary follow-up visit. Overall she is doing okay from a respiratory status. She did finally get the Advair HFA. She is starting to get used to it. I will provide her with a spacer in order for her to be able to affectively administer the medication. I hope that it works as same as Diskus for her. In the meantime she will continue with the other allergy medicine. the patient is currently being evaluated by Neurology for the possibility of neuromuscular disease including myasthenia gravis. In addition to that the patient did have blood work done including IgG level that was low normal. She does have a low subclass specific disease. Will continue to monitor her. At this point the patient does not require IVIG infusions. Will see how she progresses. And also, the patient has been using her CPAP. Although the mask is uncomfortable has not significant of pressure of the sinuses and marking her face significantly. I do believe a foam mask may work a little better were may not pressor hardening her sinuses or her face. I did call [employer] order to seem therefore can switch her mask specially since she recently ordered. She does work of [employer]. And I did give her information for her to return any supplies that she receives at this time. She will continue with the current respiratory therapy follow-up neurology in continue with CPAP at this time. The patient follow-up in 4-6 months. If she has not other issues she will call for an earlier assessment. [facility] [place] Medical History (Updated 06/26/24 @ 20:27 by FUNMILAYO Linares) Anemia Blepharitis of both eyes Adult general medical exam IBS (irritable bowel syndrome) Left breast lump Tendinitis of left rotator cuff Rotator cuff tear Hypogammaglobulinemia Asthma-COPD overlap syndrome RUQ abdominal pain Chronic depression Fibromyalgia Asthma Surgical History History of abdominoplasty History of esophagogastroduodenoscopy (EGD) S/P bilateral breast reduction S/P LEVI-BSO H/O colonoscopy Spinal cord stimulator status Cataract, left eye Cataract, right eye History of sinus surgery History of left knee surgery History of partial hysterectomy Family History Father CVD (cardiovascular disease) Heart attack Mother CVD (cardiovascular disease) Heart attack Maternal Grandmother CVD (cardiovascular disease) Maternal Grandfather Colon cancer Paternal Grandmother No problems noted. Son No problems noted. Son No problems noted. Son No problems noted. 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 Current occupational exposures/hazards: No Sexual orientation: Unable to collect Gender identity: Unable to collect Cognitive needs: No Hearing needs: No Vision needs: No Review of Systems Const Denies chills, Reports fatigue, Denies fever(s), Denies headache(s) and Denies weakness ENT Reports Normal hearing present, Denies dizziness and Denies headache(s) Card Denies chest pain, Denies lightheadedness, Denies dyspnea, Reports dyspnea on exertion and Denies other (Palpitations) Resp Reports chest congestion, Reports cough, Denies dyspnea, Reports dyspnea on exertion and Denies other ( shortness of breath) GI Reports as per HPI Musc Reports as per HPI, Denies numbness and Denies tingling Neuro Reports Normal hearing present, Denies Abnormal speech present, Denies dizziness, Denies headache(s), Denies numbness, Denies tingling, Denies paresthesias and Denies weakness Psych Denies anxiety and Denies depression Endo Reports fatigue Physical Exam Vital Signs: Last Vital Signs Pulse 85 07/01/24 13:01 Pulse Ox 96 07/01/24 13:01 Oxygen Delivery Method Room Air 07/01/24 13:01 BMI result Body Mass Index 36.3 Const General: cooperative, comfortable and no acute distress Orientation/consciousness: oriented to person, oriented to place and oriented to time HEENT Head: Yes normocephalic and Yes atraumatic Eyes General: appearance normal, both eyes and all related structures Pupils: Equal, round and reactive pupils present EOM: EOMs intact bilaterally Neck Neck: Yes supple Chest Chest palpation & inspection: normal inspection of the chest Resp Other: Crackles at bilateral bases, worse on L than R Effort & Inspection: normal respiratory effort and able to speak in complete sentences Auscultation: clear to auscultation bilaterally Cardio Rate: regular rate Rhythm: regular rhythm Heart sounds: Normal, physiologic split S2 sound present Peripheral pulses: radial pulses present and posterior tibial pulses present GI Inspection: No distended, Yes Abdominal panniculus present and Yes obesity Palpation (GI): Soft to palpation, Tenderness to palpation present (GI) in the RLQ, no guarding, not rigid and No hepatosplenomegaly present Percussion: Yes normal to percussion Auscultation: normal bowel sounds Rectal Exam - Female: deferred Skin General skin exam: no rashes or lesions noted, turgor normal, skin not dry, no jaundice, No spider nevi and no striae Rashes: no rashes Nails: normal Neuro General: oriented to person, oriented to place and oriented to time Cranial nerves: Yes Equal, round and reactive pupils present and Yes Normal hearing present Speech: No Abnormal speech present Extrem General: Yes normal to inspection, No clubbing, No cyanosis and No edema Psych Appearance: grossly normal and well kempt Mental Status: mental status grossly normal Speech and movement: Normal speech and movement present Affect: normal affect Attitude: cooperative Thought process: Normal thought process present and not confabulating Thought content: Normal thought content present Insight: Fair insight present (Psych) Judgement: Fair judgement present (Psych) Assessment & Plan Assessment & Plan (1) Asthma: Code(s): J45.909 - Unspecified asthma, uncomplicated Category: Medical Qualifiers: Asthma complication type: uncomplicated Asthma persistence: persistent Asthma severity: moderate Qualified Code(s): J45.40 - Moderate persistent asthma, uncomplicated (2) Hypogammaglobulinemia: Code(s): D80.1 - Nonfamilial hypogammaglobulinemia Category: Medical (3) NILTON (obstructive sleep apnea): Comment: Moderate degree of sleep apena. The AHI was 15/hr and oxygen ingris was 80%. The total duration of O2 sat <88 % was 70 min. Code(s): G47.33 - Obstructive sleep apnea (adult) (pediatric) Category: Medical (4) Asthma-COPD overlap syndrome: Code(s): J44.89 - Other specified chronic obstructive pulmonary disease Category: Medical Plan continue advair HFA w spacer YURI as needed continue APAP 6-14 using FM, requesting F20 foam mask, med. overnight oximetry while on APAP RA stopped Trazodone for sleep aid F/U in 6 months Orders: Orders Overnight Pulse Oximetry Today G47.33 - Obstructive sleep apnea (adult) (pediatric), J44.89 - Other specified chronic obstructive pulmonary disease Coding Level of Care Code Est Pt Level 4 (90016) Diagnoses Moderate persistent asthma without complication J45.40 Asthma complication type: uncomplicated Asthma persistence: persistent Asthma severity: moderate Hypogammaglobulinemia D80.1 NILTON (obstructive sleep apnea) G47.33 Asthma-COPD overlap syndrome J44.89 Time Spent (min) 16
[2024-07-01 13:01] VITALS: PULSE 85; O2SAT 96; BMI 36.3
== END 2024-07-01 13:27 | disposition home or self-care (01) ==
PROVIDERS: PCP Family Medicine; Visit Provider Hospitalist
DX: J45.40 Moderate persistent asthma, uncomplicated (principal); D80.1 Nonfamilial hypogammaglobulinemia; G47.33 Obstructive sleep apnea (adult) (pediatric); J44.89 Other specified chronic obstructive pulmonary disease
CPT/HCPCS: 99214

== ENCOUNTER → 2024-07-01 12:57 | Outpatient (BNVA) | payer OTHER, SELFPAY | PROVIDERS: PCP Family Medicine; Visit Provider Hospitalist | DX: J45.40 Moderate persistent asthma, uncomplicated (principal); G47.33 Obstructive sleep apnea (adult) (pediatric); D80.1 Nonfamilial hypogammaglobulinemia; J44.89 Other specified chronic obstructive pulmonary disease | CPT/HCPCS: 99212 ==

== ENCOUNTER 2024-07-07 | Outpatient (REF) | payer OTHER, SELFPAY ==
[2024-07-12 08:44] LABS: PEU-PROT/CRE Ratio mg/mg 0.053 (<0.150); PEU24-Albumin Urine 100 %; PEU24-Alpha 1 Globulin 0 %; PEU24-Alpha 2 Globulin 0 %; PEU24-Beta Globulin 0 %; PEU24-Gamma Globulin 0 %; Total Protein 24Hr Urine 59 mg/24 h (<150); Total Protein/Creat Ratio 24h 53 mg/g creat (<150)
== END 2024-07-07 00:01 | disposition home or self-care (01) ==
LOC: HO.LNP
PROVIDERS: Visit Provider Nurse Practitioner Family
DX: R20.2 Paresthesia of skin (principal); R29.898 Other symptoms and signs involving the musculoskeletal system; D64.9 Anemia, unspecified; G57.93 Unspecified mononeuropathy of bilateral lower limbs; R70.0 Elevated erythrocyte sedimentation rate
CPT/HCPCS: 82570; 84156; 84166

== ENCOUNTER 2024-07-08 | Outpatient (REF) | payer OTHER, SELFPAY ==
[2024-07-11 17:19] LABS: Arsenic, 24H Urine <10 mcg/L (<=80); Cadmium, 24H Urine <0.5 mcg/L (<=5.0); Lead, 24H Urine <10 mcg/L (<80); Mercury, 24H Urine <4 mcg/L (<=20)
== END 2024-07-08 00:01 | disposition home or self-care (01) ==
LOC: HO.LNP
PROVIDERS: Visit Provider Nurse Practitioner Family
DX: R20.2 Paresthesia of skin (principal); R29.898 Other symptoms and signs involving the musculoskeletal system; D64.9 Anemia, unspecified; G57.93 Unspecified mononeuropathy of bilateral lower limbs; R70.0 Elevated erythrocyte sedimentation rate
CPT/HCPCS: 82175; 82300; 83655; 83825

== ENCOUNTER 2024-07-21 15:13 | Outpatient (REF) | payer OTHER, SELFPAY ==
--- NOTE | ~2024-07-21 | MR_ITS ---
EXAMINATION: MR BRAIN WITHOUT AND WITH CONTRAST MR CERVICAL SPINE WITHOUT AND WITH CONTRAST CLINICAL INFORMATION: Repeated falls. COMPARISON: Cervical spine MRI from 10/11/2019. Brain MRI from 01/25/2017. TECHNIQUE: MRI of the brain and cervical spine was obtained using routine sequences without and following the administration of 8.5 mL of Gadavist intravenous contrast. FINDINGS: Brain: No focal restricted diffusion is demonstrated to suggest acute or subacute cerebral ischemia. No evidence of acute or chronic hemorrhagic products on heme-sensitive imaging. Scattered periventricular and deep white matter T2 FLAIR hyperintensities consistent with mild underlying microangiopathy. Proportional prominence of the ventricles and sulcal spaces without evidence of obstructive hydrocephalus. No abnormal mass effect. No midline shift. Normal appearance of the pituitary gland. Normal positioning of the cerebellar tonsils. Normal arterial and venous vascular flow voids are present. No abnormal contrast enhancement. Normal, homogeneous marrow signal. Mild mucosal thickening of the paranasal sinuses. Moderate leftward nasal septal deviation. No signal abnormalities within the mastoids. Cervical Spine: Straightening of the normal cervical lordosis. Mild degenerative stepwise anterolistheses of C7-T2. Advanced degenerative disc disease from C5-C7. Moderate degenerative disc disease at C4-C5 and T2-T4. Associated mixed Modic type discogenic endplate changes including Modic type I discogenic edema from C4-C6. No additional suspicious marrow edema. The vertebral body heights are well-maintained. The spinal cord is normal in appearance. No demonstrated spinal cord signal abnormalities. No abnormal contrast enhancement. Limited evaluation of the soft tissues of the neck without demonstrated abnormalities. The flow voids of the major cervical vessels are maintained. Normal appearance of the cervicomedullary junction and visualized posterior fossa. SPINAL LEVELS: C2-C3: Normal annular contour. There is no uncovertebral joint arthropathy. There is mild bilateral facet joint arthropathy. There is no neural foraminal stenosis. There is no spinal canal stenosis. C3-C4: Mild disc-osteophyte complex. There is mild bilateral uncovertebral joint arthropathy. There is moderate left and mild right facet joint arthropathy. There is no neural foraminal stenosis. There is no spinal canal stenosis. C4-C5: Moderate disc-osteophyte complex. There is moderate right and mild left uncovertebral joint arthropathy. There is moderate left and mild right facet joint arthropathy. There is mild bilateral neural foraminal stenosis. There is no spinal canal stenosis. C5-C6: Moderate disc-osteophyte complex. There is severe left and moderate right uncovertebral joint arthropathy. There is moderate bilateral facet joint arthropathy. There is moderate to severe left and mild right neural foraminal stenosis. There is no spinal canal stenosis. C6-C7: Moderate disc-osteophyte complex. There is severe left and moderate right uncovertebral joint arthropathy. There is moderate bilateral facet joint arthropathy. There is moderate to severe left and moderate right neural foraminal stenosis. There is no spinal canal stenosis. C7-T1: Mild disc-osteophyte complex. There is mild left and no right uncovertebral joint arthropathy. There is no facet joint arthropathy. There is mild left and no right neural foraminal stenosis. There is no spinal canal stenosis. MR/MR cervical spine wo/w con IMPRESSION: 1. No acute intracranial abnormalities. No abnormal intracranial enhancement. 2. Mild underlying microangiopathy and generalized cerebral volume loss. 3. Moderate multilevel degenerative spondyloarthropathy of the cervical spine as described in detail above. Most notably, there are moderate to severe neural foraminal stenoses at C5-C6 and C6-C7. No spinal canal stenosis. Electronically signed by: Harshad Ascencio DO 08/16/2024 11:55 PM EDT
[2024-07-21] MEDS: gadobutroL 10 ML VIAL IVPUSH (17:02)
== END 2024-07-21 15:14 | disposition home or self-care (01) ==
LOC: HO.MRI 15:13
PROVIDERS: PCP Family Medicine; Visit Provider Nurse Practitioner Family
DX: R29.898 Other symptoms and signs involving the musculoskeletal system (principal); R20.2 Paresthesia of skin; R29.6 Repeated falls
CPT/HCPCS: 70553; 72156; A9585

== ENCOUNTER 2024-07-29 12:08 | Outpatient (AMB) | payer OTHER, SELFPAY ==
--- NOTE | 2024-07-29 12:16 | MHC.PC.OV ---
Vital Signs 07/29/24 12:22 Height 5 ft 1 in Weight 194 lb BMI 36.7 BP 122/78 Blood Pressure Location Lt brachial Position Sitting Respiration 15 Pulse 84 Pulse Source Pulse Oximeter Pulse Oximetry (%) 94 Oxygen Delivery Method Room Air Intake Visit Reasons: 30 min Jun chronic conditions Intake Note: routine follow up Allergies aspirin [ASA] Allergy (Severe, Verified 07/29/24 12:21) asthma exacerbation duloxetine [Cymbalta] Allergy (Intermediate, Verified 07/29/24 12:21) loopy gabapentin Allergy (Intermediate, Verified 07/29/24 12:21) loopy NSAIDS (Non-Steroidal Anti-Inflamma [NSAIDS (NON-STEROIDAL ANTI-INFLAMMA] Allergy (Intermediate, Verified 07/29/24 12:21) asthma exacerbation pregabalin Allergy (Intermediate, Verified 07/29/24 12:21) loopy tramadol [TRAMADOL] Allergy (Intermediate, Verified 07/29/24 12:21) tachycardia codeine [CODEINE] Allergy (Mild, Verified 07/29/24 12:21) Rash piperacillin [From Zosyn] Allergy (Mild, Verified 07/29/24 12:21) Rash tazobactam [From Zosyn] Allergy (Mild, Verified 07/29/24 12:21) Rash All SSRIs Allergy (Intermediate, Uncoded 07/01/24 13:02) nightmares Amitriptyline Allergy (Intermediate, Uncoded 07/01/24 13:02) tachycardia Medication List - Last Reconciled 07/29/24 by TORIBIO CruzP-BC acetaminophen ER 1,300 mg (2 x 650 mg) PO Q8H PRN Advair HFA 230-21 mcg/actuation (fluticasone propion-salmeterol) 2 puffs inhalation BID 30 days NS albuterol sulfate 90 mcg/actuation (Ventolin HFA) 2 puffs inhalation Q6H PRN 30 days alpha lipoic acid 300 mg PO DAILY 30 days amoxicillin 500 mg PO BID B-complex with vitamin C 1 tab PO DAILY 30 days benzonatate 200 mg PO BID PRN 30 days celecoxib (Celebrex) 50 mg PO DIRECTED PRN cetirizine (Allergy Relief (cetirizine)) 10 mg PO DAILY cholecalciferol (vitamin D3) 50 mcg PO DAILY 90 days clonazepam 0.5 mg PO TID PRN dextroamphetamine-amphetamine 10 mg 1 tab PO BID dicyclomine 20 mg PO QID 30 days fexofenadine (Sandy Allergy) 180 mg PO DAILY fluoxetine 10 mg PO DAILY fluticasone propion-salmeterol 500-50 mcg/dose (Advair Diskus) 1 ea inhalation BID hyoscyamine sulfate 0.25 mg (2 x 0.125 mg) PO QID PRN ipratropium-albuterol 0.5 mg-3 mg(2.5 mg base)/3 mL 3 mL inhalation Q6H PRN levocetirizine 5 mg PO BEDTIME lidocaine 5% (Lidoderm) 1 patch topical DAILY 30 days magnesium oxide 500 mg PO DAILY 30 days mometasone 50 mcg/actuation 2 sprays intranasal DAILY 90 days nebulizers As directed omeprazole 40 mg PO DAILY 90 days vitamins A,C,O-ztgj-apkxtf 4,296 mcg-226 mg-90 mg (PreserVision AREDS) 1 cap PO BID Tobacco use date assessed: 12/12/23 Dental Screening Dental Screen Date: 04/18/24 HPI HPI Comments History of Present Illness Details 54-year-old female with sigmoid diverticulitis, 1.3 cm simple renal cyst, moderate diffuse hepatic steaotosis, Asthma COPD overlap syndrome, MDD fibromyalgia family history of premature CAD, GERD, sleep apnea on CPAP, low IGG, vitamin-D deficiency, neuropathy, hyperlipidemia, impaired fasting glucose, multi joint osteoarthritis osteopenia and chronic pain syndrome Status post laminoplasty, left knee surgery, partial hysterectomy, bilateral breast reduction, LEVI-BSO, spinal cord stimulator Specialist GI Pain management Pulmonology Sleep medicine Rheumatology Heme/Onc Derm - Lenzy Maintenance Colonoscopy 08/01/2022 positive polyps repeat in 3 years (2024) Mammogram 10/31/2023 DEXA 02/2024 Osteopenia based on the lowest T-score value of -1.4 in the femoral neck applying World Health Organization criteria. Here today for routine f/u of chronic conditions Head and Neck MRI done last week at [facility] [place] - Neuro ordered Cannot get into Rheum, despite several outreaches Reports Iron levels elevated. Next GI f/u 12/2024 Dental extract Monday, no complications. Needs Acylovir oint and Valacyclovir tabs refilled 1000 mg po BID using PRN, Having outbreaks on mouth and base of spine. Has abscess on buttocks and on pannus resolving with AB use.. on amox tid for dental infection Left ear bothering her .. same side as dental extraction Lesion inside of nose was viral, this was burned off x 2. Next fu 3 months Exam: Awake alert NAD Scleras nonicteric Ears: hearing grossly normal bilaterally, EAC's normal, mastoids normal, no periauricular adenopathy. TM intact bilat. no acute changes of TM noted MMM RRR LS CTAB Abd soft, nontender, bowel sounds within normal limits Trace edema ble L>R Plan cont care w specialists cont all meds Ab for dental infection should tx skin concerns ... left ear referred dental pain, no new tx needed refills on antivirals sent as requested RTO 6 mo for routine fu of chronic conditions, sooner PRN Total time spent caring for the patient today was 30 minutes. This includes time spent before the visit reviewing the chart, time spent during the visit, and time spent after the visit on documentation This note is constructed using voice recognition software. While every effort has been made to ensure accuracy in gluing machine operator automatic, still errors may have been included Sometimes, these errors may affect the content or meaning of the given sentence . [facility] Medical History (Updated 07/29/24 @ 16:50 by Joana Gilliam, [facility]) Anemia Blepharitis of both eyes Adult general medical exam IBS (irritable bowel syndrome) Left breast lump Tendinitis of left rotator cuff Rotator cuff tear Hypogammaglobulinemia Asthma-COPD overlap syndrome RUQ abdominal pain Chronic depression Fibromyalgia Asthma Surgical History History of abdominoplasty History of esophagogastroduodenoscopy (EGD) S/P bilateral breast reduction S/P LEVI-BSO H/O colonoscopy Spinal cord stimulator status Cataract, left eye Cataract, right eye History of sinus surgery History of left knee surgery History of partial hysterectomy Family History Father CVD (cardiovascular disease) Heart attack Mother CVD (cardiovascular disease) Heart attack Maternal Grandmother CVD (cardiovascular disease) Maternal Grandfather Colon cancer Paternal Grandmother No problems noted. Son No problems noted. Son No problems noted. Son No problems noted. 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 Dayday Arias, Monika Dior, Herminio Clinton and colleagues, with an educational ross from [employer]. Physical exam (Primary Care) Vital Signs: Last Vital Signs Pulse 84 07/29/24 12:22 Resp 15 07/29/24 12:22 BP 122/78 07/29/24 12:22 Pulse Ox 94 07/29/24 12:22 Oxygen Delivery Method Room Air 07/29/24 12:22 BMI result Body Mass Index 36.7 Tobacco/Smoking Status: Tobacco use Status Tobacco use date assessed 12/12/23 07/29/24 12:18 Patient Tobacco Use Status Former Tobacco user 07/29/24 12:18 e-Cigarette/Vaping Use Never Used 07/29/24 12:18 Thrive Assessment: Date of Thrive Assessment Date Thrive assessed 01/25/24 07/29/24 12:18 Assessment and Plan Assessment & Plan (1) Internal nasal lesion: Comment: resolved Code(s): J34.89 - Other specified disorders of nose and nasal sinuses (2) Chronic dysfunction of both eustachian tubes: Comment: stable, continue nasal sprays along with the antihistamine. Perform self insufflation. Code(s): H69.93 - Unspecified Eustachian tube disorder, bilateral (3) Herpes simplex: Code(s): B00.9 - Herpesviral infection, unspecified Medications: New acyclovir 5% 1 appl topical 6XD 7 days 30 grams 2RF valacyclovir 1,000 mg PO BID PRN 180 tabs 0RF hsv outbreak Coding Level of Care Code Est Pt Level 4 (51636) Complex EM visit Add On G2211 Diagnoses Internal nasal lesion J34.89 Chronic dysfunction of both eustachian tubes H69.93 Herpes simplex B00.9
[2024-07-29 12:22] VITALS: BP 122/78; PULSE 84; RESP 15; O2SAT 94; BMI 36.7
== END 2024-07-29 15:22 | disposition home or self-care (01) ==
PROVIDERS: PCP Family Medicine; Visit Provider Nurse Practitioner Family
DX: J34.89 Other specified disorders of nose and nasal sinuses (principal); H69.93 Unspecified Eustachian tube disorder, bilateral; B00.9 Herpesviral infection, unspecified

== ENCOUNTER → 2024-07-29 12:08 | Outpatient (BNVA) | payer OTHER, SELFPAY | PROVIDERS: PCP Family Medicine; Visit Provider Nurse Practitioner Family | DX: J34.89 Other specified disorders of nose and nasal sinuses (principal); H69.93 Unspecified Eustachian tube disorder, bilateral; B00.9 Herpesviral infection, unspecified | CPT/HCPCS: 99212 ==

== ENCOUNTER 2024-07-30 08:17 | Outpatient (REF) | payer OTHER, SELFPAY ==
[2024-07-30 09:11] LABS: Anion Gap 14 (12-20); Blood Urea Nitrogen 12 mg/dL (9-16); Calcium 9.6 mg/dL (8.4-10.2); Carbon Dioxide 23 mmol/L (22-29); Chloride 106 mmol/L (96-108); Estimated Glomerular Filt Rate > 60; Glucose Random 206 mg/dL (60-115); Potassium 4.2 mmol/L (3.3-5.1); Sodium 139 mmol/L (135-145)
[2024-07-30 09:28] LABS: TSH reflex Free T4 0.97 uIU/mL (0.32-4.0)
== END 2024-07-30 08:18 | disposition home or self-care (01) ==
LOC: HO.LAB 08:17
PROVIDERS: PCP Nurse Practitioner Family; Visit Provider Nurse Practitioner
DX: J44.89 Other specified chronic obstructive pulmonary disease (principal); D80.1 Nonfamilial hypogammaglobulinemia; R63.5 Abnormal weight gain
CPT/HCPCS: 36415; 80048; 84443

== ENCOUNTER 2024-07-31 08:33 | Outpatient (REF) | payer OTHER, SELFPAY ==
--- NOTE | ~2024-07-31 | CT_ITS ---
EXAMINATION: CT CHEST WITHOUT CONTRAST. CT ABDOMEN AND PELVIS WITH CONTRAST. CLINICAL INFORMATION: Cough and shortness of breath. Sclerosing mesenteritis. Abdominal pain. Bloating. Elevated sedimentation rate COMPARISON: CT chest August 21, [address] Abdomen and Pelvis June 10, 2016 TECHNIQUE: Multidetector volumetric CT imaging of the chest, abdomen and pelvis was obtained . CT abdomen pelvis performed with intravenous contrast. 85 mL Omnipaque 350 injected intravenously. Oral contrast was given. Coronal, Sagittal reformatted images preformed at the CT scanner. [This CT examination was performed using dose optimization techniques as appropriate, variously including the following: *Automated exposure control *Adjustment of mA and/or kV according to patient size (this includes techniques or standardized protocols for targeted exams where dose is matched to indication/reason for exam; i.e. extremities or head) *Use of iterative reconstruction technique] DLP: 760 mGy-cm. FINDINGS: CT CHEST: Lungs: The lungs are clear with no evidence of inflammation or nodules. Mediastinum: The mediastinum is normal. Pleura: There is no pleural effusion. No pleural mass or thickening. Axilla: No lymphadenopathy. CT ABDOMEN AND PELVIS: Liver, Gallbladder and Biliary Tree: There is diffuse low-attenuation of liver parenchyma. This is consistent with fatty change. No focal liver lesion. There is no intrahepatic bile duct dilatation. Liver size is normal. Right lobe of liver measures 18 cm superior-inferior. The gallbladder is unremarkable with no evidence of radiopaque gallstones, gallbladder wall thickening, or obvious pericholecystic inflammatory changes. Pancreas: No acute change of the pancreas. No mass. No pancreatic duct dilatation. Spleen: Spleen normal in size and contour. No focal lesion. Adrenal Glands: Adrenal glands are normal in size. No focal mass. Kidneys and Ureters: The kidneys are normal in size, shape, and attenuation. No hydronephrosis, hydroureter, or calculi seen. No perinephric stranding. Bladder: Unremarkable. Gastrointestinal Tract: There are scattered diverticula of the sigmoid and descending colon. There is no diverticulitis. There is no bowel wall thickening /edema. There is no bowel obstruction. There is a moderate volume of stool in the colon. The appendix is normal . The small bowel loops are unremarkable. The stomach is normal. There is no hiatal hernia. Mesentery: No focal inflammation. No free fluid. No free air. There is no mass or significant lymphadenopathy. Abdominal Wall: No significant hernia is appreciated. Lymph Nodes: Normal. Vascular: Unremarkable. Pelvic Viscera: Unremarkable. Osseous Structures: Unremarkable. CT/CT abdomen pelvis w IV con IMPRESSION: 1. No acute abnormality CT chest, abdomen or pelvis. 2. Diffuse fatty change of liver. Electronically signed by: Hansel Chambers MD 07/31/2024 03:21 PM EDT RP
[2024-07-31] MEDS: iohexoL 350 MG/ML 100 ML INFUS..BTL IV (11:35)
[2024-07-31] MEDS: Barium Sulfate Oral (Mocha) 450 ML ORAL.SUSP 900 ML PO (11:36)
== END 2024-07-31 08:34 | disposition home or self-care (01) ==
LOC: HO.CT 08:33
PROVIDERS: PCP Family Medicine; Visit Provider Nurse Practitioner
DX: K65.4 Sclerosing mesenteritis (principal); M47.816 Spondylosis without myelopathy or radiculopathy, lumbar region; R06.02 Shortness of breath
CPT/HCPCS: 71250; 74177; Q9967

== ENCOUNTER 2024-08-13 12:35 | Outpatient (AMB) | payer OTHER, SELFPAY ==
--- NOTE | 2024-08-13 12:37 | A.OFFVIS_ITS ---
Vital Signs 08/13/24 12:40 Height 5 ft 1 in Weight 194 lb 0.108 oz BMI 36.7 BP 133/73 Blood Pressure Location Lt brachial Position Sitting Pulse 71 Intake Visit Reasons: Follow up CT scan Intake Note: Lucia presents in the office as a follow up CT scan. CC: She states she is just here for results - no other concerns. 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: No Allergies aspirin [ASA] Allergy (Severe, Verified 10/08/24 09:14) asthma exacerbation duloxetine [Cymbalta] Allergy (Intermediate, Verified 10/08/24 09:14) loopy gabapentin Allergy (Intermediate, Verified 10/08/24 09:14) loopy NSAIDS (Non-Steroidal Anti-Inflamma [NSAIDS (NON-STEROIDAL ANTI-INFLAMMA] Allergy (Intermediate, Verified 10/08/24 09:14) asthma exacerbation pregabalin Allergy (Intermediate, Verified 10/08/24 09:14) loopy tramadol [TRAMADOL] Allergy (Intermediate, Verified 10/08/24 09:14) tachycardia codeine [CODEINE] Allergy (Mild, Verified 10/08/24 09:14) Rash piperacillin [From Zosyn] Allergy (Mild, Verified 10/08/24 09:14) Rash tazobactam [From Zosyn] Allergy (Mild, Verified 10/08/24 09:14) Rash All SSRIs Allergy (Intermediate, Uncoded 10/08/24 09:14) nightmares Amitriptyline Allergy (Intermediate, Uncoded 10/08/24 09:14) tachycardia HPI HPI Follow up CT scan: Details: Assessment & Plan (1) GERD (gastroesophageal reflux disease): Code(s): K21.9 - Gastro-esophageal reflux disease without esophagitis Category: Medical (2) Elevated erythrocyte sedimentation rate: Code(s): R70.0 - Elevated erythrocyte sedimentation rate Category: Medical (3) Sclerosing mesenteric fibrosis: Comment: central mesentary haziness on CT, need to check progress Code(s): K65.4 - Sclerosing mesenteritis Category: Medical Plan She has not been able to get a rheum appt as all services are too far out (? Jannette who does she see??) Dr. Soriano could not get the chest CT r/t insurance problems, they required a CXR and she got it but it is not read. Dr. Soriano also suggests we get and abd CT - ordered urgent to see if sclerosis is progressing or receding. She did have a course or medrol dose pack for asthma and this did have a positive effect on her abd complaints, but then she started severe bloating after completion. She has the added complication of hypogammaglobinemia and ? if she will have IgG infusions. Imonothrerapy could complicate this. ROV after CT. Orders: Orders CT abdomen pelvis w IV con 05/23/24 K65.4 - Sclerosing mesenteritis CT ABDOMEN AND PELVIS 07/31/24 FINDINGS: CT CHEST: Lungs: The lungs are clear with no evidence of inflammation or nodules. Mediastinum: The mediastinum is normal. Pleura: There is no pleural effusion. No pleural mass or thickening. Axilla: No lymphadenopathy. CT ABDOMEN AND PELVIS: Liver, Gallbladder and Biliary Tree: There is diffuse low-attenuation of liver parenchyma. This is consistent with fatty change. No focal liver lesion. There is no intrahepatic bile duct dilatation. Liver size is normal. Right lobe of liver measures 18 cm superior-inferior. The gallbladder is unremarkable with no evidence of radiopaque gallstones, gallbladder wall thickening, or obvious pericholecystic inflammatory changes. Pancreas: No acute change of the pancreas. No mass. No pancreatic duct dilatation. Spleen: Spleen normal in size and contour. No focal lesion. Adrenal Glands: Adrenal glands are normal in size. No focal mass. Kidneys and Ureters: The kidneys are normal in size, shape, and attenuation. No hydronephrosis, hydroureter, or calculi seen. No perinephric stranding. Bladder: Unremarkable. Gastrointestinal Tract: There are scattered diverticula of the sigmoid and descending colon. There is no diverticulitis. There is no bowel wall thickening /edema. There is no bowel obstruction. There is a moderate volume of stool in the colon. The appendix is normal . The small bowel loops are unremarkable. The stomach is normal. There is no hiatal hernia. Mesentery: No focal inflammation. No free fluid. No free air. There is no mass or significant lymphadenopathy. Abdominal Wall: No significant hernia is appreciated. Lymph Nodes: Normal. Vascular: Unremarkable. Pelvic Viscera: Unremarkable. Osseous Structures: Unremarkable. CT/CT abdomen pelvis w IV con IMPRESSION: 1. No acute abnormality CT chest, abdomen or pelvis. 2. Diffuse fatty change of liver. TODAY'S VISIT The prior ? of mesenteric haziness is not seen. She still can not get a rheum, CRP very high and she may have to go to [place] because she can not find any providers anywhere in [place] who mass or even then [facility] who accepting new patients. 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 I am uncertain how much this might be contributing to her recurrent bouts of diverticulitis but it certainly is a possibility. We discussed, since she has had more than 3 exacerbations, the possibility of consulting a surgeon but she wants to hold off until she can explore the rheumatology option or at least until after the holidays. We can always reconsider this going forward. For now she will continue with her Augmentin in reserve although we also discussed possibly utilizing Cipro and Bactrim together since she can not tolerate Flagyl. ROV 3 mos PFSH Medical History (Updated 10/02/24 @ 15:48 by FUNMILAYO Linares) Nocturnal hypoxia Paresthesia Diverticulitis Herpes simplex Internal nasal lesion Osteopenia of femoral neck Weight gain Diarrhea Allergies Low back pain Family history of premature CAD Spinal cord stimulator dysfunction Anemia Blepharitis of both eyes Adult general medical exam IBS (irritable bowel syndrome) Left breast lump Tendinitis of left rotator cuff Rotator cuff tear Hypogammaglobulinemia Asthma-COPD overlap syndrome RUQ abdominal pain Chronic depression Fibromyalgia Asthma Surgical History S/P insertion of spinal cord stimulator History of abdominoplasty History of esophagogastroduodenoscopy (EGD) S/P bilateral breast reduction S/P LEVI-BSO H/O colonoscopy Spinal cord stimulator status Cataract, left eye Cataract, right eye History of sinus surgery History of left knee surgery History of partial hysterectomy Family History Father CVD (cardiovascular disease) Heart attack Mother CVD (cardiovascular disease) Heart attack Maternal Grandmother CVD (cardiovascular disease) Maternal Grandfather Colon cancer Paternal Grandmother No problems noted. Son No problems noted. Son No problems noted. Son No problems noted. 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 Current occupational exposures/hazards: No Sexual orientation: Unable to collect Gender identity: Unable to collect Cognitive needs: No Hearing needs: No Vision needs: No Review of Systems Const Denies fatigue, Denies fever(s), Denies night sweats, Denies poor appetite and Denies weight loss ENT Reports Normal hearing present, Denies dental pain, Denies dysphagia, Denies hearing loss, Denies mouth pain, Denies odynophagia, Denies throat swelling, Denies tongue swelling and Reports other (Dentition adequate) Card Reports no additional complaints Resp Reports no additional complaints GI Details: Reports abdominal pain, Denies melena, Denies bloating, Denies hematochezia, Denies constipation, Denies GI cramping, Denies dysphagia, Denies excessive flatus, Denies early satiety, Reports heartburn, Denies diarrhea, Denies nausea, Denies odynophagia, Denies vomiting and Denies hematemesis Musc Reports myalgias and Reports arthralgias Skin/Breast Denies pruritus, Denies lesions, Denies rash and Denies jaundice Neuro Reports Normal hearing present and Denies Abnormal speech present Endo Denies fatigue Aller/Immun Denies throat swelling and Denies tongue swelling Physical Exam Vital Signs: Last Vital Signs Pulse 71 08/13/24 12:40 BP 133/73 08/13/24 12:40 BMI result Body Mass Index 36.7 Const General: cooperative, no acute distress, well developed and well groomed Nutritional Appearance: well nourished and obese Orientation/consciousness: oriented to person, oriented to place and oriented to time Limitations: No language barrier HEENT Head: Yes normocephalic and Yes atraumatic Eyes General: appearance normal, both eyes and all related structures Pupils: Equal, round and reactive pupils present Neck Neck: Yes normal visual inspection and Yes no lymphadenopathy Thyroid: Thyroid normal Resp Effort & Inspection: normal respiratory effort and able to speak in complete sentences Auscultation: clear to auscultation bilaterally Cardio Rate: regular rate Rhythm: regular rhythm Heart sounds: Normal, physiologic split S2 sound present Peripheral pulses: radial pulses present and posterior tibial pulses present GI Inspection: No distended, Yes Abdominal panniculus present and Yes obesity Palpation (GI): Soft to palpation, nontender, no guarding, not rigid and No hepatosplenomegaly present Percussion: Yes normal to percussion Auscultation: normal bowel sounds Rectal Exam - Female: deferred Skin General skin exam: no rashes or lesions noted, turgor normal, skin not dry, no jaundice, No spider nevi and no striae Rashes: no rashes Nails: normal Neuro General: oriented to person, oriented to place and oriented to time Cranial nerves: Yes Equal, round and reactive pupils present and Yes Normal hearing present Speech: No Abnormal speech present Extrem General: Yes normal to inspection, No clubbing, No cyanosis and No edema Psych Appearance: grossly normal and well kempt Mental Status: mental status grossly normal Speech and movement: Normal speech and movement present Affect: normal affect Attitude: cooperative Thought process: Normal thought process present and not confabulating Thought content: Normal thought content present Insight: Limited insight present (Psych) Judgement: Limited judgement present (Psych) Results Reviewed Results Reviewed: CT ABDOMEN AND PELVIS 07/31/24 FINDINGS: CT CHEST: Lungs: The lungs are clear with no evidence of inflammation or nodules. Mediastinum: The mediastinum is normal. Pleura: There is no pleural effusion. No pleural mass or thickening. Axilla: No lymphadenopathy. CT ABDOMEN AND PELVIS: Liver, Gallbladder and Biliary Tree: There is diffuse low-attenuation of liver parenchyma. This is consistent with fatty change. No focal liver lesion. There is no intrahepatic bile duct dilatation. Liver size is normal. Right lobe of liver measures 18 cm superior-inferior. The gallbladder is unremarkable with no evidence of radiopaque gallstones, gallbladder wall thickening, or obvious pericholecystic inflammatory changes. Pancreas: No acute change of the pancreas. No mass. No pancreatic duct dilatation. Spleen: Spleen normal in size and contour. No focal lesion. Adrenal Glands: Adrenal glands are normal in size. No focal mass. Kidneys and Ureters: The kidneys are normal in size, shape, and attenuation. No hydronephrosis, hydroureter, or calculi seen. No perinephric stranding. Bladder: Unremarkable. Gastrointestinal Tract: There are scattered diverticula of the sigmoid and descending colon. There is no diverticulitis. There is no bowel wall thickening /edema. There is no bowel obstruction. There is a moderate volume of stool in the colon. The appendix is normal . The small bowel loops are unremarkable. The stomach is normal. There is no hiatal hernia. Mesentery: No focal inflammation. No free fluid. No free air. There is no mass or significant lymphadenopathy. Abdominal Wall: No significant hernia is appreciated. Lymph Nodes: Normal. Vascular: Unremarkable. Pelvic Viscera: Unremarkable. Osseous Structures: Unremarkable. CT/CT abdomen pelvis w IV con IMPRESSION: 1. No acute abnormality CT chest, abdomen or pelvis. 2. Diffuse fatty change of liver. Assessment & Plan Assessment & Plan (1) Diverticulitis: Comment: appt w/ GI 02/2024 Code(s): K57.92 - Diverticulitis of intestine, part unspecified, without perforation or abscess without bleeding Category: Medical (2) GERD (gastroesophageal reflux disease): Code(s): K21.9 - Gastro-esophageal reflux disease without esophagitis Category: Medical (3) Sclerosing mesenteric fibrosis: Comment: central mesentary haziness on CT, need to check progress Code(s): K65.4 - Sclerosing mesenteritis Category: Medical Plan The prior ? of mesenteric haziness is not seen. She still can not get a rheum, CRP very high and she may have to go to [place] because she can not find any providers anywhere in [place] who [facility] or even then [facility] who accepting new patients. 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 I am uncertain how much this might be contributing to her recurrent bouts of diverticulitis but it certainly is a possibility. We discussed, since she has had more than 3 exacerbations, the possibility of consulting a surgeon but she wants to hold off until she can explore the rheumatology option or at least until after the holidays. We can always reconsider this going forward. For now she will continue with her Augmentin in reserve although we also discussed possibly utilizing Cipro and Bactrim together since she can not tolerate Flagyl. ROV 3 mos Medications: New amoxicillin-pot clavulanate 875-125 mg 1 tab PO BID 28 tabs 0RF 14 days K57.92 - Diverticulitis of intestine, part unspecified, without perforation or abscess without bleeding Coding Level of Care Code Est Pt Level 3 (33124) Diagnoses Diverticulitis K57.92 GERD (gastroesophageal reflux disease) K21.9 Sclerosing mesenteric fibrosis K65.4
[2024-08-13 12:40] VITALS: BP 133/73; PULSE 71; BMI 36.7
== END 2024-08-13 13:23 | disposition home or self-care (01) ==
PROVIDERS: PCP Family Medicine; Visit Provider Nurse Practitioner
DX: K57.92 Diverticulitis of intestine, part unspecified, without perforation or abscess without bleeding (principal); K21.9 Gastro-esophageal reflux disease without esophagitis; K65.4 Sclerosing mesenteritis
CPT/HCPCS: 99213

== ENCOUNTER → 2024-08-13 12:35 | Outpatient (BNVA) | payer OTHER, SELFPAY | PROVIDERS: PCP Family Medicine; Visit Provider Nurse Practitioner | DX: K21.9 Gastro-esophageal reflux disease without esophagitis (principal); R70.0 Elevated erythrocyte sedimentation rate; K65.4 Sclerosing mesenteritis; K57.92 Diverticulitis of intestine, part unspecified, without perforation or abscess without bleeding | CPT/HCPCS: 99212 ==

== ENCOUNTER 2024-10-02 14:24 | Outpatient (AMB) | payer OTHER, SELFPAY ==
--- NOTE | 2024-10-02 14:48 | MHC.OFFVIS ---
Vital Signs 10/02/24 14:50 Height 5 ft 1 in Weight 194 lb BMI 36.7 Intake Visit Reasons: Follow up Intake Note: Patient presents for a 3 mo fu telehealth appointment, Intake Clinician Required: No Accompanied by: Self / Same As Patient Allergies aspirin [ASA] Allergy (Severe, Verified 10/02/24 14:49) asthma exacerbation duloxetine [Cymbalta] Allergy (Intermediate, Verified 10/02/24 14:49) loopy gabapentin Allergy (Intermediate, Verified 10/02/24 14:49) loopy NSAIDS (Non-Steroidal Anti-Inflamma [NSAIDS (NON-STEROIDAL ANTI-INFLAMMA] Allergy (Intermediate, Verified 10/02/24 14:49) asthma exacerbation pregabalin Allergy (Intermediate, Verified 10/02/24 14:49) loopy tramadol [TRAMADOL] Allergy (Intermediate, Verified 10/02/24 14:49) tachycardia codeine [CODEINE] Allergy (Mild, Verified 10/02/24 14:49) Rash piperacillin [From Zosyn] Allergy (Mild, Verified 10/02/24 14:49) Rash tazobactam [From Zosyn] Allergy (Mild, Verified 10/02/24 14:49) Rash All SSRIs Allergy (Intermediate, Uncoded 08/13/24 12:40) nightmares Amitriptyline Allergy (Intermediate, Uncoded 08/13/24 12:40) tachycardia Medication List - Last Reconciled 10/02/24 by FUNMILAYO Linares acetaminophen ER 1,300 mg (2 x 650 mg) PO Q8H PRN acyclovir 5% 1 appl topical 6XD 7 days Advair HFA 230-21 mcg/actuation (fluticasone propion-salmeterol) 2 puffs inhalation BID 30 days NS albuterol sulfate 90 mcg/actuation (Ventolin HFA) 2 puffs inhalation Q6H PRN 30 days alpha lipoic acid 300 mg PO DAILY 30 days amoxicillin-pot clavulanate 875-125 mg 1 tab PO BID 14 days B-complex with vitamin C 1 tab PO DAILY 30 days benzonatate 200 mg PO BID PRN 30 days celecoxib (Celebrex) 50 mg PO DIRECTED PRN cetirizine (Allergy Relief (cetirizine)) 10 mg PO DAILY cholecalciferol (vitamin D3) 50 mcg PO DAILY 90 days clonazepam 0.5 mg PO TID PRN dextroamphetamine-amphetamine 10 mg 1 tab PO BID dicyclomine 20 mg PO QID 30 days fexofenadine (Sandy Allergy) 180 mg PO DAILY fluoxetine 10 mg PO DAILY fluticasone propion-salmeterol 500-50 mcg/dose (Advair Diskus) 1 ea inhalation BID hyoscyamine sulfate 0.25 mg (2 x 0.125 mg) PO QID PRN ipratropium-albuterol 0.5 mg-3 mg(2.5 mg base)/3 mL 3 mL inhalation Q6H PRN levocetirizine 5 mg PO BEDTIME lidocaine 5% (Lidoderm) 1 patch topical DAILY 30 days magnesium oxide 500 mg PO DAILY 30 days melatonin 3 - 6 mg (1 - 2 x 3 mg) PO DAILY 30 days mometasone 50 mcg/actuation 2 sprays intranasal DAILY 90 days nebulizers As directed omeprazole 40 mg PO DAILY 90 days valacyclovir 1,000 mg PO BID PRN vitamins A,C,Y-btxh-pggcoz 4,296 mcg-226 mg-90 mg (PreserVision AREDS) 1 cap PO BID HPI Comments Details: 54-yr-old female presents for f/u visit of low back and BLE pain related to arachnochonditis and f/u of work-up for eyelid droop. She is working w/ Dr Wilde at [facility] for wt loss- hoping to be cleared for gastric sleeve surgery. However, her weight loss has plateud and she has asked her PCP if she is a candidate to try something that may help wt loss. She had f/u w/ Dr Tirado, who has advised her to have in-lab PAP titration study for nocturnal hypoxemia. PCP has referred her to rheumatology. For h/o right drooping eye lid work-up -anti-ACHR Ab were normal. Continues to have tiredness, shooting pains in legs/feels knots in her muscles. States was told this was fibromyalgia in the past but lizzette benson'd. Continues to have overall stiffness (worse in the am or after sitting for a while), Raman palms of hands and soles of feet- tightness, soreness, pins & needles, burning. Denies numbness She has random sharp stabbing, throbbing headaches from being exhausted. Also has headaches- not sure if the stabbing headache or different headache a/w photophobia, phonophobia, nausea. This may or may not occur during the episodes of weakness, stiffness. Work-up: 07/21/2024, MR/MR Brain and Cervical spine wo/w con IMPRESSION: 1. No acute intracranial abnormalities. No abnormal intracranial enhancement. 2. Mild underlying microangiopathy and generalized cerebral volume loss. 3. Moderate multilevel degenerative spondyloarthropathy of the cervical spine as described in detail above. Most notably, there are moderate to severe neural foraminal stenoses at C5-C6 and C6-C7. No spinal canal stenosis. 06/26/24 07/08/24 07/30/24 15:10 08:00 08:29 ESR 18 Sodium 139 BUN 12 Creatinine 0.71 Estimated GFR > 60 Random Glucose 206 H Ferritin 336 H Total Creatine Kinase 43 C-React Prot High Sens >20.0 H Vitamin B12 611 Methylmalonic Acid 138 Folate 6.7 Homocysteine 10.3 TSH 0.97 Ur Arsenic 24 Hour <10 Urine Cadmium 24 Hour <0.5 Urine Lead 24 Hour <10 Urine Mercury 24 Hour <4 Rheumatoid Factor < 13.0 HUSSEIN Screen NEGATIVE PFSH Medical History (Updated 10/02/24 @ 15:48 by FUNMILAYO Linares) Nocturnal hypoxia Paresthesia Diverticulitis Herpes simplex Internal nasal lesion Osteopenia of femoral neck Weight gain Diarrhea Allergies Low back pain Family history of premature CAD Spinal cord stimulator dysfunction Anemia Blepharitis of both eyes Adult general medical exam IBS (irritable bowel syndrome) Left breast lump Tendinitis of left rotator cuff Rotator cuff tear Hypogammaglobulinemia Asthma-COPD overlap syndrome RUQ abdominal pain Chronic depression Fibromyalgia Asthma Surgical History S/P insertion of spinal cord stimulator History of abdominoplasty History of esophagogastroduodenoscopy (EGD) S/P bilateral breast reduction S/P LEVI-BSO H/O colonoscopy Spinal cord stimulator status Cataract, left eye Cataract, right eye History of sinus surgery History of left knee surgery History of partial hysterectomy Family History Father CVD (cardiovascular disease) Heart attack Mother CVD (cardiovascular disease) Heart attack Maternal Grandmother CVD (cardiovascular disease) Maternal Grandfather Colon cancer Paternal Grandmother No problems noted. Son No problems noted. Son No problems noted. Son No problems noted. 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 Current occupational exposures/hazards: No Sexual orientation: Unable to collect Gender identity: Unable to collect Cognitive needs: No Hearing needs: No Vision needs: No Physical Exam Vital Signs: BMI result Body Mass Index 36.7 Const General: cooperative and no acute distress Orientation/consciousness: patient oriented x3 Resp Effort & Inspection: normal respiratory effort and able to speak in complete sentences Neuro General: patient oriented x3 Cognition (Neuro): normal cognition Psych Appearance: grossly normal Mental Status: mental status grossly normal Speech and movement: Normal speech and movement present Affect: normal affect Attitude: cooperative Telehealth Telehealth Telehealth Platform: [employer] Location of provider rendering services: practice address Location of patient: address on file Patient Identification confirmed using: Name, : Yes Telehealth method: video Patient verbally consented to treatment: Yes Patient verbally consented to billing insurance company: Yes Patient informed of any privacy concerns related to visit: Yes Minutes spent on Phone/Video with Pt.: 30 Assessment & Plan Assessment & Plan (1) Neuropathy of both feet: Code(s): G57.93 - Unspecified mononeuropathy of bilateral lower limbs Category: Medical (2) Muscle spasm: Code(s): M62.838 - Other muscle spasm Category: Medical (3) Drooping eyelid: Code(s): H02.409 - Unspecified ptosis of unspecified eyelid Category: Medical (4) Recurrent falls: Code(s): R29.6 - Repeated falls Category: Medical (5) Leg weakness: Code(s): R29.898 - Other symptoms and signs involving the musculoskeletal system Category: Medical (6) Paresthesia: Code(s): R20.2 - Paresthesia of skin Category: Medical Plan For drooping eyelid, vision diff, episodes of weakness/stiffness/paresthesias: Reviewed labs- notable for elevated ferritin, CRP. Will check f/u labs- as well as zinc/copper as pt takes daily supplement Reviewed Brain MRI w/wo- Mild underlying microangiopathy and generalized cerebral volume loss. Likely multifactorial r/t chronic health conditions. Advised to continue strategies to optimize CV risk factors- goal of maintaining optimal BP, blood sugar control. Concur w/ f/u in-lab PAP titration study to tx nocturnal hypoxemia. Concur w/ wt loss efforts. Increase physical activity a sable. Reviewed C-spine MRI w/wo- Moderate multilevel degenerative spondyloarthropathy and moderate to severe neural foraminal stenoses at C5-C6 and C6-C7. No spinal canal stenosis. Offered BUE EMG/NCS, pt declined. Advised to notify us w/ worsening BUE paresthesias, development of numbness/weakness, etc. Continue APAP [id number] nightly > 4 hrs, as pt has good clinical effect and good reduction in residual AHI. For headaches- Trial Topiramate 25-50mg qhs- may help wt loss and body pains as well. Pt will discuss w/ PCP 1st. Potential adverse effects of Topiramate, include but are not limited to fatigue, cognitive changes, paresthesias (tingling), vision changes, kidney stones. Will follow-up upon review of above and patient to follow-up in clinic in 3-4 months or sooner prn. Orders: Orders Magnesium Today G57.93 - Unspecified mononeuropathy of bilateral lower limbs, M62.838 - Other muscle spasm, R79.82 - Elevated C-reactive protein (CRP) Vitamin B6 Today G57.93 - Unspecified mononeuropathy of bilateral lower limbs, M62.838 - Other muscle spasm, R79.82 - Elevated C-reactive protein (CRP) Copper, serum Today G57.93 - Unspecified mononeuropathy of bilateral lower limbs, M62.838 - Other muscle spasm, R79.82 - Elevated C-reactive protein (CRP) Ferritin Today D64.9 - Anemia, unspecified, R79.89 - Other specified abnormal findings of blood chemistry Homocysteine Today D64.9 - Anemia, unspecified, R79.89 - Other specified abnormal findings of blood chemistry Creatine Kinase Total Today G57.93 - Unspecified mononeuropathy of bilateral lower limbs, M62.838 - Other muscle spasm, R79.82 - Elevated C-reactive protein (CRP) Zinc Today G57.93 - Unspecified mononeuropathy of bilateral lower limbs, M62.838 - Other muscle spasm, R79.82 - Elevated C-reactive protein (CRP) IRON PROFILE Today D64.9 - Anemia, unspecified, R79.89 - Other specified abnormal findings of blood chemistry Methylmalonic Acid Today D64.9 - Anemia, unspecified, R79.89 - Other specified abnormal findings of blood chemistry Medications: New topiramate 25 - 50 mg (1 - 2 x 25 mg) PO BEDTIME 30 days 60 tabs 3RF Coding Level of Care Code Est Pt Level 4 (22011) Complex EM visit Add On G2211 Diagnoses Neuropathy of both feet G57.93 Muscle spasm M62.838 Drooping eyelid H02.409 Recurrent falls R29.6 Leg weakness R29.898 Paresthesia R20.2
[2024-10-02 14:50] VITALS: BMI 36.7
== END 2024-10-02 16:06 | disposition home or self-care (01) ==
PROVIDERS: PCP Nurse Practitioner Family; Visit Provider Nurse Practitioner Family
DX: G57.93 Unspecified mononeuropathy of bilateral lower limbs (principal); M62.838 Other muscle spasm; H02.409 Unspecified ptosis of unspecified eyelid; R29.6 Repeated falls; R29.898 Other symptoms and signs involving the musculoskeletal system; R20.2 Paresthesia of skin
CPT/HCPCS: 99214; G2211

== ENCOUNTER → 2024-10-02 14:24 | Outpatient (BNVA) | payer OTHER, SELFPAY | PROVIDERS: PCP Nurse Practitioner Family; Visit Provider Nurse Practitioner Family | DX: G57.93 Unspecified mononeuropathy of bilateral lower limbs (principal); M62.838 Other muscle spasm; H02.409 Unspecified ptosis of unspecified eyelid; R29.6 Repeated falls; R29.898 Other symptoms and signs involving the musculoskeletal system; R20.2 Paresthesia of skin | CPT/HCPCS: 99212 ==

== ENCOUNTER 2024-10-08 08:46 | Outpatient (AMB) | payer OTHER, SELFPAY ==
--- NOTE | 2024-10-08 08:49 | MHC.PC.OV ---
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: No Allergies aspirin [ASA] Allergy (Severe, Verified 10/08/24 09:14) asthma exacerbation duloxetine [Cymbalta] Allergy (Intermediate, Verified 10/08/24 09:14) loopy gabapentin Allergy (Intermediate, Verified 10/08/24 09:14) loopy NSAIDS (Non-Steroidal Anti-Inflamma [NSAIDS (NON-STEROIDAL ANTI-INFLAMMA] Allergy (Intermediate, Verified 10/08/24 09:14) asthma exacerbation pregabalin Allergy (Intermediate, Verified 10/08/24 09:14) loopy tramadol [TRAMADOL] Allergy (Intermediate, Verified 10/08/24 09:14) tachycardia codeine [CODEINE] Allergy (Mild, Verified 10/08/24 09:14) Rash piperacillin [From Zosyn] Allergy (Mild, Verified 10/08/24 09:14) Rash tazobactam [From Zosyn] Allergy (Mild, Verified 10/08/24 09:14) Rash All SSRIs Allergy (Intermediate, Uncoded 10/08/24 09:14) nightmares Amitriptyline Allergy (Intermediate, Uncoded 10/08/24 09:14) tachycardia Medication List - Last Reconciled 10/08/24 by Joana Gilliam, FUNMILAYO-SHAWN acetaminophen ER 1,300 mg (2 x 650 mg) PO Q8H PRN acyclovir 5% 1 appl topical 6XD 7 days Advair HFA 230-21 mcg/actuation (fluticasone propion-salmeterol) 2 puffs inhalation BID 30 days NS albuterol sulfate 90 mcg/actuation (Ventolin HFA) 2 puffs inhalation Q6H PRN 30 days alpha lipoic acid 300 mg PO DAILY 30 days amoxicillin-pot clavulanate 875-125 mg 1 tab PO BID 14 days B-complex with vitamin C 1 tab PO DAILY 30 days benzonatate 200 mg PO BID PRN 30 days celecoxib (Celebrex) 50 mg PO DIRECTED PRN cetirizine (Allergy Relief (cetirizine)) 10 mg PO DAILY cholecalciferol (vitamin D3) 50 mcg PO DAILY 90 days clonazepam 0.5 mg PO TID PRN dextroamphetamine-amphetamine 10 mg 1 tab PO BID dicyclomine 20 mg PO QID 30 days fexofenadine (Sandy Allergy) 180 mg PO DAILY fluoxetine 10 mg PO DAILY fluticasone propion-salmeterol 500-50 mcg/dose (Advair Diskus) 1 ea inhalation BID hyoscyamine sulfate 0.25 mg (2 x 0.125 mg) PO QID PRN ipratropium-albuterol 0.5 mg-3 mg(2.5 mg base)/3 mL 3 mL inhalation Q6H PRN levocetirizine 5 mg PO BEDTIME lidocaine 5% (Lidoderm) 1 patch topical DAILY 30 days magnesium oxide 500 mg PO DAILY 30 days melatonin 3 - 6 mg (1 - 2 x 3 mg) PO DAILY 30 days mometasone 50 mcg/actuation 2 sprays intranasal DAILY 90 days nebulizers As directed omeprazole 40 mg PO DAILY 90 days topiramate 25 - 50 mg (1 - 2 x 25 mg) PO BEDTIME 30 days valacyclovir 1,000 mg PO BID PRN vitamins A,C,F-lfjz-kkhjfr 4,296 mcg-226 mg-90 mg (PreserVision AREDS) 1 cap PO BID Tobacco use date assessed: 12/12/23 Dental Screening Dental Screen Date: 04/18/24 HPI HPI Comments History of Present Illness Details 54-year-old female with sigmoid diverticulitis, 1.3 cm simple renal cyst, moderate diffuse hepatic steaotosis, Asthma COPD overlap syndrome, MDD fibromyalgia family history of premature CAD, GERD, sleep apnea on CPAP, low IGG, vitamin-D deficiency, neuropathy, hyperlipidemia, impaired fasting glucose, multi joint osteoarthritis osteopenia and chronic pain syndrome Status post laminoplasty, left knee surgery, partial hysterectomy, bilateral breast reduction, LEVI-BSO, spinal cord stimulator Here today to review meds for wt loss Last consult from Neuro Trial Topiramate 25-50mg qhs- may help wt loss and body pains as well. Pt will discuss w/ PCP 1st. Potential adverse effects of Topiramate, include but are not limited to fatigue, cognitive changes, paresthesias (tingling), vision changes, kidney stones. Has already trialed Topiramate w/o effect. Did meet w/ Television Agent and Dr Dhillon. Lost 5 lbs. Gained 2 back. Needs to be down to 175 lbs before she can have the surgery. Frustrated as she feels if she could lose this kind of wt she wouldnt need the surgery. Wonders what else she can do. Worries about her glucose going up; ate cake recently and was sick for the rest of the day. A1c done in office today 6.9. Exam Awake alert oriented, no acute distress Speaking in full sentences Tearful when discussing her frustrations at [employer]: I called over [facility] bariatric clinic. The protocol remains the same therefore a referral there is not worth it. She can continue to follow with Chani Lomeli. Her A1c has increased from 5.2, 5.5 and now 6.9. However this is in the setting of frequent and prolonged steroid use given other health conditions. She was recently just stop the steroids. Therefore would like to start Jardiance 10 mg daily. Advised to drink plenty of water. Educated about the risk for UTIs and infections. Emphasize importance of notify me immediately if the symptoms start. Return to the office in 1 month for follow up on weight loss as well as jardiance start. We will repeat A1c at that time and make a determination from there. The hope is that the Jardiance can help her to lose some weight while she continues to work with the weight loss clinic. Invokana not covered; therefore Jardiance 10mg was sent in as alternate This note is constructed using voice recognition software. While every effort has been made to ensure accuracy in ent surgeon, still errors may have been included Sometimes, these errors may affect the content or meaning of the given sentence . Total time spent caring for the patient today was 45 minutes. This includes time spent before the visit reviewing the chart, time spent during the visit, and time spent after the visit on documentation [facility] Medical History (Updated 10/02/24 @ 15:48 by FUNMILAYO Linares) Nocturnal hypoxia Paresthesia Diverticulitis Herpes simplex Internal nasal lesion Osteopenia of femoral neck Weight gain Diarrhea Allergies Low back pain Family history of premature CAD Spinal cord stimulator dysfunction Anemia Blepharitis of both eyes Adult general medical exam IBS (irritable bowel syndrome) Left breast lump Tendinitis of left rotator cuff Rotator cuff tear Hypogammaglobulinemia Asthma-COPD overlap syndrome RUQ abdominal pain Chronic depression Fibromyalgia Asthma Surgical History S/P insertion of spinal cord stimulator History of abdominoplasty History of esophagogastroduodenoscopy (EGD) S/P bilateral breast reduction S/P LEVI-BSO H/O colonoscopy Spinal cord stimulator status Cataract, left eye Cataract, right eye History of sinus surgery History of left knee surgery History of partial hysterectomy Family History Father CVD (cardiovascular disease) Heart attack Mother CVD (cardiovascular disease) Heart attack Maternal Grandmother CVD (cardiovascular disease) Maternal Grandfather Colon cancer Paternal Grandmother No problems noted. Son No problems noted. Son No problems noted. Son No problems noted. 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 1. Little interest or pleasure in doing things: not at all 2. Feeling down, depressed, or hopeless: not at all 3. Trouble falling or staying asleep, or sleeping too much: not at all 4. Feeling tired or having little energy: not at all 5. Poor appetite or overeating: not at all 13896 - PHQ-9 Billing: Yes Source: Developed by Drs. Dayday Arias, Monika Dior, Herminio Clinton and colleagues, with an educational ross from [employer]. Thrive Questionnaire Date Thrive assessed: 10/08/24 I am a: Patient What is your living situation today?: I have a steady place to live Within the past 12 months, did the food you bought not last and you didn't have the money to get more?: Never true Within the past 12 months, did you worry whether your food would run out before you got money to buy more?: Never true Do you have trouble paying for medicines?: No Do you have trouble getting transportation to medical appointments?: No Do you have trouble paying your heating and electricity bill?: No Do you have trouble taking care of your child, family member or friend?: No Do you have trouble with day-to-day activities such as bathing, preparing meals, shopping, managing finances, etc.?: No Are you currently unemployed and looking for a job?: No Are you interested in more education?: No Please select the resources that you would like help with: None Currently or been in a relationship where the following occur: No concerns reported THRIVE Score: 0 AUDIT C Alcohol Use Questionnaire (AUDIT-C) 1. How often do you have a drink containing alcohol?: Monthly or less 2. How many drinks containing alcohol do you have on a typical day when you are drinking?: 1 or 2 3. How often do you have six or more drinks on one occasion?: Never Total Score: 1 MURIEL-7 AMB Questionnaire MURIEL-7 Date MURIEL - 7 assessed: 10/08/24 Feeling nervous, anxious, or on edge: 0 = Not at all Not being able to stop or control worryin = Not at all Worrying too much about different things: 0 = Not at all Trouble relaxin = Not at all Being so restless that it is hard to sit still: 0 = Not at all Becoming easily annoyed or irritable: 0 = Not at all Feeling afraid as if something awful might happen: 0 = Not at all Total MURIEL-7 score (0-4 normal; 5-9 mild; 10-14 moderate; 15-21 severe): 0 Source: Developed by Drs. Dayday Arias, Monika Dior, Herminio Clinton and colleagues, with an educational ross from [employer]. MURIEL-7 Assessment Billing MURIEL-7 Assessment Tool: MURIEL-7 Assessment 21200 Physical exam (Primary Care) Vital Signs: Last Vital Signs Pulse 72 10/08/24 08:53 Resp 14 10/08/24 08:53 BP 132/78 10/08/24 08:53 Pulse Ox 97 10/08/24 08:53 Oxygen Delivery Method Room Air 10/08/24 08:53 BMI result Body Mass Index 37.2 Tobacco/Smoking Status: Tobacco use Status Tobacco use date assessed 12/12/23 10/08/24 08:49 Patient Tobacco Use Status Former Tobacco user 10/08/24 08:49 e-Cigarette/Vaping Use Never Used 10/08/24 08:49 Thrive Assessment: Date of Thrive Assessment Date Thrive assessed 10/08/24 10/08/24 08:51 Currently or been in a relationship where the following occur: No concerns reported Results AMB Hemoglobin A1c AMB Hemoglobin A1c 6.9 % Last Edit by Candida Bingham MA on 10/08/24 09:21 Results Reviewed Results Reviewed: Laboratory Last Values Hgb A1c (Clinic) 6.9 % (4.0-6.0) H 10/08/24 09:10 Coding Level of Care Code Est Pt Level 5 (11498) Complex EM visit Add On G2211 Diagnoses Obesity (BMI 30-39.9) E66.9 Elevated fasting glucose R73.01 Additional Codes MURIEL-7 Assessment Billing - MURIEL-7 Assessment Tool: MURIEL-7 Assessment 17559 ([id number]) PHQ-9 - 90914 - PHQ-9 Billing: Yes ([id number]) Assessment & Plan Assessment & Plan (1) Obesity (BMI 30-39.9): Comment: lifestyle - she is trying to lose weight Code(s): E66.9 - Obesity, unspecified Category: Medical (2) Elevated fasting glucose: Code(s): R73.01 - Impaired fasting glucose Category: Medical Plan . Orders: Orders Comprehensive [place]. Panel Fast Today R73.01 - Impaired fasting glucose AMB Hemoglobin A1c Today Z13.9 - Encounter for screening, unspecified Medications: New canagliflozin (Invokana) 100 mg PO DAILY 90 tabs 0RF Discontinued amoxicillin-pot clavulanate 875-125 mg Discontinued Reason: Patient Completed Course 1 tab PO BID 14 days 28 tabs 0RF K57.92 - Diverticulitis of intestine, part unspecified, without perforation or abscess without bleeding
[2024-10-08 08:53] VITALS: BP 132/78; PULSE 72; RESP 14; O2SAT 97; BMI 37.2
== END 2024-10-08 09:48 | disposition home or self-care (01) ==
PROVIDERS: PCP Nurse Practitioner Family; Visit Provider Nurse Practitioner Family
DX: R73.01 Impaired fasting glucose (principal); E66.9 Obesity, unspecified; Z68.37 Body mass index [BMI] 37.0-37.9, adult

== ENCOUNTER → 2024-10-08 08:46 | Outpatient (BNVA) | payer OTHER, SELFPAY | PROVIDERS: PCP Nurse Practitioner Family; Visit Provider Nurse Practitioner Family | DX: R73.01 Impaired fasting glucose (principal); E66.9 Obesity, unspecified; Z68.37 Body mass index [BMI] 37.0-37.9, adult; Z71.3 Dietary counseling and surveillance | CPT/HCPCS: 83036; 96127; 99212 ==

== ENCOUNTER 2024-10-16 08:13 | Outpatient (REF) | payer OTHER, SELFPAY ==
[2024-10-16 08:53] LABS: MANUAL DIFF FLAG NO
[2024-10-16 09:06] LABS: Basophils Percent Auto 0.5 % (0-2); Eosinophils Absolute Auto 0.1 X10*3/uL (0.0-0.4); Eosinophils Percent Auto 1.4 % (0-4); Hematocrit 41.2 % (37.0-47.0); Imm Gran Abs Auto 0.02 X10*3/uL (0.00-0.03); Imm Gran Pct Auto 0.3 % (0.0-0.4); Lymphocytes Absolute Auto 2.3 X10*3/uL (1.2-4.9); Lymphocytes Percent Auto 29.2 % (20-40); Mean Corpuscular Hemoglobin 30.7 pg (27.0-33.0); Mean Corpuscular Volume 90.4 fL (80.0-98.0); Mean Platelet Volume 9.5 fL (9.4-12.3); Monocytes Absolute Auto 0.5 X10*3/uL (0.1-1.2); Monocytes Percent Auto 6.8 % (2-11); Neutrophils Absolute Auto 4.9 x10*3/uL (2.0-8.3); Neutrophils Percent Auto 61.8 % (45-73); Platelet Count 251 X10*3/uL (160-400); Red Blood Count 4.56 X10*6/uL (4.20-5.50); Red Cell Distribution Width 13.9 % (11.0-16.0)
[2024-10-16 09:40] LABS: Blood Urea Nitrogen 16 mg/dL (9-16); Estimated Glomerular Filt Rate > 60; Iron 76 mcg/dL (30-160); Magnesium 2.2 mg/dL (1.6-2.6); Percent Iron Saturation 25 % (15-50); Total Iron Binding Capacity 303 mcg/dL (228-428); Unsaturated Iron Binding 227 ug/dL
[2024-10-16 09:46] LABS: Alanine Aminotransferase 39 U/L (0-31); Albumin Level 4.6 g/dL (3.5-5.0); Alkaline Phosphatase 113 U/L (39-117); Anion Gap 13 (12-20); Aspartate Amino Transferase 24 U/L (5-31); Bilirubin Total 0.6 mg/dL (0.0-1.0); Blood Urea Nitrogen 16 mg/dL (9-16); Calcium 10.2 mg/dL (8.4-10.2); Carbon Dioxide 26 mmol/L (22-29); Chloride 107 mmol/L (96-108); Cholesterol 181 mg/dL (<200); Estimated Glomerular Filt Rate > 60; Glucose Fasting 139 mg/dL (60-99); HDL Cholesterol 47 mg/dL (>40); LDL Cholesterol Calculated 122 mg/dL (<100); Sodium 142 mmol/L (135-145); Total Protein 7.5 g/dL (6.5-8.0); Triglycerides 62 mg/dL (<150)
[2024-10-16 09:49] LABS: Erythrocyte Sedimentation Rate 20 MM/HR (0-20)
[2024-10-16 10:00] LABS: Ferritin 361 ng/mL (10-250)
[2024-10-17 12:53] LABS: CRP High Sensitivity >20.0 mg/L
[2024-10-17 18:48] LABS: Homocysteine 13.5 umol/L (<10.4)
[2024-10-18 02:19] LABS: Immunoglobulin E 4 kU/L (<OR=114)
[2024-10-20 13:23] LABS: Zinc 92 mcg/dL (60-130)
[2024-10-20 17:48] LABS: Copper, serum 122 mcg/dL (70-175)
[2024-10-21 15:34] LABS: Immunoglobulin G Subclass 1 245 mg/dL (382-929); Immunoglobulin G Subclass 2 249 mg/dL (241-700); Immunoglobulin G Subclass 3 23 mg/dL (22-178); Immunoglobulin G Total 562 mg/dL (600-1640)
[2024-10-21 16:30] LABS: Methylmalonic Acid 153 nmol/L (55-335)
== END 2024-10-16 08:14 | disposition home or self-care (01) ==
LOC: HO.LAB 08:13
PROVIDERS: Hospitalist; Nurse Practitioner; PCP Nurse Practitioner Family; Referring Provider Nurse Practitioner Family; Visit Provider Nurse Practitioner Family
DX: K65.4 Sclerosing mesenteritis (principal); M62.838 Other muscle spasm; G57.93 Unspecified mononeuropathy of bilateral lower limbs; R79.82 Elevated C-reactive protein (CRP); D64.9 Anemia, unspecified; R79.89 Other specified abnormal findings of blood chemistry; J44.89 Other specified chronic obstructive pulmonary disease; D80.1 Nonfamilial hypogammaglobulinemia; E78.00 Pure hypercholesterolemia, unspecified; R73.01 Impaired fasting glucose
CPT/HCPCS: 36415; 80053; 80061; 82525; 82550; 82565; 82728; 82784; 82785; 83090; 83540; 83735; 83921; 84207; 84520; 84630; 85025; 85652; 86141

== ENCOUNTER 2024-12-02 07:59 | Outpatient (AMB) | payer OTHER, SELFPAY ==
--- OUTSIDE RECORDS SUMMARY | 2024-12-02 08:04 | XMS_ITS | Encounter Summary ---
Author Organization [employer] Address [address] [place] [address] [address] [place] [address] Care Team Providers Care Way Inspector Name Role Phone Billie Hdz Unavailable Unavailable Sanjeev Barbosa Primary Care Provider [phone] Encounter Details Date Type Department Care Team (Latest Contact Info) Description 03/04/2021 Abstract [facility] CONVERSIONS Dental, Provider, DDS Social History Tobacco Use Types Packs/Day Years Used Date Smoking Tobacco: Never Assessed Comments Unknown Sex and Gender Information Value Date Recorded Sex Assigned at Female 09/05/2022 10:24 AM EDT Legal Sex Female 10:24 AM EDT Gender Identity Female 09/05/2022 10:24 AM EDT Sexual Orientation Lesbian or Rogers 09/05/2022 10 :24 AM EDT documented as of this encounter Plan of Treatment Not on file documented as of this encounter Visit Diagnoses Not on filedocumented in this encounter Care Teams Way Inspector Relationship Specialty Start Date End Date Sanjeev Barbosa [address] [place] [address] PCP - General 08/30/24 Billie Hdz Health Navigator 07/22/24 documented as of this encounter
--- OUTSIDE RECORDS SUMMARY | 2024-12-02 08:04 | XMS_ITS | Clinical Summary ---
Author Organization [employer] Address [address] [place] [address] 7[address] [place] [address] Care Team Providers Care Honey Blender Name Role Phone Billie Hdz Thomas Primary Care Provider [phone] Active Problems Problem Noted Date Diagnosed Date PTSD (post-traumatic stress disorder) 07/29/2024 Positive screening for depre ssion on 9-item Patient Health Questionnaire (PHQ-9) 07/29/2024 Anxiety 07/25/2024 Social History Tobacco Use Types Packs/Day Years Used Date Smoking Tobacco: Never Assessed Depression Answer Date Recorded Patient Health Questionnaire-9 Score 4 07/25/2024 Patient Health Questionnaire-9 Score 4 07/25/2024 Last PHQ-9: Questionnaire Data Not on file 0 07/25/2024 Depression Answer Date Recorded Patient Health Questionnaire-2 Score 2 07/25/2024 Comments Unknown Sex and Gender Information Value Date Recorded Sex Assigned at Female 09/05/2022 10:24 AM EDT Legal Sex Female 10:24 AM EDT Gender Identity Female 09/05/2022 10:24 AM EDT Sexual Orientation Lesbian or Rogers 09/05/2022 10 :24 AM EDT Last Filed Vital Signs Vital Sign Reading Time Taken Comments Blood Pressure 110/70 02/15/2021 12:04 AM EDT Pulse - - Temperature - - Respiratory Rate - - Oxygen Saturation - - Inhaled Oxygen Concentration - - Weight - - Height - - Body Mass Index - - Plan of Treatment Health Maintenance Due Date Last Done Comments CT Colonography 1968 Colonoscopy 1968 Colorectal Cancer Screening 1968 FIT DNA/Cologuard 1968 FIT 1968 FOBT 1968 HIV Screening 1968 Lipid Panel 1968 SDOH Screening 1968 Sigmoidoscopy 1968 Alcohol/Substance Use Screening 1980 Tobacco Screening 1980 Hepatitis C Screening 1986 Hepatitis B Vaccines (1 of 3 - 19+ 3-dose series) 1987 Pap Smear 1989 Cervical Cancer Screening 1998 HPV/Cotest 1998 Mammogram 2008 Zoster Vaccines (1 of 2) 2018 COVID-19 Vaccine ( - season) 2024 09/18/2021, 12/08/2020, 11/17/2020 Influenza Vaccine (#1) 2024 , 07/15/2020, 08/29/2018, Additional history exists Depression Screening 07/25/2025 07/25/2024, 07/25/20 24 DTaP/Tdap/Td Vaccines (2 - Td or Tdap) 05/23/2027 05/23/2017, 12/08/2001 RSV Patients and Patients Aged 60 years or older (1 - 1-dose 75+ series) 2043 Pneumococcal Vaccine: Pediatrics (0 to 5 Years) and At-Risk Patients (6 to 64 Years) Completed 04/07/2023, 04/06/2017 HIB Vaccines Aged Out No longer eligi ble based on patient's age to complete this topic HPV Vaccines Aged Out No longer eligi ble based on patient's age to complete this topic Hepatitis A Vaccines Aged Out No long er eligible based on patient's age to complete this topic IPV Vaccines Aged Out No longer eligi ble based on patient's age to complete this topic Meningococcal Vaccine Aged Out No leslie angely eligible based on patient's age to complete this topic RSV under 20 months Aged Out No longe r eligible based on patient's age to complete this topic Rotavirus Vaccines Aged Out No longer eligible based on patient's age to complete this topic Insurance [facility] Care Teams Honey Blender Relationship Specialty Start Date End Date Sanjeev Barbosa [address] [place] [address] PCP - General 08/30/24 Billie Hdz Navigator 07/22/24
--- NOTE | 2024-12-02 08:20 | A.OFFPC_ITS ---
Vital Signs 12/02/24 08:24 Height 5 ft 1 in Weight 191 lb BMI 36.1 BP 118/68 Blood Pressure Location Rt brachial Position Sitting Respiration 12 Pulse 62 Pulse Source Pulse Oximeter Temp 97.6 F Temp Source Oral Pulse Oximetry (%) 98 Oxygen Delivery Method Room Air Intake Visit Reasons: 1 mo 30 min IFG/Wt loss Intake Note: 1 month follow up Telecommunication Systems Designer Required: No Allergies aspirin [ASA] Allergy (Severe, Verified 12/02/24 08:56) asthma exacerbation duloxetine [Cymbalta] Allergy (Intermediate, Verified 12/02/24 08:56) loopy gabapentin Allergy (Intermediate, Verified 12/02/24 08:56) loopy NSAIDS (Non-Steroidal Anti-Inflamma [NSAIDS (NON-STEROIDAL ANTI-INFLAMMA] Allergy (Intermediate, Verified 12/02/24 08:56) asthma exacerbation pregabalin Allergy (Intermediate, Verified 12/02/24 08:56) loopy tramadol [TRAMADOL] Allergy (Intermediate, Verified 12/02/24 08:56) tachycardia codeine [CODEINE] Allergy (Mild, Verified 12/02/24 08:56) Rash piperacillin [From Zosyn] Allergy (Mild, Verified 12/02/24 08:56) Rash tazobactam [From Zosyn] Allergy (Mild, Verified 12/02/24 08:56) Rash All SSRIs Allergy (Intermediate, Uncoded 12/02/24 08:56) nightmares Amitriptyline Allergy (Intermediate, Uncoded 12/02/24 08:56) tachycardia Medication List - Last Reconciled 12/02/24 by FUNMILAYO Cruz-SHAWN acetaminophen ER 1,300 mg (2 x 650 mg) PO Q8H PRN acyclovir 5% 1 appl topical 6XD 7 days Advair HFA 230-21 mcg/actuation (fluticasone propion-salmeterol) 2 puffs inhalation BID 30 days NS albuterol sulfate 90 mcg/actuation (Ventolin HFA) 2 puffs inhalation Q6H PRN 30 days alpha lipoic acid 300 mg PO DAILY 30 days B-complex with vitamin C 1 tab PO DAILY 30 days benzonatate 200 mg PO BID PRN 30 days celecoxib (Celebrex) 100 mg PO BID PRN cetirizine (Allergy Relief (cetirizine)) 10 mg PO DAILY cholecalciferol (vitamin D3) 50 mcg PO DAILY 90 days clonazepam 0.5 mg PO TID PRN dextroamphetamine-amphetamine 10 mg 1 tab PO BID dicyclomine 20 mg PO QID 30 days empagliflozin (Jardiance) 10 mg PO DAILY fexofenadine (Sandy Allergy) 180 mg PO DAILY fluoxetine 10 mg PO DAILY fluticasone propion-salmeterol 500-50 mcg/dose (Advair Diskus) 1 ea inhalation BID hyoscyamine sulfate 0.25 mg (2 x 0.125 mg) PO QID PRN ipratropium-albuterol 0.5 mg-3 mg(2.5 mg base)/3 mL 3 mL inhalation Q6H PRN levocetirizine 5 mg PO BEDTIME lidocaine 5% (Lidoderm) 1 patch topical DAILY 30 days magnesium oxide 500 mg PO DAILY 30 days melatonin 3 - 6 mg (1 - 2 x 3 mg) PO DAILY 30 days mometasone 50 mcg/actuation 2 sprays intranasal DAILY 90 days nebulizers As directed omeprazole 40 mg PO DAILY 90 days topiramate 25 - 50 mg (1 - 2 x 25 mg) PO BEDTIME 30 days valacyclovir 1,000 mg PO BID PRN vitamins A,C,N-wvih-xoojih 4,296 mcg-226 mg-90 mg (PreserVision AREDS) 1 cap PO BID Tobacco use date assessed: 12/12/23 Dental Screening Dental Screen Date: 04/18/24 HPI HPI Comments History of Present Illness Details 54-year-old female with sigmoid divertic ulitis, 1.3 cm simple renal cyst, moderate diffuse hepatic steaotosis, Asthma COPD overlap syndrome, MDD fi bromyalgia family history of premature CAD, GERD, sleep apnea on CPAP, low IGG, vitamin-D deficiency, neuropathy, hyperlipidemia, impaired fasting glucose, multi joint osteoarthritis osteopenia and chronic pain syndrome Status post laminoplasty, left knee surgery, partial hysterectomy, bilateral breast reduction, LEVI-BSO, spinal cord stimulator Specialist GI Pain management Pulmonology Sleep medicine Rheumatology Heme/Onc Maintenance Colonoscopy 08/01/2022 positive polyps repeat in 3 years (2024) Mammogram 10/31/2023 DEXA 02/2024 Osteopenia based on the lowest T-score value of -1.4 in the femoral neck applying World Health Organization criteria. The patient is a 54-year-old female presenting with follow-up for medically assisted weight loss, evaluation of R elbow pain, and concerns about a suspected kidney stone. She began a regimen of Jardiance 10 mg and was advised to maintain hydration. She has experienced minor side effects, such as feeling lightheaded if meals are missed, but no significant gastrointestinal or urinary complications, except frequent urination due to increased water intake. Since the last visit in October, she reports a weight loss of 5-6 pounds. The patient sustained an elbow injury in September while splitting and stacking wood, which has resulted in persistent pain on the lateral aspect of the right elbow between two muscles, exacerbated by turning movements. She describes guarding actions that impact her shoulder, hinting at possible compensatory rotator cuff soreness. Additionally, the patient reports a recent episode of Norovirus, leading to prolonged symptoms such as nausea and dry heaving. She believes she may have developed a kidney stone, noting a dull pain tracking from her right kidney region downward over the past three to four weeks, potentially influenced by a dietary change without honey. She has been drinking lemon h20 but this had honey in it so she stopped drinking to aide in wt loss. Wonders if stopping lemon water led to recurrence of the stones. She also discusses previous immunologic evaluations indicating declining IgG levels, which may require further investigation if drops continue. Unsure what to do. due for appt w/ pulm she is managed by allergy & immunology locally Social History - Engaged in physical activities, such a s wood splitting, contributing to elbow strain. - Significant emphasis on hydration and dietary changes, including vitamin supplementation, due to health conditions. Physical Exam awake alert NAD RRR LS CTAB R arm neurovasc intact, from, normal strength and tone, pain over lateral epicondyle with palpation and with internal and external rotation. Also c/o chronc R shoulder pain that is worse since the start of the elbow pain mood and affect appropriate Results - Labs: A1c improved today 6% Discussion Notes We discussed the patient?s ongoing management with Jardiance for weight loss and its potential mild side effects. I explained the importance of continuous monitoring, particularly her A1c levels and hydration to mitigate side effects. Regarding elbow pain, suggestive of overuse or strain, we explored its potential impact on her rotator cuff. We discussed further orthopedic examination. The patient described symptoms consistent with a kidney stone. I recommended a urinalysis to assess for hematuria to confirm this suspicion. We also reviewed her concerns regarding declining IgG levels, suggesting further immunological assessment if necessary in the [place] area. Patient Instructions - Continue Jardiance as prescribed, focu sing on hydration. - Engage in light activities and avoid o xochilt-straining the right elbow. - Orthopedic evaluation for elbow and sh oulder pain. - Collect a urine sample at home if unab le to do so in the office; return for analysis. - Contact the methods specialist to d iscuss declining IgG levels. - Schedule a follow-up appointment in for routine f/u sooner prn Plan - Continue Jardiance 10 mg for medical w eight loss; monitor hydration levels. - Advise orthopedic assessment for the r ight elbow pain and possibly the shoulder to evaluate and manage any injuries. - Recommend urine analysis to detect pos sible kidney stones. - Follow-up on reported IgG levels with immunology for potential further decline or required infusions. - Monitor overall health and assess the need for any changes in medication based on future lab results or medical evaluations. - Encourage regular physical activity wh ile avoiding movements that exacerbate elbow discomfort. UA doesnt indicate renal stone, message sent to portal ? check US ... asked she send me message back Patient was informed and verbally consented to the use of an ambient scribe for clinic note documentation during this visit. Total time spent caring for the patient today was 45 minutes. This includes time spent before the visit reviewing the chart, time spent during the visit, and time spent after the visit on documentation, reviewing laboratory results, diagnostic imaging, medications, performing a medically necessary evaluation, counseling on diagnoses, care coordination, ordering appropriate tests, ordering appropriate medications, review of tests performed by other providers, reporting test results with the patient, communication with other healthcare providers. [facility] Medical History (Updated 12/02/24 @ 09:06 by Joana Gilliam, [facility]) Nocturnal hypoxia Paresthesia Diverticulitis Herpes simplex Internal nasal lesion Osteopenia of femoral neck Weight gain Diarrhea Allergies Low back pain Family history of premature CAD Spinal cord stimulator dysfunction Anemia Blepharitis of both eyes Adult general medical exam IBS (irritable bowel syndrome) Left breast lump Tendinitis of left rotator cuff Rotator cuff tear Hypogammaglobulinemia Asthma-COPD overlap syndrome RUQ abdominal pain Chronic depression Fibromyalgia Asthma Surgical History S/P insertion of spinal cord stimulator History of abdominoplasty History of esophagogastroduodenoscopy (EGD) S/P bilateral breast reduction S/P LEVI-BSO H/O colonoscopy Spinal cord stimulator status Cataract, left eye Cataract, right eye History of sinus surgery History of left knee surgery History of partial hysterectomy Family History Father CVD (cardiovascular disease) Heart attack Mother CVD (cardiovascular disease) Heart attack Maternal Grandmother CVD (cardiovascular disease) Maternal Grandfather Colon cancer Paternal Grandmother No problems noted. Son No problems noted. Son No problems noted. Son No problems noted. 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 1. Little interest or pleasure in doing things: not at all 2. Feeling down, depressed, or hopeless: not at all 3. Trouble falling or staying asleep, or sleeping too much: not at all 4. Feeling tired or having little energy: not at all 5. Poor appetite or overeating: not at all 6. Feeling bad about yourself - or that you are a failure or have let yourself or your family down: not at all 7. Trouble concentrating on things, such as reading the newspaper or watching television: not at all 8. Moving or speaking so slowly that other people could have noticed. Or the opposite - being so fidgety or restless that you have been moving around a lot more than usual: not at all 9. Thoughts that you would be better off or of hurting yourself in some way: not at all Total score: 0 Depression Screening Interpretation: Negative Depression Screening Done: Yes 12465 - PHQ-9 Billing: Yes Source: Developed by Drs. Dayday Arias, Monika Dior, Herminio Clinton and colleagues, with an educational ross from [employer]. Thrive Questionnaire Date Thrive assessed: 12/02/24 I am a: Patient What is your living situation today?: I have a steady place to live Within the past 12 months, did the food you bought not last and you didn't have the money to get more?: I choose not to answer this question Within the past 12 months, did you worry whether your food would run out before you got money to buy more?: I choose not to answer this question Do you have trouble paying for medicines?: Yes Do you have trouble getting transportation to medical appointments?: No Do you have trouble paying your heating and electricity bill?: No Do you have trouble taking care of your child, family member or friend?: No Do you have trouble with day-to-day activities such as bathing, preparing meals, shopping, managing finances, etc.?: No Are you currently unemployed and looking for a job?: No Are you interested in more education?: No Please select the resources that you would like help with: None Currently or been in a relationship where the following occur: No concerns reported THRIVE Score: 0 AUDIT C Alcohol Use Questionnaire (AUDIT-C) 1. How often do you have a drink containing alcohol?: Monthly or less 2. How many drinks containing alcohol do you have on a typical day when you are drinking?: 1 or 2 3. How often do you have six or more drinks on one occasion?: Never Total Score: 1 Score Reviewed/Action Taken: Yes MURIEL-7 AMB Questionnaire MURIEL-7 Date MURIEL - 7 assessed: 12/02/24 Feeling nervous, anxious, or on edge: 0 = Not at all Not being able to stop or control worryin = Not at all Worrying too much about different things: 0 = Not at all Trouble relaxin = Not at all Being so restless that it is hard to sit still: 0 = Not at all Becoming easily annoyed or irritable: 0 = Not at all Feeling afraid as if something awful might happen: 0 = Not at all Total MURIEL-7 score (0-4 normal; 5-9 mild; 10-14 moderate; 15-21 severe): 0 Source: Developed by Drs. Dayday Arais, Monika Dior, Herminio Clinton and colleagues, with an educational ross from [employer]. MURIEL-7 Assessment Billing MURIEL-7 Assessment Tool: MURIEL-7 Assessment 89610 Physical exam (Primary Care) Vital Signs: Last Vital Signs Temp 97.6 F 12/02/24 08:24 Pulse 62 12/02/24 08:24 Resp 12 12/02/24 08:24 BP 118/68 12/02/24 08:24 Pulse Ox 98 12/02/24 08:24 Oxygen Delivery Method Room Air 12/02/24 08:24 BMI result Body Mass Index 36.1 Tobacco/Smoking Status: Tobacco use Status Tobacco use date assessed 12/12/23 12/02/24 08:26 Patient Tobacco Use Status Former Tobacco user 12/02/24 08:26 e-Cigarette/Vaping Use Never Used 12/02/24 08:26 PHQ-9: PHQ-9 Score PHQ-9: Total score 0 12/02/24 08:58 Depression Screening Interpretation: Negative Thrive Assessment: Date of Thrive Assessment Date Thrive assessed 12/02/24 12/02/24 08:26 Currently or been in a relationship where the following occur: No concerns reported Results AMB Hemoglobin A1c AMB Hemoglobin A1c 6.0 % Last Edit by Candida Bingham MA on 12/02/24 09:04 Results Reviewed Results Reviewed: Laboratory Last Values Hgb A1c (Clinic) 6.0 % (4.0-6.0) 12/02/24 08:55 RUN: 12/02/24 8254 PAGE 1 [facility] [address] [place] [phone] Client Manager Large Law: Sanjeev Perez M.D. Specimen Inquiry Name: Lucia Coleman Age/Sex: 54/F : 1970 Unit#: [id number] Attend Dr: Joana Gilliam Re12/02/24 Status: REG REF Location: [facility] Disch: SPEC : [id number] OG: 12/02/24 STATUS: COMP REQ : [id number] RECD: 12/02/24-[address]: Joana Gilliam COMP: 12/02/24 ENTERED: 12/02/[address]: ORDERED: [facility] w Micros QUERIES: Source: Urine, Clean Catch Test Result Flag Reference Ur Color Yellow Ur Appear Clear PH 6.0 5.0-9.0 Ur Glu >=1000 H Negative mg/dL Urine Blood Negative Negative Spec [place] Ur 1.015 1.005-1.025 Urine Protein Negative Neg-Trace mg/dL Urine Ketones Negative Negative mg/dL Ur Nitrite Negative Negative Ur [place] Esterase Negative Negative Ur RBC 0-2 0-2 /HPF Ur WBC 0-5 0-5 /HPF Ur Squam Epi 0-2 0-2 /HPF Ur Bact None Seen None Seen Ur [place] [employer] 0-2 0-2 /LPF END OF REPORT Coding Level of Care Code Est Pt Level 5 (87541) Complex EM visit Add On G2211 Diagnoses Elevated fasting glucose R73.01 Obesity (BMI 30-39.9) E66.9 Right flank pain R10.9 History of renal calculi Z87.442 Right elbow pain M25.521 Hypogammaglobulinemia D80.1 Additional Codes MURIEL-7 Assessment Billing - MURIEL-7 Assessment Tool: MURIEL-7 Assessment 91096 ([id number]) PHQ-9 - 07697 - PHQ-9 Billing: Yes ([id number]) Assessment & Plan Assessment & Plan (1) Elevated fasting glucose: Code(s): R73.01 - Impaired fasting glucose Category: Medical (2) Obesity (BMI 30-39.9): Comment: lifestyle - she is trying to lose weight Code(s): E66.9 - Obesity, unspecified Category: Medical (3) Right flank pain: Code(s): R10.9 - Unspecified abdominal pain Category: Medical (4) History of renal calculi: Code(s): Z87.442 - Personal history of urinary calculi Category: Medical (5) Right elbow pain: Code(s): M25.521 - Pain in right elbow Category: Medical (6) Hypogammaglobulinemia: Code(s): D80.1 - Nonfamilial hypogammaglobulinemia Category: Medical Plan . Orders: Orders AMB Hemoglobin A1c Today Z13.9 - Encounter for screening, unspecified UA CC w/rflx Micro + Cult Today E66.9 - Obesity, unspecified, R10.9 - Unspecified abdominal pain, R73.01 - Impaired fasting glucose, Z87.442 - Personal history of urinary calculi Referrals Orthopedics Referral M25.511 - Pain in right shoulder, M25.521 - Pain in right elbow
[2024-12-02 08:24] VITALS: BP 118/68; PULSE 62; RESP 12; TEMP 36.4; O2SAT 98; BMI 36.1
== END 2024-12-02 10:35 | disposition home or self-care (01) ==
PROVIDERS: PCP Nurse Practitioner Family; Visit Provider Nurse Practitioner Family
DX: R73.01 Impaired fasting glucose (principal); E66.9 Obesity, unspecified; R10.9 Unspecified abdominal pain; Z87.442 Personal history of urinary calculi; M25.521 Pain in right elbow; D80.1 Nonfamilial hypogammaglobulinemia; Z13.9 Encounter for screening, unspecified; Z68.36 Body mass index [BMI] 36.0-36.9, adult

== ENCOUNTER 2024-12-02 09:15 | Outpatient (REF) | payer OTHER, SELFPAY ==
[2024-12-02 11:33] LABS: Appearance Urine Clear; Color Urine Yellow; Glucose Urine UA >=1000 mg/dL (Negative); Leukocyte Esterase Urine Negative (Negative); Nitrite Urine Negative (Negative); Specific Gravity - Urine 1.015 (1.005-1.025); UMIC TRIGGER UACC YES; Urine Blood Negative (Negative); Urine Ketones Negative (Negative); Urine Protein Negative (Neg-Trace)
[2024-12-02 11:39] LABS: Bacteria Urine None Seen (None Seen); Hyaline Casts Urine 0-2 /LPF (0-2); RBC Urine 0-2 /HPF (0-2); Squamous Epithelial Cell Urine 0-2 /HPF (0-2); WBC Urine 0-5 /HPF (0-5)
--- OUTSIDE RECORDS SUMMARY | 2024-12-02 13:37 | XMS_ITS | Encounter Summary ---
Author Organization [employer] [facility] Address [address] [place] [address] [address] [place] [address] Care Team Providers Care Welding Pantograph Operator Name Role Phone Billie Hdz Unavailable Unavailable Sanjeev Barbosa Primary Care Provider [phone] Encounter Details Date Type Department Care Team (Latest Contact Info) Description 03/04/2021 Abstract [facility] CONVERSIONS Dental, Provider, DDS Social History Tobacco [...] on filedocumented in this encounter Care Teams Welding Pantograph Operator Relationship Specialty Start Date End Date Sanjeev Barbosa [address] [place] [address] PCP - General 08/30/24 Billie Hdz Health Navigator 07/22/24 documented as of this encounter
--- OUTSIDE RECORDS SUMMARY | 2024-12-02 13:37 | XMS_ITS | Clinical Summary ---
Author Organization [email or web address] Address [address] [place] [address] [address] [place] [address] Care Team Providers Care Production Team Leader Name Role Phone Billie Hdz Thomas Primary Care Provider [phone] Active Problems Problem Noted Date Diagnosed Date [...] patient's age to complete this topic Insurance [facility] Care Teams Production Team Leader Relationship Specialty Start Date End Date Sanjeev Barbosa [address] [place] [address] PCP - General 08/30/24 Billie Hdz Navigator 07/22/24
== END 2024-12-02 09:16 | disposition home or self-care (01) ==
LOC: HO.WFDLDS 09:15
PROVIDERS: Visit Provider Nurse Practitioner Family
DX: R73.01 Impaired fasting glucose (principal); E66.9 Obesity, unspecified; Z68.36 Body mass index [BMI] 36.0-36.9, adult; R10.9 Unspecified abdominal pain; M25.521 Pain in right elbow; D80.1 Nonfamilial hypogammaglobulinemia; Z87.442 Personal history of urinary calculi
CPT/HCPCS: 81001; 83036; 96127; 99212

== ENCOUNTER → 2024-12-09 07:48 | Outpatient (BNV) | payer OTHER, SELFPAY | PROVIDERS: PCP Nurse Practitioner Family; Visit Provider Radiology Diagnostic Radiology | DX: Z87.442 Personal history of urinary calculi (principal) | CPT/HCPCS: 76775 ==

== ENCOUNTER 2024-12-26 13:07 | Outpatient (AMB) | payer OTHER, SELFPAY ==
[2024-12-26 13:12] VITALS: BP 130/78; PULSE 70; O2SAT 97; BMI 36.2
--- NOTE | 2024-12-26 13:12 | A.OFFVIS_ITS ---
Vital Signs 12/26/24 13:12 Height 5 ft 1 in Weight 191 lb 12.835 oz BMI 36.2 BP 130/78 Blood Pressure Location Rt brachial Position Sitting Pulse 70 Pulse Source Pulse Oximeter Pulse Oximetry (%) 97 Oxygen Delivery Method Room Air Intake Visit Reasons: Obstructive sleep apnea Allergies aspirin [ASA] Allergy (Severe, Verified 12/26/24 13:17) asthma exacerbation duloxetine [Cymbalta] Allergy (Intermediate, Verified 12/26/24 13:17) loopy gabapentin Allergy (Intermediate, Verified 12/26/24 13:17) loopy NSAIDS (Non-Steroidal Anti-Inflamma [NSAIDS (NON-STEROIDAL ANTI-INFLAMMA] A llergy (Intermediate, Verified 12/26/24 13:17) asthma exacerbation pregabalin Allergy (Intermediate, Verified 12/26/24 13:17) loopy tramadol [TRAMADOL] Allergy (Intermediate, Verified 12/26/24 13:17) tachycardia codeine [CODEINE] Allergy (Mild, Verified 12/26/24 13:17) Rash piperacillin [From Zosyn] Allergy (Mild, Verified 12/26/24 13:17) Rash tazobactam [From Zosyn] Allergy (Mild, Verified 12/26/24 13:17) Rash All SSRIs Allergy (Intermediate, Uncoded 12/26/24 13:17) nightmares Amitriptyline Allergy (Intermediate, Uncoded 12/26/24 13:17) tachycardia HPI Comments Details: The patient is a 54 year woman with the history of worsening cough. Apparently she developed pneumonia several times. The last time she developed pneumonia was back in December. Significant left-sided extensive airspace disease noted. The patient was given antibiotics and also prednisone. She seems to respond well to prednisone. Now she has this persistent cough. I also shortness of breath and chest tightness. The patient has been evaluated multiple times without a clear etiology of her pneumonias. Not clear why she has recurrent ep isodes. I did review the x-ray from December subsequently after that she had an x-ray in January that demonstrated interval resolution of the process. Is not clear if this is infectious or noninfectious pneumonias. Will assess for underlying connective tissue conditions. Also will assess her for immunodeficiencies. We did review her pulmonary function studies that she had back in 2016. no evidence of any obstructive ventilatory defects although I explained to her that this does not rule out asthma. The patient does have chest tightness at times. She also has a prolonged expiratory phase. Will provide her with respiratory therapy at this time. 09/15/2023 the patient is here for pulmonary follow-up visit. Overall she is doing well. She recently was evaluated by our office for an acute exacerbation of her breathing. She is back to her baseline now. She is off the prednisone. The patient did undergo blood work demonstrating slight decrease in the IgG otherwise all the other rest of the blood work was reassuring. The patient did also have a CT scan of the chest that was personally by me chest minimal atelectasis nothing to explain her airspace disease. The patient does und erstand that her findings on the x-rays are consistent with a pneumonic process and likely bacterial in origin. Therefore in view of her we can immune system we can consider prophylactic antibiotics to see we can decrease her infectious recurrence. Also will be reasonable if she has any further events to perform bronchoscopy to further address the airways and look for any smoldering infections. The patient is working closely with allergy immunology. She should have her subclasses checked as far as her IgG and if they are low consider challenging with a vaccine to see if she has a proper response to vaccine therapy. The patient will continue with current respiratory therapy will follow-up in a couple months. She also need an EKG. 11/24/2023 the patient is here for a pulmonary follow-up visit. Since we last spoke she developed COVID 19. Does back in October. She still feels like she has not back to her baseline. Prior to that we had try the azithromycin 3 times a week for her chronic bronchitis. The patient states that it was partially helpful although her cough and chest congestion has not improved. She is feeling like she will need prednisone soon. 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 Explained to her that with the hypogammaglobulinemia this could result in more recurrent infections and also result in slower recovery time. She is already on supplements. Will will check her levels sometime in the springtime or she can follow-up with [facility]. Based on the fact the patient has evidence of chronic bronchitis requiring frequent courses of prednisone she will be a great candidate for Daliresp. Will go ahead started on low-dose of the Daliresp and workup to the therapeutic dose as tolerated. In addition to that will also optimize her respiratory therapy by switching her from the Advair to Trelegy. The patient will return to 4 months to assess her progress. If she is ready to increase the Daliresp prior to her arrival she can always call. 03/19/2024 the patient is here for a pulmonary follow-up visit. Since we last spoke she has had a difficult time with diverticulitis. She was admitted to the hospital couple times. The patient did respond to antibodies in the not need surgery. She had abnormal CT scans of the chest. The patient has had issues with recurrent infections. She does not have evidence of hypogammaglobulinemia. She is following both Rheumatology and also with Allergy immunology myself. The patient would benefit from IVIG specially if her workup continues to be inconclusive specially for malignancies. The patient continues to struggle with her breathing. Complains of dyspnea on exertion moderate severity even with minimal activity. She responds well to the Advair I do not believe she has any obstructive airway component. Her PFTs were also reassuring without any evidence of restriction and normal diffusing capacity. Likely her work of breathing is increased due to her systemic condition. She did respond well to the Daliresp which is an anti-inflammatory although then started developing abdominal pain so at this point would like to hold off. The patient is also contemplating going to [place] for 2nd opinion which I believe is being worked down right now. If workup is negative for malignancy then I do believe that a trial of IVIG would be helpful to try to minimize infectious processes. In meantime she has been using the CPAP the CPAP therapy has been affecting beneficial and she has been using about 4 hours a night. The patient's AHI is good around 1.3 events per hour. Her average pressure varies between 6-9 cm water. She feels like the pressures are too low. I did adjust the pressures up from 5-6 minimum pressure and maximum pressure now is 14. If she still has difficulties tolerating the pressure she can always call and I can increase the pressures a little bit more. 07/01/2024 the patient is here for a pulmonary follow-up visit. Overall she is doing okay from a respiratory status. She did finally get the Advair HFA. She is starting to get used to it. I will provide her with a spacer in order for her to be able to affectively administer the medication. I hope that it works as same as Diskus for her. In the meantime she will continue with the other allergy medicine. the patient is currently being evaluated by Neurology for the possibility of neuromuscular disease including myasthenia gravis. In addition to that the patient did have blood work done including IgG level that was low normal. She does have a low subclass specific disease. Will continue to monitor her. At this point the patient does not require IVIG infusions. Will see how she progresses. And also, the patient has been using her CPAP. Al though the mask is uncomfortable has not significant of pressure of the sinuses and marking her face significantly. I do believe a foam mask may work a little better were may not pressor hardening her sinuses or her face. I did call [employer] order to seem therefore can switch her mask specially since she recently ordered. She does work of [employer]. And I did give her information for her to return any supplies that she receives at this time. She will continue with the current respiratory therapy follow-up neurology in continue with CPAP at this time. The patient follow-up in 4-6 months. If she has not other issues she will call for an earlier assessment. 12/26/2024 the patient is here for pulmonary follow-up visit. She is still struggling with recurrent infections. She states she had the norovirus and she also had a virus before that. Now she feels like she is getting another respiratory infection. Seems like she has not been up to have a. Without being sick. She has been concerned also because her new system being weak. Her IgG levels have been low specially her subclass 1. To go be reasonable to further look into this. She is currently sick right now so she is not going to get blood work but when she is no longer sick she can go and get some blood work to address the issue. I explained to her that another option is use prophylactic antibiotics for her immunodeficiency. Then the ultimate option would be if her levels continued to be lower lower and she continues to be sickly then IVIG infusions will be helpful as well. Also to note because of the significant coughing and nasal congestion she has not been able to use her CPAP regularly. I did adjusted for her in order for her to use it the next time hopefully she can not tolerate a little bit better. [facility] Medical History (Updated 12/26/24 @ 20:47 by Sebastian Tirado MD) Allergies Nocturnal hypoxia Paresthesia Diverticulitis Herpes simplex Internal nasal lesion Osteopenia of femoral neck Weight gain Diarrhea Low back pain Family history of premature CAD Spinal cord stimulator dysfunction Anemia Blepharitis of both eyes Adult general medical exam IBS (irritable bowel syndrome) Left breast lump Tendinitis of left rotator cuff Rotator cuff tear Hypogammaglobulinemia Asthma-COPD overlap syndrome RUQ abdominal pain Chronic depression Fibromyalgia Asthma Surgical History S/P insertion of spinal cord stimulator History of abdominoplasty History of esophagogastroduodenoscopy (EGD) S/P bilateral breast reduction S/P LEVI-BSO H/O colonoscopy Spinal cord stimulator status Cataract, left eye Cataract, right eye History of sinus surgery History of left knee surgery History of partial hysterectomy Family History Father CVD (cardiovascular disease) Heart attack Mother CVD (cardiovascular disease) Heart attack Maternal Grandmother CVD (cardiovascular disease) Maternal Grandfather Colon cancer Paternal Grandmother No problems noted. Son No problems noted. Son No problems noted. Son No problems noted. 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 Current occupational exposures/hazards: No Sexual orientation: Unable to collect Gender identity: Unable to collect Cognitive needs: No Hearing needs: No Vision needs: No Review of Systems Const Denies chills, Reports fatigue, Denies fever(s), Denies headache(s) and Denies weakness ENT Reports Normal hearing present, Denies dizziness and Denies headache(s) Card Denies chest pain, Denies lightheadedness, Denies dyspnea, Reports dyspnea on exertion and Denies other (Palpitations) Resp Reports chest congestion, Reports cough, Denies dyspnea, Reports dyspnea on exertion and Denies other ( shortness of breath) GI Reports as per HPI Musc Reports as per HPI, Denies numbness and Denies tingling Neuro Reports Normal hearing present, Denies Abnormal speech present, Denies dizziness, Denies headache(s), Denies numbness, Denies tingling, Denies p aresthesias and Denies weakness Psych Denies anxiety and Denies depression Endo Reports fatigue Physical Exam Vital Signs: Last Vital Signs Pulse 70 12/26/24 13:12 BP 130/78 12/26/24 13:12 Pulse Ox 97 12/26/24 13:12 Oxygen Delivery Method Room Air 12/26/24 13:12 BMI result Body Mass Index 36.2 Const General: cooperative, comfortable and no acute distress Orientation/consciousness: oriented to person, oriented to place and oriented to time HEENT Head: Yes normocephalic and Yes atraumatic Eyes General: appearance normal, both eyes and all related structures Pupils: Equal, round and reactive pupils present EOM: EOMs intact bilaterally Neck Neck: Yes supple Chest Chest palpation & inspection: normal inspection of the chest Resp Other: Crackles at bilateral bases, worse on L than R Effort & Inspection: normal respiratory effort and able to speak in complete sentences Auscultation: clear to auscultation bilaterally Cardio Rate: regular rate Rhythm: regular rhythm Heart sounds: Normal, physiologic split S2 sound present Peripheral pulses: radial pulses present and posterior tibial pulses present GI Inspection: No distended, Yes Abdominal panniculus present and Yes obesity Palpation (GI): Soft to palpation, Tenderness to palpation present (GI) in the RLQ, no guarding, not rigid and No hepatosplenomegaly present Percussion: Yes normal to percussion Auscultation: normal bowel sounds Rectal Exam - Female: deferred Skin General skin exam: no rashes or lesions noted, turgor normal, skin not dry, no jaundice, No spider nevi and no striae Rashes: no rashes Nails: normal Neuro General: oriented to person, oriented to place and oriented to time Cranial nerves: Yes Equal, round and reactive pupils present and Yes Normal hearing present Speech: No Abnormal speech present Extrem General: Yes normal to inspection, No clubbing, No cyanosis and No edema Psych Appearance: grossly normal and well kempt Mental Status: mental status grossly normal Speech and movement: Normal speech and movement present Affect: normal affect Attitude: cooperative Thought process: Normal thought process present and not confabulating Thought content: Normal thought content present Insight: Fair insight present (Psych) Judgement: Fair judgement present (Psych) Assessment & Plan Assessment & Plan (1) Asthma: Code(s): J45.909 - Unspecified asthma, uncomplicated Category: Medical Qualifiers: Asthma complication type: uncomplicated Asthma persistence: persistent Asthma severity: moderate Qualified Code(s): J45.40 - Moderate persistent asthma, uncomplicated (2) Hypogammaglobulinemia: Code(s): D80.1 - Nonfamilial hypogammaglobulinemia Category: Medical (3) NILTON (obstructive sleep apnea): Comment: Moderate degree of sleep apena. The AHI was 15/hr and oxygen ingris was 80%. The total duration of O2 sat <88 % was 70 min. Code(s): G47.33 - Obstructive sleep apnea (adult) (pediatric) Category: Medical (4) Asthma-COPD overlap syndrome: Code(s): J44.89 - Other specified chronic obstructive pulmonary disease Category: Medical (5) Allergies: Code(s): T78.40XA - Allergy, unspecified, initial encounter Category: Medical Qualifiers: Encounter type: subsequent encounter Qualified Code(s): T78.40XD - Allergy, unspecified, subsequent encounter Plan continue advair HFA w spacer YURI as needed start Zpack continue APAP 6-14_>7-16 Bloodwork and allergy testing consider IVIG therapy F/U in 6 months Orders: Orders Complete Blood Count Auto Diff Today D80.1 - Nonfamilial hypogammaglobulinemia, J44.89 - Other specified chronic obstructive pulmonary disease Resp Allergy Profile Region I Today D80.1 - Nonfamilial hypogammaglobulinemia, J44.89 - Other specified chronic obstructive pulmonary disease, R91.1 - Solitary pulmonary nodule, T78.40XA - Allergy, unspecified, initial encounter Basic Metabolic Panel Today D80.1 - Nonfamilial hypogammaglobulinemia, J44.89 - Other specified chronic obstructive pulmonary disease Immunoglobulin G Subclasses Today D80.1 - Nonfamilial hypogammaglobulinemia, J44.89 - Other specified chronic obstructive pulmonary disease Immunoglobulin E Today D80.1 - Nonfamilial hypogammaglobulinemia, J44.89 - Other specified chronic obstructive pulmonary disease Immunoglobulins,IgG IgA IgM Today D80.1 - Nonfamilial hypogammaglobulinemia, J44.89 - Other specified chronic obstructive pulmonary disease Erythrocyte Sedimentation Rate Today D80.1 - Nonfamilial hypogammaglobulinemia, J44.89 - Other specified chronic obstructive pulmonary disease S pneumoniae IgG Ab 23 Today D80.1 - Nonfamilial hypogammaglobulinemia, J44.89 - Other specified chronic obstructive pulmonary disease Tetanus Antitoxiod Antibody Today D80.1 - Nonfamilial hypogammaglobulinemia, J44.89 - Other specified chronic obstructive pulmonary disease Medications: New azithromycin 500 mg PO DAILY 5 tabs 0RF 5 days Coding Level of Care Code Est Pt Level 4 (07015) Complex EM visit Add On G2211 Diagnoses Moderate persistent asthma without complication J45.40 Asthma complication type: uncomplicated Asthma persistence: persistent Asthma severity: moderate Hypogammaglobulinemia D80.1 NILTON (obstructive sleep apnea) G47.33 Asthma-COPD overlap syndrome J44.89 Allergy, subsequent encounter T78.40XD Encounter type: subsequent encounter Time Spent (min) 18
--- OUTSIDE RECORDS SUMMARY | 2024-12-26 14:03 | XMS_ITS | Clinical Summary ---
Author Organization [employer] Address [address] [place] [address] [address] [place] [address] Care Team Providers Care History Card Clerk Name Role Phone Billie Hdz Thomas Primary Care Provider [phone] Active Problems Problem Noted Date Diagnosed Date [...] - 1-dose 75+ series) 2043 Pneumococcal Vaccine: 50+ Years Completed 04/07/2023, 04/06/2017 HIB Vaccines Aged Out [...] patient's age to complete this topic Insurance [place] [address] Care Teams History Card Clerk Relationship Specialty Start Date End Date Sanjeev Barbosa [address] [place] [id number] PCP - General 08/30/24 Billie Hdz Health Navigator 07/22/24
--- OUTSIDE RECORDS SUMMARY | 2024-12-26 14:03 | XMS_ITS | Encounter Summary ---
Author Organization [facility] Address [address] [place] [address] [address] [place] [address] Care Team Providers Care Final Application Reviewer Name Role Phone Billie Hdz Unavailable Unavailable Sanjeev Barbosa Primary Care Provider [phone] Encounter Details Date Type Department Care Team (Latest Contact Info) Description 03/04/2021 Abstract [facility] CONVERSIONS Dental, Provider, DDS Social History Tobacco [...] on filedocumented in this encounter Care Teams Final Application Reviewer Relationship Specialty Start Date End Date Sanjeev Barbosa [address] [place] [phone] PCP - General 08/30/24 Billie Hdz Health Navigator 07/22/24 documented as of this encounter
== END 2024-12-26 13:51 | disposition home or self-care (01) ==
PROVIDERS: PCP Family Medicine; Visit Provider Hospitalist
DX: J45.40 Moderate persistent asthma, uncomplicated (principal); D80.1 Nonfamilial hypogammaglobulinemia; G47.33 Obstructive sleep apnea (adult) (pediatric); J44.89 Other specified chronic obstructive pulmonary disease; T78.40XD Allergy, unspecified, subsequent encounter
CPT/HCPCS: 99214; G2211

== ENCOUNTER → 2024-12-26 13:07 | Outpatient (BNVA) | payer OTHER, SELFPAY | PROVIDERS: PCP Family Medicine; Visit Provider Hospitalist | DX: G47.33 Obstructive sleep apnea (adult) (pediatric) (principal); J45.40 Moderate persistent asthma, uncomplicated; J44.89 Other specified chronic obstructive pulmonary disease; D80.1 Nonfamilial hypogammaglobulinemia; T78.40XD Allergy, unspecified, subsequent encounter | CPT/HCPCS: 99212 ==

== ENCOUNTER 2024-12-31 08:14 | Outpatient (AMB) | payer OTHER, SELFPAY ==
[2024-12-31 08:25] VITALS: BP 124/80; PULSE 75; O2SAT 97; BMI 36.5
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
--- OUTSIDE RECORDS SUMMARY | 2024-12-31 08:35 | XMS_ITS | Encounter Summary ---
Author Organization [employer] [facility] Address [address] [place] [address] [address] [place] [address] Care Team Providers Care Construction Driller Name Role Phone Billie Hdz Unavailable Unavailable Sanjeev Barbosa Primary Care Provider [phone] Encounter Details Date Type Department Care Team (Latest Contact Info) Description 03/04/2021 Abstract [facility] CONVERSIONS Dental, Provider, DDS Social History Tobacco [...] on filedocumented in this encounter Care Teams Construction Driller Relationship Specialty Start Date End Date Sanjeev Barbosa [address] [place] [phone] PCP - General 08/30/24 Billie Hdz Health Navigator 07/22/24 documented as of this encounter
--- OUTSIDE RECORDS SUMMARY | 2024-12-31 08:35 | XMS_ITS | Clinical Summary ---
Author Organization [employer] [facility] [employer] Address [address] [place] [address] [address] [place] [address] Care Team Providers Care Stallion Keeper Name Role Phone Billie Hdz Thomas Primary Care Provider [phone] Active Problems Problem Noted Date Diagnosed Date [...] patient's age to complete this topic [place] [address] Care Teams Stallion Keeper Relationship Specialty Start Date End Date Sanjeev Barbosa [address] [place] [phone] PCP - General 08/30/24 Billie Hdz Health Navigator 07/22/24
== END 2024-12-31 09:33 | disposition home or self-care (01) ==
PROVIDERS: PCP Family Medicine; Visit Provider Nurse Practitioner Family
DX: R41.82 Altered mental status, unspecified (principal); G57.93 Unspecified mononeuropathy of bilateral lower limbs; M62.838 Other muscle spasm; H02.409 Unspecified ptosis of unspecified eyelid; R29.6 Repeated falls; R29.898 Other symptoms and signs involving the musculoskeletal system; R20.2 Paresthesia of skin
CPT/HCPCS: 99214

== ENCOUNTER → 2024-12-31 08:14 | Outpatient (BNVA) | payer OTHER, SELFPAY | PROVIDERS: PCP Family Medicine; Visit Provider Nurse Practitioner Family | DX: R41.82 Altered mental status, unspecified (principal); G57.93 Unspecified mononeuropathy of bilateral lower limbs; M62.838 Other muscle spasm; H02.409 Unspecified ptosis of unspecified eyelid; R29.6 Repeated falls; R29.898 Other symptoms and signs involving the musculoskeletal system; R20.2 Paresthesia of skin; G03.9 Meningitis, unspecified; R32 Unspecified urinary incontinence | CPT/HCPCS: 99212 ==

== ENCOUNTER 2025-01-02 07:58 | Outpatient (REF) | payer OTHER, SELFPAY ==
--- OUTSIDE RECORDS SUMMARY | 2025-01-02 08:07 | XMS_ITS | Clinical Summary ---
Author Organization [employer] Address [address] [place] [address] [address] [place] [address] Care Team Providers Care Ski Lift Mechanic Name Role Phone Billie Hdz Thomas Primary Care Provider [phone] Active Problems Problem Noted Date Diagnosed Date [...] patient's age to complete this topic [place] [address] [place] [address] Care Teams Ski Lift Mechanic Relationship Specialty Start Date End Date Sanjeev Barbosa [address] [place] [phone] PCP - General 08/30/24 Billie Hdz Health Navigator 07/22/24
--- OUTSIDE RECORDS SUMMARY | 2025-01-02 08:07 | XMS_ITS | Encounter Summary ---
Author Organization [employer] [facility] Address [address] [place] [address] [address] [place] [address] Care Team Providers Care Behavioral Therapist Name Role Phone Billie Hdz Unavailable Unavailable Sanjeev Barbosa Primary Care Provider [phone] Encounter Details Date Type Department Care Team (Latest Contact Info) Description 03/04/2021 Abstract [facility] CONVERSIONS Dental, Provider, DDS Social History Tobacco [...] on filedocumented in this encounter Care Teams Behavioral Therapist Relationship Specialty Start Date End Date Sanjeev Barbosa [address] [place] [phone] PCP - General 08/30/24 Billie Hdz Health Navigator 07/22/24 documented as of this encounter
[2025-01-02 08:13] LABS: MANUAL DIFF FLAG NO
[2025-01-02 09:19] LABS: Basophils Percent Auto 0.5 % (0-2); Eosinophils Absolute Auto 0.1 X10*3/uL (0.0-0.4); Eosinophils Percent Auto 1.5 % (0-4); Hemoglobin 14.4 g/dl (12.0-16.0); Imm Gran Abs Auto 0.02 X10*3/uL (0.00-0.03); Imm Gran Pct Auto 0.3 % (0.0-0.4); Lymphocytes Percent Auto 27.1 % (20-40); Mean Corpuscular Hemoglobin 29.1 pg (27.0-33.0); Mean Corpuscular Volume 91.1 fL (80.0-98.0); Mean Platelet Volume 9.7 fL (9.4-12.3); Monocytes Absolute Auto 0.5 X10*3/uL (0.1-1.2); Monocytes Percent Auto 6.4 % (2-11); Neutrophils Absolute Auto 4.7 x10*3/uL (2.0-8.3); Neutrophils Percent Auto 64.2 % (45-73); Platelet Count 254 X10*3/uL (160-400); Red Blood Count 4.94 X10*6/uL (4.20-5.50); Red Cell Distribution Width 14.3 % (11.0-16.0); White Blood Count 7.4 X10*3/uL (4.8-10.8)
[2025-01-02 09:53] LABS: Anion Gap 14 (12-20); Blood Urea Nitrogen 20 mg/dL (9-16); Calcium 9.8 mg/dL (8.4-10.2); Carbon Dioxide 26 mmol/L (22-29); Chloride 106 mmol/L (96-108); Estimated Glomerular Filt Rate > 60; Glucose Random 126 mg/dL (60-115); Potassium 4.2 mmol/L (3.3-5.1); Sodium 142 mmol/L (135-145)
[2025-01-02 09:59] LABS: Erythrocyte Sedimentation Rate 19 MM/HR (0-20)
[2025-01-03 11:59] LABS: Immunoglobulin G Subclass 1 310 mg/dL (382-929); Immunoglobulin G Subclass 2 262 mg/dL (241-700); Immunoglobulin G Subclass 3 31 mg/dL (22-178); Immunoglobulin G Total 595 mg/dL (600-1640)
[2025-01-03 19:18] LABS: IgA 134 mg/dL (47-310); IgG 678 mg/dL (600-1640); IgM 100 mg/dL (50-300)
[2025-01-06 19:03] LABS: Tetanus Antitoxiod Antibody 0.42 IU/mL
[2025-01-07 04:04] LABS: Class Alternaria alternata 0; Class Aspergillus fumigatus 0; Class Bermuda Grass 0; Class Birch 0; Class Cat Dander 0; Class Cladosporium herbarum 0; Class Cockroach 0; Class Common Ragweed 0; Class Cottonwood 0; Class Derm. pterony 0; Class Dermatophagoides farinae 0; Class Dog Dander 0; Class Elm 0; Class Maple Box Elder 0; Class Mountain Cedar 0; Class Mouse Urine Protein 0; Class Mugwort 0; Class Oak 0; Class Penicillium crysogenum 0; Class Rough Pigweed 0; Class Sheep Sorrel 0; Class Sycamore 0; Class Timothy Grass 0; Class Walnut Tree 0; Class White Ash 0; Class White Mulberry 0; D001 IgE D pteronyssinus <0.10 kU/L; D002 - IgE D farinae <0.10 kU/L; E001 - IgE Cat Dander <0.10 kU/L; E005 - IgE Dog Dander <0.10 kU/L; E072-IgE Mouse Urine <0.10 kU/L; G002 IgE Bermuda Grass <0.10 kU/L; G006 - IgE Timothy Grass <0.10 kU/L; I006-IgE Cockroach, German <0.10 kU/L; Immunoglobulin E 4 kU/L (<OR=114); M001 IgE Penicillium chrysogen <0.10 kU/L; M002 - IgE Cladosporium herbar <0.10 kU/L; M003 - IgE Aspergillus fumigat <0.10 kU/L; M006 - IgE Alternaria alternat <0.10 kU/L; T001 IgE Maple/Box Elder <0.10 kU/L; T003 IgE Common Silver Birch <0.10 kU/L; T006 - IgE Cedar, Mountain <0.10 kU/L; T007 - IgE Oak, White <0.10 kU/L; T008 IgE Elm, American <0.10 kU/L; T010 - IgE Walnut <0.10 kU/L; T011 - IgE Maple Leaf Sycamore <0.10 kU/L; T014 - IgE Cottonwood <0.10 kU/L; T015 - IgE Ash, White <0.10 kU/L; T070 - IgE White Mulberry <0.10 kU/L; W001 - IgE Ragweed, Short <0.10 kU/L; W006 - IgE Mugwort <0.10 kU/L; W014 IgE Pigweed, Common <0.10 kU/L; W018 IgE Sheep Sorrel <0.10 kU/L
== END 2025-01-02 07:59 | disposition home or self-care (01) ==
LOC: HO.LAB 07:58
PROVIDERS: Absent Provider Nurse Practitioner Family; PCP Nurse Practitioner Family; Visit Provider Hospitalist
DX: D80.1 Nonfamilial hypogammaglobulinemia (principal); J44.89 Other specified chronic obstructive pulmonary disease; R91.1 Solitary pulmonary nodule; T78.40XA Allergy, unspecified, initial encounter
CPT/HCPCS: 36415; 80048; 82784; 82785; 85025; 85652; 86003; 86317; 86774

== ENCOUNTER 2025-01-17 09:59 | Outpatient (REF) | payer OTHER, SELFPAY ==
--- NOTE | ~2025-01-17 | MR_ITS ---
CLINICAL HISTORY: G03.9 - Meningitis, unspecified; URINARY INCONTINENCE; ARACHNOIDITIS MR lumbar spine without gadolinium Comparison: MR/REG/SR - MR LUMBAR SPINE WO CON - 06/23/22 16:43 EDT CR - LUMBAR SPINE 2TO 3 [id number] - 04/15/16 13:58 EDT Findings: 5 lumbar type vertebral bodies are present by plain film. Alignment is normal. No acute fracture or pathologic bone lesion. Cauda equina and conus medullaris within normal limits. Paraspinous musculature intact. L1-L2: No significant canal nor foraminal stenosis. L2-L3:No significant canal nor foraminal stenosis. L3-L4:Mild disc desiccation. Mild facet and ligamentum flavum hypertrophy. No significant canal or foraminal stenosis. No significant change. L4-L5: Mild disc desiccation. No significant canal or foraminal stenosis. No significant change. L5-S1:Moderate disc height loss and desiccation. Mild bilateral facet hypertrophy. No significant canal stenosis. Mild bilateral foraminal stenosis. No significant change. IMPRESSION: 1. Multilevel degenerative disc and facet disease, causing no significant canal or foraminal stenoses. No neural impingement. This document has been electronically signed by: Debby Deleon MD on 01/17/2025 16:19:17
--- OUTSIDE RECORDS SUMMARY | 2025-01-17 11:14 | XMS_ITS | Encounter Summary ---
Author Organization [employer] [facility] Address [address] [place] [address] [address] [place] [address] Care Team Providers Care Electrical Engineering Technologist Name Role Phone Billie Hdz Unavailable Unavailable Sanjeev Barbosa Primary Care Provider [phone] Encounter Details Date Type Department Care Team (Latest Contact Info) Description 03/04/2021 Abstract [facility] CONVERSIONS Dental, Provider, DDS Social History [...] on filedocumented in this encounter Care Teams Electrical Engineering Technologist Relationship Specialty Start Date End Date Sanjeev Barbosa [address] [place] [address] PCP - General 08/30/24 Billie Hdz Health Navigator 07/22/24 documented as of this encounter
--- OUTSIDE RECORDS SUMMARY | 2025-01-17 11:14 | XMS_ITS | Clinical Summary ---
Author Organization [employer] Address [address] [place] [address] [address] [place] [address] Care Team Providers Care Cell Manager Name Role Phone Billie Hdz Thomas Primary Care Provider [phone] Active Problems Problem Noted Date Diagnosed Date [...] patient's age to complete this topic [place] [address] [address] Care Teams Cell Manager Relationship Specialty Start Date End Date Sanjeev Barbosa [address] [place] [phone] PCP - General 08/30/24 Billie Hdz Health Navigator 07/22/24
== END 2025-01-17 10:00 | disposition home or self-care (01) ==
LOC: HO.MRI 09:59
PROVIDERS: PCP Nurse Practitioner Family; Visit Provider Nurse Practitioner Family
DX: G03.9 Meningitis, unspecified (principal); R32 Unspecified urinary incontinence
CPT/HCPCS: 72148

== ENCOUNTER → 2025-01-17 10:00 | Outpatient (BNV) | payer OTHER, SELFPAY | PROVIDERS: PCP Nurse Practitioner Family; Visit Provider Radiology Diagnostic Radiology | DX: M51.369 Other intervertebral disc degeneration, lumbar region without mention of lumbar back pain or lower extremity pain (principal); G03.9 Meningitis, unspecified; R32 Unspecified urinary incontinence | CPT/HCPCS: 72148 ==

== ENCOUNTER 2025-02-10 10:41 | Outpatient (AMB) | payer OTHER, SELFPAY ==
--- NOTE | 2025-02-10 10:43 | A.OFFVIS_ITS ---
Vital Signs 02/10/25 10:54 Height 5 ft 1 in Weight 193 lb BMI 36.5 Intake Visit Reasons: RT shoulder pain last inj 10/05/22 Intake Note: Lucia is a 52 year old right hand dominant female presents today for a follow up of right shoulder pain, last injection 10/26/22. Patient reports that the last injection provided her with relief. States elbow soreness after splitting wood in September, she had intermittent elbow irritation that has gotten worse causing discomfort in her right shoulder. Her pain radiates from her shoulder down to her hand. Denies numbness or tingling. She would like to discuss surgical intervention, as she is now having causing discomfort in her left shoulder. Allergies aspirin [ASA] Allergy (Severe, Verified 02/10/25 10:52) asthma exacerbation duloxetine [Cymbalta] Allergy (Intermediate, Verified 02/10/25 10:52) loopy gabapentin Allergy (Intermediate, Verified 02/10/25 10:52) loopy NSAIDS (Non-Steroidal Anti-Inflamma [NSAIDS (NON-STEROIDAL ANTI-INFLAMMA] Allergy (Intermediate, Verified 02/10/25 10:52) asthma exacerbation pregabalin Allergy (Intermediate, Verified 02/10/25 10:52) loopy tramadol [TRAMADOL] Allergy (Intermediate, Verified 02/10/25 10:52) tachycardia codeine [CODEINE] Allergy (Mild, Verified 02/10/25 10:52) Rash piperacillin [From Zosyn] Allergy (Mild, Verified 02/10/25 10:52) Rash tazobactam [From Zosyn] Allergy (Mild, Verified 02/10/25 10:52) Rash All SSRIs Allergy (Intermediate, Uncoded 02/10/25 10:52) nightmares Amitriptyline Allergy (Intermediate, Uncoded 02/10/25 10:52) tachycardia HPI HPI RT shoulder pain last inj 10/05/22: Details: 54-year-old female presents to the office today for ongoing right shoulder pain. She last saw me in September of 2022 for her shoulder and had an injection which was helpful however over the last winter she was splitting and carrying wood which worsened of the right shoulder. She also experiences right elbow discomfort with lifting and repetitive motion. She did have an MRI of the right shoulder in 2018 which did show some tearing of the rotator cuff. [facility] Medical History (Updated 02/10/25 @ 14:04 by Justice Hallman PA-C) Low back pain Allergies Nocturnal hypoxia Paresthesia Diverticulitis Herpes simplex Internal nasal lesion Osteopenia of femoral neck Weight gain Diarrhea Family history of premature CAD Spinal cord stimulator dysfunction Anemia Blepharitis of both eyes Adult general medical exam IBS (irritable bowel syndrome) Left breast lump Tendinitis of left rotator cuff Rotator cuff tear Hypogammaglobulinemia Asthma-COPD overlap syndrome RUQ abdominal pain Chronic depression Fibromyalgia Asthma Surgical History S/P insertion of spinal cord stimulator History of abdominoplasty History of esophagogastroduodenoscopy (EGD) S/P bilateral breast reduction S/P [facility]-BSO H/O colonoscopy Spinal cord stimulator status Cataract, left eye Cataract, right eye History of sinus surgery History of left knee surgery History of partial hysterectomy Family History Father CVD (cardiovascular disease) Heart attack Mother CVD (cardiovascular disease) Heart attack Maternal Grandmother CVD (cardiovascular disease) Maternal Grandfather Colon cancer Paternal Grandmother No problems noted. Son No problems noted. Son No problems noted. Son No problems noted. 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 Mild Pain and weakness with empty can. Right Elbow skin intact. No erythema or swelling. ROM full without pain. Tenderness over the lateral epicondyle and pain with resisted wrist extension. NVI. Assessment & Plan Assessment & Plan (1) Rotator cuff tear, right: Code(s): M75.101 - Unspecified rotator cuff tear or rupture of right shoulder, not specified as traumatic Category: Medical (2) Lateral epicondylitis, right elbow: Code(s): M77.11 - Lateral epicondylitis, right elbow Category: Medical Plan We discussed options today which include conservative treatment for both shoulder and elbow. I recommend modification of activities to help ease her symptoms in the elbow. She was given an order for occupational therapy to work on strength and stretching of the elbow and forearm. He has less stressed the importance of using anti-inflammatories to help with inflammation. As for her shoulder we will proceed with an MRI to further review the extent of her rotator cuff tear and determine if it is operable or not. She is at a point where she is severely impacted by her right shoulder and limited with activities. Once the scan is complete I will contact her to discuss the next step in her treatm ent. All questions answered. Orders: Orders MR shoulder RT wo con Today M77.8 - Other enthesopathies, not elsewhere classified Coding Level of Care Code Est Pt Level 3 (93208) Complex EM visit Add On G2211 Diagnoses Rotator cuff tear, right M75.101 Lateral epicondylitis, right elbow M77.11
[2025-02-10 10:54] VITALS: BMI 36.5
--- OUTSIDE RECORDS SUMMARY | 2025-02-10 12:38 | XMS_ITS | Encounter Summary ---
Author Organization [employer] [facility] Address [address] [place] [address] 7 [place] [address] Care Team Providers Care Wardrobe Assistant Name Role Phone Billie Hdz Unavailable Unavailable Sanjeev Barbosa Primary Care Provider [phone] Encounter Details Date Type Department Care Team (Latest Contact Info) Description 03/04/2021 Abstract [facility] CONVERSIONS Dental, Provider, DDS Social History Tobacco [...] on filedocumented in this encounter Care Teams Wardrobe Assistant Relationship Specialty Start Date End Date Sanjeev Barbosa [address] [place] [address] PCP - General 08/30/24 Billie dHz Health Navigator 07/22/24 documented as of this encounter
--- OUTSIDE RECORDS SUMMARY | 2025-02-10 12:38 | XMS_ITS | Clinical Summary ---
Author Organization [employer] Address [address] [place] [address] 7[address] [place] [address] Care Team Providers Care Process Developer Name Role Phone Billie Hdz Thomas Primary Care Provider [phone] Active Problems Problem Noted Date Diagnosed Date [...] patient's age to complete this topic Insurance [place] [address] Care Teams Process Developer Relationship Specialty Start Date End Date Sanjeev Barbosa [address] [place] [phone] PCP - General 08/30/24 Billie Hdz Health Navigator 07/22/24
== END 2025-02-10 11:13 | disposition home or self-care (01) ==
LOC: HO.HOS 10:41
PROVIDERS: PCP Nurse Practitioner Family; Visit Provider Physician Assistant
DX: M75.101 Unspecified rotator cuff tear or rupture of right shoulder, not specified as traumatic (principal); M77.11 Lateral epicondylitis, right elbow
CPT/HCPCS: 99213; G2211

== ENCOUNTER → 2025-02-10 10:41 | Outpatient (BNVA) | payer OTHER, SELFPAY | PROVIDERS: PCP Nurse Practitioner Family; Visit Provider Physician Assistant | DX: M75.101 Unspecified rotator cuff tear or rupture of right shoulder, not specified as traumatic (principal); M77.11 Lateral epicondylitis, right elbow | CPT/HCPCS: 99212 ==

== ENCOUNTER 2025-02-26 10:25 | Outpatient (AMB) | payer OTHER, SELFPAY ==
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
[2025-02-26 10:40] VITALS: BP 147/75; PULSE 75; RESP 16; O2SAT 97; BMI 36.8
--- OUTSIDE RECORDS SUMMARY | 2025-02-26 12:17 | XMS_ITS | Encounter Summary ---
Author Organization [employer] [facility] Address [address] [place] [address] 7 [place] [address] Care Team Providers Care Fire Protection Specialist Name Role Phone Billie Hdz Unavailable Unavailable Sanjeev Barbosa Primary Care Provider [phone] Encounter Details Date Type Department Care Team (Latest Contact Info) Description 03/04/2021 Abstract [facility] CONVERSIONS Dental, Provider, DDS Social [...] on filedocumented in this encounter Care Teams Fire Protection Specialist Relationship Specialty Start Date End Date Sanjeev Barbosa [address] [place] [phone] PCP - General 08/30/24 Billie Hdz Health Navigator 07/22/24 documented as of this encounter
--- OUTSIDE RECORDS SUMMARY | 2025-02-26 12:17 | XMS_ITS | Clinical Summary ---
Author Organization [employer] Address [address] [place] [address] [address]t [place] [address] Care Team Providers Care Grocery Team Member Name Role Phone Billie Hdz Thomas Primary Care Provider [phone] Active Problems Problem Noted Date Diagnosed Date [...] patient's age to complete this topic [place] [address] [address] Care Teams Grocery Team Member Relationship Specialty Start Date End Date Sanjeev Barbosa [address] [place] [phone] PCP - General 08/30/24 Billie Hdz Health Navigator 07/22/24
== END 2025-02-26 11:16 | disposition home or self-care (01) ==
LOC: HO.PMC 10:26
PROVIDERS: PCP Nurse Practitioner Family; Referring Provider Nurse Practitioner Family; Visit Provider Internal Medicine
DX: M51.369 Other intervertebral disc degeneration, lumbar region without mention of lumbar back pain or lower extremity pain (principal); M54.50 Low back pain, unspecified; M47.816 Spondylosis without myelopathy or radiculopathy, lumbar region
CPT/HCPCS: 99214

== ENCOUNTER → 2025-02-26 10:25 | Outpatient (BNVA) | payer OTHER, SELFPAY | PROVIDERS: PCP Nurse Practitioner Family; Referring Provider Nurse Practitioner Family; Visit Provider Internal Medicine | DX: M47.816 Spondylosis without myelopathy or radiculopathy, lumbar region (principal); G89.29 Other chronic pain | CPT/HCPCS: 99212 ==

== ENCOUNTER 2025-03-03 12:53 | Outpatient (AMB) | payer OTHER, SELFPAY ==
--- NOTE | 2025-03-03 12:58 | A.OFFPC_ITS ---
Vital Signs 03/03/25 13:01 Height 5 ft 1 in Weight 196 lb BMI 37.0 BP 120/68 Blood Pressure Location Lt brachial Respiration 12 Pulse 77 Pulse Source Pulse Oximeter Temp 97.4 F Temp Source Oral Pulse Oximetry (%) 99 Oxygen Delivery Method Room Air Intake Visit Reasons: 3-4 months 30 min routine complex fu Intake Note: Routine follow up Sample Maker Hand Required: No Allergies aspirin [ASA] Allergy (Severe, Verified 03/03/25 13:14) asthma exacerbation duloxetine [Cymbalta] Allergy (Intermediate, Verified 03/03/25 13:14) loopy gabapentin Allergy (Intermediate, Verified 03/03/25 13:14) loopy NSAIDS (Non-Steroidal Anti-Inflamma [NSAIDS (NON-STEROIDAL ANTI-INFLAMMA] Allergy (Intermediate, Verified 03/03/25 13:14) asthma exacerbation pregabalin Allergy (Intermediate, Verified 03/03/25 13:14) loopy tramadol [TRAMADOL] Allergy (Intermediate, Verified 03/03/25 13:14) tachycardia codeine [CODEINE] Allergy (Mild, Verified 03/03/25 13:14) Rash piperacillin [From Zosyn] Allergy (Mild, Verified 03/03/25 13:14) Rash tazobactam [From Zosyn] Allergy (Mild, Verified 03/03/25 13:14) Rash All SSRIs Allergy (Intermediate, Uncoded 03/03/25 13:14) nightmares Amitriptyline Allergy (Intermediate, Uncoded 03/03/25 13:14) tachycardia Medication List - Last Reconciled 03/03/25 by FUNMILAYO Cruz-SHAWN acetaminophen ER 1,300 mg (2 x 650 mg) PO Q8H PRN Advair HFA 230-21 mcg/actuation (fluticasone propion-salmeterol) 2 puffs inhalation BID 30 days NS albuterol sulfate 90 mcg/actuation (Ventolin HFA) 2 puffs inhalation Q6H PRN 30 days B-complex with vitamin C 1 tab PO DAILY 30 days celecoxib (Celebrex) 100 mg PO BID PRN cetirizine (Allergy Relief (cetirizine)) 10 mg PO DAILY cholecalciferol (vitamin D3) 50 mcg PO DAILY 90 days clonazepam 0.5 mg PO TID PRN dextroamphetamine-amphetamine 10 mg 1 tab PO BID dicyclomine 20 mg PO QID 30 days empagliflozin (Jardiance) 10 mg PO DAILY fexofenadine (Sandy Allergy) 180 mg PO DAILY fluoxetine 10 mg PO DAILY ipratropium-albuterol 0.5 mg-3 mg(2.5 mg base)/3 mL 3 mL inhalation Q6H PRN levocetirizine 5 mg PO BEDTIME lidocaine 5% (Lidoderm) 1 patch topical DAILY 30 days magnesium oxide 500 mg PO DAILY 30 days mometasone 50 mcg/actuation 2 sprays intranasal DAILY 90 days nebulizers As directed omeprazole 40 mg PO DAILY 90 days valacyclovir 1,000 mg PO BID PRN vitamins A,C,W-bwnr-mugwgg 4,296 mcg-226 mg-90 mg (PreserVision AREDS) 1 cap PO BID Tobacco use date assessed: 03/03/25 Dental Screening Dental Screen Date: 03/03/25 Did you have a dental visit in the last 12 months?: Yes Did you have a dental problem in the last 6 months where you did not have access to dental care?: No Was dental information given to patient?: Patient has dentist HPI HPI Comments History of Present Illness Details 54-year-old female with sigmoid divertic ulitis, 1.3 cm simple renal cyst, moderate diffuse hepatic steaotosis, Asthma COPD overlap syndrome, MDD fibromyalgia family history of premature CAD, GERD, sleep apnea on CPAP, low IGG, vitamin-D deficiency, neuropathy, hyperlipidemia, impaired fasting glucose, multi joint osteoarthritis osteopenia and chronic pain syndrome Status post laminoplasty, left knee surgery, partial hysterectomy, bilateral breast reduction, LEVI-BSO, spinal cord stimulator Specialist GI Pain management Pulmonology Sleep medicine Rheumatology Heme/Onc Maintenance Colonoscopy 08/01/2022 positive polyps repeat in 3 years (2024) Mammogram 10/31/2023, new order placed today. DEXA 02/2024 Osteopenia based on the lowest T-score value of -1.4 in the femoral neck applying World Health Organization criteria. History of Present Illness - The patient is a 54-year-old female pr esenting for followup management and chronic pain. - The patient's A1c has increased to 6.2 % from 6%. She is on Jardiance, which causes bloating, gas, and sometimes yeast infections, especially when on antibiotics. - The patient reports significant chroni c pain in the hips, shoulders, and back, with limited relief from current management strategies. Insurance complications hinder further interventions. She experiences difficulty sleeping, leading to fatigue. - The patient has obstructive sleep apne a. A sleep study could not proceed due to scheduling and insurance issues. - She reports a rotator cuff tear requir ing surgery, but insurance approval for an MRI is pending. - Hypertension and hyperlipidemia are be ing managed with ongoing medication. - She experiences severe hot flashes. We ight management remains a challenge, as dietary changes have not led to significant improvements. Physical Exam General: Well developed, well nourished, in no acute distress. Appears stated age. Head: Normocephalic, atraumatic. Eyes: Pupils are equal, round and reactive to light and accommodation. Conjunctivae are clear. Vision grossly normal. Lungs: Clear to auscultation bilaterally. No rales, rhonchi or wheeze noted. Good air flow in all sarmiento. Heart: Regular rate and rhythm. No murmurs, click, rubs or gallops are noted. Abdomen: Bowel sounds present in all quadrants. The abdomen is soft, nontender, with no masses or organomegaly noted. No hernias are noted. Musculoskeletal: Joints are nontender, without swelling, redness, or effusions. Pulses: Peripheral pulses are equal and palpable bilaterally. Extremities: No clubbing, cyanosis noted. Edema present, worse on the right side. Psych: Mood and affect appropriate. Discussion Notes I discussed with the patient the current status of her management, noting the increase in her A1c level. The new prescription of metformin was discussed as an adjunct to Jardiance with attention to her yeast infections and potential side effects. For her chronic pain management, I empathized with her frustration and discussed the potential referral to a clinical researcher and the implementation of aqua therapy as a non-invasive option. We addressed her challenges related to weight management, suggesting a seismograph recorder specializing in nonsurgical nutrition. I provided advice on managing her sleep apnea and the insurance obstacles regarding her pending MRI. She was advised to monitor her symptoms. Assessment and Plan The patient's A1c increased to 6.2%. We will add metformin to her treatment plan alongside Jardiance to enhance her diabetes management and support weight loss. Monitoring and gradual adjustment are advised to minimize side effects. Limit tea's and increase free h20 intake. if recurrent yeast cont will need to consider stopping jardiance. 2. Chronic Pain Syndrome New referral to Family clinical researcher per her request, stating they can see her sooner than [facility], for a multidisciplinary approach and potential aqua therapy. Current medications will continue, and exploration of non-opioid options may be pursued. advised to see if local [facility] offers aqua therapy. call insurance and see where is covered. Drink gatorade or the like prior to activity to see if this helps w muscle aches and pains. 3. Obstructive Sleep Apnea I encouraged rescheduling her pending sleep study, and its importance for managing symptoms was emphasized. 4. Rotator Cuff Tear I advised the patient to pursue insurance for MRI approval and follow up with an pharmacy clinical specialist for necessary interventions. 5. Hypertension and Hyperlipidemia Current management to continue with regular monitoring, diet, and lifestyle change encouragement. 6. Menopausal Symptoms We will monitor her symptoms mammo due ordered today Patient Instructions - Continue taking Jardiance as previousl y directed. - Start metformin with evening meals, ad justing as necessary for nausea. - Monitor blood sugar regularly and aler t if experiencing low levels while on metformin. - Pursue sleep study scheduling and comm unicate with the insurance provider for approvals. - Follow up with an orthopedic for shoul fahad MRI arrangements. - Explore physical therapy options, incl uding aqua therapy, and maintain current medication regimen. - Meet with a seismograph recorder for diabetic escobar l planning. - Monitor for yeast infections, particul juju following antibiotic use, and maintain hydration with increased water intake. get mammo done RTO 3 months with labs for routine fu sooner prn Consent Patient was informed and verbally consented to the use of an ambient scribe for clinic note documentation during this visit. Total time spent caring for the patient today was 69 . This includes time spent before the visit reviewing the chart, time spent during the visit, and time spent after the visit on documentation, reviewing laboratory results, diagnostic imaging, medications, performing a medically necessary evaluation, counseling on diagnoses, care coordination, ordering appropriate tests, ordering appropr iate medications, review of tests performed by other providers, reporting test results with the patient, communication with other healthcare providers. [facility] Medical History (Updated 02/10/25 @ 14:04 by Justice Hallman PA-C) Adult general medical exam Allergies Anemia Asthma Asthma-COPD overlap syndrome Blepharitis of both eyes Chronic depression Diarrhea Diverticulitis Family history of premature CAD Fibromyalgia Herpes simplex Hypogammaglobulinemia IBS (irritable bowel syndrome) Internal nasal lesion Left breast lump Low back pain Nocturnal hypoxia Osteopenia of femoral neck Paresthesia Rotator cuff tear RUQ abdominal pain Spinal cord stimulator dysfunction Tendinitis of left rotator cuff Weight gain Surgical History S/P insertion of spinal cord stimulator History of abdominoplasty History of esophagogastroduodenoscopy (EGD) S/P bilateral breast reduction S/P LEVI-BSO H/O colonoscopy Spinal cord stimulator status Cataract, left eye Cataract, right eye History of sinus surgery History of left knee surgery History of partial hysterectomy Family History Father CVD (cardiovascular disease) Heart attack Mother CVD (cardiovascular disease) Heart attack Maternal Grandmother CVD (cardiovascular disease) Maternal Grandfather Colon cancer Paternal Grandmother No problems noted. Son No problems noted. Son No problems noted. Son No problems noted. 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 1. Little interest or pleasure in doing things: not at all 2. Feeling down, depressed, or hopeless: not at all 3. Trouble falling or staying asleep, or sleeping too much: not at all 4. Feeling tired or having little energy: not at all 5. Poor appetite or overeating: not at all 6. Feeling bad about yourself - or that you are a failure or have let yourself or your family down: not at all 7. Trouble concentrating on things, such as reading the newspaper or watching television: not at all 8. Moving or speaking so slowly that other people could have noticed. Or the opposite - being so fidgety or restless that you have been moving around a lot more than usual: not at all 9. Thoughts that you would be better off or of hurting yourself in some way: not at all Total score: 0 Depression Screening Interpretation: Negative Depression Screening Done: Yes 88143 - PHQ-9 Billing: Yes Source: Developed by Drs. Dayday Arias, Monika Dior, Herminio Clinton and colleagues, with an educational ross from [employer]. Thrive Questionnaire Date Thrive assessed: 03/03/25 I am a: Patient What is your living situation today?: I have a steady place to live Within the past 12 months, did the food you bought not last and you didn't have the money to get more?: I choose not to answer this question Within the past 12 months, did you worry whether your food would run out before you got money to buy more?: I choose not to answer this question Do you have trouble paying for medicines?: Yes Do you have trouble getting transportation to medical appointments?: No Do you have trouble paying your heating and electricity bill?: No Do you have trouble taking care of your child, family member or friend?: No Do you have trouble with day-to-day activities such as bathing, preparing meals, shopping, managing finances, etc.?: No Are you currently unemployed and looking for a job?: No Are you interested in more education?: No Please select the resources that you would like help with: None Currently or been in a relationship where the following occur: No concerns reported THRIVE Score: 0 MURIEL-7 AMB Questionnaire MRUIEL-7 Date MURIEL - 7 assessed: 03/03/25 Feeling nervous, anxious, or on edge: 0 = Not at all Not being able to stop or control worryin = Not at all Worrying too much about different things: 0 = Not at all Trouble relaxin = Not at all Being so restless that it is hard to sit still: 0 = Not at all Becoming easily annoyed or irritable: 0 = Not at all Feeling afraid as if something awful might happen: 0 = Not at all Total MURIEL-7 score (0-4 normal; 5-9 mild; 10-14 moderate; 15-21 severe): 0 Source: Developed by Drs. Dayday Arias, Monika Dior, Herminio Clinton and colleagues, with an educational ross from [employer]. MURIEL-7 Assessment Billing MURIEL-7 Assessment Tool: MURIEL-7 Assessment 24471 Physical exam (Primary Care) Vital Signs: Last Vital Signs Temp 97.4 F 03/03/25 13:01 Pulse 77 03/03/25 13:01 Resp 12 03/03/25 13:01 BP 120/68 03/03/25 13:01 Pulse Ox 99 03/03/25 13:01 Oxygen Delivery Method Room Air 03/03/25 13:01 BMI result Body Mass Index 37.0 Tobacco/Smoking Status: Tobacco use Status Tobacco use date assessed 03/03/25 03/03/25 13:03 Patient Tobacco Use Status Former Tobacco user 03/03/25 13:03 e-Cigarette/Vaping Use Never Used 03/03/25 13:03 PHQ-9: PHQ-9 Score PHQ-9: Total score 0 03/04/25 12:51 Depression Screening Interpretation: Negative Thrive Assessment: Date of Thrive Assessment Date Thrive assessed 03/03/25 03/03/25 13:03 Currently or been in a relationship where the following occur: No concerns reported Results AMB Hemoglobin A1c AMB Hemoglobin A1c 6.2 % Last Edit by Candida Mcconnell MA on 03/03/25 13:25 Results Reviewed Results Reviewed: Laboratory Last Values Hgb A1c (Clinic) 6.2 % (4.0-6.0) H 03/03/25 13:13 Coding Level of Care Code Est Pt Level 5 (87550) Complex EM visit Add On G2211 Diagnoses Fibromyalgia M79.7 Arachnoiditis G03.9 Elevated erythrocyte sedimentation rate R70.0 Neuropathy of both feet G57.93 Chronic pain syndrome G89.4 Chronic pain type: chronic pain syndrome Elevated C-reactive protein (CRP) R79.82 Right elbow pain M25.521 Right shoulder pain M25.511 Lumbar degenerative disc disease M51.369 Lateral epicondylitis, right elbow M77.11 Hypercholesterolemia E78.00 Low vitamin D level R79.89 Obesity (BMI 30-39.9) E66.9 Elevated fasting glucose R73.01 NILTON (obstructive sleep apnea) G47.33 Postmenopausal Z78.0 CPT Codes PROLONG OUTPT/OFFICE VIS - G2212 Additional Codes MURIEL-7 Assessment Billing - MURIEL-7 Assessment Tool: MURIEL-7 Assessment 38346 ([id number]) PHQ-9 - 38502 - PHQ-9 Billing: Yes ([id number]) Assessment & Plan Assessment & Plan (1) Fibromyalgia: Code(s): M79.7 - Fibromyalgia Category: Medical (2) Arachnoiditis: Code(s): G03.9 - Meningitis, unspecified Category: Medical (3) Elevated erythrocyte sedimentation rate: Code(s): R70.0 - Elevated erythrocyte sedimentation rate Category: Medical (4) Neuropathy of both feet: Code(s): G57.93 - Unspecified mononeuropathy of bilateral lower limbs Category: Medical (5) Chronic pain: Comment: refill on APAP ER reports 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 ok to take at lowest dose new RX for celebrex 50mg po QD prn take w food and sparingly sent to pharmacy Code(s): G89.29 - Other chronic pain Category: Medical Qualifiers: Chronic pain type: chronic pain syndrome Qualified Code(s): G89.4 - Chronic pain syndrome (6) Elevated C-reactive protein (CRP): Code(s): R79.82 - Elevated C-reactive protein (CRP) Category: Medical (7) Right elbow pain: Code(s): M25.521 - Pain in right elbow Category: Medical (8) Right shoulder pain: Code(s): M25.511 - Pain in right shoulder Category: Medical (9) Lumbar degenerative disc disease: Code(s): M51.369 - Other intervertebral disc degeneration, lumbar region without mention of lumbar back pain or lower extremity pain Category: Medical (10) Lateral epicondylitis, right elbow: Code(s): M77.11 - Lateral epicondylitis, right elbow Category: Medical (11) Hypercholesterolemia: Comment: labs ordered Code(s): E78.00 - Pure hypercholesterolemia, unspecified Category: Medical (12) Low vitamin D level: Comment: dexa ordered vit d low back on supplementation. Code(s): R79.89 - Other specified abnormal findings of blood chemistry Category: Medical (13) Obesity (BMI 30-39.9): Comment: lifestyle - she is trying to lose weight Code(s): E66.9 - Obesity, unspecified Category: Medical (14) Obesity (BMI 30-39.9): Comment: lifestyle - she is trying to lose weight Code(s): E66.9 - Obesity, unspecified Category: Medical (15) Elevated fasting glucose: Code(s): R73.01 - Impaired fasting glucose Category: Medical (16) NILTON (obstructive sleep apnea): Comment: Moderate degree of sleep apena. The AHI was 15/hr and oxygen ingris was 80%. The total duration of O2 sat <88 % was 70 min. Code(s): G47.33 - Obstructive sleep apnea (adult) (pediatric) Category: Medical (17) Postmenopausal: Comment: dexa ordered today Code(s): Z78.0 - Asymptomatic menopausal state Category: Medical Plan , Orders: Orders AMB Hemoglobin A1c 03/03/25 Z13.9 - Encounter for screening, unspecified MM tomosynthesis screening BI 03/03/25 Z12.31 - Encounter for screening mammogram for malignant neoplasm of breast Comprehensive Met. Panel 03/03/25 E66.9 - Obesity, unspecified, E78.00 - Pure hypercholesterolemia, unspecified, R79.89 - Other specified abnormal findings of blood chemistry Microalbumin, Random (w Creat) 03/03/25 E66.9 - Obesity, unspecified, E78.00 - Pure hypercholesterolemia, unspecified, R79.89 - Other specified abnormal findings of blood chemistry Lipid Panel 03/03/25 E66.9 - Obesity, unspecified, E78.00 - Pure hypercholesterolemia, unspecified, R79.89 - Other specified abnormal findings of blood chemistry Hemoglobin A1c 03/03/25 E66.9 - Obesity, unspecified, E78.00 - Pure hypercholesterolemia, unspecified, R79.89 - Other specified abnormal findings of blood chemistry Referrals Nutrition/Dietitian Referral E66.9 - Obesity, unspecified, R73.01 - Impaired fasting glucose Physiatry Referral G03.9 - Meningitis, unspecified, G57.93 - Unspecified mononeuropathy of bilateral lower limbs, G89.4 - Chronic pain syndrome, M25.511 - Pain in right shoulder, M25.521 - Pain in right elbow, M51.369 - Other i ntervertebral disc degeneration, lumbar region without mention of lumbar back pain or lower extremity pain, M77.11 - Lateral epicondylitis, right elbow, M79.7 - Fibromyalgia, R70.0 - Elevated erythrocyte sedimentation rate, R79.82 - Elevated C-reactive protein (CRP) Medications: New metformin ER 500 mg PO DAILY 90 tabs 0RF Refilled empagliflozin (Jardiance) 10 mg PO DAILY 90 tabs 0RF
[2025-03-03 13:01] VITALS: BP 120/68; PULSE 77; RESP 12; TEMP 36.3; O2SAT 99; BMI 37.0
--- OUTSIDE RECORDS SUMMARY | 2025-03-03 15:17 | XMS_ITS | Encounter Summary ---
Author Organization [employer] [facility] Address [address] [place] [address] [address] [place] [address] Care Team Providers Care Procurement Manager Name Role Phone Billie Hdz Unavailable Unavailable Sanjeev Barbosa Primary Care Provider [phone] Encounter Details Date Type Department Care Team (Latest Contact Info) Description 03/04/2021 Abstract [facility] CONVERSIONS Dental, Provider, DDS Social History [...] on filedocumented in this encounter Care Teams Procurement Manager Relationship Specialty Start Date End Date Sanjeev Barbosa [address] [place] [id number] PCP - General 08/30/24 Billie Hdz Health Navigator 07/22/24 documented as of this encounter
--- OUTSIDE RECORDS SUMMARY | 2025-03-03 15:17 | XMS_ITS | Clinical Summary ---
Author Organization [employer] Address [address] [place] [address] [address] [place] [address] Care Team Providers Care Executive Kitchen Manager Name Role Phone Billie Hdz Thomas Primary Care Provider [phone] Active Problems Problem Noted Date Diagnosed Date [...] patient's age to complete this topic [place] [address] [place] [address] Care Teams Executive Kitchen Manager Relationship Specialty Start Date End Date Sanjeev Barbosa [address] [place] [phone] PCP - General 08/30/24 Billie Hdz Health Navigator 07/22/24
== END 2025-03-03 14:13 | disposition home or self-care (01) ==
LOC: HO.HMCFM 12:54
PROVIDERS: PCP Nurse Practitioner Family; Visit Provider Nurse Practitioner Family
DX: Z13.9 Encounter for screening, unspecified (principal)

== ENCOUNTER → 2025-03-03 12:53 | Outpatient (BNVA) | payer OTHER, SELFPAY | PROVIDERS: PCP Nurse Practitioner Family; Visit Provider Nurse Practitioner Family | DX: M79.7 Fibromyalgia (principal); G03.9 Meningitis, unspecified; R70.0 Elevated erythrocyte sedimentation rate; G57.93 Unspecified mononeuropathy of bilateral lower limbs; G89.4 Chronic pain syndrome; R79.82 Elevated C-reactive protein (CRP); M25.521 Pain in right elbow; M25.511 Pain in right shoulder; M51.369 Other intervertebral disc degeneration, lumbar region without mention of lumbar back pain or lower extremity pain; M77.11 Lateral epicondylitis, right elbow; E78.00 Pure hypercholesterolemia, unspecified; R79.89 Other specified abnormal findings of blood chemistry; E66.9 Obesity, unspecified; Z68.37 Body mass index [BMI] 37.0-37.9, adult; R73.01 Impaired fasting glucose; G47.33 Obstructive sleep apnea (adult) (pediatric); Z78.0 Asymptomatic menopausal state | CPT/HCPCS: 83036; 96127; 99212 ==

== ENCOUNTER 2025-04-23 08:25 | Outpatient (AMB) | payer OTHER, SELFPAY ==
--- NOTE | 2025-04-23 08:29 | MHC.OFFVIS ---
Vital Signs 04/23/25 08:36 Height 5 ft 1 in Weight 196 lb BMI 37.0 Intake Visit Reasons: ov- right shoulder pain Intake Note: Lucia is a 54 year old female who presents today with complaints of ongoing shoulder pain. States her pain is worse at night. She would like to discuss her options due to recent denial by insurance for an MRI. Allergies aspirin (ASA) Allergy (Severe, Verified 04/23/25 08:35) asthma exacerbation duloxetine (Cymbalta) Allergy (Intermediate, Verified 04/23/25 08:35) loopy gabapentin Allergy (Intermediate, Verified 04/23/25 08:35) loopy NSAIDS (Non-Steroidal Anti-Inflamma (NSAIDS (NON-STEROIDAL ANTI-INFLAMMA) Allergy (Intermediate, Verified 04/23/25 08:35) asthma exacerbation pregabalin Allergy (Intermediate, Verified 04/23/25 08:35) loopy tramadol (TRAMADOL) Allergy (Intermediate, Verified 04/23/25 08:35) tachycardia codeine (CODEINE) Allergy (Mild, Verified 04/23/25 08:35) Rash piperacillin (From Zosyn) Allergy (Mild, Verified 04/23/25 08:35) Rash tazobactam (From Zosyn) Allergy (Mild, Verified 04/23/25 08:35) Rash All SSRIs Allergy (Intermediate, Uncoded 04/23/25 08:35) nightmares Amitriptyline Allergy (Intermediate, Uncoded 04/23/25 08:35) tachycardia Medication List - Last Reconciled 04/23/25 by Justice Hallman PA-C acetaminophen ER 1,300 mg (2 x 650 mg) PO Q8H PRN Advair HFA 230-21 mcg/actuation (fluticasone propion-salmeterol) 2 puffs inhalation BID 30 days NS albuterol sulfate 90 mcg/actuation (Ventolin HFA) 2 puffs inhalation Q6H PRN 30 days B-complex with vitamin C 1 tab PO DAILY 30 days celecoxib (Celebrex) 100 mg PO BID PRN cetirizine (Allergy Relief (cetirizine)) 10 mg PO DAILY cholecalciferol (vitamin D3) 50 mcg PO DAILY 90 days clonazepam 0.5 mg PO TID PRN dextroamphetamine-amphetamine 10 mg 1 tab PO BID dicyclomine 20 mg PO QID 30 days empagliflozin (Jardiance) 10 mg PO DAILY fexofenadine (Sandy Allergy) 180 mg PO DAILY fluoxetine 10 mg PO DAILY ipratropium-albuterol 0.5 mg-3 mg(2.5 mg base)/3 mL 3 mL inhalation Q6H PRN levocetirizine 5 mg PO BEDTIME lidocaine 5% (Lidoderm) 1 patch topical DAILY 30 days magnesium oxide 500 mg PO DAILY 30 days metformin ER 500 mg PO DAILY mometasone 50 mcg/actuation 2 sprays intranasal DAILY 90 days nebulizers As directed omeprazole 40 mg PO DAILY 90 days valacyclovir 1,000 mg PO BID PRN vitamins A,C,Q-cxxg-nffcfa 4,296 mcg-226 mg-90 mg (PreserVision AREDS) 1 cap PO BID HPI HPI ov- right shoulder pain: Details: 54-year-old female returns to the office today for ongoing right shoulder pain. I initially saw her back in October of 2019 where she had an MRI which was significant for an insertional tear of the supraspinatus measuring 4 mm in AP diameter. At that time she was recovering from a previous surgery and was unable to entertain the idea of a rotator cuff repair type surgery. Up until recently she has been doing well with conservative management. She has done physical therapy on the right shoulder which has improved her motion but she continues to have pain at night especially with lifting or overhead reaching. She has had multiple cortisone injections which are somewhat helpful however they do not improve her ability to perform certain activities. [facility] Medical History (Updated 02/10/25 @ 14:04 by Justice Hallman PA-C) Low back pain Allergies Nocturnal hypoxia Paresthesia Diverticulitis Herpes simplex Internal nasal lesion Osteopenia of femoral neck Weight gain Diarrhea Family history of premature CAD Spinal cord stimulator dysfunction Anemia Blepharitis of both eyes Adult general medical exam IBS (irritable bowel syndrome) Left breast lump Tendinitis of left rotator cuff Rotator cuff tear Hypogammaglobulinemia Asthma-COPD overlap syndrome RUQ abdominal pain Chronic depression Fibromyalgia Asthma Surgical History S/P insertion of spinal cord stimulator History of abdominoplasty History of esophagogastroduodenoscopy (EGD) S/P bilateral breast reduction S/P LEVI-BSO H/O colonoscopy Spinal cord stimulator status Cataract, left eye Cataract, right eye History of sinus surgery History of left knee surgery History of partial hysterectomy Family History (Reviewed 12/31/24 @ 08:32 by Karen Irby [facility]) Father CVD (cardiovascular disease) Heart attack Mother CVD (cardiovascular disease) Heart attack Maternal Grandmother CVD (cardiovascular disease) Maternal Grandfather Colon cancer Paternal Grandmother No problems noted. Son No problems noted. Son No problems noted. Son No problems noted. 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 Current occupational exposures/hazards: No Sexual orientation: Unable to collect Gender identity: Unable to collect Cognitive needs: No Hearing needs: No Vision needs: No Review of Systems Const All systems reviewed & are unremarkable except as noted in HPI and below Physical Exam Vital Signs: BMI result Body Mass Index 37.0 Const General: cooperative and no acute distress Orientation/consciousness: patient oriented x3 Resp Effort & Inspection: normal respiratory effort and able to speak in complete sentences Cardio Peripheral pulses: Peripheral pulses 2+ throughout Neuro General: patient oriented x3 Extrem Other: Right shoulder FF to 175, Er to 90. Mild Pain and weakness with empty can and use of accessory muscles for compensation. Results Reviewed Results Reviewed: X-rays of the right shoulder obtained and reviewed by me significant for AC joint arthritis Assessment & Plan Assessment & Plan (1) Rotator cuff tear, right: Code(s): M75.101 - Unspecified rotator cuff tear or rupture of right shoulder, not specified as traumatic Category: Medical Plan: Given her continued functional limitation with daily activities an updated MRI has been recommended to further evaluate the extent of tearing in the rotator cuff. This will help to determine whether or not the tear is repairable and if there is any fatty atrophy that has developed. The patient does express understanding and I will contact her once the scan is complete. Orders: Orders XR shoulder RT min 2V Today M25.511 - Pain in right shoulder Coding Level of Care Code Est Pt Level 3 (15161) Complex EM visit Add On G2211 Diagnoses Rotator cuff tear, right M75.101
[2025-04-23 08:36] VITALS: BMI 37.0
--- OUTSIDE RECORDS SUMMARY | 2025-04-23 08:45 | XMS_ITS | Clinical Summary ---
Author Organization [employer] Address [address] [place] [address] [address] [place] [address] Care Team Providers Care Auto Wheel Alignment Specialist Name Role Phone Billie Hdz Unavailable Unavailable Sanjeev Barbosa Primary Care Provider Active Problems Problem Noted Date Diagnosed Date [...] Panel 1968 SDOH Screening 1968 Sigmoidoscopy 1968 Disability Screening 1968 Alcohol/Substance Use Screening 1980 Tobacco Screening 1980 Hepatitis C Screening 1986 Hepatitis B Vaccines (1 of 3 - 19+ 3-dose series) 1987 Pap Smear 1989 Cervical Cancer Screening 1998 HPV/Cotest 1998 Mammogram 2008 Zoster Vaccines (1 of 2) 2018 COVID-19 Vaccine ( - season) 2024 09/18/2021, 12/08/2020, 11/17/2020 Influenza Vaccine (Season Ended) 2025 09/18/2021, 07/15/2020, 08/29/2018, Additional history exists Depression Screening [...] patient's age to complete this topic Meningococcal B Vaccine Aged Out No l onger eligible based on patient's age to complete this topic Meningococcal Vaccine Aged Out No leslie angely eligible based on patient's age to complete this topic RSV under 20 months Aged Out No longe r eligible based on patient's age to complete this topic Rotavirus Vaccines Aged Out No longer eligible based on patient's age to complete this topic Insurance [facility] Care Teams Auto Wheel Alignment Specialist Relationship Specialty Start Date End Date Sanjeev Barbosa [address] [place] [address] PCP - General 08/30/24 Billie Hdz [facility] Navigator 07/22/24
== END 2025-04-23 10:33 | disposition home or self-care (01) ==
LOC: HO.HOS 08:26
PROVIDERS: PCP Nurse Practitioner Family; Visit Provider Physician Assistant
DX: M75.101 Unspecified rotator cuff tear or rupture of right shoulder, not specified as traumatic (principal)
CPT/HCPCS: 99213; G2211

== ENCOUNTER → 2025-04-23 08:25 | Outpatient (BNVA) | payer OTHER, SELFPAY | PROVIDERS: PCP Nurse Practitioner Family; Visit Provider Physician Assistant | DX: M25.511 Pain in right shoulder (principal); M75.101 Unspecified rotator cuff tear or rupture of right shoulder, not specified as traumatic | CPT/HCPCS: 99212 ==

== ENCOUNTER 2025-04-25 07:42 | Outpatient (REF) | payer OTHER, SELFPAY ==
--- NOTE | ~2025-04-25 | XR_ITS ---
CLINICAL HISTORY: M25.511 - Pain in right shoulder 4 view right shoulder Comparison: None Findings: Normal congruency of the glenohumeral joint. AC joint arthrosis with undersurface spurring. No fractures or bony erosions. No greater tuberosity cysts. Normal bone mineralization and soft tissues. No radiopaque foreign body. Normal visualized right chest. Impression: 1. No fracture, subluxations or dislocations right shoulder. 2. AC joint arthrosis with undersurface spurring may be causing subacromial impingement correlate with MR arthrogram. This document has been electronically signed by: Andrew Bains MD on 04/25/2025 17:13:31
--- OUTSIDE RECORDS SUMMARY | 2025-04-25 07:44 | XMS_ITS | Clinical Summary ---
Author Organization [employer] Address [address] [place] [address] [address] [place] [address] Care Team Providers Care Football Coach Name Role Phone Billie Hdz Unavailable Unavailable Sanjeev Barbosa Primary Care Provider [phone] Active Problems Problem Noted Date Diagnosed Date [...] patient's age to complete this topic Insurance [facility] Care Teams Football Coach Relationship Specialty Start Date End Date Sanjeev Barbosa [address] [place] [address] PCP - General 08/30/24 Billie Hdz [facility] Navigator 07/22/24
== END 2025-04-25 07:43 | disposition home or self-care (01) ==
LOC: HO.XRAY 07:42
PROVIDERS: PCP Nurse Practitioner Family; Visit Provider Physician Assistant
DX: M25.511 Pain in right shoulder (principal)
CPT/HCPCS: 73030

== ENCOUNTER → 2025-04-25 07:47 | Outpatient (BNV) | payer OTHER, SELFPAY | PROVIDERS: PCP Nurse Practitioner Family; Visit Provider Radiology Diagnostic Radiology | DX: M19.011 Primary osteoarthritis, right shoulder (principal) | CPT/HCPCS: 73030 ==

== ENCOUNTER 2025-05-14 08:04 | Outpatient (REF) | payer OTHER, SELFPAY ==
--- NOTE | ~2025-05-14 | MR_ITS ---
CLINICAL HISTORY: M77.8 - Other enthesopathies, not elsewhere classified MR right shoulder without gadolinium Comparison: None provided Findings: No acute fractures. No pathologic bone lesions. There are AC joint degenerative changes with inferior distal clavicular osteophyte.. Type II acromion without downsloping. No effusion. There is a near-complete non retracted supraspinatus footplate insertion tendon tear. The rotator cuff tendons are otherwise intact. The long head of biceps is intact. No tears of the glenoid labrum. IMPRESSION: Supraspinatus footplate insertion tendon tear. This document has been electronically signed by: Arsalan Yuen MD on 05/15/2025 08:53:56
--- OUTSIDE RECORDS SUMMARY | 2025-05-14 08:06 | XMS_ITS | Clinical Summary ---
Author Organization [employer] Address [address] [place] [address] [address] [place] [address] Care Team Providers Care Underwriter Name Role Phone Billie Hdz Unavailable Unavailable Sanjeev Barbosa Primary Care Provider [phone] Active Problems Problem Noted Date Diagnosed Date [...] 2024 09/18/2021, 12/08/2020, 11/17/2020 Influenza Vaccine (#1) 2025 , 07/15/2020, 08/29/2018, Additional history exists Depression [...] patient's age to complete this topic Insurance [facility] Care Teams Underwriter Relationship Specialty Start Date End Date Sanjeev Barbosa [address] [place] [address] PCP - General 08/30/24 Billie Hdz [facility] Navigator 07/22/24
== END 2025-05-14 08:05 | disposition home or self-care (01) ==
LOC: HO.MRI 08:04
PROVIDERS: PCP Nurse Practitioner Family; Visit Provider Physician Assistant
DX: M77.8 Other enthesopathies, not elsewhere classified (principal)
CPT/HCPCS: 73221

== ENCOUNTER → 2025-05-14 08:20 | Outpatient (BNV) | payer OTHER, SELFPAY | PROVIDERS: PCP Nurse Practitioner Family; Visit Provider Specialist | DX: M75.121 Complete rotator cuff tear or rupture of right shoulder, not specified as traumatic (principal) | CPT/HCPCS: 73221 ==

== ENCOUNTER 2025-05-20 09:54 | Outpatient (AMB) | payer OTHER, SELFPAY ==
--- NOTE | 2025-05-20 09:56 | A.OFFPC_ITS ---
Vital Signs 05/20/25 10:03 Height 5 ft 1 in Weight 194 lb 4 oz BMI 36.7 BP 114/70 Blood Pressure Location Rt brachial Position Sitting Respiration 12 Pulse 76 Pulse Source Pulse Oximeter Temp 97.1 F Temp Source Oral Pulse Oximetry (%) 98 Oxygen Delivery Method Room Air Intake Visit Reasons: diverticulitis Intake Note: Patient c/o lower abd px, nauseas and diarrhea since last riday Pleating Supervisor Required: No Allergies aspirin (ASA) Allergy (Severe, Verified 05/20/25 10:35) asthma exacerbation duloxetine (Cymbalta) Allergy (Intermediate, Verified 05/20/25 10:35) loopy gabapentin Allergy (Intermediate, Verified 05/20/25 10:35) loopy NSAIDS (Non-Steroidal Anti-Inflamma (NSAIDS (NON-STEROIDAL ANTI-INFLAMMA) Allergy (Intermediate, Verified 05/20/25 10:35) asthma exacerbation pregabalin Allergy (Intermediate, Verified 05/20/25 10:35) loopy tramadol (TRAMADOL) Allergy (Intermediate, Verified 05/20/25 10:35) tachycardia codeine (CODEINE) Allergy (Mild, Verified 05/20/25 10:35) Rash piperacillin (From Zosyn) Allergy (Mild, Verified 05/20/25 10:35) Rash tazobactam (From Zosyn) Allergy (Mild, Verified 05/20/25 10:35) Rash All SSRIs Allergy (Intermediate, Uncoded 05/20/25 09:58) nightmares Amitriptyline Allergy (Intermediate, Uncoded 05/20/25 09:58) tachycardia Medication List - Last Reconciled 05/20/25 by FUNMILAYO Cruz-SHAWN acetaminophen ER 1,300 mg (2 x 650 mg) PO Q8H PRN Advair HFA 230-21 mcg/actuation (fluticasone propion-salmeterol) 2 puffs inhalation BID 30 days NS albuterol sulfate 90 mcg/actuation (Ventolin HFA) 2 puffs inhalation Q6H PRN 30 days azelastine 2 sprays intranasal BID 30 days B-complex with vitamin C 1 tab PO DAILY 30 days celecoxib (Celebrex) 100 mg PO BID PRN cetirizine (Allergy Relief (cetirizine)) 10 mg PO DAILY cholecalciferol (vitamin D3) 50 mcg PO DAILY 90 days clonazepam 0.5 mg PO TID PRN dextroamphetamine-amphetamine 10 mg 1 tab PO BID dicyclomine 20 mg PO QID 30 days empagliflozin (Jardiance) 10 mg PO DAILY fexofenadine (Sandy Allergy) 180 mg PO DAILY fluoxetine 10 mg PO DAILY ipratropium-albuterol 0.5 mg-3 mg(2.5 mg base)/3 mL 3 mL inhalation Q6H PRN levocetirizine 5 mg PO BEDTIME lidocaine 5% (Lidoderm) 1 patch topical DAILY 30 days magnesium oxide 500 mg PO DAILY 30 days metformin ER 500 mg PO DAILY mometasone 50 mcg/actuation 2 sprays intranasal DAILY 90 days nebulizers As directed omeprazole 40 mg PO DAILY 90 days valacyclovir 1,000 mg PO BID PRN vitamins A,C,T-cwpo-qnvzlp 4,296 mcg-226 mg-90 mg (PreserVision AREDS) 1 cap PO BID Tobacco use date assessed: 05/20/25 Dental Screening Dental Screen Date: 05/20/25 Did you have a dental visit in the last 12 months?: Yes Did you have a dental problem in the last 6 months where you did not have access to dental care?: No Was dental information given to patient?: Patient has dentist HPI HPI Comments History of Present Illness Details 54-year-old female with sigmoid divertic ulitis, 1.3 cm simple renal cyst, moderate diffuse hepatic steaotosis, Asthma COPD overlap syndrome, MDD fibromyalgia family history of premature CAD, GERD, sleep apnea on CPAP, low IGG, vitamin-D deficiency, neuropathy, hyperlipidemia, impaired fasting glucose, multi joint osteoarthritis osteopenia and chronic pain syndrome Status post laminoplasty, left knee surgery, partial hysterectomy, bilateral breast reduction, LEVI-BSO, spinal cord stimulator Specialist GI Pain management Pulmonology Sleep medicine Rheumatology Heme/Onc Maintenance Colonoscopy 08/01/2022 positive polyps repeat in 3 years (2024) Mammogram 10/31/2023, new order placed today. DEXA 02/2024 Osteopenia based on the lowest T-score value of -1.4 in the femoral neck applying World Health Organization criteria. History of Present Illness - The patient is a 54-year-old female pr esenting with acute on chronic abdominal pain a - Reports recurring diverticulitis with sore lower belly, starting last Monday, thought to be due to dehydration while on Jardiance; Jardiance stopped subsequently. - Pain and swelling increased over the w eekend, prompting start of Augmentin by Monday night. She has a 14 day course on hand. - Notable for swelling, persistent infla mmation; worries about the chronic nature. - Describes sensation of air passage vag inally, - Reattempted Lyrica for pain, but cease d due to undesirable side effects. this is being rx by physiatry. - Chronic back and shoulder pain discuss ed with past pain management consultations; impending shoulder surgery planned for June. Review of Systems - Gastrointestinal: Reports lower abdomi nal pain, bloating, and frequent urination. Reports severe pain during bowel movements if stools are hard. - Genitourinary: Reports sensation of ai r passage and possible vaginal odor. Recent cessation of Jardiance due to concerns over side effects. She is sexually active w/ female. Nonpenatrative intercourse. No AUB. - Musculoskeletal: Reports ongoing back pain and soreness. History of shoulder injury with scheduled surgery. - Neurological: Reports feeling slow and foggy on Lyrica. - General: Reports night sweats, fluctua ting weight by 5 pounds across same day. Exam awake alert NAD scleras nonicteric bilat MMM normoactive bs x 4, chronic RUQ pain, TTP w/o rebound transverse lower abd and suprapubic No CVAT bilat Results - Labs: CA-125 to be checked, but no res ults available. - Tests and Diagnostics: CT scan of abdo men with IV contrast noted as previously done on 03/06/24; showed mild thickening of the sigmoid colon representing uncomplicated diverticulitis with no abscess or perforation. Discussion Notes I discussed with the patient the complexities surrounding her chronic lower abdominal pain and the recurrent episodes of diverticulitis. We reviewed the potential involvement of a vaginal fistula and the need for a colorectal surgic al evaluation to address these findings. I explained that I sent an urgent message to the GI clinic to expedite her consultation process. We discussed continuing the current course of Augmentin treatment for now. I assured her of my commitment to assist in coordinating care across her healthcare providers, including echoing her inquiries into the possible autoimmune component. The upcoming shoulder surgery was also acknowledged, with clearance notes provided from pulmonology. Plan Stay on Augmentin GI contact for appt CT scan UA - done and WNL, see below. CA 125 FU once labs back Assessment and Plan 1. Diverticulitis - Maintain Augmentin. - Expedite GI consult. 2. Medication side effects - slef Discontinue Lyrica. - Review with physiatry. 3. Possible vaginal air passage - Assess for vaginal fistula. w imaging, message sent to [facility] 4. Shoulder surgery - Plan for surgery on July 03. Preop appt scheduled 5. Diabetes mellitus - Monitor with Jardiance cessation. Stay off for now. Patient Instructions - Take Aug[facility]. - Stay hydrated; drink plenty of water e ach day. - Follow up with GI as soon as possible. - Monitor your symptoms; if you experien ce worsening pain or new symptoms, seek help promptly. - Prepare for your upcoming shoulder luis daniel cole and attend all pre-op and post-op appointments. Consent Patient was informed and verbally consented to the use of an ambient scribe for clinic note documentation during this visit. Total time spent caring for the patient today was 69 minutes. This includes time spent before the visit reviewing the chart, time spent during the visit, and time spent after the visit on documentation, reviewing laboratory results, diagnostic imaging, medications, performing a medically necessary evaluation, counseling on diagnoses, care coordination, ordering appropriate tests, ordering appropriate medications, review of tests performed by other providers, reporting test results with the patient, communication with other healthcare providers. [facility] Medical History (Updated 05/20/25 @ 14:51 by Joana Gilliam, [facility]) Adult general medical exam Allergies Anemia Asthma Asthma-COPD overlap syndrome Blepharitis of both eyes Chronic depression Diarrhea Diverticulitis Family history of premature CAD Fibromyalgia Herpes simplex Hypogammaglobulinemia IBS (irritable bowel syndrome) Internal nasal lesion Left breast lump Low back pain Nocturnal hypoxia Osteopenia of femoral neck Paresthesia Rotator cuff tear RUQ abdominal pain Spinal cord stimulator dysfunction Tendinitis of left rotator cuff Weight gain Surgical History S/P insertion of spinal cord stimulator History of abdominoplasty History of esophagogastroduodenoscopy (EGD) S/P bilateral breast reduction S/P LEVI-BSO H/O colonoscopy Spinal cord stimulator status Cataract, left eye Cataract, right eye History of sinus surgery History of left knee surgery History of partial hysterectomy Family History Father CVD (cardiovascular disease) Heart attack Mother CVD (cardiovascular disease) Heart attack Maternal Grandmother CVD (cardiovascular disease) Maternal Grandfather Colon cancer Paternal Grandmother No problems noted. Son No problems noted. Son No problems noted. Son No problems noted. 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 1. Little interest or pleasure in doing things: not at all 2. Feeling down, depressed, or hopeless: not at all 3. Trouble falling or staying asleep, or sleeping too much: not at all 4. Feeling tired or having little energy: not at all 5. Poor appetite or overeating: not at all 6. Feeling bad about yourself - or that you are a failure or have let yourself or your family down: not at all 7. Trouble concentrating on things, such as reading the newspaper or watching television: not at all 8. Moving or speaking so slowly that other people could have noticed. Or the opposite - being so fidgety or restless that you have been moving around a lot more than usual: not at all 9. Thoughts that you would be better off or of hurting yourself in some way: not at all Total score: 0 Depression Screening Interpretation: Negative Depression Screening Done: Yes 12814 - PHQ-9 Billing: Yes Source: Developed by Drs. Dayday Arias, Monika Dior, Herminio Clinton and colleagues, with an educational ross from [employer]. Thrive Questionnaire Date Thrive assessed: 05/20/25 I am a: Patient What is your living situation today?: I have a steady place to live Within the past 12 months, did the food you bought not last and you didn't have the money to get more?: I choose not to answer this question Within the past 12 months, did you worry whether your food would run out before you got money to buy more?: I choose not to answer this question Do you have trouble paying for medicines?: Yes Do you have trouble getting transportation to medical appointments?: No Do you have trouble paying your heating and electricity bill?: No Do you have trouble taking care of your child, family member or friend?: No Do you have trouble with day-to-day activities such as bathing, preparing meals, shopping, managing finances, etc.?: No Are you currently unemployed and looking for a job?: No Are you interested in more education?: No Please select the resources that you would like help with: None Currently or been in a relationship where the following occur: No concerns reported THRIVE Score: 0 MURIEL-7 AMB Questionnaire MURIEL-7 Date MURIEL - 7 assessed: 05/20/25 Feeling nervous, anxious, or on edge: 0 = Not at all Not being able to stop or control worryin = Not at all Worrying too much about different things: 0 = Not at all Trouble relaxin = Not at all Being so restless that it is hard to sit still: 0 = Not at all Becoming easily annoyed or irritable: 0 = Not at all Feeling afraid as if something awful might happen: 0 = Not at all Total MURIEL-7 score (0-4 normal; 5-9 mild; 10-14 moderate; 15-21 severe): 0 Source: Developed by Drs. Dayday Arias, Monika Dior, Herminio Clinton and colleagues, with an educational ross from [employer]. Physical exam (Primary Care) Vital Signs: Last Vital Signs Temp 97.1 F 05/20/25 10:03 Pulse 76 05/20/25 10:03 Resp 12 05/20/25 10:03 BP 114/70 05/20/25 10:03 Pulse Ox 98 05/20/25 10:03 Oxygen Delivery Method Room Air 05/20/25 10:03 BMI result Body Mass Index 36.7 Tobacco/Smoking Status: Tobacco use Status Tobacco use date assessed 05/20/25 05/20/25 10:04 Patient Tobacco Use Status Former Tobacco user 05/20/25 10:04 e-Cigarette/Vaping Use Never Used 05/20/25 10:04 PHQ-9: PHQ-9 Score PHQ-9: Total score 0 05/20/25 10:39 Depression Screening Interpretation: Negative Thrive Assessment: Date of Thrive Assessment Date Thrive assessed 05/20/25 05/20/25 10:04 Currently or been in a relationship where the following occur: No concerns reported Results Reviewed Results Reviewed: Laboratory Result Units Range Interpretation Provider Comments Urine Color Yellow Urine Appearance Clear Urine pH 6.5 (5.0-9.0) Urine Specific [place] 1.015 (1.005-1.025) Urine Protein Negative mg/dL (Neg-Trace) Urine Glucose (UA) Negative mg/dL (Negative) Urine Ketones Negative mg/dL (Negative) Urine Blood Negative (Negative) Urine Nitrite Negative (Negative) Urine Leukocyte Esterase Negative (Negative) Coding Level of Care Code Est Pt Level 5 (86159) Complex EM visit Add On G2211 Diagnoses Diverticulitis K57.92 Chronic pain syndrome G89.4 Chronic pain type: chronic pain syndrome Lower abdominal pain R10.30 Abdominal bloating R14.0 Vaginal flatus N89.8 Additional Codes PHQ-9 - 96316 - PHQ-9 Billing: Yes ([id number]) Assessment & Plan Assessment & Plan (1) Diverticulitis: Comment: ACTIVE W. GI Code(s): K57.92 - Diverticulitis of intestine, part unspecified, without perforation or abscess without bleeding Category: Medical (2) Chronic pain: Comment: refill on APAP ER reports challenge of celebrex done at top trimmer ok to take at lowest dose RX for celebrex 50mg po QD prn take w food and sparingly sent to pharmacy Code(s): G89.29 - Other chronic pain Category: Medical Qualifiers: Chronic pain type: chronic pain syndrome Qualified Code(s): G89.4 - Chronic pain syndrome (3) Lower abdominal pain: Code(s): R10.30 - Lower abdominal pain, unspecified Category: Medical (4) Abdominal bloating: Code(s): R14.0 - Abdominal distension (gaseous) Category: Medical (5) Vaginal flatus: Code(s): N89.8 - Other specified noninflammatory disorders of vagina Category: Medical Plan . Orders: Orders UA CC w/rflx Micro + Cult Today R30.0 - Dysuria CT abdomen pelvis wo IV con Today K57.92 - Diverticulitis of intestine, part unspecified, without perforation or abscess without bleeding, N89.8 - Other specified noninflammatory disorders of vagina, R10.30 - Lower abdominal pain, unspecified, R14.0 - Abdominal distension (gaseous) CA-125 Today R10.30 - Lower abdominal pain, unspecified, R14.0 - Abdominal distension (gaseous) Medications: Discontinued empagliflozin (Jardiance) Discontinued Reason: Patient no longer taking 10 mg PO DAILY 90 tabs 0RF
[2025-05-20 10:03] VITALS: BP 114/70; PULSE 76; RESP 12; TEMP 36.2; O2SAT 98; BMI 36.7
== END 2025-05-20 10:59 | disposition home or self-care (01) ==
LOC: HO.HMCFM 09:55
PROVIDERS: PCP Nurse Practitioner Family; Visit Provider Nurse Practitioner Family
DX: K57.92 Diverticulitis of intestine, part unspecified, without perforation or abscess without bleeding (principal); G89.4 Chronic pain syndrome; R10.30 Lower abdominal pain, unspecified; R14.0 Abdominal distension (gaseous); N89.8 Other specified noninflammatory disorders of vagina

== ENCOUNTER → 2025-05-20 09:54 | Outpatient (BNVA) | payer OTHER, SELFPAY | PROVIDERS: PCP Nurse Practitioner Family; Visit Provider Nurse Practitioner Family | DX: M79.7 Fibromyalgia (principal); J44.89 Other specified chronic obstructive pulmonary disease; N28.1 Cyst of kidney, acquired; K21.9 Gastro-esophageal reflux disease without esophagitis; G47.30 Sleep apnea, unspecified; E55.9 Vitamin D deficiency, unspecified; E78.5 Hyperlipidemia, unspecified; G89.4 Chronic pain syndrome; R10.30 Lower abdominal pain, unspecified; R14.0 Abdominal distension (gaseous); N89.8 Other specified noninflammatory disorders of vagina; R30.0 Dysuria; E11.40 Type 2 diabetes mellitus with diabetic neuropathy, unspecified; Z99.89 Dependence on other enabling machines and devices | CPT/HCPCS: 96127; 99212 ==

== ENCOUNTER 2025-05-20 11:18 | Outpatient (REF) | payer OTHER, SELFPAY ==
[2025-05-20 14:41] LABS: Appearance Urine Clear; Glucose Urine UA Negative (Negative); PH 6.5 (5.0-9.0); Specific Gravity - Urine 1.015 (1.005-1.025)
[2025-05-21 10:23] LABS: CA-125 7 U/mL (<35)
== END 2025-05-20 11:19 | disposition home or self-care (01) ==
LOC: HO.WFDLDS 11:18
PROVIDERS: Visit Provider Nurse Practitioner Family
DX: R30.0 Dysuria (principal); R10.30 Lower abdominal pain, unspecified; R14.0 Abdominal distension (gaseous); E66.9 Obesity, unspecified; R79.89 Other specified abnormal findings of blood chemistry; E78.00 Pure hypercholesterolemia, unspecified
CPT/HCPCS: 36415; 81003; 86304

== ENCOUNTER 2025-05-21 14:14 | Outpatient (REF) | payer OTHER, SELFPAY ==
--- OUTSIDE RECORDS SUMMARY | 2025-05-21 14:56 | XMS_ITS | Clinical Summary ---
Author Organization [employer] Address [address] [place] [address] [address] [place] [address] Care Team Providers Care Lay Out Helper Name Role Phone Billie Hdz Unavailable Unavailable Sanjeev Barbosa Primary Care Provider [phone] Active Problems Problem Noted Date Diagnosed Date [...] patient's age to complete this topic Insurance [facility] Care Teams Lay Out Helper Relationship Specialty Start Date End Date Sanjeev Barbosa [address] [place] [address] PCP - General 08/30/[address] [facility] Navigator 07/22/24
== END 2025-05-21 14:15 | disposition home or self-care (01) ==
LOC: HO.MAMMO 14:14
PROVIDERS: PCP Nurse Practitioner Family; Visit Provider Nurse Practitioner Family
DX: Z12.31 Encounter for screening mammogram for malignant neoplasm of breast (principal)
CPT/HCPCS: 77063; 77067

== ENCOUNTER → 2025-05-21 14:30 | Outpatient (BNV) | payer OTHER, SELFPAY | PROVIDERS: PCP Nurse Practitioner Family; Visit Provider Radiology Body Imaging | DX: Z12.31 Encounter for screening mammogram for malignant neoplasm of breast (principal) | CPT/HCPCS: 77063; 77067 ==

== ENCOUNTER 2025-05-22 08:10 | Outpatient (AMB) | payer OTHER, SELFPAY ==
--- OUTSIDE RECORDS SUMMARY | 2025-05-22 08:13 | XMS_ITS | Clinical Summary ---
Author Organization [employer] Address [address] [place] [address] [address] [place] [address] Care Team Providers Care Audiovisual Lead Technician Name Role Phone Billie Hdz Unavailable Unavailable Sanjeev Barbosa Primary Care Provider [phone] Active Problems Problem Noted Date Diagnosed Date [...] patient's age to complete this topic Insurance [facility] Care Teams Audiovisual Lead Technician Relationship Specialty Start Date End Date Sanjeev Barbosa [address] [place] [address] PCP - General 08/30/24 Billie Hdz [facility] Navigator 07/22/24
[2025-05-22 08:33] VITALS: BMI 36.4
--- NOTE | 2025-05-22 08:33 | A.OFFVIS_ITS ---
VS Expanded 05/22/25 08:33 05/28/25 12:42 Height 5 ft 1 in 5 ft 1 in Weight 192 lb 14.472 oz 193 lb BMI 36.4 36.5 Intake Visit Reasons: Obesity, Impaired fasting glucose Allergies aspirin (ASA) Allergy (Severe, Verified 05/20/25 10:35) asthma exacerbation duloxetine (Cymbalta) Allergy (Intermediate, Verified 05/20/25 10:35) loopy gabapentin Allergy (Intermediate, Verified 05/20/25 10:35) loopy NSAIDS (Non-Steroidal Anti-Inflamma (NSAIDS (NON-STEROIDAL ANTI-INFLAMMA) Allergy (Intermediate, Verified 05/20/25 10:35) asthma exacerbation pregabalin Allergy (Intermediate, Verified 05/20/25 10:35) loopy tramadol (TRAMADOL) Allergy (Intermediate, Verified 05/20/25 10:35) tachycardia codeine (CODEINE) Allergy (Mild, Verified 05/20/25 10:35) Rash piperacillin (From Zosyn) Allergy (Mild, Verified 05/20/25 10:35) Rash tazobactam (From Zosyn) Allergy (Mild, Verified 05/20/25 10:35) Rash All SSRIs Allergy (Intermediate, Uncoded 05/20/25 09:58) nightmares Amitriptyline Allergy (Intermediate, Uncoded 05/20/25 09:58) tachycardia Nutrition Presentation Details: Pt presents for MNT for IFG, obesity Pt reports reports typically having 2-3 small meals/day, admits to stress eating Reports choosing GF foods r/t gluten sensitivity leading to upset stomach, c hoosing low fiber foods related to IBS PQU-Ixlxiax-Pu.Jeor Equation Height: 5 ft 1 in Weight: 193 lb Resting Metabolic Rate: 1406.41 Calculated Activity Level: Sedentary Calories Needed to Maintain Weight: 1687.69 Diagnosis Nutrition problem #1: overweight/obesity and food nutri know defi As related to (etiology) #1: diagnosis As evidenced by (sign/symptom) #1: high BMI and knowledge deficit of diet (dx IFG) [facility] Medical History (Updated 05/20/25 @ 14:51 by Joana Gilliam, [facility]-) Low back pain Allergies Nocturnal hypoxia Paresthesia Diverticulitis Herpes simplex Internal nasal lesion Osteopenia of femoral neck Weight gain Diarrhea Family history of premature CAD Spinal cord stimulator dysfunction Anemia Blepharitis of both eyes Adult general medical exam IBS (irritable bowel syndrome) Left breast lump Tendinitis of left rotator cuff Rotator cuff tear Hypogammaglobulinemia Asthma-COPD overlap syndrome RUQ abdominal pain Chronic depression Fibromyalgia Asthma Surgical History S/P insertion of spinal cord stimulator History of abdominoplasty History of esophagogastroduodenoscopy (EGD) S/P bilateral breast reduction S/P LEVI-BSO H/O colonoscopy Spinal cord stimulator status Cataract, left eye Cataract, right eye History of sinus surgery History of left knee surgery History of partial hysterectomy Family History Father CVD (cardiovascular disease) Heart attack Mother CVD (cardiovascular disease) Heart attack Maternal Grandmother CVD (cardiovascular disease) Maternal Grandfather Colon cancer Paternal Grandmother No problems noted. Son No problems noted. Son No problems noted. Son No problems noted. 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 Current occupational exposures/hazards: No Sexual orientation: Unable to collect Gender identity: Unable to collect Cognitive needs: No Hearing needs: No Vision needs: No Assessment & Plan Assessment & Plan (1) Elevated fasting glucose: Code(s): R73.01 - Impaired fasting glucose Category: Medical Plan: Wt: 88 Kg ( 05/30 ) Est kcal needs as per MSJ: 1700 (40% carb, 30% protein/fat) Est fluid needs as per 25-30 ml/d: 2600 Est prot per day as per 1 g/kg bw: 90 Recommend fiber intake : 8-10 g per day and gradually increase to 25-28 g per day for women and 35-38 g for men or as tolerated Recommend sodium intake per day : less than 1500 mg less than 2300 mg Educated patient on: ( R = reviewed V = verbalizes understanding N/R = needs review N/A = not applicable * Food sources of carbohydrate, adequate serving sizes and its role in various health conditions, GF/lactose free options: R * Differences between complex carbohydrates a simple carbohydrates, role of fiber in diet: R V N/R * Lean protein sources of foods: R * Differences between types of fats and role in diet (mono on saturated fat fatty acids, saturated fatty acids, trans fats): R V N/R * Food sources of sodium in salt and healthy modifications for heart health in kidney health: R V R/V * Vitamins and minerals: R V N/R * Healthy plate method concept: R V N/R * Physical activity: Benefits a precaution: R V N/R * Hypoglycemia protocol (rule of 15): R V N/R * Dietary prevention of Hyperglycemia: R * Mindful eating strategies : R Patient Instructions: Practice mindful eating Have one meal replacement every other day Work on reducing total carb per meal to 45 g or less, 3 meals/day and 0-20 g carb as snack (1-3 snacks per day if needed) Keep hydrated having water, low sugar beverages options Coding Level of Care Code Nutr Indiv Intake (73834) Diagnoses Elevated fasting glucose R73.01 Time Spent (min) 30
[2025-05-28 12:42] VITALS: BMI 36.5
== END 2025-05-22 09:19 | disposition home or self-care (01) ==
LOC: HO.ENCR 08:11
PROVIDERS: PCP Nurse Practitioner Family; Visit Provider Dietitian, Registered
DX: R73.01 Impaired fasting glucose (principal)

== ENCOUNTER → 2025-05-22 08:10 | Outpatient (BNVA) | payer OTHER, SELFPAY | PROVIDERS: PCP Nurse Practitioner Family; Visit Provider Dietitian, Registered | DX: R73.01 Impaired fasting glucose (principal) | CPT/HCPCS: 97802 ==

== ENCOUNTER 2025-06-06 08:11 | Outpatient (AMB) | payer OTHER, SELFPAY ==
--- OUTSIDE RECORDS SUMMARY | 2025-06-06 08:15 | XMS_ITS | Clinical Summary ---
Author Organization [facility] [employer] Address [address] [place] [address] [address] [place] [address] Care Team Providers Care Sales Representative Gas Service Name Role Phone Billie Hdz Unavailable Unavailable Sanjeev Barbosa Primary Care Provider [phone] Active Problems Problem Noted Date Diagnosed Date [...] age to complete this topic Insurance [facility] Care Teams Sales Representative Gas Service Relationship Specialty Start Date End Date Sanjeev Barbosa [address] [place] [address] PCP - General 08/30/24 Billie Hdz [facility] Navigator 07/22/24
--- NOTE | 2025-06-06 08:18 | MHC.PC.OV ---
Vital Signs 06/06/25 08:23 Height 5 ft 1 in Weight 194 lb 2 oz BMI 36.7 BP 122/72 Blood Pressure Location Rt brachial Position Sitting Respiration 12 Pulse 75 Pulse Source Pulse Oximeter Temp 97.2 F Temp Source Oral Pulse Oximetry (%) 98 Oxygen Delivery Method Room Air Intake Visit Reasons: RTC repair 07/02/25 Intake Note: Pre op for RTC repair Tool Machine Setup Operator Required: No Allergies aspirin (ASA) Allergy (Severe, Verified 06/09/25 14:25) asthma exacerbation duloxetine (Cymbalta) Allergy (Intermediate, Verified 06/09/25 14:25) loopy gabapentin Allergy (Intermediate, Verified 06/09/25 14:25) loopy NSAIDS (Non-Steroidal Anti-Inflamma (NSAIDS (NON-STEROIDAL ANTI-INFLAMMA) Allergy (Intermediate, Verified 06/09/25 14:25) asthma exacerbation pregabalin Allergy (Intermediate, Verified 06/09/25 14:25) loopy tramadol (TRAMADOL) Allergy (Intermediate, Verified 06/09/25 14:25) tachycardia codeine (CODEINE) Allergy (Mild, Verified 06/09/25 14:25) Rash piperacillin (From Zosyn) Allergy (Mild, Verified 06/09/25 14:25) Rash tazobactam (From Zosyn) Allergy (Mild, Verified 06/09/25 14:25) Rash All SSRIs Allergy (Intermediate, Uncoded 06/09/25 14:25) nightmares Amitriptyline Allergy (Intermediate, Uncoded 06/09/25 14:25) tachycardia Medication List - Last Reconciled 06/06/25 by FUNMILAYO Cruz-SHAWN acetaminophen ER 1,300 mg (2 x 650 mg) PO Q8H PRN Advair HFA 230-21 mcg/actuation (fluticasone propion-salmeterol) 2 puffs inhalation BID 30 days NS albuterol sulfate 90 mcg/actuation (Ventolin HFA) 2 puffs inhalation Q6H PRN 30 days azelastine 2 sprays intranasal BID 30 days B-complex with vitamin C 1 tab PO DAILY 30 days celecoxib (Celebrex) 100 mg PO BID PRN cetirizine (Allergy Relief (cetirizine)) 10 mg PO DAILY cholecalciferol (vitamin D3) 50 mcg PO DAILY 90 days clonazepam 0.5 mg PO TID PRN dextroamphetamine-amphetamine 10 mg 1 tab PO BID dicyclomine 20 mg PO QID 30 days fexofenadine (Sandy Allergy) 180 mg PO DAILY fluoxetine 10 mg PO DAILY ipratropium-albuterol 0.5 mg-3 mg(2.5 mg base)/3 mL 3 mL inhalation Q6H PRN levocetirizine 5 mg PO BEDTIME lidocaine 5% (Lidoderm) 1 patch topical DAILY 30 days magnesium oxide 500 mg PO DAILY 30 days metformin ER 500 mg PO DAILY mometasone 50 mcg/actuation 2 sprays intranasal DAILY 90 days nebulizers As directed omeprazole 40 mg PO DAILY 90 days tizanidine 4 mg PO BEDTIME valacyclovir 1,000 mg PO BID PRN vitamins A,C,L-nhih-hcemzj 4,296 mcg-226 mg-90 mg (PreserVision AREDS) 1 cap PO BID Tobacco use date assessed: 06/06/25 Dental Screening Dental Screen Date: 06/06/25 Did you have a dental visit in the last 12 months?: Yes Did you have a dental problem in the last 6 months where you did not have access to dental care?: No Was dental information given to patient?: Patient has dentist HPI HPI Comments History of Present Illness Details 55-year-old female with sigmoid diverticulitis, 1.3 cm simple renal cyst, moderate diffuse hepatic steaotosis, Asthma COPD overlap syndrome, MDD fibromyalgia family history of premature CAD, GERD, sleep apnea on CPAP, low IGG, vitamin-D deficiency, neuropathy, hyperlipidemia, impaired fasting glucose, multi joint osteoarthritis osteopenia and chronic pain syndrome Status post laminoplasty, left knee surgery, partial hysterectomy, bilateral breast reduction, LEVI-BSO, spinal cord stimulator Here today for preoperative clearance. Surgery Type: arthroscopic rotator cuff repair of the right shoulder Anesthesia Type: General Surgeon: Dr. Garnett Date: 07/02/25 Any past surgical procedures: Yes see above Any complications from anesthesia or in post-op period: reports post op apnea w/ use of morphine in the past otherwise no complications ASA or NSAID Use: occasional celebrex use Current smoker: NO Alcohol use: NO Drug use: NO METs: > 4 climb flight of stairs, golf, walk, yardwork Medical history: Asthma Y COPD Y Obesity BMI 36.7 Diabetes a2c 6.5% MS < 6 weeks, unstable angina, CHF, severe valve disease: No Testing EKG today NSR Labs: 06/09/25 see below RCRI is Class 0. Risk Stratification: 0.5% Exam: Awake alert NAD Scleras nonicteric pharynx clear LS CTAB Trace edema BLE, R>L PP intact Nonfocal neuro exam Plan: Patient is medically cleared to proceed w/ surgery. She asked for an Endo and Bariatrics referral to help her lose weight. She cannot tolerate jardiance, wondering if it caused yeast infection and lower GI irritation. Therefore increase Metformin ER from 500mg QD to 1000mg QD. She is tolerating w/o side effects. Helps to suppress appetite. Discussed referral to Vascular in the future PRN Venous Insuff workup. Education Aspirin and NSAIDS should be discontinued one week before surgery to prevent excessive bleeding. If you are a smoker, there is increase risk of post surgical complications. Cessation is encouraged. Follow up with surgeon and all recommendations pre and post operatively. Total time spent caring for the patient today was 45 minutes. This includes time spent before the visit reviewing the chart, time spent during the visit, and time spent after the visit on documentation, reviewing laboratory results, diagnostic imaging, medications, performing a medically necessary evaluation, counseling on diagnoses, care coordination, ordering appropriate tests, ordering appropriate medications, review of tests performed by other providers, reporting test results with the patient, communication with other healthcare providers. [facility] Medical History (Updated 06/06/25 @ 14:03 by Joana Gilliam, [facility]) Adult general medical exam Allergies Anemia Asthma Asthma-COPD overlap syndrome Blepharitis of both eyes Chronic depression Diarrhea Diverticulitis Family history of premature CAD Fibromyalgia Herpes simplex Hypogammaglobulinemia IBS (irritable bowel syndrome) Internal nasal lesion Left breast lump Low back pain Nocturnal hypoxia Osteopenia of femoral neck Paresthesia Rotator cuff tear RUQ abdominal pain Spinal cord stimulator dysfunction Tendinitis of left rotator cuff Weight gain Surgical History S/P insertion of spinal cord stimulator History of abdominoplasty History of esophagogastroduodenoscopy (EGD) S/P bilateral breast reduction S/P LEVI-BSO H/O colonoscopy Spinal cord stimulator status Cataract, left eye Cataract, right eye History of sinus surgery History of left knee surgery History of partial hysterectomy Family History Father CVD (cardiovascular disease) Heart attack Mother CVD (cardiovascular disease) Heart attack Maternal Grandmother CVD (cardiovascular disease) Maternal Grandfather Colon cancer Paternal Grandmother No problems noted. Son No problems noted. Son No problems noted. Son No problems noted. 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 Current occupational exposures/hazards: No Sexual orientation: Unable to collect Gender identity: Unable to collect Cognitive needs: No Hearing needs: No Vision needs: No Questionnaire Thrive Questionnaire Date Thrive assessed: 05/20/25 I am a: Patient What is your living situation today?: I have a steady place to live Within the past 12 months, did the food you bought not last and you didn't have the money to get more?: I choose not to answer this question Within the past 12 months, did you worry whether your food would run out before you got money to buy more?: I choose not to answer this question Do you have trouble paying for medicines?: Yes Do you have trouble getting transportation to medical appointments?: No Do you have trouble paying your heating and electricity bill?: No Do you have trouble taking care of your child, family member or friend?: No Do you have trouble with day-to-day activities such as bathing, preparing meals, shopping, managing finances, etc.?: No Are you currently unemployed and looking for a job?: No Are you interested in more education?: No Please select the resources that you would like help with: None Currently or been in a relationship where the following occur: No concerns reported THRIVE Score: 0 MURIEL-7 AMB Questionnaire MURIEL-7 Date MURIEL - 7 assessed: 05/20/25 Source: Developed by Drs. Dayday Arias, Monika Dior, Herminio Clinton and colleagues, with an educational ross from [employer]. Physical exam (Primary Care) Vital Signs: Last Vital Signs Temp 97.2 F 06/06/25 08:23 Pulse 75 06/06/25 08:23 Resp 12 06/06/25 08:23 BP 122/72 06/06/25 08:23 Pulse Ox 98 06/06/25 08:23 Oxygen Delivery Method Room Air 06/06/25 08:23 BMI result Body Mass Index 36.7 Tobacco/Smoking Status: Tobacco use Status Tobacco use date assessed 06/06/25 06/06/25 08:21 Patient Tobacco Use Status Former Tobacco user 06/06/25 08:21 e-Cigarette/Vaping Use Never Used 06/06/25 08:21 Thrive Assessment: Date of Thrive Assessment Date Thrive assessed 05/20/25 06/06/25 08:21 Currently or been in a relationship where the following occur: No concerns reported Office Procedures EKG 51810-[id number], Complete Results AMB Hemoglobin A1c AMB Hemoglobin A1c 6.5 % Last Edit by Candida Mcconnell MA on 06/06/25 08:40 Results Reviewed Results Reviewed: Laboratory Last Values Hgb A1c (Clinic) 6.5 % (4.0-6.0) H 06/06/25 08:27 06/09/2025 Laboratory Result Units Range Interpretation Provider Comments White Blood Count 6.5 X10*3/uL (4.8-10.8) Red Blood Count 4.67 X10*6/uL (4.20-5.50) Hemoglobin 13.8 g/dl (12.0-16.0) Hematocrit 42.2 % (37.0-47.0) Mean Corpuscular Volume 90.4 fL (80.0-98.0) Mean Corpuscular Hemoglobin 29.6 pg (27.0-33.0) Mean Corpuscular Hemoglobin Concent 32.7 g/dl (31.0-35.0) Red Cell Distribution Width 14.3 % (11.0-16.0) Platelet Count 208 X10*3/uL (160-400) Mean Platelet Volume 9.8 fL (9.4-12.3) Nucleated RBC Absolute Count (auto) 0.000 X10*3/uL (0.0-0.012) Nucleated Red Blood Cells % (auto) 0.0 /100WBC (0.0-0.2) Sodium Level 139 mmol/L (135-145) Potassium Level 4.0 mmol/L (3.3-5.1) Chloride Level 106 mmol/L (96-108) Carbon Dioxide Level 23 mmol/L (22-29) Anion Gap 14 (12-20) Blood Urea Nitrogen 15 mg/dL (9-16) Creatinine 0.63 mg/dL (0.5-1.4) Estimated Creatinine Clearance Calc Not Reportable Estimat Glomerular Filtration Rate > 60 Random Glucose 220 mg/dL (60-115) High Calcium Level 9.2 mg/dL (8.4-10.2) Delta Total Bilirubin 0.4 mg/dL (0.0-1.0) Aspartate Amino Transf (AST/SGOT) 25 U/L (5-31) Alanine Aminotransferase (ALT/SGPT) 34 U/L (0-31) High Alkaline Phosphatase 112 U/L (39-117) Total Protein 6.9 g/dL (6.5-8.0) Albumin 4.6 g/dL (3.5-5.0) Coding Level of Care Code Est Pt Level 5 (50192) Complex EM visit Add On G2211 Diagnoses Pre-op examination Z01.818 Type 2 diabetes mellitus without complication, without long-term current use of insulin E11.9 Diabetes mellitus complication status: without complication Diabetes mellitus chcf insulin use: without termite control representative use Obesity (BMI 30-39.9) E66.9 CPT Codes EKG - CPT: 61836-[id number], Complete ([id number]) Assessment & Plan Assessment & Plan (1) Pre-op examination: Code(s): Z01.818 - Encounter for other preprocedural examination Plan: Plan: Patient is medically cleared to proceed w/ surgery. (2) DM2 (diabetes mellitus, type 2): Code(s): E11.9 - Type 2 diabetes mellitus without complications Category: Medical Qualifiers: Diabetes mellitus complication status: without complication Diabetes mellitus chcf insulin use: without termite control representative use Qualified Code(s): E11.9 - Type 2 diabetes mellitus without complications (3) Obesity (BMI 30-39.9): Code(s): E66.9 - Obesity, unspecified Category: Medical Plan , Orders: Orders Complete Blood Count no Diff 06/09/25 Z01.818 - Encounter for other preprocedural examination LDL Cholesterol Direct 06/09/25 Z01.818 - Encounter for other preprocedural examination AMB Hemoglobin A1c 06/06/25 Z13.9 - Encounter for screening, unspecified Comprehensive Met. Panel 06/09/25 Z01.818 - Encounter for other preprocedural examination Referrals Endocrinology Referral E11.9 - Type 2 diabetes mellitus without complications, R73.01 - Impaired fasting glucose Medical Weight Management Referral E66.9 - Obesity, unspecified Medications: Changed From metformin ER 500 mg PO DAILY 90 tabs 0RF To metformin ER 1,000 mg (2 x 500 mg) PO DAILY 180 tabs 2RF
[2025-06-06 08:23] VITALS: BP 122/72; PULSE 75; RESP 12; TEMP 36.2; O2SAT 98; BMI 36.7
== END 2025-06-06 09:36 | disposition home or self-care (01) ==
LOC: HO.HMCFM 08:12
PROVIDERS: PCP Nurse Practitioner Family; Visit Provider Nurse Practitioner Family
DX: Z13.9 Encounter for screening, unspecified (principal)

== ENCOUNTER → 2025-06-06 08:11 | Outpatient (BNVA) | payer OTHER, SELFPAY | PROVIDERS: PCP Nurse Practitioner Family; Visit Provider Nurse Practitioner Family | DX: Z01.818 Encounter for other preprocedural examination (principal); E11.9 Type 2 diabetes mellitus without complications; E66.9 Obesity, unspecified; Z68.36 Body mass index [BMI] 36.0-36.9, adult; J44.89 Other specified chronic obstructive pulmonary disease; I25.10 Atherosclerotic heart disease of native coronary artery without angina pectoris; Z98.890 Other specified postprocedural states | CPT/HCPCS: 83036; 93005; 99212 ==

== ENCOUNTER 2025-06-09 07:49 | Outpatient (REF) | payer OTHER, SELFPAY ==
--- OUTSIDE RECORDS SUMMARY | 2025-06-09 07:52 | XMS_ITS | Clinical Summary ---
Author Organization [employer] Address [address] [place] [address] [address] [place] [address] Care Team Providers Care Serology Teacher Name Role Phone Billie Hdz Unavailable Unavailable Sanjeev Barbosa Primary Care Provider [phone] Active Problems Problem Noted Date Diagnosed Date [...] patient's age to complete this topic Insurance [facility] Care Teams Serology Teacher Relationship Specialty Start Date End Date Sanjeev Barbosa [address] [place] [address] PCP - General 08/30/24 Billie Hdz [facility] Navigator 07/22/24
--- OUTSIDE RECORDS SUMMARY | 2025-06-09 07:52 | XMS_ITS | Encounter Summary ---
Author Organization [facility] Address [address] [place] [address] Phone Care Team Providers Care Import/Export Administrator Name Role Phone Sanjeev Barbosa MD Primary Care Provider Joana Martinez NP Primary Care Provider Reason for Referral * Consultation (Routine) - Closed Specialty Diagnoses / Procedures Referred By Contgregory t Referred To Contact Rheumatology Diagnoses Unspecified place or not applicable Leonor Zaragoza, ANTONI Phone: tel: fax: [facility] [address] [place] [address] Phone: tel: Referral ID Status Reason Start Date Expiration Date Visits Re quested Visits Authorized [id number] Closed 04/26/2024 04/26/2025 1 1 Encounter Details Date Type Department Care Team (Late st Contact Info) Description 04/26/2024 Transcribe Orders [facility] Referral Management [address] [place] [address] Leonor Zaragoza, ANTONI [address] [place] [address] [address] [place] [address] Social History Tobacco Use Types Packs/Day Years Used Date Smoking Tobacco: Former Cigarettes 0.5 2 1 0 - 1991 Smokeless Tobacco: Never Alcohol Use Standard Drinks/Week Comments Yes 0 (1 standard drink = 0.6 oz pur e alcohol) Education Answer Date Recorded Are you interested in more education? Not on maggi e 01/16/2024 Are you concerned about learning? Not on file 01/16/2024 No 01/16/2024 No 01/16/2024 Digital Access Answer Date Recorded No 01/16/2024 No 01/16/2024 Reliable internet access at home? Not on file 01/16/2024 Device with a working camera? Not on file Comments Unknown Sex and Gender Information Value Date Recorded Sex Assigned at Not on file Legal Sex Female 12:39 PM EDT Gender Identity Not on file Sexual Orientation Not on file documented as of this encounter Plan of Treatment Scheduled Referrals Name Type Priority Associated Diagnoses Order Schedule Ambulatory referral to [facility] Outpatient Referral Routine Ordered: 04/26/2024 documented as of this encounter Visit Diagnoses Not on filedocumented in this encounter Care Teams Import/Export Administrator Relationship Specialty Start Date End Date Sanjeev Barbosa MD [address] [place] [id number] PCP - General 01/16/24 06/25/24 Joana Martinez NP [address] [place] [phone] [email or web address] PCP - General Nurse Practitioner 06/26/24 documented as of this encounter Additional Source Comments The information contained in this document represents components of the legal health record. It is not the complete legal health record.[facility]
[2025-06-09 08:13] LABS: Hematocrit 42.2 % (37.0-47.0); Hemoglobin 13.8 g/dl (12.0-16.0); Mean Corpuscular HGB Conc 32.7 g/dl (31.0-35.0); Mean Corpuscular Hemoglobin 29.6 pg (27.0-33.0); Mean Corpuscular Volume 90.4 fL (80.0-98.0); NRBC Abs Auto 0.000 X10*3/uL (0.0-0.012); NRBC Pct Auto 0.0 /100WBC (0.0-0.2); Platelet Count 208 X10*3/uL (160-400); Red Blood Count 4.67 X10*6/uL (4.20-5.50); White Blood Count 6.5 X10*3/uL (4.8-10.8)
[2025-06-09 08:35] LABS: Alanine Aminotransferase 34 U/L (0-31); Albumin Level 4.6 g/dL (3.5-5.0); Alkaline Phosphatase 112 U/L (39-117); Anion Gap 14 (12-20); Aspartate Amino Transferase 25 U/L (5-31); Blood Urea Nitrogen 15 mg/dL (9-16); Calcium 9.2 mg/dL (8.4-10.2); Carbon Dioxide 23 mmol/L (22-29); Chloride 106 mmol/L (96-108); Estimated Glomerular Filt Rate > 60; Potassium 4.0 mmol/L (3.3-5.1); Sodium 139 mmol/L (135-145); Total Protein 6.9 g/dL (6.5-8.0)
== END 2025-06-09 07:50 | disposition home or self-care (01) ==
LOC: HO.LAB 07:49
PROVIDERS: Visit Provider Nurse Practitioner Family
DX: Z01.818 Encounter for other preprocedural examination (principal); E11.9 Type 2 diabetes mellitus without complications; E66.9 Obesity, unspecified; Z68.36 Body mass index [BMI] 36.0-36.9, adult; Z79.84 Long term (current) use of oral hypoglycemic drugs; Z79.899 Other long term (current) drug therapy
CPT/HCPCS: 36415; 80053; 82947; 83721; 85027; 99202

== ENCOUNTER → 2025-06-09 14:10 | Outpatient (AMB) | payer OTHER, SELFPAY ==
--- NOTE | 2025-06-09 14:20 | A.OFFVIS_ITS ---
Vital Signs 06/09/25 14:21 Height 5 ft 1 in Weight 194 lb 0.108 oz BMI 36.7 BP 145/108 H Blood Pressure Location Rt brachial Position Sitting Pulse 70 Pulse Source Pulse Oximeter Intake Visit Reasons: Type 2 diabetes mellitus without complicat Intake Note: NEW Patient presents today to establish treatment for Type 2 Diabetes Mellitus: Last Diabetic eye exam was on: 04/2025 Last Podiatry exam was on: Patient does not see a Palliative Care Coordinator Most recent HbA1c: 6.5%, 06/06/2025 Random Glucose- 115 mg/dL, Today Threshing Operator Required: No Accompanied by: Self / Same As Patient Allergies aspirin (ASA) Allergy (Severe, Verified 06/09/25 14:25) asthma exacerbation duloxetine (Cymbalta) Allergy (Intermediate, Verified 06/09/25 14:25) loopy gabapentin Allergy (Intermediate, Verified 06/09/25 14:25) loopy NSAIDS (Non-Steroidal Anti-Inflamma (NSAIDS (NON-STEROIDAL ANTI-INFLAMMA) Allergy (Intermediate, Verified 06/09/25 14:25) asthma exacerbation pregabalin Allergy (Intermediate, Verified 06/09/25 14:25) loopy tramadol (TRAMADOL) Allergy (Intermediate, Verified 06/09/25 14:25) tachycardia codeine (CODEINE) Allergy (Mild, Verified 06/09/25 14:25) Rash piperacillin (From Zosyn) Allergy (Mild, Verified 06/09/25 14:25) Rash tazobactam (From Zosyn) Allergy (Mild, Verified 06/09/25 14:25) Rash All SSRIs Allergy (Intermediate, Uncoded 06/09/25 14:25) nightmares Amitriptyline Allergy (Intermediate, Uncoded 06/09/25 14:25) tachycardia Medication List - Last Reconciled 06/09/25 by Dayday Phillips MD acetaminophen ER 1,300 mg (2 x 650 mg) PO Q8H PRN Advair HFA 230-21 mcg/actuation (fluticasone propion-salmeterol) 2 puffs inhalation BID 30 days NS albuterol sulfate 90 mcg/actuation (Ventolin HFA) 2 puffs inhalation Q6H PRN 30 days azelastine 2 sprays intranasal BID 30 days B-complex with vitamin C 1 tab PO DAILY 30 days celecoxib (Celebrex) 100 mg PO BID PRN cetirizine (Allergy Relief (cetirizine)) 10 mg PO DAILY cholecalciferol (vitamin D3) 50 mcg PO DAILY 90 days clonazepam 0.5 mg PO TID PRN dextroamphetamine-amphetamine 10 mg 1 tab PO BID dicyclomine 20 mg PO QID 30 days fexofenadine (Sandy Allergy) 180 mg PO DAILY fluoxetine 10 mg PO DAILY ipratropium-albuterol 0.5 mg-3 mg(2.5 mg base)/3 mL 3 mL inhalation Q6H PRN levocetirizine 5 mg PO BEDTIME lidocaine 5% (Lidoderm) 1 patch topical DAILY 30 days magnesium oxide 500 mg PO DAILY 30 days metformin ER 1,000 mg (2 x 500 mg) PO DAILY mometasone 50 mcg/actuation 2 sprays intranasal DAILY 90 days nebulizers As directed omeprazole 40 mg PO DAILY 90 days tizanidine 4 mg PO BEDTIME valacyclovir 1,000 mg PO BID PRN vitamins A,C,Z-jgtk-vouwbn 4,296 mcg-226 mg-90 mg (PreserVision AREDS) 1 cap PO BID HPI Comments Details: 55 YO F who is seen in consultation for T2DM at the request of PCP. Initially diagnosed with T2DM in just diagnosed . Was initially started on treatment with Jardiance .Had to stop because of yest infections Current regimen metformin ER 1000 mg QD. Not Checks sugars . Most recent A1C 6.5 , Family history of T2DM in paternal grandfather . Has eyes checked yearly, last eye exam 6 wks ago , denies retinopathy. Has neuropathy, Not sees podiatry. Denies nephropathy,Not on LAINEY/ARB. [Has] HLD, Not on statin. Last LDL [] as measured on []. Denies CAD. Not Had diabetes education. [facility] Medical History (Updated 06/06/25 @ 14:03 by Joana Gilliam, [employer]) Low back pain Allergies Nocturnal hypoxia Paresthesia Diverticulitis Herpes simplex Internal nasal lesion Osteopenia of femoral neck Weight gain Diarrhea Family history of premature CAD Spinal cord stimulator dysfunction Anemia Blepharitis of both eyes Adult general medical exam IBS (irritable bowel syndrome) Left breast lump Tendinitis of left rotator cuff Rotator cuff tear Hypogammaglobulinemia Asthma-COPD overlap syndrome RUQ abdominal pain Chronic depression Fibromyalgia Asthma Surgical History S/P insertion of spinal cord stimulator History of abdominoplasty History of esophagogastroduodenoscopy (EGD) S/P bilateral breast reduction S/P LEVI-BSO H/O colonoscopy Spinal cord stimulator status Cataract, left eye Cataract, right eye History of sinus surgery History of left knee surgery History of partial hysterectomy Family History Father CVD (cardiovascular disease) Heart attack Mother CVD (cardiovascular disease) Heart attack Maternal Grandmother CVD (cardiovascular disease) Maternal Grandfather Colon cancer Paternal Grandmother No problems noted. Son No problems noted. Son No problems noted. Son No problems noted. 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 Current occupational exposures/hazards: No Sexual orientation: Unable to collect Gender identity: Unable to collect Cognitive needs: No Hearing needs: No Vision needs: No Physical Exam Vital Signs: BMI result Body Mass Index 36.7 Assessment & Plan Assessment & Plan (1) Obesity (BMI 30-39.9): Code(s): E66.9 - Obesity, unspecified Category: Medical Plan: See management above (2) DM2 (diabetes mellitus, type 2): Code(s): E11.9 - Type 2 diabetes mellitus without complications Category: Medical Qualifiers: Diabetes mellitus half-way insulin use: without termite control technician use Diabetes mellitus complication status: without complication Qualified Code(s): E11.9 - Type 2 diabetes mellitus without complications Plan: Is a 55-year-old white female with a history of type 2 diabetes/obesity being treated with metformin with good glycemic control with known complications of steatosis of the liver Plan is to send the patient to archery instructor. We will talk to the patient about initiating a G LP 1 either Trulicity Ozempic or Mounjaro but considering strong family history of coronary artery disease might consider Ozempic. However, Tr ulicity is covered by the patient's insurance plan is 1st line G LP. I told the patient to obtain clearance from Leonor Zaragoza NP, gastroenterology before starting the G LP 1. We will have patient follow up with primary care diabetes team in 3 months Orders: Orders Microalbumin, Random (w Creat) Today E11.9 - Type 2 diabetes mellitus without complications Referrals Diabetes Education Referral E11.9 - Type 2 diabetes mellitus without complications Nutrition/Dietitian Referral E66.9 - Obesity, unspecified Medications: New dulaglutide (Trulicity) 0.75 mg (0.5 mL) subcut QWEEK 2 mL 4RF Coding Level of Care Code New Pt Level 4 (90814) Diagnoses Obesity (BMI 30-39.9) E66.9 Type 2 diabetes mellitus without complication, without long-term current use of insulin E11.9 Diabetes mellitus termite control technician insulin use: without termite control technician use Diabetes mellitus complication status: without complication
[2025-06-09 14:21] VITALS: BP 145/108; PULSE 70; BMI 36.7
[2025-06-09 14:36] LABS: Glucose, Whole Blood 115 mg/dL (60-115)
== END ==
PROVIDERS: PCP Nurse Practitioner Family; Visit Provider Internal Medicine Endocrinology, Diabetes & Metabolism
DX: E66.9 Obesity, unspecified (principal); E11.9 Type 2 diabetes mellitus without complications
CPT/HCPCS: 99204

== ENCOUNTER 2025-06-12 07:59 | Outpatient (REF) | payer OTHER, SELFPAY ==
--- OUTSIDE RECORDS SUMMARY | 2025-06-12 08:04 | XMS_ITS | Clinical Summary ---
Author Organization [email or web address] Address [address] [place] [address] [address] [place] [address] Care Team Providers Care Head Of It Name Role Phone Billie Hdz Unavailable Unavailable Sanjeev Barbosa Primary Care Provider [phone] Active Problems Problem Noted Date Diagnosed Date [...] age to complete this topic Insurance [facility] Care Teams Head Of It Relationship Specialty Start Date End Date Sanjeev Barbosa [address] [place] [address] PCP - General 08/30/24 Billie Hdz [facility] Navigator 07/22/24
--- OUTSIDE RECORDS SUMMARY | 2025-06-12 08:04 | XMS_ITS | Encounter Summary ---
Author Organization [facility] Address [address] [place] [address] Phone Care Team Providers Care Retail Stocker Name Role Phone Sanjeev Barbosa MD Primary Care Provider Joana Martinez NP Primary Care Provider Reason for Referral * Consultation (Routine) - Closed Specialty Diagnoses / Procedures Referred By Contgregory t Referred To Contact Rheumatology Diagnoses Unspecified place or not applicable Leonor Zaragoza, ANTONI Phone: tel: fax: [facility] [address] [place] [address] Phone: tel: Referral ID Status Reason Start Date Expiration Date Visits Re quested Visits Authorized [id number] Closed 04/26/2024 04/26/2025 1 1 Encounter Details Date Type Department Care Team (Late st Contact Info) Description 04/26/2024 Transcribe Orders [facility] Referral Management [address] [place] [address] Leonor Zaragoza, ANTONI [address] [place] [address] [address] [place] [address] Social History Tobacco Use Types Packs/Day Years [...] Associated Diagnoses Order Schedule Ambulatory referral [place] [facility] Outpatient Referral Routine Ordered: 04/26/2024 documented as of this encounter Visit Diagnoses Not on filedocumented in this encounter Care Teams Retail Stocker Relationship Specialty Start Date End Date Sanjeev Barbosa MD [address] [place] [id number] PCP - General 01/16/24 06/25/24 Joana Martinez NP [address] [place] [phone] [email or web address] PCP - General Nurse Practitioner 06/26/24 documented as of this encounter Additional Source Comments The information contained in this document represents components of the legal health record. It is not the complete legal health record.[facility]
--- NOTE | 2025-06-12 08:09 | EEG_ITS ---
This is a 16 channel EEG with an EKG lead. Patient is reported awake during the tracing. Background EEG rhythm is 14-16 hertz 5-70 microvolt posteriorly lower amplitude fast anteriorly. Photic stimulation does not produce any significant abnormality. Hyperventilation is not performed. Cardiac lead does not reveal any significant abnormality. No definite sharp wave spikes or paroxysmal tendencies noted. Impression: No significant abnormality noted on this EEG. MTDD
== END 2025-06-12 08:00 | disposition home or self-care (01) ==
LOC: HO.NEURO 07:59
PROVIDERS: Visit Provider Nurse Practitioner Family
DX: R41.82 Altered mental status, unspecified (principal); K65.4 Sclerosing mesenteritis; K57.92 Diverticulitis of intestine, part unspecified, without perforation or abscess without bleeding; K21.9 Gastro-esophageal reflux disease without esophagitis
CPT/HCPCS: 95816; 99212

== ENCOUNTER → 2025-06-12 08:09 | Outpatient (BNV) | payer OTHER, SELFPAY | PROVIDERS: Visit Provider Psychiatry & Neurology Neurology | DX: R41.82 Altered mental status, unspecified (principal) | CPT/HCPCS: 95816 ==

== ENCOUNTER 2025-06-12 14:15 | Outpatient (AMB) | payer OTHER, SELFPAY ==
[2025-06-12 14:35] VITALS: BMI 36.5
--- NOTE | 2025-06-12 14:35 | A.OFFVIS_ITS ---
Vital Signs 06/12/25 14:35 Height 5 ft 1 in Weight 193 lb BMI 36.5 Intake Visit Reasons: diverticulitis Intake Note: Lucia presents to in office follow up diverticulitis. CC: Patient states she began to have lower abdominal pain again and she took abx for it. She also has noticed that she was passing air through her vagina and her PCP was concerned about a fistula. Hand Inspector Required: No Accompanied by: Self / Same As Patient Allergies amitriptyline Allergy (Severe, Verified 06/17/25 11:26) nightmares aspirin (ASA) Allergy (Severe, Verified 06/12/25 14:59) asthma exacerbation duloxetine (Cymbalta) Allergy (Intermediate, Verified 06/12/25 14:59) loopy gabapentin Allergy (Intermediate, Verified 06/12/25 14:59) loopy morphine Allergy (Intermediate, Verified 06/17/25 11:35) migraine/somnolence NSAIDS (Non-Steroidal Anti-Inflamma (NSAIDS (NON-STEROIDAL ANTI-INFLAMMA) Allergy (Intermediate, Verified 06/12/25 14:59) asthma exacerbation pregabalin Allergy (Intermediate, Verified 06/12/25 14:59) loopy tramadol (TRAMADOL) Allergy (Intermediate, Verified 06/12/25 14:59) tachycardia codeine (CODEINE) Allergy (Mild, Verified 06/12/25 14:59) Rash piperacillin (From Zosyn) Allergy (Mild, Verified 06/12/25 14:59) Rash tazobactam (From Zosyn) Allergy (Mild, Verified 06/12/25 14:59) Rash HPI HPI diverticulitis: Details: Assessment & Plan (1) Diverticulitis: Comment: appt w/ GI 02/2024 Code(s): K57.92 - Diverticulitis of intestine, part unspecified, without perforation or abscess without bleeding Category: Medical (2) GERD (gastroesophageal reflux disease): Code(s): K21.9 - Gastro-esophageal reflux disease without esophagitis Category: Medical (3) Sclerosing mesenteric fibrosis: Comment: central mesentary haziness on CT, need to check progress Code(s): K65.4 - Sclerosing mesenteritis Category: Medical Plan The prior ? of mesenteric haziness is not seen. She still can not get a rheum, CRP very high and she may have to go to [place] because she can not find any providers anywhere in [place] who mass or even then [facility] who accepting new patients. 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 I am uncertain how much this might be contributing to her recurrent bouts of diverticulitis but it certainly is a possibility. We discussed, since she has had more than 3 exacerbations, the possibility of consulting a surgeon but she wants to hold off until she can explore the rheumatology option or at least until after the holidays. We can always reconsider this going forward. For now she will continue with her Augmentin in reserve although we also discussed possibly utilizing Cipro and Bactrim together since she can not tolerate Flagyl. ROV 3 mos Medications: New amoxicillin-pot clavulanate 875-125 mg 1 tab PO BID 28 tabs 0RF 14 days K57.92 - Diverticulitis of intestine, part unspecified, without perforation or abscess without bleeding TODAY'S VISIT She had pain again in the LLQ and used the augmentin that I had prescribed, she was having a lot of bad smelling gas and her PCP was concerned about possible fistula - but this has resolved and she feels well now. MiraLax gives runs, eats prunes for control. Very concerned about preventing diverticulitis we discussed seeds and nuts. Popcorn seems to always cause her problems with left lower quadrant pain. She has a new diagnosis of diabetes. [facility] is [facility] said [facility]. We will be having rotator cuff shoulder surgery soon. The discussing possible weight loss surgery, she is uncertain because of the sclerosing mesenteritis. I need to research if there is any potential complications of abdominal surgery with this condition. She is always quite fearful of having it come back. Return office visit in 8 weeks or sooner if she has trouble postoperatively with her bowels. [facility] Medical History (Updated 06/17/25 @ 11:56 by Laine Mckeon RN) Diabetes 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 NILTON (obstructive sleep apnea) ADD (attention deficit disorder) Anxiety GERD (gastroesophageal reflux disease) Low back pain Nocturnal hypoxia Paresthesia Diverticulitis Herpes simplex Osteopenia of femoral neck Family history of premature CAD Spinal cord stimulator dysfunction Anemia IBS (irritable bowel syndrome) Tendinitis of left rotator cuff Rotator cuff tear Hypogammaglobulinemia Asthma-COPD overlap syndrome Chronic depression Fibromyalgia Surgical History (Updated 06/17/25 @ 11:39 by Laine Mckeon RN) Hx of blepharoplasty Hx of cataract surgery S/P insertion of spinal cord stimulator History of abdominoplasty History of esophagogastroduodenoscopy (EGD) S/P bilateral breast reduction S/P LEVI-BSO H/O colonoscopy History of sinus surgery History of left knee surgery Family History Father CVD (cardiovascular disease) Heart attack Mother CVD (cardiovascular disease) Heart attack Maternal Grandmother CVD (cardiovascular disease) Maternal Grandfather Colon cancer Paternal Grandmother No problems noted. Son No problems noted. Son No problems noted. Son No problems noted. 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 Current occupational exposures/hazards: No Sexual orientation: Unable to collect Gender identity: Unable to collect Cognitive needs: No Hearing needs: No Vision needs: No Review of Systems Const Denies fatigue, Denies fever(s), Denies night sweats, Denies poor appetite and Denies weight loss ENT Reports Normal hearing present, Denies dental pain, Denies dysphagia, Denies hearing loss, Denies mouth pain, Denies odynophagia, Denies throat swelling, Denies tongue swelling and Reports other (Dentition adequate) Card Reports no additional complaints Resp Reports no additional complaints GI Details: Denies abdominal pain, Denies melena, Denies bloating, Denies hematochezia, Reports constipation, Denies GI cramping, Denies dysphagia, Denies excessive flatus, Denies early satiety, Reports heartburn, Denies diarrhea, Denies nausea, Denies odynophagia, Denies vomiting and Denies hematemesis Musc Reports arthralgias and Reports limited range of motion Skin/Breast Denies pruritus, Denies lesions, Denies rash and Denies jaundice Neuro Reports Normal hearing present and Denies Abnormal speech present Endo Denies fatigue Aller/Immun Denies throat swelling and Denies tongue swelling Physical Exam Vital Signs: BMI result Body Mass Index 36.5 Const General: cooperative, no acute distress, well developed and well groomed Nutritional Appearance: well nourished and obese Orientation/consciousness: oriented to person, oriented to place and oriented to time Limitations: No language barrier HEENT Head: Yes normocephalic and Yes atraumatic Eyes General: appearance normal, both eyes and all related structures Pupils: Equal, round and reactive pupils present Neck Neck: Yes normal visual inspection and Yes no lymphadenopathy Thyroid: Thyroid normal Resp Effort & Inspection: normal respiratory effort and able to speak in complete sentences Auscultation: clear to auscultation bilaterally Cardio Rate: regular rate Rhythm: regular rhythm Heart sounds: Normal, physiologic split S2 sound present Peripheral pulses: radial pulses present and posterior tibial pulses present GI Inspection: No distended, Yes Abdominal panniculus present and Yes obesity Palpation (GI): Soft to palpation, nontender, no guarding, not rigid and No hepatosplenomegaly present Percussion: Yes normal to percussion Auscultation: normal bowel sounds Rectal Exam - Female: deferred Skin General skin exam: no rashes or lesions noted, turgor normal, skin not dry, no jaundice, No spider nevi and no striae Rashes: no rashes Nails: normal Neuro General: oriented to person, oriented to place and oriented to time Cranial nerves: Yes Equal, round and reactive pupils present and Yes Normal hearing present Speech: No Abnormal speech present Extrem General: Yes normal to inspection, No clubbing, No cyanosis and No edema Psych Appearance: grossly normal and well kempt Mental Status: mental status grossly normal Speech and movement: Normal speech and movement present Affect: normal affect Attitude: cooperative Thought process: Normal thought process present and not confabulating Thought content: Normal thought content present Insight: Good insight present (Psych) Judgement: Good judgement present (Psych) Assessment & Plan Assessment & Plan (1) GERD (gastroesophageal reflux disease): Code(s): K21.9 - Gastro-esophageal reflux disease without esophagitis Category: Medical (2) Diverticulitis: Comment: follows w/HGI Code(s): K57.92 - Diverticulitis of intestine, part unspecified, without perforation or abscess without bleeding Category: Medical (3) Sclerosing mesenteric fibrosis: Comment: central mesentary haziness on CT, need to check progress Code(s): K65.4 - Sclerosing mesenteritis Category: Medical Plan She had pain again in the LLQ and used the augmentin that I had prescribed, she was having a lot of bad smelling gas and her PCP was concerned about possible fistula - but this has resolved and she feels well now. MiraLax gives runs, eats prunes for control. Very concerned about preventing diverticulitis we discussed seeds and nuts. Popcorn seems to always cause her problems with left lower quadrant pain. She has a new diagnosis of diabetes. She is probably going [facility] this said weight loss. We will be having rotator cuff shoulder surgery soon. The discussing possible weight loss surgery, she is uncertain because of the sclerosing mesenteritis. I need to research if there is any potential complications of abdominal surgery with this condition. She is always quite fearful of having it come back. Return office visit in 8 weeks or sooner if she has trouble postoperatively with her bowels. Coding Level of Care Code Est Pt Level 3 (56308) Diagnoses GERD (gastroesophageal reflux disease) K21.9 Diverticulitis K57.92 Sclerosing mesenteric fibrosis K65.4
== END 2025-06-12 15:37 | disposition home or self-care (01) ==
LOC: HO.HGI 14:16
PROVIDERS: PCP Nurse Practitioner Family; Visit Provider Nurse Practitioner
DX: K21.9 Gastro-esophageal reflux disease without esophagitis (principal); K57.92 Diverticulitis of intestine, part unspecified, without perforation or abscess without bleeding; K65.4 Sclerosing mesenteritis
CPT/HCPCS: 99213

== ENCOUNTER 2025-06-26 14:09 | Outpatient (AMB) | payer OTHER, SELFPAY ==
--- OUTSIDE RECORDS SUMMARY | 2025-06-26 14:18 | XMS_ITS | Clinical Summary ---
Author Organization [employer] Address [address] [place] [address] [address] [place] [address] Care Team Providers Care Glaze Supervisor Name Role Phone Billie Hdz Unavailable Unavailable Sanjeev Barbosa Primary Care Provider [phone] Active Problems Problem Noted Date Diagnosed Date [...] this topic Insurance [facility] Care Teams Glaze Supervisor Relationship Specialty Start Date End Date Sanjeev Barbosa [address] [place] [address] PCP - General 08/30/24 Billie Hdz [facility] Navigator 07/22/24
--- OUTSIDE RECORDS SUMMARY | 2025-06-26 14:18 | XMS_ITS | Encounter Summary ---
Author Organization [facility] Address [address] [place] [address] Phone Care Team Providers Care Peoplesoft Functional Analyst Name Role Phone Sanjeev Barbosa MD Primary Care Provider Joana Martinez NP Primary Care Provider Reason for Referral * Consultation (Routine) - Closed Specialty Diagnoses / Procedures Referred By Contgregory t Referred To Contact Rheumatology Diagnoses Unspecified place or not applicable Leonor Zaragoza, ANTONI Phone: tel: fax: [facility] [address] [place] [address] Phone: tel: Referral ID Status Reason Start Date Expiration Date Visits Re quested Visits Authorized [id number] Closed 04/26/2024 04/26/2025 1 1 Encounter Details Date Type Department Care Team (Late st Contact Info) Description 04/26/2024 Transcribe Orders [facility] Referral Management [address] [place] [address] Leonor Zaragoza, ANTONI [address] [place] [address] [address] [place] [address] Social History Tobacco Use Types Packs/Day Years [...] Associated Diagnoses Order Schedule Ambulatory referral to [facility]ology Outpatient Referral Routine Ordered: 04/26/2024 documented as of this encounter Visit Diagnoses Not on filedocumented in this encounter Care Teams Peoplesoft Functional Analyst Relationship Specialty Start Date End Date Sanjeev Barbosa MD [address] [place] [id number] PCP - General 01/16/24 06/25/24 Joana Martinez NP [address] [place] [phone] [email or web address] PCP - General Nurse Practitioner 06/26/24 documented as of this encounter Additional Source Comments The information contained in this document represents components of the legal health record. It is not the complete legal health record.[facility]
--- NOTE | 2025-06-26 14:28 | MHC.OFFVIS ---
Vital Signs 06/26/25 14:30 Height 5 ft 1 in Weight 193 lb BMI 36.5 BP 126/74 Blood Pressure Location Lt brachial Position Sitting Pulse 78 Pulse Source Monitor Handedness Right Intake Visit Reasons: Preop RT RTC repair 07/02/25 NE Intake Note: Lucia is a 55 year old right hand dominant female who presents today for a pre operative right shoulder rotator cuff repair on 07/02/25 with NE. Patient gets short of breath when taking morphine. She was fit for her ultra sling and was given the pendulum exercises and pain management. Allergies amitriptyline Allergy (Severe, Verified 06/26/25 14:33) nightmares aspirin (ASA) Allergy (Severe, Verified 06/26/25 14:33) asthma exacerbation duloxetine (Cymbalta) Allergy (Intermediate, Verified 06/26/25 14:33) loopy gabapentin Allergy (Intermediate, Verified 06/26/25 14:33) loopy morphine Allergy (Intermediate, Verified 06/26/25 14:33) migraine/somnolence NSAIDS (Non-Steroidal Anti-Inflamma (NSAIDS (NON-STEROIDAL ANTI-INFLAMMA) Allergy (Intermediate, Verified 06/26/25 14:33) asthma exacerbation pregabalin Allergy (Intermediate, Verified 06/26/25 14:33) loopy tramadol (TRAMADOL) Allergy (Intermediate, Verified 06/26/25 14:33) tachycardia codeine (CODEINE) Allergy (Mild, Verified 06/26/25 14:33) Rash piperacillin (From Zosyn) Allergy (Mild, Verified 06/26/25 14:33) Rash tazobactam (From Zosyn) Allergy (Mild, Verified 06/26/25 14:33) Rash HPI HPI Preop RT RTC repair 07/02/25 NE: Details: Ms. Coleman this is a 55-year-old right-hand dominant female who presents to the office today for history and physical examination pending right shoulder rotator cuff repair tentatively scheduled for 07/02/[address] Garnett. She reports the pain has been ongoing for the past roughly 6 years. She has tried and failed corticosteroid injections with minimal relief. Additionally she has tried rest, ice, elevation and [id number]-[id number]-[id number] anti-inflammatories but continues to have minimal relief. Of note, the patient does have multiple medication allergies. Postoperatively the patient will be prescribed Vicodin as she has tolerated this in the past. 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 NILTON (obstructive sleep apnea) ADD (attention deficit disorder) Anxiety GERD (gastroesophageal reflux disease) Low back pain Nocturnal hypoxia Paresthesia Diverticulitis Herpes simplex Osteopenia of femoral neck Family history of premature CAD Spinal cord stimulator dysfunction Anemia IBS (irritable bowel syndrome) Tendinitis of left rotator cuff Hypogammaglobulinemia Asthma-COPD overlap syndrome Chronic depression Fibromyalgia Surgical History (Updated 06/17/25 @ 11:39 by Laine Mckeon RN) Hx of blepharoplasty Hx of cataract surgery S/P insertion of spinal cord stimulator History of abdominoplasty History of esophagogastroduodenoscopy (EGD) S/P bilateral breast reduction S/P LEVI-BSO H/O colonoscopy History of sinus surgery History of left knee surgery Family History Father CVD (cardiovascular disease) Heart attack Mother CVD (cardiovascular disease) Heart attack Maternal Grandmother CVD (cardiovascular disease) Maternal Grandfather Colon cancer Paternal Grandmother No problems noted. Son No problems noted. Son No problems noted. Son No problems noted. 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 Current occupational exposures/hazards: No Sexual orientation: Unable to collect Gender identity: Unable to collect Cognitive needs: No Hearing needs: No Vision needs: No Review of Systems Const All systems reviewed & are unremarkable except as noted in HPI and below Physical Exam Vital Signs: Last Vital Signs Pulse 78 06/26/25 14:30 BP 126/74 06/26/25 14:30 BMI result Body Mass Index 36.5 Const General: cooperative and no acute distress Orientation/consciousness: patient oriented x3 Resp Effort & Inspection: normal respiratory effort and able to speak in complete sentences Cardio Peripheral pulses: Peripheral pulses 2+ throughout Neuro General: patient oriented x3 Extrem Other: Right shoulder FF to 175, Er to 90. Mild Pain and weakness with empty can and use of accessory muscles for compensation. Assessment & Plan Assessment & Plan (1) Rotator cuff tear: Comment: right Code(s): M75.100 - Unspecified rotator cuff tear or rupture of unspecified shoulder, not specified as traumatic Category: Medical Plan I discussed the proposed right shoulder arthroscopy procedure for rotator cuff repair in detail and that the goal of the surgery is to relieve pain and improve shoulder function, strength and attempt to prevent further tendon damage or muscle degeneration.? The procedure is typically done arthroscopically, although in some cases an open incision may be needed (biceps tenodesis).? The torn tendons are sutured and reattached to the bone using anchors.? Other necessary procedures (ie.)? Subacromial decompression and debridement may be performed based on intraoperative findings.?? We discussed the risks, benefits and alternatives to the surgery as well as the rehabilitation course.? The risks; which include, but are not limited to infection, bleeding, nerve injury, ongoing pain, swelling, and stiffness, perioperative risk of injury to bones and soft tissues, and blood clots.? Specific risks to the shoulder include stiffness, frozen shoulder, re-tear of the repair, incomplete pain relief, shoulder weakness, delayed healing or nonhealing of the tendon and hardware (anchor) irritation.?? Expected Benefits: Improve shoulder strength and function. Reduce or eliminate pain, restore motion for daily activities and work. Prevention of tear enlargement and/or further muscle degeneration. Improve quality of life and allow return to sports or hobbies.? Alternatives: Continued physical therapy, NSAIDs, cortisone injections and/or activity modifications.? The patient is aware these may manage symptoms but will not repair the torn tendon. Postoperative recovery was also discussed with the patient.? The patient will remain in the sling for 6 weeks postoperatively and attend physical therapy for several months.? The patient will be unable to drive for 6 weeks while he is in the sling and/or while taking narcotic pain medication.? Full recovery may take 6-12 months.? Adherence to the rehabilitation plan is essential for optimal outcome.? A physical therapy order has been placed while in the office today with instruction given to the patient to contact physical therapy to make an appointment for one week status post surgery.? Additionally, she was fit for an abduction sling while in the office today off the shelf.? This will be brought the day of surgery. Post operative medications were sent to the [facility] pharmacy while in the office today with instructions for the pharmacy to bring to the PACU on the date of surgery.? Hydrocodone-acetaminophen 5-325 mg 1-2 tablets p.o. q.4-6 hours PRN pain was sent to the pharmacy. ? The patient has had the opportunity to ask all questions and was satisfied with all answers.? The patient demonstrates understanding of the risks, benefits and alternatives.? The patient understands that there are no guarantees that can be made regarding the outcome. With the patient's understanding they have consented to move forward with the administration of anesthesia, right shoulder arthroscopy rotator cuff repair as well as any additional procedures deemed necessary during surgery. The surgical consent form was given to the patient for additional review and signed by the patient with myself as a witness.? MRI of the right shoulder obtained on 05/15/2025: IMPRESSION: Supraspinatus footplate insertion tendon tear. Medications: New hydrocodone-acetaminophen 5-325 mg Partial Fill upon patient request. Patient has had this medication in the past and was able to tolerate Pharmacy - please bring this Rx to the PACU on date of surgery 07/02/25 1 - 2 tabs PO Q4-6H PRN 84 tabs 0RF pain 7 days Coding Level of Care Code Global (90026) Diagnoses Rotator cuff tear M75.100
[2025-06-26 14:30] VITALS: BP 126/74; PULSE 78; BMI 36.5
== END 2025-06-26 15:06 | disposition home or self-care (01) ==
LOC: HO.HOS 14:09
PROVIDERS: PCP Nurse Practitioner Family; Visit Provider Physician Assistant
DX: M75.100 Unspecified rotator cuff tear or rupture of unspecified shoulder, not specified as traumatic (principal)
CPT/HCPCS: 99024

== ENCOUNTER → 2025-06-26 14:09 | Outpatient (BNVA) | payer OTHER, SELFPAY | PROVIDERS: PCP Nurse Practitioner Family; Visit Provider Physician Assistant | DX: Z01.818 Encounter for other preprocedural examination (principal); M75.100 Unspecified rotator cuff tear or rupture of unspecified shoulder, not specified as traumatic | CPT/HCPCS: 99212 ==

== ENCOUNTER 2025-06-30 13:20 | Outpatient (AMB) | payer OTHER, SELFPAY ==
--- NOTE | 2025-06-30 14:13 | MHC.AMDMED ---
Intake Intake Visit Reasons: Type 2 diabetes mellitus without complications Net Mobile Developer Required: No Accompanied by: Significant Other Allergies amitriptyline Allergy (Severe, Verified 06/26/25 14:33) nightmares aspirin (ASA) Allergy (Severe, Verified 06/26/25 14:33) asthma exacerbation duloxetine (Cymbalta) Allergy (Intermediate, Verified 06/26/25 14:33) loopy gabapentin Allergy (Intermediate, Verified 06/26/25 14:33) loopy morphine Allergy (Intermediate, Verified 06/26/25 14:33) migraine/somnolence NSAIDS (Non-Steroidal Anti-Inflamma (NSAIDS (NON-STEROIDAL ANTI-INFLAMMA) Allergy (Intermediate, Verified 06/26/25 14:33) asthma exacerbation pregabalin Allergy (Intermediate, Verified 06/26/25 14:33) loopy tramadol (TRAMADOL) Allergy (Intermediate, Verified 06/26/25 14:33) tachycardia codeine (CODEINE) Allergy (Mild, Verified 06/26/25 14:33) Rash piperacillin (From Zosyn) Allergy (Mild, Verified 06/26/25 14:33) Rash tazobactam (From Zosyn) Allergy (Mild, Verified 06/26/25 14:33) Rash HPI Comprehensive Diabetes Asmnt Most Recent Diabetes Results: Hemoglobin A1c 5.3 % 10/10/18 Microalb/Creat Ratio TNP 04/14/23 Cholesterol, (<200) 181 mg/dL 10/16/24 HDL Cholesterol, (>40) 47 mg/dL 10/16/24 Triglycerides, (<150) 62 mg/dL 10/16/24 Creatinine, (0.5-1.4) 0.63 mg/dL 06/09/25 BUN, (9-16) 15 mg/dL 06/09/25 Sodium, (135-145) 139 mmol/L 06/09/25 Potassium, (3.3-5.1) 4.0 mmol/L 06/09/25 Chloride, (96-108) 106 mmol/L 06/09/25 Carbon Dioxide, (22-29) 23 mmol/L 06/09/25 Calcium, (8.4-10.2) 9.2 mg/dL Δ 06/09/25 AST, (5-31) 25 U/L 06/09/25 ALT, (0-31) 34 U/L H 06/09/25 Total Protein, (6.5-8.0) 6.9 g/dL 06/09/25 Albumin, (3.5-5.0) 4.6 g/dL 06/09/25 [facility] Medical History (Updated 06/26/25 @ 17:51 by Christine Gill PA-C) Rotator cuff tear Diabetes 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 [place] (obstructive sleep apnea) ADD (attention deficit disorder) Anxiety GERD (gastroesophageal reflux disease) Low back pain Nocturnal hypoxia Paresthesia Diverticulitis Herpes simplex Osteopenia of femoral neck Family history of premature CAD Spinal cord stimulator dysfunction Anemia IBS (irritable bowel syndrome) Tendinitis of left rotator cuff Hypogammaglobulinemia Asthma-COPD overlap syndrome Chronic depression Fibromyalgia Surgical History (Updated 06/17/25 @ 11:39 by Laine Mckeon RN) Hx of blepharoplasty Hx of cataract surgery S/P insertion of spinal cord stimulator History of abdominoplasty History of esophagogastroduodenoscopy (EGD) S/P bilateral breast reduction S/P LEVI-BSO H/O colonoscopy History of sinus surgery History of left knee surgery Family History Father CVD (cardiovascular disease) Heart attack Mother CVD (cardiovascular disease) Heart attack Maternal Grandmother CVD (cardiovascular disease) Maternal Grandfather Colon cancer Paternal Grandmother No problems noted. Son No problems noted. Son No problems noted. Son No problems noted. 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 Current occupational exposures/hazards: No Sexual orientation: Unable to collect Gender identity: Unable to collect Cognitive needs: No Hearing needs: No Vision needs: No Assessment & Plan Assessment & Plan (1) DM2 (diabetes mellitus, type 2): Code(s): E11.9 - Type 2 diabetes mellitus without complications Qualifiers: Diabetes mellitus jail insulin use: without long term care pharmacist use Diabetes mellitus complication status: without complication Qualified Code(s): E11.9 - Type 2 diabetes mellitus without complications Plan: Learning objectives: The patient was provided with verbal and written education on the following topics as outlined below. The patient met all learning objectives and was able to verbalize understanding and provide teach back of education topics discussed . The patient was provided with the opportunity to ask questions and all questions were answered. Patient Assessment Assess patient education level/literacy/barriers, patient's last A1c on 06/06/2025 6.5% Patient is currently on Trulicity 0.75 mg, this is her 2nd week on medication, no complaint of nausea or GI side effects Patient reports she reduced metformin ER after starting Trulicity due to hypoglycemic event, since she has reduced metformin she has not had further episodes of hypoglycemia Patient questions/concerns, patient reports she has multiple conditions that require dietary restrictions. She is also working with registered dietitian to address dietary needs What is Diabetes? Pathophysiology How the body produces and uses insulin Identify type of DM Risk factors Signs of Diabetes Brief overview of Diabetes Management Monitoring blood sugar Following a meal plan Regular exercise Maintaining a healthy weight Taking medication as needed Members of the care team (PCP, RN, MA, RD, CDE, analytical data scientist) Blood glucose monitoring When/how often to test Target blood sugar ranges Patient had sample Wily 3 sensor from provider visit, patient is currently not sharing data Reviewed jeffrey on patient's cell phone, patient within target 97% Introduction to Nutrition Importance of healthy diet in managing DM Diet is personalized to individual preference Review patient?s regular diet/food preferences Who prepares meals/does food shopping/ Dining out?/ Barriers? How diet effects glucose Eating 3 balanced meals a day with small, healthy snacks between meals Review food groups Carbohydrates: What is a carbohydrate/Which food/food groups are considered carbohydrates Effect of carbohydrates on blood glucose Portion sizes Reading food labels Basic carb counting (if applicable per nursing assessment) Plate method Meal planning Recommendations: Follow plate method, consistent carbs and read nutritional labels. Smart Goal: Patient will identify current foods and meal plan that contain carbohydrates Educational Materials: The patient was provided with the following written educational materials: Planning Healthy Meals Handout Patient Response to instructions: Comprehension of Instructions: Fair Readiness to make changes: Contemplation How confident they feel about making changes: Positive Portions of this note were created using voice recognition software, please excuse any words or phrases that may have been misinterpreted. Patient Instructions: Include regular daily activity. ADA recommends 30 minutes of exercise 5 days a week. Weight loss talk to PCP or Agricultural Economist before starting new plan. Test blood sugar as directed; Fasting and 2hpp largest meal. Watch trends in results. Utilize results and to assess how food, physical activity and medications affect blood sugar results. Bring glucometer or CGM to next visit. Be knowledgeable about diabetes medication, its action, side effects, efficacy, toxicity, prescribed dosage, appropriate timing and frequency of administration, effect of missed and delayed doses and instructions for storage, travel and safety. Problem solving techniques to monitor hypo/hyperglycemia episodes and treatments. Reduce risk reduction behaviors, smoking cessation, regular eye, foot and dental examinations. Coding Level of Care Code Est Pt Level 1 (65260) Diagnoses Type 2 diabetes mellitus without complication, without long-term current use of insulin E11.9 Diabetes mellitus long term care pharmacist insulin use: without jail use Diabetes mellitus complication status: without complication
--- OUTSIDE RECORDS SUMMARY | 2025-06-30 14:43 | XMS_ITS | Clinical Summary ---
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 4 Active azelastine (ASTELIN) 137 mcg (0.1 %) nasal spray INSTILL 2 SPRAYS INTO EACH NOSTRIL TWICE DAILY 4 Active betamethasone, augmented, (DIPROLENE) 0.05 % ointment APPLY TO EFFECTED AREAS ON THE LEGS TWICE DAILY FOR TWO WEEKS, BREAK FOR ONE WEEK, THEN REPEAT NEEDED 4 Active dextroamphetamin e-amphetamine (ADDERALL) 10 mg Tab tablet Take 1 tablet by mouth 2 (two) times a day. 4 Active dicyclomine (BENTYL) 20 mg tablet Take 20 mg by mouth as needed. 4 Active b complex vitamins capsule Take 1 capsule by mouth daily. Active acetaminophen (TYLENOL) 650 MG CR tablet TAKE TWO TABLETS BY MOUTH EVERY 8 HOURS NEEDED FOR PAIN 4 Active fluticasone propion-salmeter oL (ADVAIR HFA) 230-21 mcg/actuation inhaler Inhale 460 mcg/treatment of fluticasone into the lungs 2 (two) times a day. Active loratadine (CLARITIN) 10 mg tablet Take 10 mg by mouth daily. Switches between different allergy meds Active omega-3 fatty acids-fish oil 340-1,000 mg Cap Take by mouth daily. Active JARDIANCE 10 mg tablet Take 1 tablet by mouth every morning. 4 Active benzonatate (TESSALON) 200 MG capsule Take 200 mg by mouth 2 (two) times a day as needed for cough. Active celecoxib (CELEBREX) 50 MG capsule Take 100 mg by mouth daily. Active cetirizine (ZYRTEC) 10 MG tablet Take 10 mg by mouth daily. Active clonazePAM (KLONOPIN) 0.5 MG tablet Take 0.5 mg by mouth 3 (three) times a day as needed for anxiety. Active vitamins A,C,A-orvv-xrmaa r (PRESERVISION AREDS) 4,296 mcg-226 mg-90 mg Cap Take 1 capsule by mouth daily. Active therapeutic multivitamin tablet Take 1 tablet by mouth daily. Active metFORMIN (GLUCOPHAGE-XR) 500 MG 24 hr tablet Take 1 tablet by mouth every morning. 5 Active tiZANidine (ZANAFLEX) 4 MG tabletIndication s:Muscle stiffness Take 1 tablet (4 mg total) by mouth nightly at bedtime. 90 tablet 1 5 Active Active Problems Problem Noted Date Diagnosed Date Chronic fatigue 05/29/2025 Assessment & Plan (06/28/2025 8:31 PM EDT): Balance rest and activity. Keep well-hydrated and follow well-balanced nutritionally diet rich in electrolytes, vitamins, micro and ultra elements. Avoid falls, injuries, overuse and sick contacts. Continue gentle, regular exercise routine as tolerated. Keep up-to-date with age-appropriate screenings and preventive strategies. Remain engaged in regular hobbies/favorite activities. Myalgia 05/29/2025 Assessment & Plan (06/28/2025 8:32 PM EDT): Use warm pack versus warm shower followed by gentle stretching and massage in circular motion starting from distal feet going upwards towards the thighs. She may benefit from warm pool therapy such as at [facility] in [place], [place] Chronic cough 05/29/2025 Assessment & Plan (06/28/2025 8:33 PM EDT): Keep a diary of episodes and check whether it is triggered by food especially spicy or acidic. If symptoms persist may need to undergo further evaluation to look for etiology. Class 2 severe obesity due t o excess calories with serious comorbidity and body mass index (BMI) of 37.0 to 37.9 in adult 05/29/2025 Assessment & Plan (06/28/2025 8:34 PM EDT): Continue diligent portion control in view of gaining 2 pounds from 194 on 04/17/2025 up to 196 today. Limit concentrated sugars, saturated fats and calories in the diet. Keep well-hydrated. If unable to achieve expected goal consider formal dietary/nutritional support. Arthralgia of multiple sites 04/17/2025 Assessment & Plan (06/28/2025 8:29 PM EDT): Keep a diary of location, severity, length of episode, possible triggers/coexisting symptoms and management strategies. Take picture if swelling, redness. Get labs at the time of flare. Assessment & Plan (04/17/2025 11:37 PM EDT): Keep a diary of location, severity, length of episode, possible triggers/coexisting symptoms and management strategies. Take picture if swelling, redness. Chronic right-sided low back pain without sciati ca 04/17/2025 Muscle stiffness 04/17/2025 Assessment & Plan (06/28/2025 8:30 PM EDT): On her request I have refilled tizanidine that she finds helpful for sleep- I use quarter of the pill Arachnoiditis 04/17/2025 Spondylosis of lumbar region without myelopathy or radiculopathy 04/17/2025 Assessment & Plan (04/17/2025 11:35 PM EDT): Avoid repeated bending, stooping, sudden turns, heavy lifting. Work on bringing her body weight as close as possible to ideal range for her height. Use warm pack versus warm shower prior to gentle, regular ROM, stretching and muscle strengthening exercises. She may benefit from topical Voltaren, Arnica, Biofreeze versus medicated patches such as Salonpas IcyHot patch. Obstructive sleep apnea on CPAP 04/17/2025 Assessment & Plan (06/28/2025 8:30 PM EDT): Continue nightly CPAP. Work on reducing her body weight as close as possible to ideal range for her height Assessment & Plan (04/17/2025 11:38 PM EDT): Continue nightly CPAP. 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 If needed use lubricating eyedrops. Follow closely with core composer feeder as scheduled. 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 Remember to take it always with food. Favor topical over oral preparations. Assessment & Plan (04/17/2025 11:39 PM EDT): Take the lowest dose, with least frequency, for shortest time. Remember to take it always with food. Favor topical over oral preparations. Gastroesophageal reflux dise ase with esophagitis without hemorrhage 04/17/2025 Assessment & Plan (04/17/2025 11:39 PM EDT): Avoid late, large, spicy meals. Keep headboard elevated at 45 angle for nighttime. Other dysphagia 04/17/2025 Assessment & Plan (04/17/2025 11:40 PM EDT): Keep diary of episodes and accompanying symptoms including triggers Psoriasis 04/17/2025 Assessment & Plan (04/17/2025 11:40 PM EDT): Release records of therapy and response from rail loader Obstructive sleep apnea syndrome 06/10/2024 Resolved Problems Problem Noted Date Diagnosed Date Resolved Date Obesity (BMI 30-39.9) 05/29/20252024 Class 2 severe obesity due t o excess calories with serious comorbidity and body mass index (BMI) of 36.0 to 36.9 in adult 06/10/2024 Assessment & Plan (04/17/2025 11:42 PM EDT): Continue diligent portion control. Limit concentrated sugars, saturated fats and calories in the diet. Keep well-hydrated. If unable to achieve expected goal consider formal dietary/nutritional support- she is already a patient of formal weight management program at [facility]. Assessment & Plan (10/25/2024 9:55 AM EST): This is a 54-year-old woman who is interested in laparoscopic sleeve gastrectomy for weight loss. The patient has only lost 1 pound and still needs to lose 12.6 more pounds. She still needs to complete the nutrition classes and all required testing. She should stick closer to the eating plan and must add formalized exercise to get the most out of her weight loss. She should do 30 minutes of strength training or mixture of strength training with cardiovascular exercise 3-4 times weekly. Patient will follow-up with the dietitian as already scheduled for November 18, 2024 and follow-up with me in 6 weeks timeframe. She is not stable and is considered obese. She will continue current medications as reviewed. Assessment & Plan (09/09/2024 11:56 AM EST): This is a 54-year-old woman who is interested in laparoscopic sleeve gastrectomy for weight loss. The patient has lost 5.4 pounds and now has 13.6 pounds lose before being a surgical weight loss candidate. She has completed 0 out of 5 nutrition classes, 2 out of 2 behavioral health assessments, and she has not completed any of the required testing. She is planning to schedule the required testing and have it done in the next week or 2. She was encouraged to add formalized exercise at least 30 minutes of cardiovascular exercise 3 times weekly. She will increase her water intake to closer to 64 ounces of water on a daily basis. She will increase her protein slightly with the meal at 3 PM and incorporate cottage cheese or Northern Irish yogurt at this 3 PM meal. She will follow-up with the dietitian in 3 weeks and follow-up with me again in 6 weeks timeframe. She will continue current medications as reviewed. She is not stable and is considered obese. Assessment & Plan (06/10/2024 2:06 PM EDT): This is a 54 YO patient who is interested in weight loss surgery, specifically the laparoscopic sleeve gastrectomy for weight loss. We have discussed gastric bypass and sleeve gastrectomy surgery in detail including risks, benefits, and alternatives. We have also discussed requirements preop and post op. They understands that they are required to lose about 10 percent of their current weight which is 19 lbs. The goal weight at the time of submission to the insurance company will be 175.8 pounds. In an effort to help the patient to lose weight I have prescribed an eating plan which will consist of a protein shake or a protein bar or Northern Irish yogurt or cottage cheese to be consumed at 9 AM and 3 PM daily. The patient will consume 4 ounces of protein with 6 ounces of vegetable or small salad with a noncreamy salad dressing of not more than 2 tablespoons at 12 PM and 6 PM daily. At the 6 PM meal the patient may have 1/2 cup of carbohydrate. We have ordered required labs and testing. The patient will attend 5 nutrition classes, 2 appointments, and dietitian consultation. The patient will need to obtain a medical clearance letter from the primary care doctor prior to submission to the insurance company. The patient will see the dietitian in 2 and 4 weeks and I will follow up with them again in 6 weeks to ensure compliance with the meal plan. The patient will continue current medications as reviewed. They are not stable and are considered obese. I spent 57 minutes with this patient which also included documentation. 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 anti-inflammatories (nsaid); Muscle stiffness; Class 2 severe obesity due to excess calories with serious comorbidity and body mass index (BMI) of 37.0 to 37.9 in adult 04/25/2025 11:23 AM EDT - 04/25/2025 11:59 PM EDT Hospital Encounter [facility] [address] [place] [address] Nelida Moran MD Discharge Disposition: Home or Self Care 04/21/2025 Orders Only [facility] [address] [place] [address] [place] [address] Nelida Moran MD Muscle stiffness (Primary Dx) 04/17/2025 3:00 PM EDT Office Visit [facility] [address] [place] [address] [place] [address] Lorraine Phillips MD, MPH Nelida Moran MD Arthralgia of multiple sites (Primary Dx); Chronic right-sided low back pain without sciatica; Muscle stiffness; Arachnoiditis; Spondylosis of lumbar region without myelopathy or radiculopathy; Obstructive sleep apnea on CPAP; Xerophthalmia; Hyperhomocysteinemia ; Vitamin D deficiency, unspecified; 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-steroidal anti-inflammatories (nsaid); Gastroesophageal reflux disease with esophagitis without hemorrhage; Other dysphagia; Psoriasis; Class 2 severe obesity due to excess calories with serious comorbidity and body mass index (BMI) of 36.0 to 36.9 in adult from Last 3 Months Family History Medical History Relation Comments Cardiovascular disease Father Heart attack Father Heart disease Father Colon cancer Maternal Grandfather Cardiovascular disease Maternal Grandmother Alcohol abuse Mother Cardiovascular disease Mother Heart attack Mother No Known Problems Paternal Grandmother Relation Status Comments Father Maternal Grandfather Maternal Grandmother Mother Paternal Grandmother Social History Tobacco Use Types Packs/Day Years Used Date Smoking Tobacco: Former Cigarettes 0.5 2 1 0 - 1991 Smokeless Tobacco: Never Tobacco Cessation:Counseling Given: Not Answered Alcohol Use Standard Drinks/Week Comments Not Currently 0 (1 standard drink = 0.6 oz pur e alcohol) rare special occasions Education Answer Date Recorded Are you interested in more education? Not on maggi e 01/16/2024 Are you concerned about learning? Not on file 01/16/2024 No 01/16/2024 No 01/16/2024 Digital Access Answer Date Recorded No 01/16/2024 No 01/16/2024 Reliable internet access at home? Not on file 01/16/2024 Device with a working camera? Not on file Intimate Partner Violence Answer Date R ecorded Are you denied basic needs s uch as food, clothing, or medical care? No 07/11/2024 In the past 12 months have y ou been in a relationship with a person who hurts, threatens, or tries to control you? No 07/11/2024 Are you denied basic needs s uch as food, clothing, or medical care? No 07/11/2024 In the past 12 months have y ou been in a relationship with a person who hurts, threatens, or tries to control you? 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 Not on file Not on file Not on file Last Filed Vital Signs Vital Sign Reading Time Taken Comments Blood Pressure 126/76 05/29/2025 1:43 PM EDT Pulse 80 05/29/2025 1:43 PM EDT Temperature 36.8 C (98.2 F) 10/25/2024 9:00 AM EST Respiratory Rate - - Oxygen Saturation 96% 05/29/2025 1:43 PM EDT Inhaled Oxygen Concentration - - Weight 88.9 kg (196 lb) 05/29/2025 1:43 PM EDT w ith shoes Height 154.9 cm (5' 0.98 ) 05/29/2025 1:43 PM ED T Body Mass Index 37.05 05/29/2025 1:43 PM EDT Plan of Treatment Health Maintenance Due Date Last Done Comments LIPID PANEL 1968 HEPATITIS C SCREENING 1986 HIV ONE-TIME SCREENING (18-6 5 YEARS) 1986 PAP SMEAR 1989 SCREENING FOR DIABETES 2003 MAMMOGRAM 2008 COLOGUARD 2013 COLONOSCOPY 2013 COLORECTAL CANCER SCREENING 2013 FIT TEST 2013 FOBT 2013 SIGMOIDOSCOPY 2013 VIRTUAL COLONOSCOPY 2013 ZOSTER VACCINES (1 of 2) 2018 COVID-19 VACCINE (2023-2 5 season) 2024 09/18/2021, 12/08/2020, 11/17/2020 DEPRESSION SCREENING 07/11/2025 07/11/2024 CREATININE LEVEL 04/25/2026 04/25/2025 Adult Td,Tdap Booster 05/23/2027 05/23/2017 , 12/08/2001 PNEUMOCOCCAL VACCINES (50+ years) Completed 04/07/2023, 04/06/2017 SMOKING STATUS SCREENING (On ce After 26 Yrs) Completed 05/29/2025 HEPATITIS A VACCINES Aged Out No long er eligible based on patient's age to complete this topic HIB VACCINES Aged Out No longer eligi ble based on patient's age to complete this topic MENINGOCOCCAL VACCINES (ACWY) Aged Out No longer eligible based on patient's age to complete this topic MENINGOCOCCAL VACCINES (B) Aged Out N o longer eligible based on patient's age to complete this topic Medical Devices Not on file Procedures Procedure Name Priority Date/Time Associated Diagnosis Comments URINALYSIS W/REFLEX URINE CULTURE Routine 04/25/2025 12:13 PM EDT Arthralgia of multiple sites Muscle stiffness penitentiary (current) use of non-steroidal anti-inflammatorie s (nsaid) SS-A/SS-B ANTIBODIES Routine 04/25/2025 12:00 PM EDT Arthralgia of multiple sites Muscle stiffness Xerophthalmia penitentiary (current) use of non-steroidal anti-inflammatorie s (nsaid) URIC ACID Routine 04/25/2025 12:00 PM EDT Arthralgia of multiple sites Muscle stiffness penitentiary (current) use of non-steroidal anti-inflammatorie s (nsaid) HOMOCYSTEINE Routine 04/25/2025 12:00 PM EDT Hyperhomocysteinem ia 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-steroidal anti-inflammatorie s (nsaid) CPK (CREATINE KINASE) Routine 04/25/2025 12:00 PM EDT Arthralgia of multiple sites Muscle stiffness penitentiary (current) use of non-steroidal anti-inflammatorie s (nsaid) COMPLEMENT C4 Routine 04/25/2025 12:00 PM EDT Arthralgia of multiple sites Muscle stiffness penitentiary (current) use of non-steroidal anti-inflammatorie s (nsaid) COMPLEMENT C3 Routine 04/25/2025 12:00 PM EDT Arthralgia of multiple sites Muscle stiffness 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-steroidal anti-inflammatorie s (nsaid) 25-OH VITAMIN D Routine 04/25/2025 12:00 PM EDT Arthralgia of multiple sites Muscle stiffness Vitamin D deficiency, unspecified penitentiary (current) use of non-steroidal anti-inflammatorie s (nsaid) CBC AND DIFFERENTIAL Routine 04/25/2025 12:00 PM EDT Arthralgia of multiple sites Muscle stiffness penitentiary (current) use of non-steroidal anti-inflammatorie s (nsaid) SEDIMENTATION RATE (ESR) Routine 04/25/2025 12:00 PM EDT Arthralgia of multiple sites Muscle stiffness 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-steroidal anti-inflammatorie s (nsaid) C-REACTIVE PROTEIN Routine 04/25/2025 12 :00 PM EDT Arthralgia of multiple sites Muscle stiffness 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-steroidal anti-inflammatorie s (nsaid) COMPREHENSIVE METABOLIC PANEL Routine 04/25/2025 12:00 PM EDT Arthralgia of multiple sites Muscle stiffness 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-steroidal anti-inflammatorie s (nsaid) from Last 3 Months Results * (ABNORMAL) Urinalysis w/reflex Urine Culture (04/25/2025 12:13 PM EDT) COLOR Yellow Yellow [facility] CLARITY Clear [facility] GLUCOSE 3+(A) Negative [facility] BILI Negative Negative [facility] KETONES Negative Negative [facility] SPECIFIC GRAVITY 1.010 1.005 - 1.030 [facility] BLOOD Negative Negative [facility] PH 6.0 5.0 - 8.0 [facility] Protein-UA Negative Negative [facility] NITRITE Negative Negative [facility] Leukocyte esterase, ur Negative Negative [facility] Urine (Urine) 04/25/2025 12: 13 PM EDT 04/25/2025 12:15 PM EDT us Nelida Moran MD URINE ORDERABLES Final R esult Performing Organization Address City/[facility] Co de Phone Number [facility] [address] [place] [address] * SS-A/SS-B antibodies (04/25/2025 12:00 PM EDT) ANTI-RO ANTIBODY 1.01 0.00 - 19.99 OD UNIT [facility] RO INTERPRETATION Negative Negative [facility] ANTI-LA ANTIBODY 1.02 0.00 - 19.99 OD UNIT [facility] LA INTERPRETATION Negative Negative [facility] Blood 04/25/2025 12:0 0 PM EDT 04/25/2025 12:12 PM EDT us Nelida Moran MD LAB BLOOD ORDERABLES Fin al Result [facility] [address] [place] [address] * (ABNORMAL) Comprehensive metabolic panel (04/25/2025 12:00 PM EDT) SODIUM 138 133 - 146 mmol/L [facility] POTASSIUM 4.0 3.3 - 5.1 mmol/L [facility] CHLORIDE 102 96 - 108 mmol/L [facility] CO2 25 21 - 35 mmol/L [facility] BUN 15 6 - 19 mg/dL [facility] CREATININE 0.70 0.5 - 1.5 mg/dL [facility] GLUCOSE 166(H) 70 - 99 mg/dL [facility] ALBUMIN 4.4 3.9 - 4.8 g/dL [facility] TOTAL PROTEIN 7.1 6.5 - 8.0 g/dL [facility] CALCIUM 9.8 8.4 - 10.3 mg/dL [facility] ALKALINE PHOSPHATASE 118(H) 39 - 117 U/L [facility] TOTAL BILIRUBIN 0.4 0.0 - 1.2 mg/dL [facility] AST 25 0 - 37 U/L [facility] ALT 28 0 - 40 U/L [facility] GLOBULIN 2.7 1 - 4.8 g/dL [facility] EGFR 101 >59 mL/min/1.7 3m2 [facility] Comment:Estimated glomerular filtration rate calculated using the CKD-EPI refit equation. ANION GAP 15 10 - 20 mmol/L [facility] Blood 04/25/2025 12:0 0 PM EDT 04/25/2025 12:12 PM EDT us Nelida Moran MD LAB BLOOD ORDERABLES Fin al Result [facility] [address] [place] [address] * 25-OH vitamin D (04/25/2025 12:00 PM EDT) 25 OH VIT D (TOTAL) 33 30 - 60 ng/mL [facility] Blood 04/25/2025 12:0 0 PM EDT 04/25/2025 12:12 PM EDT Nelida Moran MD LAB BLOOD ORDERABLES Sunday mancini Result Performing Organization Address City/[facility]/ZIP Co de Phone Number [address] [address] * (ABNORMAL) Sedimentation rate (ESR) (04/25/2025 12:00 PM EDT) ESR 33(H) 0 - 30 mm/h [facility] Blood 04/25/2025 12:0 0 PM EDT 04/25/2025 12:12 PM EDT Nelida Moran MD LAB BLOOD ORDERABLES Sunday macnini Result Performing Organization Address [facility] Co de Phone Number [address] [address] * (ABNORMAL) CBC and differential (04/25/2025 12:00 PM EDT) WBC 9.26 4.00 - 11.00 K/uL [facility] RBC 4.82 4.00 - 5.20 M/uL [facility] HGB 14.1 12.0 - 16.0 g/dL [facility] HCT 43.5 36.0 - 46.0 % [facility] PLT 279 150 - 450 K/uL [facility] MCV 90.2 80.0 - 100.0 fL [facility] MCH 29.3 27.0 - 31.0 pg [facility] MCHC 32.4 32.0 - 36.0 g/dL [facility] RDW 14.6(H) 11.5 - 14.5 % [facility] MPV 10.1 8.4 - 12.0 fL [facility] NRBC 0.00 0.00 /100 WBCs [facility] ABSOLUTE NRBC 0.00 0.00 K/uL [facility] DIFF METHOD Auto [facility] NEUTS 61.7 48.0 - 76.0 % [facility] LYMPHS 30.3 18.0 - 41.0 % [facility] MONOS 5.6 4.0 - 11.0 % [facility] EOS 1.7 0.0 - 5.0 % [facility] BASOS 0.5 0.0 - 1.5 % [facility] Granulocytes, immature (%) 0.2 0.0 - 0.9 % [facility] ABSOLUTE NEUTS 5.70 1.92 - 7.60 K/uL [facility] ABSOLUTE LYMPHS 2.81 0.72 - 4.10 K/uL [facility] ABSOLUTE MONOS 0.52 0.16 - 1.10 K/uL [facility] ABSOLUTE EOS 0.16 0.00 - 0.50 K/uL [facility] ABSOLUTE BASOS 0.05 0.00 - 0.15 K/uL [facility] Granulocytes, immature 0.02 0.00 - 0.09 K/uL [facility] Blood 04/25/2025 12:0 0 PM EDT 04/25/2025 12:12 PM EDT us Nelida Moran MD LAB BLOOD ORDERABLES Fin al Result [facility] [address] [place] [address] * (ABNORMAL) Complement C3 (04/25/2025 12:00 PM EDT) C3 182(H) 81 - 157 mg/dl [facility] Blood 04/25/2025 12:0 0 PM EDT 04/25/2025 12:12 PM EDT Nelida Moran MD LAB BLOOD ORDERABLES Fin al Result [address] [address] * (ABNORMAL) Complement C4 (04/25/2025 12:00 PM EDT) C4 45(H) 12 - 39 mg/dL [facility] Blood 04/25/2025 12:0 0 PM EDT 04/25/2025 12:12 PM EDT us Nelida Moran MD LAB BLOOD ORDERABLES Fin al Result Performing Organization Address City/[facility] Co de Phone Number [address] [address] * (ABNORMAL) C-Reactive Protein (04/25/2025 12:00 PM EDT) C REACTIVE PROTEIN 35.5(H) 0.0 - 4.0 mg/L [facility] Blood 04/25/2025 12:0 0 PM EDT 04/25/2025 12:12 PM EDT us Nelida Moran MD LAB BLOOD ORDERABLES Fin al Result Performing Organization Address [facility] Co de Phone Number [address] [address] * Uric acid (04/25/2025 12:00 PM EDT) URIC ACID 4.2 2.4 - 7.0 mg/dL [facility] Blood 04/25/2025 12:0 0 PM EDT 04/25/2025 12:12 PM EDT us Nelida Moran MD LAB BLOOD ORDERABLES Fin al Result Performing Organization Address [facility] Co de Phone Number [address] [address] * Homocysteine (04/25/2025 12:00 PM EDT) HOMOCYSTEINE, TOTAL 10.4 0 - 14.2 umol/L [facility] Blood 04/25/2025 12:0 0 PM EDT 04/25/2025 12:12 PM EDT us Nelida Moran MD LAB BLOOD ORDERABLES Fin al Result Performing Organization Address City/[facility]/ZIP Co de Phone Number [place] [address] [place] [address] * CPK (creatine kinase) (04/25/2025 12:00 PM EDT) CREATINE KINASE 40 21 - 215 U/L [facility] Blood 04/25/2025 12:0 0 PM EDT 04/25/2025 12:12 PM EDT us Nelida Moran MD LAB BLOOD ORDERABLES Fin al Result [facility] [address] [place] [address] from Last 3 Months Insurance NON NSPG PCP [facility] [employer] [facility] NON NSPG PCP S[employer] [facility] NON NSPG PCP S[employer] [facility] NON NSPG PCP [facility] [facility] NON NSPG PCP S[employer] [facility] NON NSPG [facility]CP [facility] Care Teams Human Resources Records Clerk Relationship Specialty Start Date End Date Joana Martinez NP [address], [place] [id number] [email or web address] PCP - General Nurse Practitioner 06/26/24 Additional Source Comments The information contained in this document represents components of the legal health record. It is not the complete legal health record.[facility]
--- OUTSIDE RECORDS SUMMARY | 2025-06-30 14:43 | XMS_ITS | Clinical Summary ---
Author Organization [employer] Address [address] [place] [address] [address] [place] [address] Care Team Providers Care Affiliate Manager Name Role Phone Billie Hdz Unavailable Unavailable Sanjeev Barbosa Primary Care Provider [phone] Active Problems Problem Noted Date Diagnosed Date [...] patient's age to complete this topic Insurance [facility] Care Teams Affiliate Manager Relationship Specialty Start Date End Date Sanjeev Barbosa [address] [place] [address] PCP - General 08/30/24 Billie Hdz [facility] Navigator 07/22/24
--- OUTSIDE RECORDS SUMMARY | 2025-06-30 14:43 | XMS_ITS | Encounter Summary ---
Author Organization [employer] Address [address] [place] [address] 7 [place] [address] Care Team Providers Care Petroleum Geology Faculty Member Name Role Phone Billie Hdz Unavailable Unavailable Sanjeev Barbosa Primary Care Provider [phone] Encounter Details Date Type Department Care Team [...] on filedocumented in this encounter Care Teams Petroleum Geology Faculty Member Relationship Specialty Start Date End Date Sanjeev Barbosa [address] [place] [address] PCP - General 08/30/24 Billie Hdz Health Navigator 07/22/24 documented as of this encounter
--- OUTSIDE RECORDS SUMMARY | 2025-06-30 14:43 | XMS_ITS | Encounter Summary ---
Author Organization [facility] Address [address] [place] [address] Phone Care Team Providers Care Senior Scientist Name Role Phone Sanjeev Barbosa MD Primary Care Provider Joana Martinez NP Primary Care Provider Reason for Referral * Consultation (Routine) - Closed Specialty Diagnoses / Procedures Referred By Contgregory t Referred To Contact Rheumatology Diagnoses Unspecified place or not applicable Leonor Zaragoza, ANTONI Phone: tel: fax: [facility] [address] [place] [address] Phone: tel: Referral ID Status Reason Start Date Expiration Date Visits Re quested Visits Authorized [id number] Closed 04/26/2024 04/26/2025 1 1 Encounter Details Date Type Department Care Team (Late st Contact Info) Description 04/26/2024 Transcribe Orders [facility] Referral Management [address] [place] [address] Leonor Zaragoza, ANTONI [address] [place] [address] Dr Ferguson [address] [place] [address] Social History Tobacco Use Types Packs/Day Years [...] Associated Diagnoses Order Schedule Ambulatory referral to [facility] Rhe[facility]ology Outpatient Referral Routine Ordered: 04/26/2024 documented as of this encounter Visit Diagnoses Not on filedocumented in this encounter Care Teams Senior Scientist Relationship Specialty Start Date End Date Sanjeev Barbosa MD [address] [place] [address] PCP - General 01/16/24 06/25/24 Joana Martinez NP [address] [place] [phone] [email or web address] PCP - General Nurse Practitioner 06/26/24 documented as of this encounter Additional Source Comments The information contained in this document represents components of the legal health record. It is not the complete legal health record.[facility]
== END 2025-06-30 14:15 | disposition home or self-care (01) ==
LOC: HO.ENCR 13:21
PROVIDERS: PCP Nurse Practitioner Family; Visit Provider Registered Nurse Diabetes Educator
DX: E11.9 Type 2 diabetes mellitus without complications (principal)

== ENCOUNTER → 2025-06-30 13:20 | Outpatient (BNVA) | payer OTHER, SELFPAY | PROVIDERS: PCP Nurse Practitioner Family; Visit Provider Registered Nurse Diabetes Educator | DX: E11.9 Type 2 diabetes mellitus without complications (principal) | CPT/HCPCS: 99211 ==

== ENCOUNTER 2025-07-02 06:13 | Day surgery (SDC) | payer OTHER, SELFPAY ==
--- OUTSIDE RECORDS SUMMARY | 2025-05-20 08:11 | XMS_ITS | Clinical Summary ---
Author Organization [employer] Address [address] [place] [address] [address] [place] [address] Care Team Providers Care [employer] Name Role Phone Billie Hdz Unavailable Unavailable Sanjeev Barbosa Primary Care Provider [phone] Active Problems Problem Noted Date Diagnosed Date [...] patient's age to complete this topic Insurance [facility] Care Teams [employer] Relationship Specialty Start Date End Date Sanjeev Barbosa [address] [place] [address] PCP - General 08/30/24 Billie Hdz [facility] Navigator 07/22/24
[2025-06-17 11:57] VITALS: BMI 36.7
--- NOTE | 2025-06-17 13:46 | HO.ANESPROP2 ---
Documented by User: Ema Lewis NP 06/17/25 14:07 HPI - Anesthesia Eval Consult details Narrative: 55yo F for Right Arthroscopic Rotator Cuff Repair, 07/02/25 Pulmo optimizedl Follows [facility] pulmo for asthma and NILTON with CPAP Medically optimized per PCP PONV - scop effective DM with CGM on left arm NILTON with CPAP Spinal stim removed Anesthesia Pre-Procedure Meds Is the patient on any of the following meds?: GLP1/DPP4 PMFSH Active Problems Active Problems: All Active Problems DM2 (diabetes mellitus, type 2) (Acute) Vaginal flatus (Acute) Lower abdominal pain (Acute) Lateral epicondylitis, right elbow (Acute) Lumbar degenerative disc disease (Acute) Urinary incontinence (Acute) Altered mental status (Acute) Right shoulder pain (Acute) Right elbow pain (Acute) History of renal calculi (Acute) Right flank pain (Acute) Elevated ferritin (Acute) Muscle spasm (Acute) History of depression (Acute) Anxiety (Acute) ADD (attention deficit disorder) (Acute) Neuroforaminal stenosis of cervical spine (Acute) Elevated C-reactive protein (CRP) (Acute) Drooping eyelid (Acute) Leg weakness (Acute) Recurrent falls (Acute) Chronic dysfunction of both eustachian tubes (Acute) Sclerosing mesenteric fibrosis (Acute) Chronic pain (Acute) Obesity (BMI 30-39.9) (Acute) NILTON (obstructive sleep apnea) (Acute) Neuropathy of both feet (Acute) Low vitamin D level (Acute) Allergies (Acute) Postmenopausal (Acute) Osteoarthritis of lumbar spine (Acute) Tubular adenoma of colon (Acute) Elevated erythrocyte sedimentation rate (Acute) Elevated fasting glucose (Acute) Hypercholesterolemia (Acute) GERD (gastroesophageal reflux disease) (Acute) Arachnoiditis (Acute) Low back pain (Acute) Anemia (Acute) Fibromyalgia (Acute) Nocturnal hypoxia (Acute) Paresthesia (Acute) Diverticulitis (Acute) Hypogammaglobulinemia (Acute) Asthma-COPD overlap syndrome (Acute) Past Medical History Medical History Rotator cuff tear Diabetes 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 NILTON (obstructive sleep apnea) ADD (attention deficit disorder) Anxiety GERD (gastroesophageal reflux disease) Low back pain Nocturnal hypoxia Paresthesia Diverticulitis Herpes simplex Osteopenia of femoral neck Family history of premature CAD Spinal cord stimulator dysfunction Anemia IBS (irritable bowel syndrome) Tendinitis of left rotator cuff Hypogammaglobulinemia Asthma-COPD overlap syndrome Chronic depression Fibromyalgia Family History Family History Father CVD (cardiovascular disease) Heart attack Mother CVD (cardiovascular disease) Heart attack Maternal Grandmother CVD (cardiovascular disease) Maternal Grandfather Colon cancer Paternal Grandmother No problems noted. Son No problems noted. Son No problems noted. Son No problems noted. Son Heart attack Family history of problems with anesthesia: No Surgical History Surgical History Hx of blepharoplasty Hx of cataract surgery S/P insertion of spinal cord stimulator History of abdominoplasty History of esophagogastroduodenoscopy (EGD) S/P bilateral breast reduction S/P LEVI-BSO H/O colonoscopy History of sinus surgery History of left knee surgery History of Problems with Anesthesia: No Social History Social History Household Members: Family Housing: House Are you a primary healthcare receptionist to a significant other at home: No Do you presently have visiting nurse or other home services: No Alcohol intake: never Patient Tobacco Use Status: Former Tobacco user Tobacco use type: Cigarette Years Smoked: 2 e-Cigarette/Vaping Use: Never Used Second Hand Smoke Exposure: No Use of substances other than those prescribed or required for medical reasons: No Have you been hit, kicked, punched, or otherwise hurt by someone within the past year? 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 Current occupational exposures/hazards: No Sexual orientation: Unable to collect Gender identity: Unable to collect Cognitive needs: No Hearing needs: No Vision needs: No Meds Allergies Allergy/AdvReac Type Severity Reaction Status Date / Time amitriptyline Allergy Severe nightmares Verified 07/02/25 06:56 aspirin (ASA) Allergy Severe asthma Verified 07/02/25 06:56 exacerbation duloxetine (Cymbalta) Allergy Intermediate loopy Verified 07/02/25 06:56 gabapentin Allergy Intermediate loopy Verified 07/02/25 06:56 morphine Allergy Intermediate migraine/so Verified 07/02/25 06:56 mnolence NSAIDS (Non-Steroidal Allergy Intermediate asthma Verified 07/02/25 06:56 Anti-Inflamma (NSAIDS exacerbation (NON-STEROIDAL ANTI-INFLAMMA) pregabalin Allergy Intermediate loopy Verified 07/02/25 06:56 tramadol (TRAMADOL) Allergy Intermediate tachycardia Verified 07/02/25 06:56 codeine (CODEINE) Allergy Mild Rash Verified 07/02/25 06:56 piperacillin (From Zosyn) Allergy Mild Rash Verified 07/02/25 06:56 tazobactam (From Zosyn) Allergy Mild Rash Verified 07/02/25 06:56 Home Medications ?Medication ?Instructions ?Recorded ?Confirmed ?Last Taken ?Type fexofenadine 180 mg tablet 180 mg PO DAILY 02/26/21 06/17/25 07/02/25 05:20 History (Sandy Allergy) dextroamphetamine-amphetamine 10 1 tab PO BID 04/15/22 06/17/25 Unknown History mg tablet levocetirizine 5 mg tablet 5 mg PO BEDTIME 04/15/22 06/17/25 Unknown History clonazepam 0.5 mg tablet 0.5 mg PO TID PRN Anxiety 06/15/22 06/17/25 07/02/25 05:45 History fluoxetine 10 mg capsule 10 mg PO DAILY 11/17/22 06/17/25 Unknown History nebulizers 11/24/23 06/09/25 Unknown History cetirizine 10 mg tablet (Allergy 10 mg PO DAILY 04/18/24 06/17/25 Unknown History Relief (cetirizine)) vitamins A,C,C-jphj-gkragu 4,296 1 cap PO BID 07/01/24 06/17/25 Unknown History mcg-226 mg-90 mg capsule (PreserVision AREDS) tizanidine 4 mg tablet 4 mg PO BEDTIME 06/06/25 06/17/25 Unknown History cyclosporine 0.05 % eye drops in a 1 drp ophthalmic (eye) BID 06/12/25 06/17/25 Unknown History dropperette metformin 500 mg tablet,extended 1,000 mg PO BEDTIME 06/17/25 06/17/25 Unknown History release 24 hr Exam Height,Weight and Vital Signs: Height 5 ft 1 in Weight 87.997 kg Pertinent Lab Results Pertinent Lab Results: Laboratory Tests 06/09/25 08:01 WBC 6.5 Hgb 13.8 Hct 42.2 Plt Count 208 Sodium 139 Potassium 4.0 Chloride 106 Carbon Dioxide 23 BUN 15 Creatinine 0.63 Narrative Narrative: EKG 06/2025 NSR @ 67 Assessment and Plan Assessment Anesthesia Assessment: Chart Reviewed Final Anesthetic Review Family History of Problems with Anesthesia: No History of Problems with Anesthesia: No Documented by User: Elizabeth Plascencia MD 07/02/25 08:29 PMFSH Past Medical History Medical History Rotator cuff tear Diabetes 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 NILTON (obstructive sleep apnea) ADD (attention deficit disorder) Anxiety GERD (gastroesophageal reflux disease) Low back pain Nocturnal hypoxia Paresthesia Diverticulitis Herpes simplex Osteopenia of femoral neck Family history of premature CAD Spinal cord stimulator dysfunction Anemia IBS (irritable bowel syndrome) Tendinitis of left rotator cuff Hypogammaglobulinemia Asthma-COPD overlap syndrome Chronic depression Fibromyalgia Family History Family History Father CVD (cardiovascular disease) Heart attack Mother CVD (cardiovascular disease) Heart attack Maternal Grandmother CVD (cardiovascular disease) Maternal Grandfather Colon cancer Paternal Grandmother No problems noted. Son No problems noted. Son No problems noted. Son No problems noted. Son Heart attack Surgical History Surgical History Hx of blepharoplasty Hx of cataract surgery S/P insertion of spinal cord stimulator History of abdominoplasty History of esophagogastroduodenoscopy (EGD) S/P bilateral breast reduction S/P LEVI-BSO H/O colonoscopy History of sinus surgery History of left knee surgery Social History Social History Household Members: Family Housing: House Are you a primary healthcare receptionist to a significant other at home: No Do you presently have visiting nurse or other home services: No Alcohol intake: never Patient Tobacco Use Status: Former Tobacco user Tobacco use type: Cigarette Years Smoked: 2 e-Cigarette/Vaping Use: Never Used Second Hand Smoke Exposure: No Use of substances other than those prescribed or required for medical reasons: No Have you been hit, kicked, punched, or otherwise hurt by someone within the past year? 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 Current occupational exposures/hazards: No Sexual orientation: Unable to collect Gender identity: Unable to collect Cognitive needs: No Hearing needs: No Vision needs: No Meds Allergies Allergy/AdvReac Type Severity Reaction Status Date / Time amitriptyline Allergy Severe nightmares Verified 07/02/25 06:56 aspirin (ASA) Allergy Severe asthma Verified 07/02/25 06:56 exacerbation duloxetine (Cymbalta) Allergy Intermediate loopy Verified 07/02/25 06:56 gabapentin Allergy Intermediate loopy Verified 07/02/25 06:56 morphine Allergy Intermediate migraine/so Verified 07/02/25 06:56 mnolence NSAIDS (Non-Steroidal Allergy Intermediate asthma Verified 07/02/25 06:56 Anti-Inflamma (NSAIDS exacerbation (NON-STEROIDAL ANTI-INFLAMMA) pregabalin Allergy Intermediate loopy Verified 07/02/25 06:56 tramadol (TRAMADOL) Allergy Intermediate tachycardia Verified 07/02/25 06:56 codeine (CODEINE) Allergy Mild Rash Verified 07/02/25 06:56 piperacillin (From Zosyn) Allergy Mild Rash Verified 07/02/25 06:56 tazobactam (From Zosyn) Allergy Mild Rash Verified 07/02/25 06:56 Home Medications ?Medication ?Instructions ?Recorded ?Confirmed ?Last Taken ?Type fexofenadine 180 mg tablet 180 mg PO DAILY 02/26/21 06/17/25 07/02/25 05:20 History (Sandy Allergy) dextroamphetamine-amphetamine 10 1 tab PO BID 04/15/22 06/17/25 Unknown History mg tablet levocetirizine 5 mg tablet 5 mg PO BEDTIME 04/15/22 06/17/25 Unknown History clonazepam 0.5 mg tablet 0.5 mg PO TID PRN Anxiety 06/15/22 06/17/25 07/02/25 05:45 History fluoxetine 10 mg capsule 10 mg PO DAILY 11/17/22 06/17/25 Unknown History nebulizers 11/24/23 06/09/25 Unknown History cetirizine 10 mg tablet (Allergy 10 mg PO DAILY 04/18/24 06/17/25 Unknown History Relief (cetirizine)) vitamins A,C,N-iswf-rhncwd 4,296 1 cap PO BID 07/01/24 06/17/25 Unknown History mcg-226 mg-90 mg capsule (PreserVision AREDS) tizanidine 4 mg tablet 4 mg PO BEDTIME 06/06/25 06/17/25 Unknown History cyclosporine 0.05 % eye drops in a 1 drp ophthalmic (eye) BID 06/12/25 06/17/25 Unknown History dropperette metformin 500 mg tablet,extended 1,000 mg PO BEDTIME 06/17/25 06/17/25 Unknown History release 24 hr Exam Airway Mallampati Class: III TM Dist: >3cm Neck ROM: Full Loose/Missing/Broken Teeth: Yes, Upper and Lower Heart: rrr Lungs: cta Assessment and Plan Assessment Anesthesia Assessment: Anesthesia Plan Discussed Final Anesthetic Review NPO: Yes ASA Class: III Final Preanesthetic Review: No Changes in Pt Med Stat, Meds/Allgs Chart Reviewed, Consent Obtained/Reviewed and Anes Risks/Benef Reviewed Patient Risk: Intermediate Procedure Risk: Intermediate Anesthetic Plan Anesthetic Plan: GA, Regional Block and Agree w/ Assess. and Plan Disposition: Standard PACU
[2025-07-02] VITALS (9 sets, daily range): BP systolic 116–141; BP diastolic 67–85; PULSE 63–86; RESP 11–22; TEMP 36.3–36.9; O2SAT 94–98; BMI 36.0
[2025-07-02] MEDS: Lactated Ringers 1,000 ML 100 ML IVCONT (06:54)
[2025-07-02 07:03] LABS: Glucose, Whole Blood 139 mg/dL (60-115)
--- NOTE | 2025-07-02 07:07 | MHC.SHP ---
Pre-Procedural Eval Section A - 24 Hr Update-Section A only Date of Service: 07/02/25 The patient is an INPATIENT: No Changes since office visit: No Cold of Flu in the past 2 weeks, No New Medical Problems, No Changes in Medication and No Patient answered all questions The patient has been examined within 24 hours of the surgical procedure. The History & Physical has been completed within 30 days and I have reviewed it.: Yes Section B - Complete if H&P > 30 days Chief Complaint: Unspecified rotator cuff tear or rupture of right Allergies: Allergies Allergy/AdvReac Type Severity Reaction Status Date / Time amitriptyline Allergy Severe nightmares Verified 07/02/25 06:56 aspirin (ASA) Allergy Severe asthma Verified 07/02/25 06:56 exacerbation duloxetine (Cymbalta) Allergy Intermediate loopy Verified 07/02/25 06:56 gabapentin Allergy Intermediate loopy Verified 07/02/25 06:56 morphine Allergy Intermediate migraine/so Verified 07/02/25 06:56 mnolence NSAIDS (Non-Steroidal Allergy Intermediate asthma Verified 07/02/25 06:56 Anti-Inflamma (NSAIDS exacerbation (NON-STEROIDAL ANTI-INFLAMMA) pregabalin Allergy Intermediate loopy Verified 07/02/25 06:56 tramadol (TRAMADOL) Allergy Intermediate tachycardia Verified 07/02/25 06:56 codeine (CODEINE) Allergy Mild Rash Verified 07/02/25 06:56 piperacillin (From Zosyn) Allergy Mild Rash Verified 07/02/25 06:56 tazobactam (From Zosyn) Allergy Mild Rash Verified 07/02/25 06:56 Plan I have reviewed the history and physical and performed a pertinent physical examination on my patient. No changes have occurred unless specified. Time Spent With Patient Time: Total time managing care of this patient today ____ minutes.
--- NOTE | 2025-07-02 08:54 | P.BOP_ITS ---
Brief Operative Note Date of Service: 07/02/25 Pre-op diagnosis: Right RTC tear Post-op diagnosis: same Procedure: Right RTC repair with SAD Implants: [place] 4.75 double loaded medial row x 2 and 5.0 lateral knotless Helacoil x 2 Surgeon: Van Garnett MD Anesthesia: GETA and regional Was an Shotgun Shell Assembly Machine Adjuster used for this Procedure?: Yes Shotgun Shell Assembly Machine Adjuster: Christine Gill Estimated blood loss (mL): 20 IV fluids (mL): 1,000 Pathology: none sent Condition: stable Disposition: PACU
--- NOTE | 2025-07-04 17:24 | W.PM.OPN ---
Operative Note Operative Note Date of Service: 07/02/25 Narrative: Date of Service: 07/02/25 Pre-op diagnosis: Right RTC tear Post-op diagnosis: same Procedure: Right RTC repair with SAD Implants: [place]ian 4.75 double loaded medial row x 2 and 5.0 lateral knotless Helacoil x 2 Surgeon: Van Garnett MD Anesthesia: GETA and regional Was an Network Account Manager used for this Procedure?: Yes Network Account Manager: Christine Gill Estimated blood loss (mL): 20 IV fluids (mL): 1,000 Pathology: none sent Condition: stable Disposition: PACU Procedure in detail: Patient was brought to the operating room and placed the the beach chair position. All bony prominences were well padded and the limb was prepped and draped in standard sterile fashion. A time out was called to identify proper site, proper procedure and proper surgeon. IV antibiotics per weight were administered. I began by making a posterolateral stab incision with a 15 blade. A blunt trochar was placed into the glenohumeral joint and I insufflated the joint with saline and a 30 degree arthroscope was placed. I established an outside- in anterior portal just distal to the biceps tendon. I then began my inspection of the glenohumeral joint. There was an intact biceps anchor. There were no cartilage changes at the glenoid or humeral head. There was a full thickness undersurface supraspinatus tear. The subcapularis was intact. I then removed the trochar and entered the subacromial space. A direct lateral portal was then established and I performed a bursectomy. The cuff was then examined. There was a full thickness tear of the supraspinatus without retraction. This was crescentic tear approximately 7mm-8mm. The tear was mobile. I placed two medial row double loaded anchors after using a tap just adjacent to the articular cartilage and then brought the suture tape ( 4 limbs) through the medial cuff using a Scorpion/ looped suture shuttling technique.. I then debrided the bare area down to bleeding bone and, using a cross bridge configuration, brought 2 limbs to each of two lateral 5.0 anchors. This re-approximated the cuff anatomy anatomically. I then performed a 5 mm subacromial decompression using an oval bur. Once I was satisfied with the repair final images were captured and I removed all instrumentation. Portals were closed with nylon. Patient was placed in an abduction sling, extubated and brought to the recovery room in stable condition. There were no known complications. small repair protocol
== END 2025-07-02 11:23 | disposition home or self-care (01) ==
LOC: HO.SSS 06:14
PROVIDERS: PCP Nurse Practitioner Family; Visit Provider Orthopaedic Surgery
PROC: (CPT 29827; principal; 2025-07-02 07:30)
DX: M75.101 Unspecified rotator cuff tear or rupture of right shoulder, not specified as traumatic (principal); M25.511 Pain in right shoulder; G89.4 Chronic pain syndrome; M85.88 Other specified disorders of bone density and structure, other site; M79.7 Fibromyalgia; J44.9 Chronic obstructive pulmonary disease, unspecified; D64.9 Anemia, unspecified; D80.1 Nonfamilial hypogammaglobulinemia; E11.9 Type 2 diabetes mellitus without complications; E55.9 Vitamin D deficiency, unspecified; K76.0 Fatty (change of) liver, not elsewhere classified; N28.1 Cyst of kidney, acquired; K21.9 Gastro-esophageal reflux disease without esophagitis; F32.A Depression, unspecified; G47.33 Obstructive sleep apnea (adult) (pediatric); Z96.82 Presence of neurostimulator; R63.5 Abnormal weight gain; Z68.36 Body mass index [BMI] 36.0-36.9, adult; Z79.51 Long term (current) use of inhaled steroids; Z79.84 Long term (current) use of oral hypoglycemic drugs; Z79.85 Long-term (current) use of injectable non-insulin antidiabetic drugs; Z79.899 Other long term (current) drug therapy; Z99.89 Dependence on other enabling machines and devices; Z88.1 Allergy status to other antibiotic agents; Z88.5 Allergy status to narcotic agent; Z88.6 Allergy status to analgesic agent; Z88.8 Allergy status to other drugs, medicaments and biological substances; Z98.890 Other specified postprocedural states; Z87.891 Personal history of nicotine dependence
CPT/HCPCS: 29827; 29826; 82947; C1713; J0131; J0165; J0665; J0690; J1100; J2003; J2250; J2405; J2704; J3010

== ENCOUNTER → 2025-07-02 06:13 | Outpatient (BNV) | payer OTHER, SELFPAY | PROVIDERS: PCP Nurse Practitioner Family; Visit Provider Orthopaedic Surgery | DX: M75.121 Complete rotator cuff tear or rupture of right shoulder, not specified as traumatic (principal) | CPT/HCPCS: 29827 ==

== ENCOUNTER 2025-07-10 14:14 | Outpatient (AMB) | payer OTHER, SELFPAY ==
--- NOTE | 2025-07-10 14:16 | A.OFFVIS_ITS ---
Vital Signs 07/10/25 14:26 Height 5 ft 1 in Weight 190 lb BMI 35.9 Intake Visit Reasons: PO RT RTC repair 07/02/25 N Intake Note: Lucia is a 55 year old right hand dominant female who presents today for a post operative visit for her right RTC repair, DOS 07/02/[address] Van Garnett. Patient reports she thinks she had an allergic reaction to the iodine as it caused blisters and redness. She managed with Benadryl. Because of this, bandage was removed and band-aids were applied. Patient continues taking Celebrex, Tylenol, and Isabella. She thinks the pain is tolerable during the day but bothersome at night. She has been working on pendulum exercises. Denies any other questions or concerns. Allergies amitriptyline Allergy (Severe, Verified 07/10/25 14:23) nightmares aspirin (ASA) Allergy (Severe, Verified 07/10/25 14:23) asthma exacerbation duloxetine (Cymbalta) Allergy (Intermediate, Verified 07/10/25 14:23) loopy gabapentin Allergy (Intermediate, Verified 07/10/25 14:23) loopy iodine Allergy (Intermediate, Verified 07/10/25 14:26) Blister morphine Allergy (Intermediate, Verified 07/10/25 14:23) migraine/somnolence NSAIDS (Non-Steroidal Anti-Inflamma (NSAIDS (NON-STEROIDAL ANTI-INFLAMMA) Allergy (Intermediate, Verified 07/10/25 14:23) asthma exacerbation pregabalin Allergy (Intermediate, Verified 07/10/25 14:23) loopy tramadol (TRAMADOL) Allergy (Intermediate, Verified 07/10/25 14:23) tachycardia codeine (CODEINE) Allergy (Mild, Verified 07/10/25 14:23) Rash piperacillin (From Zosyn) Allergy (Mild, Verified 07/10/25 14:23) Rash tazobactam (From Zosyn) Allergy (Mild, Verified 07/10/25 14:23) Rash HPI HPI PO RT RTC repair 07/02/25 N: Details: 55-year-old female returns to the office today status post right shoulder rotator cuff repair on 07/02/[address] Garnett. She comes in today wearing her sling. She states she has not received a phone call from physical therapy. She is doing well but has some discomfort in the shoulder and trapezium region and finds it difficult to get into a comfortable position sleeping. [facility] Medical History Rotator cuff tear Diabetes 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 NILTON (obstructive sleep apnea) ADD (attention deficit disorder) Anxiety GERD (gastroesophageal reflux disease) Low back pain Nocturnal hypoxia Paresthesia Diverticulitis Herpes simplex Osteopenia of femoral neck Family history of premature CAD Spinal cord stimulator dysfunction Anemia IBS (irritable bowel syndrome) Tendinitis of left rotator cuff Hypogammaglobulinemia Asthma-COPD overlap syndrome Chronic depression Fibromyalgia Surgical History Hx of blepharoplasty Hx of cataract surgery S/P insertion of spinal cord stimulator History of abdominoplasty History of esophagogastroduodenoscopy (EGD) S/P bilateral breast reduction S/P LEVI-BSO H/O colonoscopy History of sinus surgery History of left knee surgery Family History Father CVD (cardiovascular disease) Heart attack Mother CVD (cardiovascular disease) Heart attack Maternal Grandmother CVD (cardiovascular disease) Maternal Grandfather Colon cancer Paternal Grandmother No problems noted. Son No problems noted. Son No problems noted. Son No problems noted. 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 She is neurovascularly intact. Assessment & Plan Assessment & Plan (1) S/P right rotator cuff repair: Code(s): Z98.890 - Other specified postprocedural states Category: Surgical Plan: Sutures removed today Steri-Strips applied. I did stressed the importance of allowing the shoulder to relax to help ease up tension in the trap region. She can remove the sling while she is at home resting in a chair but she should remain sleeping in the sling and also when she is out of the house. She will contact physical therapy as I did give her their contact information. A new order was placed today. I did refill her prescription for pain medication. She will see us back in 4 weeks for a follow-up, sooner if needed. Orders: Orders PT Evaluation and Treatment Today Z98.890 - Other specified postprocedural states Medications: Refilled hydrocodone-acetaminophen 5-325 mg Partial Fill upon patient request. Patient has had this medication in the past and was able to tolerate Pharmacy - please bring this Rx to the PACU on date of surgery 07/02/25 1 - 2 tabs PO Q4-6H PRN 84 tabs 0RF pain 7 days Coding Level of Care Code Global (13014) Diagnoses S/P right rotator cuff repair Z98.890
[2025-07-10 14:26] VITALS: BMI 35.9
--- OUTSIDE RECORDS SUMMARY | 2025-07-10 15:36 | XMS_ITS | Encounter Summary ---
Author Organization [facility] Address [address] [place] [address] Phone Care Team Providers Care Stave And Bolt Equalizer Name Role Phone Sanjeev Barbosa MD Primary Care Provider Joana Martinez NP Primary Care Provider Reason for Referral * Consultation (Routine) - Closed Specialty Diagnoses / Procedures Referred By Contgregory t Referred To Contact Rheumatology Diagnoses Unspecified place or not applicable Leonor Zaragoza, ANTONI Phone: tel: fax: [facility] [address] [place] [address] Phone: tel: Referral ID Status Reason Start Date Expiration Date Visits Re quested Visits Authorized [id number] Closed 04/26/2024 04/26/2025 1 1 Encounter Details Date Type Department Care Team (Late st Contact Info) Description 04/26/2024 Transcribe Orders [facility] Referral Management [address] [place] [address] Leonor Zaragoza, ANTONI [address] [place] [address] Dr Ferguson [address] [place] [address] Social History Tobacco Use Types Packs/Day Years [...] Associated Diagnoses Order Schedule Ambulatory referral to [facility] Rheumatology Outpatient Referral Routine Ordered: 04/26/2024 documented as of this encounter Visit Diagnoses Not on filedocumented in this encounter Care Teams Stave And Bolt Equalizer Relationship Specialty Start Date End Date Sanjeev Barbosa MD [address] [place] [address] PCP - General 01/16/24 06/25/24 Joana Martinez NP [address] [place] [phone] [email or web address] PCP - General Nurse Practitioner 06/26/24 documented as of this encounter Additional Source Comments The information contained in this document represents components of the legal health record. It is not the complete legal health record.[facility]
--- OUTSIDE RECORDS SUMMARY | 2025-07-10 15:36 | XMS_ITS | Clinical Summary ---
Author Organization [facility] Address [address] [place] [address] Phone Care Team Providers Care Design Supervisor Name Role Phone Joana Martinez NP Primary [...] day as needed for anxiety. Active vitamins A,C,X-fnaw-lyqii r (PRESERVISION AREDS) 4,296 mcg-226 mg-90 mg [...] pool therapy such as at [facility] in [place], [place] Chronic cough 05/29/2025 Assessment & Plan [...] needed use lubricating eyedrops. Follow closely with lead fabricator as scheduled. Hyperhomocysteinemia 04/17/2025 [facility] (current) use of n on-steroidal anti-inflammatories (nsaid) [...] Release records of therapy and response from senior front end engineer Obstructive sleep apnea syndrome 06/10/2024 Resolved Problems [...] patient of formal weight management program at [facility]. Assessment & Plan (10/25/2024 9:55 AM EST): [...] 3 PM and incorporate cottage cheese or Swazi yogurt at this 3 PM meal. 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 of non-steroidal anti-inflammatories (nsaid); Muscle stiffness; Class 2 severe obesity due to excess calories with serious comorbidity and body mass index (BMI) of 37.0 to 37.9 in adult 04/25/2025 11:23 AM EDT - 04/25/2025 11:59 PM EDT Hospital Encounter [facility] [address] [place] [address] Nelida Moran MD Discharge Disposition: Home or Self Care 04/21/2025 Orders Only [facility] [address] [place] [address] [place] [address] Nelida Moran MD Muscle stiffness (Primary Dx) 04/17/2025 3:00 PM EDT Office Visit [facility] [address] [place] [address] [place] [address] Lorraine Phillips MD, MPH Nelida Moran MD Arthralgia of multiple sites (Primary Dx); Chronic right-sided low back pain without sciatica; Muscle stiffness; Arachnoiditis; Spondylosis of lumbar region without myelopathy or radiculopathy; Obstructive sleep apnea on CPAP; Xerophthalmia; Hyperhomocysteinemia ; Vitamin D deficiency, unspecified; 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 of non-steroidal anti-inflammatories (nsaid); Gastroesophageal [...] Industry Job Start Date 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[employer], and a [...] EDT Arthralgia of multiple sites Muscle stiffness 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 of non-steroidal anti-inflammatorie s (nsaid) SS-A/SS-B ANTIBODIES Routine 04/25/2025 12:00 PM EDT Arthralgia of multiple sites Muscle stiffness Xerophthalmia [facility] (current) use of non-steroidal anti-inflammatorie s (nsaid) URIC ACID Routine 04/25/2025 12:00 PM EDT Arthralgia of multiple sites Muscle stiffness [facility] (current) use of non-steroidal anti-inflammatorie s (nsaid) HOMOCYSTEINE Routine 04/25/2025 12:00 PM EDT Hyperhomocysteinem ia 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 of non-steroidal anti-inflammatorie s (nsaid) CPK (CREATINE KINASE) Routine 04/25/2025 12:00 PM EDT Arthralgia of multiple sites Muscle stiffness [facility] (current) use of non-steroidal anti-inflammatorie s (nsaid) COMPLEMENT C4 Routine 04/25/2025 12:00 PM EDT Arthralgia of multiple sites Muscle stiffness 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 of non-steroidal anti-inflammatorie s (nsaid) COMPLEMENT C3 Routine 04/25/2025 12:00 PM EDT Arthralgia of multiple sites Muscle stiffness [facility] (current) use of non-steroidal anti-inflammatorie s (nsaid) 25-OH VITAMIN D Routine 04/25/2025 12:00 PM EDT Arthralgia of multiple sites Muscle stiffness Vitamin D deficiency, unspecified [facility] (current) use of non-steroidal anti-inflammatorie s (nsaid) CBC AND DIFFERENTIAL Routine 04/25/2025 12:00 PM EDT Arthralgia of multiple sites Muscle stiffness 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 of non-steroidal anti-inflammatorie s (nsaid) SEDIMENTATION RATE (ESR) Routine 04/25/2025 12:00 PM EDT Arthralgia of multiple sites Muscle stiffness 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 of non-steroidal anti-inflammatorie s (nsaid) C-REACTIVE PROTEIN Routine 04/25/2025 12 :00 PM EDT Arthralgia of multiple sites Muscle stiffness [facility] (current) use of non-steroidal anti-inflammatorie s (nsaid) COMPREHENSIVE METABOLIC PANEL Routine 04/25/2025 12:00 PM EDT Arthralgia of multiple sites Muscle stiffness [facility] (current) use of non-steroidal anti-inflammatorie s (nsaid) from Last 3 Months Results * (ABNORMAL) Urinalysis w/reflex Urine Culture (04/25/2025 12:13 PM EDT) COLOR Yellow Yellow [facility] CLARITY Clear [facility] GLUCOSE 3+(A) Negative [facility] BILI Negative Negative [facility] KETONES Negative Negative [facility] SPECIFIC GRAVITY 1.010 1.005 - 1.030 [facility] BLOOD Negative Negative [facility] PH 6.0 5.0 - 8.0 [facility] Protein-UA Negative Negative [facility] NITRITE Negative Negative [facility] Leukocyte esterase, ur Negative Negative [facility] Urine (Urine) 04/25/2025 12: 13 PM EDT 04/25/2025 12:15 PM EDT us Nelida Moran MD URINE ORDERABLES Final R esult Performing Organization Address City/[facility] Co de Phone Number [facility] [address] [place] [address] * SS-A/SS-B antibodies (04/25/2025 12:00 PM EDT) ANTI-RO ANTIBODY 1.01 0.00 - 19.99 [facility] RO INTERPRETATION Negative Negative [facility] ANTI-LA ANTIBODY 1.02 0.00 - 19.99 OD [facility] LA INTERPRETATION Negative Negative [facility] Blood 04/25/2025 12:0 0 PM EDT 04/25/2025 12:12 PM EDT us Nelida Moran MD LAB BLOOD ORDERABLES Fin al Result [facility] [address] [place] [address] * (ABNORMAL) Comprehensive metabolic panel (04/25/2025 12:00 PM EDT) SODIUM 138 133 - 146 mmol/L [facility] POTASSIUM 4.0 3.3 - 5.1 mmol/L [facility] CHLORIDE 102 96 - 108 mmol/L [facility] CO2 25 21 - 35 mmol/L [facility] BUN 15 6 - 19 mg/dL [facility] CREATININE 0.70 0.5 - 1.5 mg/dL [facility] GLUCOSE 166(H) 70 - 99 mg/dL [facility] ALBUMIN 4.4 3.9 - 4.8 g/dL [facility] TOTAL PROTEIN 7.1 6.5 - 8.0 g/dL [facility] CALCIUM 9.8 8.4 - 10.3 mg/dL [facility] ALKALINE PHOSPHATASE 118(H) 39 - 117 U/L [facility] TOTAL BILIRUBIN 0.4 0.0 - 1.2 mg/dL [facility] AST 25 0 - 37 U/L [facility] ALT 28 0 - 40 U/L [facility] GLOBULIN 2.7 1 - 4.8 g/dL [facility] EGFR 101 >59 mL/min/1.7 3m2 [facility] Comment:Estimated glomerular filtration rate calculated using the CKD-EPI refit equation. ANION GAP 15 10 - 20 mmol/L [facility] Blood 04/25/2025 12:0 0 PM EDT 04/25/2025 12:12 PM EDT us Nelida Moran MD LAB BLOOD ORDERABLES Fin al Result [facility] [address] [place] [address] * 25-OH vitamin D (04/25/2025 12:00 PM EDT) 25 OH VIT D (TOTAL) 33 30 - 60 ng/mL [facility] Blood 04/25/2025 12:0 0 PM EDT 04/25/2025 12:12 PM EDT Nelida Moran MD LAB BLOOD ORDERABLES Sunday mancini Result Performing Organization Address City/[facility]/ZIP Co de Phone Number [address] [address] * (ABNORMAL) Sedimentation rate (ESR) (04/25/2025 12:00 PM EDT) ESR 33(H) 0 - 30 mm/h [facility] Blood 04/25/2025 12:0 0 PM EDT 04/25/2025 12:12 PM EDT Nelida Moran MD LAB BLOOD ORDERABLES Sunday mancini Result Performing Organization Address [facility] Co de Phone Number [address] [address] * (ABNORMAL) CBC and differential (04/25/2025 12:00 PM EDT) WBC 9.26 4.00 - 11.00 K/uL [facility] RBC 4.82 4.00 - 5.20 M/uL [facility] HGB 14.1 12.0 - 16.0 g/dL [facility] HCT 43.5 36.0 - 46.0 % [facility] PLT 279 150 - 450 K/uL [facility] MCV 90.2 80.0 - 100.0 fL [facility] MCH 29.3 27.0 - 31.0 pg [facility] MCHC 32.4 32.0 - 36.0 g/dL [facility] RDW 14.6(H) 11.5 - 14.5 % [facility] MPV 10.1 8.4 - 12.0 fL [facility] NRBC 0.00 0.00 /100 WBCs [facility] ABSOLUTE NRBC 0.00 0.00 K/uL [facility] DIFF METHOD Auto [facility] NEUTS 61.7 48.0 - 76.0 % [facility] LYMPHS 30.3 18.0 - 41.0 % [facility] MONOS 5.6 4.0 - 11.0 % [facility] EOS 1.7 0.0 - 5.0 % [facility] BASOS 0.5 0.0 - 1.5 % [facility] Granulocytes, immature (%) 0.2 0.0 - 0.9 % [facility] ABSOLUTE NEUTS 5.70 1.92 - 7.60 K/uL [facility] ABSOLUTE LYMPHS 2.81 0.72 - 4.10 K/uL [facility] ABSOLUTE MONOS 0.52 0.16 - 1.10 K/uL [facility] ABSOLUTE EOS 0.16 0.00 - 0.50 K/uL [facility] ABSOLUTE BASOS 0.05 0.00 - 0.15 K/uL [facility] Granulocytes, immature 0.02 0.00 - 0.09 K/uL [facility] Blood 04/25/2025 12:0 0 PM EDT 04/25/2025 12:12 PM EDT us Nelida Moran MD LAB BLOOD ORDERABLES Fin al Result [facility] [address] [place] [address] * (ABNORMAL) Complement C3 (04/25/2025 12:00 PM EDT) C3 182(H) 81 - 157 mg/dl [facility] Blood 04/25/2025 12:0 0 PM EDT 04/25/2025 12:12 PM EDT Nelida Moran MD LAB BLOOD ORDERABLES Fin al Result [address] [address] * (ABNORMAL) Complement C4 (04/25/2025 12:00 PM EDT) C4 45(H) 12 - 39 mg/dL [facility] Blood 04/25/2025 12:0 0 PM EDT 04/25/2025 12:12 PM EDT us Nelida Moran MD LAB BLOOD ORDERABLES Fin al Result Performing Organization Address City/[facility] Co de Phone Number [address] [address] * (ABNORMAL) C-Reactive Protein (04/25/2025 12:00 PM EDT) C REACTIVE PROTEIN 35.5(H) 0.0 - 4.0 mg/L [facility] Blood 04/25/2025 12:0 0 PM EDT 04/25/2025 12:12 PM EDT us Nelida Moran MD LAB BLOOD ORDERABLES Fin al Result Performing Organization Address [facility] Co de Phone Number [address] [address] * Uric acid (04/25/2025 12:00 PM EDT) URIC ACID 4.2 2.4 - 7.0 mg/dL [facility] Blood 04/25/2025 12:0 0 PM EDT 04/25/2025 12:12 PM EDT us Nelida Moran MD LAB BLOOD ORDERABLES Fin al Result Performing Organization Address [facility] Co de Phone Number [address] [address] * Homocysteine (04/25/2025 12:00 PM EDT) HOMOCYSTEINE, TOTAL 10.4 0 - 14.2 umol/L [facility] Blood 04/25/2025 12:0 0 PM EDT 04/25/2025 12:12 PM EDT us Nelida Moran MD LAB BLOOD ORDERABLES Fin al Result Performing Organization Address City/[facility]/ZIP Co de Phone Number [place] [address] [place] [address] * CPK (creatine kinase) (04/25/2025 12:00 PM EDT) CREATINE KINASE 40 21 - 215 U/L [facility] Blood 04/25/2025 12:0 0 PM EDT 04/25/2025 12:12 PM EDT us Nelida Moran MD LAB BLOOD ORDERABLES Fin al Result [facility] [address] [place] [address] from Last 3 Months Insurance NON NSPG PCP [facility] [employer] NON NSPG PCP S[employer] NON NSPG PCP [place] [facility] NON NSPG PCP [employer] [facility] NON NSPG PCP S[employer] [facility] NON NSPG PCP [facility] Care Teams Design Supervisor Relationship Specialty Start Date End Date Joana Martinez NP [address] [place], [place] [id number] [email or web address] PCP - General Nurse Practitioner 06/26/24 Additional Source Comments The information contained in this document represents components of the legal health record. It is not the complete legal health record.[facility]
--- OUTSIDE RECORDS SUMMARY | 2025-07-10 15:36 | XMS_ITS | Encounter Summary ---
Author Organization [employer] Address [address] [place] [address] 7 [place] [address] Care Team Providers Care Airfield Services Officer Name Role Phone Billie Hdz Unavailable Unavailable Sanjeev Barbosa Primary Care Provider Encounter Details Date Type Department Care Team (Latest Contact Info) Description 03/04/[address] [facility] CONVERSIONS Dental, Provider, DDS Social History [...] on filedocumented in this encounter Care Teams Airfield Services Officer Relationship Specialty Start Date End Date Sanjeev Barbosa [address] [place] [address] PCP - General 08/30/24 Billie Hdz Health Navigator 07/22/24 documented as of this encounter
--- OUTSIDE RECORDS SUMMARY | 2025-07-10 15:36 | XMS_ITS | Clinical Summary ---
Author Organization [employer] Address [address] [place] [address] [address] [place] [address] Care Team Providers Care High School Mathematics Teacher Name Role Phone Billie Hdz Unavailable Unavailable Sanjeev Barbosa Primary Care Provider [phone] Active Problems Problem Noted Date Diagnosed Date [...] Vaccines (1 of 2) 2018 COVID-19 Vaccine (4 - season) 2025 09/18/2021, 12/08/2020, 11/17/2020 Influenza Vaccine (#1) 2025 [...] [facility] Care Teams High School Mathematics Teacher Relationship Specialty Start Date End Date Sanjeev Barbosa [address] [place] [address] PCP - General 08/30/24 Billie Hdz [facility] Navigator 07/22/24
== END 2025-07-10 15:05 | disposition home or self-care (01) ==
LOC: HO.HOS 14:15
PROVIDERS: PCP Nurse Practitioner Family; Visit Provider Physician Assistant
DX: Z98.890 Other specified postprocedural states (principal)
CPT/HCPCS: 99024

== ENCOUNTER → 2025-07-10 14:14 | Outpatient (BNVA) | payer OTHER, SELFPAY | PROVIDERS: PCP Nurse Practitioner Family; Visit Provider Physician Assistant | DX: Z47.89 Encounter for other orthopedic aftercare (principal) | CPT/HCPCS: 99212 ==

== ENCOUNTER 2025-08-04 13:52 | Outpatient (AMB) | payer OTHER, SELFPAY ==
--- NOTE | 2025-08-04 13:58 | MHC.OFFVIS ---
Vital Signs 08/04/25 14:01 Height 5 ft 1 in Weight 188 lb BMI 35.5 Intake Visit Reasons: PO RT RTC repair 07/02/25 N Intake Note: Lucia is a 55 year old right hand dominant female who presents today for a for a post operative visit about 2 months s/p right RTC repair, DOS 07/02/25. At her last visit sutures were removed and she was instructed to remove the sling while at home & at rest. A new order for physical therapy was placed and she is booked for appointments with [facility]. Patient reports she is dong well, she continues to have soreness. States that she has attended 2 therapy sessions. Allergies amitriptyline Allergy (Severe, Verified 08/04/25 14:01) nightmares aspirin (ASA) Allergy (Severe, Verified 08/04/25 14:01) asthma exacerbation duloxetine (Cymbalta) Allergy (Intermediate, Verified 08/04/25 14:01) loopy gabapentin Allergy (Intermediate, Verified 08/04/25 14:01) loopy iodine Allergy (Intermediate, Verified 08/04/25 14:01) Blister morphine Allergy (Intermediate, Verified 08/04/25 14:01) migraine/somnolence NSAIDS (Non-Steroidal Anti-Inflamma (NSAIDS (NON-STEROIDAL ANTI-INFLAMMA) Allergy (Intermediate, Verified 08/04/25 14:01) asthma exacerbation pregabalin Allergy (Intermediate, Verified 08/04/25 14:01) loopy tramadol (TRAMADOL) Allergy (Intermediate, Verified 08/04/25 14:01) tachycardia codeine (CODEINE) Allergy (Mild, Verified 08/04/25 14:01) Rash piperacillin (From Zosyn) Allergy (Mild, Verified 08/04/25 14:01) Rash tazobactam (From Zosyn) Allergy (Mild, Verified 08/04/25 14:01) Rash Medication List - Last Reconciled 08/04/25 by Justice Hallman PA-C acetaminophen ER 1,300 mg (2 x 650 mg) PO Q8H PRN Advair HFA 230-21 mcg/actuation (fluticasone propion-salmeterol) 2 puffs inhalation BID 30 days NS albuterol sulfate 90 mcg/actuation (Ventolin HFA) 2 puffs inhalation Q6H PRN 30 days azelastine 2 sprays intranasal BID 30 days B-complex with vitamin C 1 tab PO DAILY 30 days celecoxib (Celebrex) 100 mg PO BID PRN cetirizine (Allergy Relief (cetirizine)) 10 mg PO DAILY cholecalciferol (vitamin D3) 50 mcg PO DAILY 90 days clonazepam 0.5 mg PO TID PRN cyclosporine 0.05% 1 drp ophthalmic (eye) BID dextroamphetamine-amphetamine 10 mg 1 tab PO BID dicyclomine 20 mg PO QID 30 days dulaglutide (Trulicity) 1.5 mg (0.5 mL) subcut QWEEK fexofenadine (Sandy Allergy) 180 mg PO DAILY fluoxetine 10 mg PO DAILY hydrocodone-acetaminophen 5-325 mg 1 - 2 tabs PO Q4-6H PRN 7 days ipratropium-albuterol 0.5 mg-3 mg(2.5 mg base)/3 mL 3 mL inhalation Q6H PRN levocetirizine 5 mg PO BEDTIME lidocaine 5% (Lidoderm) 1 patch topical DAILY 30 days magnesium oxide 500 mg PO DAILY 30 days metformin ER 1,000 mg PO BEDTIME mometasone 50 mcg/actuation 2 sprays intranasal DAILY 90 days nebulizers As directed omeprazole 40 mg PO DAILY 90 days tizanidine 4 mg PO BEDTIME valacyclovir 1,000 mg PO BID PRN vitamins A,C,N-ezak-zgmhsb 4,296 mcg-226 mg-90 mg (PreserVision AREDS) 1 cap PO BID HPI HPI PO RT RTC repair 07/02/25 N: Details: 55-year-old female returns to the office today 6 weeks status post rotator cuff repair on 07/02/[address] Garnett. She has had 2 visits of physical therapy as it took them 2 weeks to called her to make an appointment and 1 of her therapists was out sick. She has been working on some exercises on her own at home. Her pain has significantly improved. [facility] Medical History Rotator cuff tear Diabetes 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 [place] (obstructive sleep apnea) ADD (attention deficit disorder) Anxiety GERD (gastroesophageal reflux disease) Low back pain Nocturnal hypoxia Paresthesia Diverticulitis Herpes simplex Osteopenia of femoral neck Family history of premature CAD Spinal cord stimulator dysfunction Anemia IBS (irritable bowel syndrome) Tendinitis of left rotator cuff Hypogammaglobulinemia Asthma-COPD overlap syndrome Chronic depression Fibromyalgia Surgical History (Reviewed 08/04/25 @ 14:01 by Laurie Yost COUNTS INCLUDE 234 BEDS AT THE [facility]) Hx of blepharoplasty Hx of cataract surgery S/P insertion of spinal cord stimulator History of abdominoplasty History of esophagogastroduodenoscopy (EGD) S/P bilateral breast reduction S/P LEVI-BSO H/O colonoscopy History of sinus surgery History of left knee surgery Family History Father CVD (cardiovascular disease) Heart attack Mother CVD (cardiovascular disease) Heart attack Maternal Grandmother CVD (cardiovascular disease) Maternal Grandfather Colon cancer Paternal Grandmother No problems noted. Son No problems noted. Son No problems noted. Son No problems noted. 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 Forward flexion to 75 degrees. External rotation to 70 degrees. Internal rotation to back pocket. Assessment & Plan Assessment & Plan (1) Rotator cuff tear: Comment: right Code(s): M75.100 - Unspecified rotator cuff tear or rupture of unspecified shoulder, not specified as traumatic Category: Medical (2) S/P right rotator cuff repair: Code(s): Z98.890 - Other specified postprocedural states Category: Surgical Plan Patient will continue with the sling until she has weaned with physical therapy. I stressed the importance of using caution with daily activities. She will continue with physical therapy to continue with end range of motion and scapular stabilization techniques. She will slowly begin strength work. She will remain out of work until follow up in [address] Garnett, sooner if needed. Coding Level of Care Code Global (13420) Diagnoses Rotator cuff tear M75.100 S/P right rotator cuff repair Z98.890
[2025-08-04 14:01] VITALS: BMI 35.5
--- OUTSIDE RECORDS SUMMARY | 2025-08-04 15:34 | XMS_ITS | Encounter Summary ---
Author Organization [employer] Address [address] [place] [address] [address] [place] [address] Care Team Providers Care Voice Teacher Name Role Phone Billie Hdz Unavailable Unavailable Sanjeev Barbosa Primary Care Provider [phone] Encounter Details Date Type Department Care Team (Latest Contact Info) Description 03/04/2021 Abstract [facility] CONVERSIONS Dental, Provider, DDS Social History [...] on filedocumented in this encounter Care Teams Voice Teacher Relationship Specialty Start Date End Date Sanjeev Barbosa [address] [place] [address] PCP - General 08/30/24 Billie Hdz Health Navigator 07/22/24 documented as of this encounter
--- OUTSIDE RECORDS SUMMARY | 2025-08-04 15:34 | XMS_ITS | Encounter Summary ---
Author Organization [facility] Address [address] [place] [address] Phone Care Team Providers Care Head Grinder Name Role Phone Sanjeev Barbosa MD Primary Care Provider Joana Martinez NP Primary Care Provider Reason for Referral * Consultation (Routine) - Closed Specialty Diagnoses / Procedures Referred By Contgregory t Referred To Contact Rheumatology Diagnoses Unspecified place or not applicable Leonor Zaragoza, ANTONI Phone: tel: fax: [facility] [address] [place] [address] Phone: tel: Referral ID Status Reason Start Date Expiration Date Visits Re quested Visits Authorized [id number] Closed 04/26/2024 04/26/2025 1 1 Encounter Details Date Type Department Care Team (Late st Contact Info) Description 04/26/2024 Transcribe Orders [facility] Referral Management [address] [place] [address] Leonor Zaragoza, ANTONI [address] [place] [address] Dr Ferguson [address] [place] [address] Social History Tobacco Use Types Packs/Day Years [...] Associated Diagnoses Order Schedule Amb[place] [facility] [place] Outpatient Referral Routine Ordered: 04/26/2024 documented as of this encounter Visit Diagnoses Not on filedocumented in this encounter Care Teams Head Grinder Relationship Specialty Start Date End Date Sanjeev Barbosa MD [address] [place] [id number] PCP - General 01/16/24 06/25/24 Joana Martinez NP [address] [place] [phone] [email or web address] PCP - General Nurse Practitioner 06/26/24 documented as of this encounter Additional Source Comments The information contained in this document represents components of the legal health record. It is not the complete legal health record.[facility]
--- OUTSIDE RECORDS SUMMARY | 2025-08-04 15:34 | XMS_ITS | Clinical Summary ---
Author Organization [employer] Address [address] [place] [address] 7[address] [place] [address] Care Team Providers Care Quality System Manager Name Role Phone Billie Hdz Unavailable Unavailable Sanjeev Barbosa Primary Care Provider [phone] Active Problems Problem Noted Date Diagnosed Date [...] patient's age to complete this topic Insurance [facility] Care Teams Quality System Manager Relationship Specialty Start Date End Date Sanjeev Barbosa [address] [place] [address] PCP - General 08/30/[address] [facility] Navigator 07/22/24
--- OUTSIDE RECORDS SUMMARY | 2025-08-04 15:34 | XMS_ITS | Clinical Summary ---
Author Organization [facility] Address [address] [facility] [address] [place] [address] Phone Care Team Providers Care Frame Wirer Name Role Phone Joana Martinez NP Primary [...] day as needed for anxiety. Active vitamins A,C,K-rvog-ptbwp r (PRESERVISION AREDS) 4,296 mcg-226 mg-90 mg [...] pool therapy such as at [facility] in [place], [place] Chronic cough 05/29/2025 Assessment & Plan [...] needed use lubricating eyedrops. Follow closely with water main inspector as scheduled. 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 Assessment & Plan (10/25/2024 9:55 AM [...] 3 PM and incorporate cottage cheese or Eritrean yogurt at this 3 PM meal. She [...] protein shake or a protein bar or Eritrean yogurt or cottage cheese to be consumed [...] Description 05/29/2025 2:00 PM EDT Office Visit [facility] Rheumatology [address] [place] [address] Nelida Moran MD Chronic fatigue (Primary Dx); Myalgia; Chronic cough; Arthralgia of multiple sites; Obstructive sleep apnea on CPAP; superintendent terminal (current) use of non-steroidal anti-inflammatories (nsaid); Muscle stiffness; Class 2 severe obesity due to excess calories with serious comorbidity and body mass index (BMI) of 37.0 to 37.9 in adult from Last 3 Months Family [...] Smoking Tobacco: Former Cigarettes 0.5 2 1 1991 Smokeless Tobacco: Never Tobacco Cessation:Counseling Given: [...] Industry Job Start Date Job End Date [employer]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[employer], 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 [...] HEPATITIS C SCREENING 1986 HIV ONE-TIME SCREENING (18-65 YEARS) 1986 PAP SMEAR 1989 SCREENING FOR DIABETES 2003 MAMMOGRAM 2008 COLOGUARD 2013 COLONOSCOPY 2013 COLORECTAL CANCER SCREENING 2013 FIT TEST 2013 FOBT 2013 SIGMOIDOSCOPY 2013 VIRTUAL COLONOSCOPY 2013 ZOSTER VACCINES (1 of 2) 2018 INFLUENZA VACCINE (#1) 2025 , 07/15/2020, 08/29/2018, Additional history exists COVID-19 VACCINE ( season) 2025 09/18/2021, 12/08/2020, 11/17/2020 DEPRESSION SCREENING 07/11/2025 07/11/2024 CREATININE LEVEL 04/25/2026 04/25/2025 Adult Td,Tdap Booster 05/23/2027 05/23/2017, 002 PNEUMOCOCCAL VACCINES (50+ years) Completed 04/07/2023, 04/06/2017 SMOKING STATUS SCREENING (Once After 26 Yrs) Completed 05/29/2025 HEPATITIS A [...] Procedure Name Priority Date/Time Associated Diagnosis Comments COMPREHENSIVE METABOLIC PANEL Routine 04/25/2025 12:00 PM EDT Arthralgia of multiple sites Muscle stiffness [facility] (current) use of non-steroidal anti-inflammatorie s (nsaid) from Last 3 Months or Most Recently Relevant to Health Maintenance Results * (ABNORMAL) Comprehensive metabolic panel (04/25/2025 12:00 PM EDT) SODIUM 138 133 - 146 mmol/L [facility] POTASSIUM 4.0 3.3 - 5.1 mmol/L [facility] CHLORIDE 102 96 - 108 mmol/L [facility] CO2 25 21 - 35 mmol/L [facility] BUN 15 6 - 19 mg/dL [facility] CREATININE 0.70 0.5 - 1.5 mg/dL [facility] GLUCOSE 166(H) 70 - 99 mg/dL [facility] ALBUMIN 4.4 3.9 - 4.8 g/dL [facility] TOTAL PROTEIN 7.1 6.5 - 8.0 g/dL [facility] CALCIUM 9.8 8.4 - 10.3 mg/dL [facility] ALKALINE PHOSPHATASE 118(H) 39 - 117 U/L [facility] TOTAL BILIRUBIN 0.4 0.0 - 1.2 mg/dL [facility] AST 25 0 - 37 U/L [facility] ALT 28 0 - 40 U/L [facility] GLOBULIN 2.7 1 - 4.8 g/dL [facility] EGFR 101 >59 mL/min/1.7 3m2 [facility] Comment:Estimated glomerular filtration rate calculated using the CKD-EPI refit equation. ANION GAP 15 10 - 20 mmol/L [facility] Blood 04/25/2025 12:0 0 PM EDT 04/25/2025 12:12 PM EDT Nelida Moran MD LAB BLOOD ORDERABLES Fin al Result [facility] [address] [place] [address] from Last 3 Months or Most Recently Relevant to Health Maintenance Insurance [employer] PCP [employer] Home Support Services Address: [address] [place] [address] [employer] NON [employer]SPG PCP [employer] WE[employer] NON NSPG PCP [employer] WE[employer] NON NSPG PCP S[employer] NON NSPG PCP S[employer] NON NSPG PCP [employer] [place] [id number] Care Teams Frame Wirer Relationship Specialty Start Date End Date Joana Martinez NP [address] [place] [phone] [email or web address] PCP - General Nurse Practitioner 06/26/24 Additional Source Comments The information contained in this document represents components of the legal health record. It is not the complete legal health record.[facility]
== END 2025-08-04 14:24 | disposition home or self-care (01) ==
LOC: HO.HOS 13:53
PROVIDERS: PCP Nurse Practitioner Family; Visit Provider Physician Assistant
DX: M75.100 Unspecified rotator cuff tear or rupture of unspecified shoulder, not specified as traumatic (principal); Z98.890 Other specified postprocedural states
CPT/HCPCS: 99024

== ENCOUNTER → 2025-08-04 13:52 | Outpatient (BNVA) | payer OTHER, SELFPAY | PROVIDERS: PCP Nurse Practitioner Family; Visit Provider Physician Assistant | DX: Z98.890 Other specified postprocedural states (principal); M75.101 Unspecified rotator cuff tear or rupture of right shoulder, not specified as traumatic | CPT/HCPCS: 99212 ==

== ENCOUNTER 2025-08-08 08:11 | Outpatient (AMB) | payer OTHER, SELFPAY ==
--- OUTSIDE RECORDS SUMMARY | 2025-08-08 08:25 | XMS_ITS | Encounter Summary ---
Author Organization [facility] Address [address] [place] [address] Phone Care Team Providers Care Associate Engineer Name Role Phone Sanjeev Barbosa MD Primary Care Provider Joana Martinez NP Primary Care Provider Reason for Referral * Consultation (Routine) - Closed Specialty Diagnoses / Procedures Referred By Contgregory t Referred To Contact Rheumatology Diagnoses Unspecified place or not applicable Leonor Zaragoza, ANTONI Phone: tel: fax: [facility] [address] [place] [address] Phone: tel: Referral ID Status Reason Start Date Expiration Date Visits Re quested Visits Authorized [id number] Closed 04/26/2024 04/26/2025 1 1 Encounter Details Date Type Department Care Team (Late st Contact Info) Description 04/26/2024 Transcribe Orders [facility] Referral Management [address] [place] [address] Leonor Zaragoza, ANTONI [address] [place] [address] Dr Ferguson [address] [place] [address] Social History Tobacco Use Types Packs/Day Years [...] Associated Diagnoses Order Schedule Ambulatory referral to [facility] Rheumatology Outpatient Referral Routine Ordered: 04/26/2024 documented as of this encounter Visit Diagnoses Not on filedocumented in this encounter Care Teams Associate Engineer Relationship Specialty Start Date End Date Sanjeev Barbosa MD [address] [place] [phone] PCP - General 01/16/24 06/25/24 Joana Martinez NP [address] [place] [phone] [email or web address] PCP - General Nurse Practitioner 06/26/24 documented as of this encounter Additional Source Comments The information contained in this document represents components of the legal health record. It is not the complete legal health record.[facility]
--- OUTSIDE RECORDS SUMMARY | 2025-08-08 08:25 | XMS_ITS | Clinical Summary ---
Author Organization [facility] Address [address] [place] [address] Phone Care Team Providers Care It Network Administrator Name Role Phone Joana Martinez NP Primary [...] day as needed for anxiety. Active vitamins A,C,Q-zdzl-xmsca r (PRESERVISION AREDS) 4,296 mcg-226 mg-90 mg [...] pool therapy such as at [facility] in [place], [place] Chronic cough 05/29/2025 Assessment & Plan [...] needed use lubricating eyedrops. Follow closely with title processor as scheduled. 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 Assessment & Plan (10/25/2024 9:55 AM [...] 3 PM and incorporate cottage cheese or Macanese yogurt at this 3 PM meal. 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 [...] EDT Arthralgia of multiple sites Muscle stiffness intermediate (current) use of non-steroidal anti-inflammatorie s (nsaid) from Last 3 Months or Most Recently Relevant to Health Maintenance Results * (ABNORMAL) Comprehensive metabolic panel (04/25/2025 12:00 PM EDT) SODIUM 138 133 - 146 mmol/L [facility] POTASSIUM 4.0 3.3 - 5.1 mmol/L [facility] CHLORIDE 102 96 - 108 mmol/L [facility] CO2 25 21 - 35 mmol/L [facility] BUN 15 6 - 19 mg/dL [facility] CREATININE 0.70 0.5 - 1.5 mg/dL [facility] GLUCOSE 166(H) 70 - 99 mg/dL [facility] ALBUMIN 4.4 3.9 - 4.8 g/dL [facility] TOTAL PROTEIN 7.1 6.5 - 8.0 g/dL [facility] CALCIUM 9.8 8.4 - 10.3 mg/dL [facility] ALKALINE PHOSPHATASE 118(H) 39 - 117 U/L [facility] TOTAL BILIRUBIN 0.4 0.0 - 1.2 mg/dL [facility] AST 25 0 - 37 U/L [facility] ALT 28 0 - 40 U/L [facility] GLOBULIN 2.7 1 - 4.8 g/dL [facility] EGFR 101 >59 mL/min/1.7 3m2 [facility] Comment:Estimated glomerular filtration rate calculated using the CKD-EPI refit equation. ANION GAP 15 10 - 20 mmol/L [facility] Blood 04/25/2025 12:0 0 PM EDT 04/25/2025 12:12 PM EDT Nelida Moran MD LAB BLOOD ORDERABLES Fin al Result [facility] [address] [place] [address] from Last 3 Months or Most Recently Relevant to Health Maintenance Insurance [employer] NON NSPG PCP [employer] NON NSPG PCP [employer] WELLS[employer] NON NSPG PCP [employer] WELLSENSE NON NSPG PCP S[employer] WELLS[employer] NON NSPG PCP S[employer] WE[employer] NON NSPG PCP [employer] [place] [id number] Care Teams It Network Administrator Relationship Specialty Start Date End Date Joana Martinez NP [address] [place] [phone] [email or web address] PCP - General Nurse Practitioner 06/26/24 Additional Source Comments The information contained in this document represents components of the legal health record. It is not the complete legal health record.[facility]
--- NOTE | 2025-08-08 12:01 | A.OFFVIS_ITS ---
VS Expanded 08/08/25 12:22 Height 5 ft 1 in Weight 188 lb 4 oz BMI 35.6 Body Fat % 44.8 Body Fat Mass 84.4 Fat Free Mass 103.8 Visceral Fat Rating 13 Body Water % 39.1 Body Water Mass 73.6 Basal Metabolic Rate/Score 1,456 Intake Visit Reasons: TV MASSEUR/MASSEUSE SWL/MWL BMI 35.6 Allergies amitriptyline Allergy (Severe, Verified 08/08/25 12:02) nightmares aspirin (ASA) Allergy (Severe, Verified 08/08/25 12:02) asthma exacerbation duloxetine (Cymbalta) Allergy (Intermediate, Verified 08/08/25 12:02) loopy gabapentin Allergy (Intermediate, Verified 08/08/25 12:02) loopy iodine Allergy (Intermediate, Verified 08/08/25 12:02) Blister morphine Allergy (Intermediate, Verified 08/08/25 12:02) migraine/somnolence NSAIDS (Non-Steroidal Anti-Inflamma (NSAIDS (NON-STEROIDAL ANTI-INFLAMMA) A llergy (Intermediate, Verified 08/08/25 12:02) asthma exacerbation pregabalin Allergy (Intermediate, Verified 08/08/25 12:02) loopy tramadol (TRAMADOL) Allergy (Intermediate, Verified 08/08/25 12:02) tachycardia codeine (CODEINE) Allergy (Mild, Verified 08/08/25 12:02) Rash piperacillin (From Zosyn) Allergy (Mild, Verified 08/08/25 12:02) Rash tazobactam (From Zosyn) Allergy (Mild, Verified 08/08/25 12:02) Rash Medication List - Last Reconciled 08/08/25 by Tyler Poon MD acetaminophen ER 1,300 mg (2 x 650 mg) PO Q8H PRN Advair HFA 230-21 mcg/actuation (fluticasone propion-salmeterol) 2 puffs inhalation BID 30 days NS albuterol sulfate 90 mcg/actuation (Ventolin HFA) 2 puffs inhalation Q6H PRN 30 days azelastine 2 sprays intranasal BID 30 days B-complex with vitamin C 1 tab PO DAILY 30 days celecoxib (Celebrex) 100 mg PO BID PRN cetirizine (Allergy Relief (cetirizine)) 10 mg PO DAILY cholecalciferol (vitamin D3) 50 mcg PO DAILY 90 days clonazepam 0.5 mg PO TID PRN cyclosporine 0.05% 1 drp ophthalmic (eye) BID dextroamphetamine-amphetamine 10 mg 1 tab PO BID dicyclomine 20 mg PO QID 30 days dulaglutide (Trulicity) 1.5 mg (0.5 mL) subcut QWEEK fexofenadine (Sandy Allergy) 180 mg PO DAILY hydrocodone-acetaminophen 5-325 mg 1 - 2 tabs PO Q4-6H PRN 7 days ipratropium-albuterol 0.5 mg-3 mg(2.5 mg base)/3 mL 3 mL inhalation Q6H PRN levocetirizine 5 mg PO BEDTIME metformin ER 1,000 mg PO BEDTIME mometasone 50 mcg/actuation 2 sprays intranasal DAILY 90 days nebulizers As directed omeprazole 40 mg PO DAILY 90 days tizanidine 4 mg PO BEDTIME valacyclovir 1,000 mg PO BID PRN vitamins A,C,L-agdr-jfkghc 4,296 mcg-226 mg-90 mg (PreserVision AREDS) 1 cap PO BID HPI HPI TV MASSEUR/MASSEUSE SWL/MWL BMI 35.6: Details: Start time: 11.57am, End time: 12.57pm ?I spent 55 minutes speaking with the patient on the phone plus an additional 5 minutes reviewing and updating records for a total of 60 minutes HPI Comments Details: Previous weight loss efforts: [facility] program (Dr. Adams), [facility] Wakes up: 6am-9am, Sleeps: 10pm Breakfast: 9am (keto bread with cream cheese, Liquid Pure protein shake Lunch: 1pm (chicken, beef, vegetable, cab) Dinner: 8pm (as lunch) Snacks: 10am (protein drink), 4pm (cheese, fruit), 10pm (prunes) Exercise: none Beverages: Coffee: (1-2 cups/d with sweetener, creamer), Tea: (hot/iced: daily plain), Soda: none, Juice: none, ETOH: 1/month [facility] Medical History (Updated 08/08/25 @ 12:42 by Tyler Poon MD) Herpes simplex Sleep apnea treated with continuous positive airway pressure (CPAP) BMI 35.0-35.9,adult Obesity Rotator cuff tear Diabetes 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 NILTON (obstructive sleep apnea) ADD (attention deficit disorder) Anxiety GERD (gastroesophageal reflux disease) Low back pain Nocturnal hypoxia Paresthesia Diverticulitis Osteopenia of femoral neck Family history of premature CAD Spinal cord stimulator dysfunction Anemia IBS (irritable bowel syndrome) Tendinitis of left rotator cuff Hypogammaglobulinemia Asthma-COPD overlap syndrome Chronic depression Fibromyalgia Surgical History Hx of blepharoplasty Hx of cataract surgery S/P insertion of spinal cord stimulator History of abdominoplasty History of esophagogastroduodenoscopy (EGD) S/P bilateral breast reduction S/P LEVI-BSO H/O colonoscopy History of sinus surgery History of left knee surgery Family History Father CVD (cardiovascular disease) Heart attack Mother CVD (cardiovascular disease) Heart attack Maternal Grandmother CVD (cardiovascular disease) Maternal Grandfather Colon cancer Paternal Grandmother No problems noted. Son No problems noted. Son No problems noted. Son No problems noted. 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 Current occupational exposures/hazards: No Sexual orientation: Unable to collect Gender identity: Unable to collect Cognitive needs: No Hearing needs: No Vision needs: No Telehealth Telehealth Telehealth Platform: Telephone Location of provider rendering services: practice address Location of patient: address on file Patient Identification confirmed using: Name, : Yes Telehealth method: voice only Patient verbally consented to treatment: Yes Patient verbally consented to billing insurance company: Yes Patient informed of any privacy concerns related to visit: Yes Minutes spent on Phone/Video with Pt.: 60 Assessment & Plan Assessment & Plan (1) Obesity: Code(s): E66.9 - Obesity, unspecified Category: Medical Qualifiers: Obesity type: due to excess calories Obesity classification: adult class 2 (BMI 35 - 39.9) Serious obesity comorbidity presence: with serious comorbidity Body mass index: BMI 35.0-35.9 Qualified Code(s): E66.812 - Obesity, class 2; Z68.35 - Body mass index [BMI] 35.0-35.9, adult Plan: 1.? Plan for lap sleeve gastrectomy. If diaphragmatic or ventral hernias are present at time of surgery, these will be repaired laparoscopically as well. I emphasized the importance of close follow-up, adherence to instructions and good communication. The surgery does not replace the need to change your lifestlyle which is the cause of the obesity problem. The surgery provides the motivation to try again to change your lifestyle, it reduces the appetite and make the transition to a better lifestyle easier and doubles the amount of weight you would lose compared to doing the lifestyle change without the surgery. You will need to be on a liquid diet with protein shakes for 2 weeks before surgery to maximize weight loss and boost your nutritional status to recover better from surgery and also for the first two weeks after surgery to let the stomach heal before we introduce other foods. After the first 2 weeks we will introduce protein bars and soft foods like scrambled eggs, cottage cheese and yogurt and after the 6th week will introduce meat, fish and cooked vegetables in small amounts. Over time you should be able to eat everything in small amounts. Side effects like nausea, vomiting, heartburn or abdominal pain are not common in the practice unless you are not following in the practice. This operation requires lifetime commitment to following in our practice and communication with me. You will much less weight and experience side effects if you don?t communicate or not following in the practice. Complications are rare and in our practice is about 1/10 of the national average. However, you can develop bleeding that may require transfusion (hasn?t happened for year in the practice), you may from complications (we did not have any deaths in the practice) and infections. Infections are usually a result of breakdown in communication or not understanding or following directions correctly. They are difficult to treat, they can happen during the first 6 weeks, they may require to be in the hospital for weeks or even months, not being able to eat by mouth and you may have drains and surgeries to try and correct the issue. Other risks and complications include possible conversion to an open procedure, leaks, small bowel obstruction, blood clots, cardiac, or pulmonary complications, as halfway complications such as ulcers, insufficient weight loss and vitamin deficiencies. 2. Nutritional counseling. Start with one premade Pure protein shake (mix 4oz of Premier mixed with 4oz low fat unsweetened almond milk each) at 7am-9am, one protein bar (Fit Crunch protein bar, buy at [employer], or [employer]) at 10am-12pm, another premade Pure protein shake (mix 4oz of Premier mixed with 4oz low fat unsweetened almond milk each) at 1pm-3pm, another Fit Crunch protein bar,? dinner at 7pm (8 forks of protein and 8 forks of salad/vegetables) and another HALF Fit Crunch protein bar at 9pm-10pm. When you wake up at 9am please do shake at 9-11, bar 12-2, shake 3-5, dinner at 6 and another bar at 8-10pm So you do 2 protein shakes, 2 to 2.5 protein bars and one meal per day. Meal to include lean meat (beef, fish, pork, turkey, chicken), or kyrgyz yogurt, or egg whites, or beans with a salad with olive oil and fruits (berries, pears, apples, kiwi). Avoid salt, breads, potatoes, rice, pasta, desserts. 3. Each shake would be drunk slowly, like coffee in a period of 2 hours. 4. Cut each bar in 4 pieces and eat each piece in 30min ?to make each bar last 2 hours. 5. I emphasized the importance of measuring accurately the food portion and measure it when serving the food in plate 6. The meal portions include 8 full-size forks of meat and 8 full-size forks of salad. You always eat the meat portion but you can replace up to 4 forks for salad/vegetables with rice, potatoes or pasta, or a fruit ?if you like. The less you do it the better weight loss will be. 7. One full-size fork is what it can be scooped on the fork without falling aside and not what can be bit with the fork. Use regular forks like those you find in a typical restaurant. 8.? Please buy the body composition scale we discussed and send me weight measurements as soon as possible and then once a week. Always include your diet and exercise plan. 9. The best choice would be to purchase a stationary bike at home that can track calories. If you get one, please start stationary bike at a resistance level of 4.0 Increase level by 1.0 every 3 min to a max level of 10.0. Stay at this level for 3 min and then return to level 4.0 and repeat same steps until 300 calories are burned. Goal is to burn 2000 calories per week on exercise 10. Goal is to lose at least 1.5-2lbs per week 11. Goal to lose 10% of your weight before surgery, which is about 20lbs. Ultimate weight goal: 168lbs before surgery 12. Please follow the diet plan exactly without any change. If you don't like something about the plan or you feel hungry you need to communicate with me so I can help you revise the plan. You should not change the plan yourself 13. To be scheduled for EGD to assess the stomach's anatomy. The possibility of biopsies was discussed. Patient needs to avoid use of NSAIDs and aspirin for 1 week prior to EGD. You must be on liquids only the day before your endoscopy. Risks of perforation and bleeding was discussed with the patient. This will be an outpatient procedure with IV sedation.
[2025-08-08 12:22] VITALS: BMI 35.6
== END 2025-08-08 12:57 | disposition home or self-care (01) ==
LOC: HO.HBS 08:11
PROVIDERS: PCP Nurse Practitioner Family; Visit Provider Surgery
DX: E66.812 Obesity, class 2 (principal); Z68.35 Body mass index [BMI] 35.0-35.9, adult
CPT/HCPCS: 98011

== ENCOUNTER 2025-08-11 12:53 | Outpatient (AMB) | payer OTHER, SELFPAY ==
--- NOTE | 2025-08-11 12:57 | A.OFFVIS_ITS ---
Vital Signs 08/11/25 12:59 Height 5 ft 1 in Weight 189 lb 9.561 oz BMI 35.8 BP 124/76 Blood Pressure Location Rt brachial Position Sitting Pulse 69 Pulse Source Pulse Oximeter Pulse Oximetry (%) 96 Oxygen Delivery Method Room Air Intake Visit Reasons: T2DM Intake Note: Patient present today to follow up on Type 2 Diabetes Mellitus. Last Diabetic Eye exam: April 2025 Last Podiatry Visit: Does not see a Coding Manager Random Glucose: 116 mg/dL Hgb A1C: 6.5% 06/06/2025 Riding Coach Required: No Accompanied by: Self / Same As Patient Allergies amitriptyline Allergy (Severe, Verified 08/11/25 12:58) nightmares aspirin (ASA) Allergy (Severe, Verified 08/11/25 12:58) asthma exacerbation duloxetine (Cymbalta) Allergy (Intermediate, Verified 08/11/25 12:58) loopy gabapentin Allergy (Intermediate, Verified 08/11/25 12:58) loopy iodine Allergy (Intermediate, Verified 08/11/25 12:58) Blister morphine Allergy (Intermediate, Verified 08/11/25 12:58) migraine/somnolence NSAIDS (Non-Steroidal Anti-Inflamma (NSAIDS (NON-STEROIDAL ANTI-INFLAMMA) Allergy (Intermediate, Verified 08/11/25 12:58) asthma exacerbation pregabalin Allergy (Intermediate, Verified 08/11/25 12:58) loopy tramadol (TRAMADOL) Allergy (Intermediate, Verified 08/11/25 12:58) tachycardia codeine (CODEINE) Allergy (Mild, Verified 08/11/25 12:58) Rash piperacillin (From Zosyn) Allergy (Mild, Verified 08/11/25 12:58) Rash tazobactam (From Zosyn) Allergy (Mild, Verified 08/11/25 12:58) Rash Medication List - Last Reconciled 08/11/25 by Dayday Phillips MD acetaminophen ER 1,300 mg (2 x 650 mg) PO Q8H PRN Advair HFA 230-21 mcg/actuation (fluticasone propion-salmeterol) 2 puffs inhalation BID 30 days NS albuterol sulfate 90 mcg/actuation (Ventolin HFA) 2 puffs inhalation Q6H PRN 30 days azelastine 2 sprays intranasal BID 30 days B-complex with vitamin C 1 tab PO DAILY 30 days celecoxib (Celebrex) 100 mg PO BID PRN cetirizine (Allergy Relief (cetirizine)) 10 mg PO DAILY cholecalciferol (vitamin D3) 50 mcg PO DAILY 90 days clonazepam 0.5 mg PO TID PRN cyclosporine 0.05% 1 drp ophthalmic (eye) BID dextroamphetamine-amphetamine 10 mg 1 tab PO BID dicyclomine 20 mg PO QID 30 days dulaglutide (Trulicity) 1.5 mg (0.5 mL) subcut QWEEK fexofenadine (Sandy Allergy) 180 mg PO DAILY hydrocodone-acetaminophen 5-325 mg 1 - 2 tabs PO Q4-6H PRN 7 days ipratropium-albuterol 0.5 mg-3 mg(2.5 mg base)/3 mL 3 mL inhalation Q6H PRN levocetirizine 5 mg PO BEDTIME metformin ER 1,000 mg PO BEDTIME mometasone 50 mcg/actuation 2 sprays intranasal DAILY 90 days nebulizers As directed omeprazole 40 mg PO DAILY 90 days tizanidine 4 mg PO BEDTIME valacyclovir 1,000 mg PO BID PRN vitamins A,C,X-nrrx-iepnby 4,296 mcg-226 mg-90 mg (PreserVision AREDS) 1 cap PO BID HPI Comments Details: 55 YO F who is seen in consultation for T2DM at the request of PCP. Initially diagnosed with T2DM in just diagnosed . Was initially started on treatment with Jardiance .Had to stop because of yest infections Current regimen metformin ER 1000 mg QD. Trulicity 1.5 mg Qwkly Uses the [employer] [id number] . Most recent A1C 6.5 , Family history of T2DM in paternal grandfather . Has eyes checked yearly, last eye exam Jun 2025 , denies retinopathy. Has neuropathy, Not sees podiatry. Denies nephropathy,Not on LAINEY/ARB. [Has] HLD, Not on statin. Last LDL [] as measured on []. Denies CAD. Not Had diabetes education. [facility] Medical History Herpes simplex Sleep apnea treated with continuous positive airway pressure (CPAP) BMI 35.0-35.9,adult Obesity Rotator cuff tear Diabetes 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 NILTON (obstructive sleep apnea) ADD (attention deficit disorder) Anxiety GERD (gastroesophageal reflux disease) Low back pain Nocturnal hypoxia Paresthesia Diverticulitis Osteopenia of femoral neck Family history of premature CAD Spinal cord stimulator dysfunction Anemia IBS (irritable bowel syndrome) Tendinitis of left rotator cuff Hypogammaglobulinemia Asthma-COPD overlap syndrome Chronic depression Fibromyalgia Surgical History Hx of blepharoplasty Hx of cataract surgery S/P insertion of spinal cord stimulator History of abdominoplasty History of esophagogastroduodenoscopy (EGD) S/P bilateral breast reduction S/P LEVI-BSO H/O colonoscopy History of sinus surgery History of left knee surgery Family History Father CVD (cardiovascular disease) Heart attack Mother CVD (cardiovascular disease) Heart attack Maternal Grandmother CVD (cardiovascular disease) Maternal Grandfather Colon cancer Paternal Grandmother No problems noted. Son No problems noted. Son No problems noted. Son No problems noted. 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 Absence of acromegalic features. Neck exam reveals nl size thyroid about 15 gms. No thyroid nodules palpable. No carotid bruits present. Lungs CTA. Heart S1 S2, Reg R/R. No M/R/ G. Skin exam reveals absence of vitiligo or acanthosis nigricans. Abdominal exam reveals Soft NT/ND with NA BS. No organomegaly present. Neck Other: . Extrem Other: Visual exam of foot performed. No ulcerations or open lesions. No onchomycosis, no callouses.Pulses 2 + distally Sensation intact to monofilament exam. Vibratory sensation sensed is intact with 128 Hz tuning fork Assessment & Plan Assessment & Plan (1) DM2 (diabetes mellitus, type 2): Code(s): E11.9 - Type 2 diabetes mellitus without complications Category: Medical Qualifiers: Diabetes mellitus senior care insulin use: without senior care use Diabetes mellitus complication status: without complication Qualified Code(s): E11.9 - Type 2 diabetes mellitus without complications Plan: Is a 55-year-old white female with a history of type 2 diabetes/obesity being treated with metformin and Trulicity with good glycemic control with known complications of steatosis of the liver Plan is to increase the Trulicity to 3 mg Q weekly. I have also taken the liberty of starting a statin atorvastatin 10 mg q.d. and will recheck lipid profile in 6-8 weeks. Patient will follow up with primary care diabetes team in 4 months Orders: Orders Lipid Panel 8 Weeks E11.9 - Type 2 diabetes mellitus without complications, E66.9 - Obesity, unspecified, Z68.35 - Body mass index [BMI] 35.0-35.9, adult Medications: New atorvastatin (Lipitor) 10 mg PO DAILY 30 tabs 4RF dulaglutide (Trulicity) 3 mg (0.5 mL) subcut QWEEK 2 mL 0RF Discontinued dulaglutide (Trulicity) Discontinued Reason: Doctor's Order 1.5 mg (0.5 mL) subcut QWEEK 2 mL 3RF Coding Level of Care Code Est Pt Level 4 (73924) Diagnoses Type 2 diabetes mellitus without complication, without long-term current use of insulin E11.9 Diabetes mellitus senior care insulin use: without senior care use Diabetes mellitus complication status: without complication
[2025-08-11 12:59] VITALS: BP 124/76; PULSE 69; O2SAT 96; BMI 35.8
[2025-08-11 13:07] LABS: Glucose, Whole Blood 116 mg/dL (60-115)
--- OUTSIDE RECORDS SUMMARY | 2025-08-11 15:16 | XMS_ITS | Encounter Summary ---
Author Organization [facility] Address [address] [place] [address] Phone Care Team Providers Care Yeast Tender Name Role Phone Sanjeev Barbosa MD Primary Care Provider Joana Martinez NP Primary Care Provider Reason for Referral * Consultation (Routine) - Closed Specialty Diagnoses / Procedures Referred By Contgregory t Referred To Contact Rheumatology Diagnoses Unspecified place or not applicable Leonor Zaragoza, ANTONI Phone: tel: fax: [facility] [address] [place] [address] Phone: tel: Referral ID Status Reason Start Date Expiration Date Visits Re quested Visits Authorized [id number] Closed 04/26/2024 04/26/2025 1 1 Encounter Details Date Type Department Care Team (Late st Contact Info) Description 04/26/2024 Transcribe Orders [facility] [address] [place] [address] Leonor Zaragoza, ANTONI [address] [place] [address] [address] [place] [address] Social History Tobacco Use Types Packs/Day Years [...] Associated Diagnoses Order Schedule Ambulatory referral to [facility] Out[facility] Referral Routine Ordered: 04/26/2024 documented as of this encounter Visit Diagnoses Not on filedocumented in this encounter Care Teams Yeast Tender Relationship Specialty Start Date End Date Sanjeev Barbosa MD [address] [place] [id number] PCP - General 01/16/24 06/25/24 Joana Martinez NP [address] [place] [id number] [email or web address] PCP - General Nurse Practitioner 06/26/24 documented as of this encounter Additional Source Comments The information contained in this document represents components of the legal health record. It is not the complete legal health record.[facility]
--- OUTSIDE RECORDS SUMMARY | 2025-08-11 15:16 | XMS_ITS | Clinical Summary ---
Author Organization [facility] Address [address] [place] [address] Phone Care Team Providers Care Coat Check Attendant Name Role Phone Joana Martinez NP Primary [...] day as needed for anxiety. Active vitamins A,C,O-hxqr-arvdr r (PRESERVISION AREDS) 4,296 mcg-226 mg-90 mg [...] pool therapy such as at [facility] in [place], [place] Chronic cough 05/29/2025 Assessment & Plan [...] needed use lubricating eyedrops. Follow closely with maintenance mechanic millwright as scheduled. Hyperhomocysteinemia 04/17/2025 shelter (current) use of n on-steroidal anti-inflammatories (nsaid) [...] Release records of therapy and response from appliance repairer Obstructive sleep apnea syndrome 06/10/2024 Resolved Problems [...] patient of formal weight management program at [facility]. Assessment & Plan (10/25/2024 9:55 AM [...] 3 PM and incorporate cottage cheese or Martiniquais yogurt at this 3 PM meal. 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 [...] FOBT 2013 SIGMOIDOSCOPY 2013 VIRTUAL COLONOSCOPY 2013 RSV VACCINE (1 - Risk 50-74 years 1-dose series) 2018 ZOSTER VACCINES (1 of 2) 2018 INFLUENZA [...] EDT Arthralgia of multiple sites Muscle stiffness shelter (current) use of non-steroidal anti-inflammatorie s (nsaid) from Last 3 Months or Most Recently Relevant to Health Maintenance Results * (ABNORMAL) Comprehensive metabolic panel (04/25/2025 12:00 PM EDT) SODIUM 138 133 - 146 mmol/L [facility] POTASSIUM 4.0 3.3 - 5.1 mmol/L [facility] CHLORIDE 102 96 - 108 mmol/L [facility] CO2 25 21 - 35 mmol/L [facility] BUN 15 6 - 19 mg/dL [facility] CREATININE 0.70 0.5 - 1.5 mg/dL [facility] GLUCOSE 166(H) 70 - 99 mg/dL [facility] ALBUMIN 4.4 3.9 - 4.8 g/dL [facility] TOTAL PROTEIN 7.1 6.5 - 8.0 g/dL [facility] CALCIUM 9.8 8.4 - 10.3 mg/dL [facility] ALKALINE PHOSPHATASE 118(H) 39 - 117 U/L [facility] TOTAL BILIRUBIN 0.4 0.0 - 1.2 mg/dL [facility] AST 25 0 - 37 U/L [facility] ALT 28 0 - 40 U/L [facility] GLOBULIN 2.7 1 - 4.8 g/dL [facility] EGFR 101 >59 mL/min/1.7 3m2 [facility] Comment:Estimated glomerular filtration rate calculated using the CKD-EPI refit equation. ANION GAP 15 10 - 20 mmol/L [facility] Blood 04/25/2025 12:0 0 PM EDT 04/25/2025 12:12 PM EDT us Nelida Moran MD LAB BLOOD ORDERABLES Fin al Result [facility] [address] [place] [address] from Last 3 Months or Most Recently Relevant to Health Maintenance Insurance [facility] NON NSPG PCP [place] [employer] [facility] CONNECTORCARE [place] NON NSPG PCP [place] [employer] NON NSPG PCP S[place] [employer] NON NSPG PCP [place] [employer] NON NSPG PCP [place] [employer] Care Teams Coat Check Attendant Relationship Specialty Start Date End Date Joana Martinez NP [address] [place] [id number] [email or web address] PCP - General Nurse Practitioner 06/26/24 Additional Source Comments The information contained in this document represents components of the legal health record. It is not the complete legal health record.[facility]
--- OUTSIDE RECORDS SUMMARY | 2025-08-11 15:16 | XMS_ITS | Encounter Summary ---
Author Organization [employer] Address [address] [place] [address] 7 [place] [address] Care Team Providers Care Package Center Supervisor Name Role Phone Billie Hdz Unavailable Unavailable Sanjeev Barbosa Primary Care Provider [phone] Encounter Details Date Type Department Care Team (Latest Contact Info) Description 03/04/2021 Abstract [facility] CONVERSIONS Dental, Provider, DDS Social History [...] on filedocumented in this encounter Care Teams Package Center Supervisor Relationship Specialty Start Date End Date Sanjeev Barbosa [address] [place] [address] PCP - General 08/30/24 Billie Hdz Health Navigator 07/22/24 documented as of this encounter
--- OUTSIDE RECORDS SUMMARY | 2025-08-11 15:16 | XMS_ITS | Clinical Summary ---
Author Organization [email or web address] Address [address] [place] [address] [address] [place] [address] Care Team Providers Care Registered Diet Technician Name Role Phone Billie Hdz Unavailable Unavailable Sanjeev Barbosa Primary Care Provider [phone] Active Problems Problem Noted Date Diagnosed Date [...] Insurance [facility] Care Teams Registered Diet Technician Relationship Specialty Start Date End Date Sanjeev Barbosa [address] [place] [address] PCP - General 08/30/24 Billie Hdz [facility] Navigator 07/22/24
== END 2025-08-11 13:33 | disposition home or self-care (01) ==
LOC: HO.ENCR 12:54
PROVIDERS: PCP Nurse Practitioner Family; Visit Provider Internal Medicine Endocrinology, Diabetes & Metabolism
DX: E11.9 Type 2 diabetes mellitus without complications (principal)
CPT/HCPCS: 99214

== ENCOUNTER → 2025-08-11 12:53 | Outpatient (BNVA) | payer OTHER, SELFPAY | PROVIDERS: PCP Nurse Practitioner Family; Visit Provider Internal Medicine Endocrinology, Diabetes & Metabolism | DX: E11.9 Type 2 diabetes mellitus without complications (principal); Z79.84 Long term (current) use of oral hypoglycemic drugs; Z79.85 Long-term (current) use of injectable non-insulin antidiabetic drugs | CPT/HCPCS: 82947; 99212 ==

== ENCOUNTER 2025-09-08 13:59 | Outpatient (AMB) | payer OTHER, SELFPAY ==
[2025-09-08 14:03] VITALS: BMI 28.7
--- NOTE | 2025-09-08 14:03 | MHC.OFFVIS ---
Vital Signs 09/08/25 14:03 Height 5 ft 8 in Weight 189 lb BMI 28.7 Intake Visit Reasons: PO RT RTC repair 07/02/25 N-6 WK follow up Intake Note: Lucia is a 55 year old right hand dominant female who presents today for a post operative appointment about 9 weeks s/p Right RTC Repair 07/02/25. She continues to work with [facility]. Patient reports that she is doing well, she is struggling with continued soreness of the right shoulder. She feels as though its not healing, occasionally feels that the shoulder is coming out of place and clicking back in. Now the left shoulder is painful which she feels is due to overuse. She has used compounding cream in the past which was helpful for her - this was a coumpounding cream. She is interested in having more of this prescribed. Allergies amitriptyline Allergy (Severe, Verified 09/08/25 14:07) nightmares aspirin (ASA) Allergy (Severe, Verified 09/08/25 14:07) asthma exacerbation duloxetine (Cymbalta) Allergy (Intermediate, Verified 09/08/25 14:07) loopy gabapentin Allergy (Intermediate, Verified 09/08/25 14:07) loopy iodine Allergy (Intermediate, Verified 09/08/25 14:07) Blister morphine Allergy (Intermediate, Verified 09/08/25 14:07) migraine/somnolence NSAIDS (Non-Steroidal Anti-Inflamma (NSAIDS (NON-STEROIDAL ANTI-INFLAMMA) Allergy (Intermediate, Verified 09/08/25 14:07) asthma exacerbation pregabalin Allergy (Intermediate, Verified 09/08/25 14:07) loopy tramadol (TRAMADOL) Allergy (Intermediate, Verified 09/08/25 14:07) tachycardia codeine (CODEINE) Allergy (Mild, Verified 09/08/25 14:07) Rash piperacillin (From Zosyn) Allergy (Mild, Verified 09/08/25 14:07) Rash tazobactam (From Zosyn) Allergy (Mild, Verified 09/08/25 14:07) Rash HPI HPI PO RT RTC repair 07/02/25 N-6 WK follow up: Details: Lucia is a 55 year old right hand dominant female who presents today for a post operative appointment about 9 weeks s/p Right RTC Repair 07/02/25. She continues to work with [facility]. Patient reports that she is doing well, she is struggling with continued soreness of the right shoulder. She feels as though its not healing, occasionally feels that the shoulder is coming out of place and clicking back in. Now the left shoulder is painful which she feels is due to overuse. She has used compounding cream in the past which was helpful for her - this was a coumpounding cream. She is interested in having more of this prescribed. She remains out of work at this time [facility] Medical History Herpes simplex Sleep apnea treated with continuous positive airway pressure (CPAP) BMI 35.0-35.9,adult Obesity Rotator cuff tear Diabetes 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 [place] (obstructive sleep apnea) ADD (attention deficit disorder) Anxiety GERD (gastroesophageal reflux disease) Low back pain Nocturnal hypoxia Paresthesia Diverticulitis Osteopenia of femoral neck Family history of premature CAD Spinal cord stimulator dysfunction Anemia IBS (irritable bowel syndrome) Tendinitis of left rotator cuff Hypogammaglobulinemia Asthma-COPD overlap syndrome Chronic depression Fibromyalgia Surgical History Hx of blepharoplasty Hx of cataract surgery S/P insertion of spinal cord stimulator History of abdominoplasty History of esophagogastroduodenoscopy (EGD) S/P bilateral breast reduction S/P LEVI-BSO H/O colonoscopy History of sinus surgery History of left knee surgery Family History Father CVD (cardiovascular disease) Heart attack Mother CVD (cardiovascular disease) Heart attack Maternal Grandmother CVD (cardiovascular disease) Maternal Grandfather Colon cancer Paternal Grandmother No problems noted. Son No problems noted. Son No problems noted. Son No problems noted. 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 Right shoulder portals clean dry and intact. She has 40 degrees of external rotation and 90 degrees of abduction. Her arc of abduction is painless and smooth Vital Signs: BMI result Body Mass Index 28.7 Assessment & Plan Assessment & Plan (1) S/P right rotator cuff repair: Code(s): Z98.890 - Other specified postprocedural states Category: Surgical Plan: He says proximally 10 weeks status post rotator cuff repair. She is complaining of pain and discomfort but more in her left shoulder and overall she was curious whether the soreness that she has in her right shoulder is normal. I reassured her that it indeed was and that in fact her motion and mechanics appear to be in excellent shape. She appears to be doing well. I recommend she continue physical therapy. I recommend she avoid lifting. I recommend she remain out of work. She found some relief from a compounding cream that we gave her in the past and I refilled this for her. She will see me back in 2 months. Coding Level of Care Code Global (55765) Diagnoses S/P right rotator cuff repair Z98.890
== END 2025-09-08 15:09 | disposition home or self-care (01) ==
LOC: HO.HOS 14:00
PROVIDERS: PCP Nurse Practitioner Family; Visit Provider Orthopaedic Surgery
DX: Z98.890 Other specified postprocedural states (principal)
CPT/HCPCS: 99024

== ENCOUNTER → 2025-09-08 13:59 | Outpatient (BNVA) | payer OTHER, SELFPAY | PROVIDERS: PCP Nurse Practitioner Family; Visit Provider Orthopaedic Surgery | DX: Z98.890 Other specified postprocedural states (principal) | CPT/HCPCS: 99212 ==

== ENCOUNTER 2025-10-09 10:00 | Outpatient (RCR) | payer OTHER, SELFPAY ==
--- NOTE | 2025-07-16 09:54 | MHC.PT.EP ---
[facility] [place] Office [place] Office [place] Office [address] Jos Cai [address] [phone] F: [phone] F: [phone] F: [phone] F: [phone] Physical Therapy Plan of Care Date of Evaluation: 07/16/25 Date of Surgery: 07/02/25 Diagnosis: R RTC Repair 07/02 (supraspinatus) Assessment: 55 y/o R-hand dominant female s/p R supraspinatus RTC Repair with SAD on 07/02/[address] Garnett. Currently she is 2 weeks post-op and wears sling out of the house, but not while sleeping and takes off often during day. Reports difficulty with everything such as dressing, chores, toileting, reaching, lifting, bathing. Examination shows decreased R shoulder PROM, pain, strength not tested secondary to surgical precautions, and impaired postural awareness. Recommend PT 2x/week for 12 weeks to address impairments, implement HEP, and optimize functional mobility. Frequency and Duration: The patient will be seen 2x/week for 12 weeks Short Term Goals: 6 weeks I with HEP Demonstrate R shoulder PROM flexion to 150 Pt will be able to demonstrate R PROM shoulder abduction to 120 Iron Cutter Goals: 12 weeks I with HEP and self management of sx Pt will demonstrate R shoulder flexion AROM to 150 to faciliate reaching Pt will be able to perform toileting with pain < 3/10 Treatment Plan: Modalities to reduce pain, spasms and effusion. Manual therapy to restore motion and function. Therapeutic exercise to improve strength and flexibility. Neuromuscular re-education for posture and balance. Therapeutic activities to return to functional activities of daily living. Electronically signed by: Maggie Crenshaw PT Please sign and return to therapist. Thank you for your referral.
--- NOTE | 2025-10-09 11:11 | MHC.PT.DC ---
[facility] [place] Office [place] Office [place] Office [address] Jos Cai [address] [phone] F: [phone] F: [phone] F: [phone] F: [phone] Physical Therapy Discharge Report Diagnosis: R RTC Repair 07/02 (supraspinatus) Date of Surgery: 07/02/25 Date of Evaluation: 07/16/25 Date of Discharge: 10/09/25 Treatments to Date: 10 Cancellations to Date: 0 No Shows to Date: 0 Discharge Status: Achieved Goals Improved Function Independent with HEP Discharge Summary: Overall pt is doing well with ROM WFL, improved strength and function. SPADI 14/130. Reviewed HEP and discussed how to progress resistance over time. At this time approrpiate for d/c. Electronically signed by: Maggie Crenshaw PT Please sign and return to therapist. Thank you for your referral.
== END 2025-10-09 11:11 | disposition home or self-care (01) ==
LOC: HO.PT 10:00
PROVIDERS: PCP Nurse Practitioner Family; Visit Provider Physician Assistant
DX: Z47.89 Encounter for other orthopedic aftercare (principal)
CPT/HCPCS: 97110; 97140; 97161